=== PATIENT | male | born 1930 | race Caucasian/White ===

== ENCOUNTER → 2016-10-04 | Outpatient (CLI) | payer MEDICARE, OTHER ==
--- NOTE | 2016-10-04 09:57 | US ---
EXAMINATION TYPE: US kidneys/renal and bladder DATE OF EXAM: 10/04/2016 8:46 AM COMPARISON: CT abdomen and pelvis January 02, 2016. Prior renal ultrasound December 31, 2015. CLINICAL HISTORY: Renal Failure N19. hx of renal cyst EXAM MEASUREMENTS: Right Kidney: 9.0 x 4.0 x 4.4 cm Left Kidney: 8.7 x 4.0 x 4.4 cm TECHNOLOGIST IMPRESSION: Right Kidney: lower pole simple cyst= 0.8 x 1.0 x 0.9 cm Left Kidney: lower pole simple cyst= 1.0 x 0.9 x 0.8 cm Bladder: Suboptimally distended, wnl Left Jet seen There is no evidence for hydronephrosis at this point in time. No masses are identified. The urinar y bladder is not greatly distended but there is no intraluminal mass or abnormal wall thickening seen . Distal left ureteral jet is seen. Right jet is not clearly identified. There is slight diminished size to both kidneys with slight cortical thinning, finding presumed on ba sis of product of chronic medical renal disease. IMPRESSION: No hydronephrosis is evident bilaterally.
== END | disposition home or self-care (01) ==
LOC: RADUSWWP 08:15
PROVIDERS: ATTEND Family Medicine
DX: N19 Unspecified kidney failure (principal)
CPT/HCPCS: 76770

== ENCOUNTER 2016-10-13 11:44 | Emergency (ER) | payer MEDICARE, OTHER ==
[2016-10-13 12:00] VITALS: BP 129/71; PULSE 89; RESP 20; TEMP 96.9
[2016-10-13] MEDS ORDERED: diphenhydrAMINE 50 MG CAP PO STA (12:23)
[2016-10-13] MEDS ORDERED: predniSONE 20 MG TAB PO STA (12:24)
[2016-10-13] MEDS ORDERED: FAMOTIDINE 20 MG TAB PO STA (12:24)
--- NOTE | 2016-10-13 12:28 | ED ---
Skin/Abscess/FB HPI - General Chief complaint: Skin/Abscess/Foreign Body Stated complaint: rash Time Seen by Provider: 10/13/16 12:02 Source: patient, RN notes reviewed Mode of arrival: wheelchair Limitations: no limitations - History of Present Illness Initial comments: This patient is an 86-year-old man who presents to be evaluated for a rash that he believes is a reaction to something he had eaten last night for dinner. The patient states she was feeling well when he went to sleep but woke with itching. He noticed that he had a rash to both arms and legs as well as his trunk. The patient denies any other new exposures that he is aware of. He is denying any mucous membrane involvement of the rash. He denies swelling of the lips or gums or tongue. Patient is not having any cough or wheezing. Patient denies any nausea, vomiting or diarrhea. MD complaint: rash -: hour(s) Tetanus Up to Date: yes Location: generalized Severity: moderate Quality: other (Itching) Consistency: constant Improves with: none Worsens with: none Context: none Associated symptoms: denies other symptoms - Related Data Home Medications Medication Instructions Recorded Confirmed DULoxetine HCL [Cymbalta] 30 mg PO DAILY 12/29/15 10/13/16 Gabapentin [Neurontin] 100 mg PO TID 12/29/15 10/13/16 HYDROcodone/APAP 10-325MG [[place] 1 tab PO TID PRN 12/29/15 10/13/16 10-325] Isosorbide Mononitrate [Ismo] 20 mg PO DAILY 12/29/15 10/13/16 Levothyroxine Sodium [Levoxyl] 75 mcg PO DAILY 12/29/15 10/13/16 Lisinopril [Prinivil] 10 mg PO DAILY 12/29/15 10/13/16 Multivitamin [Men's Multi-Vitamin] 1 tab PO DAILY 12/29/15 10/13/16 Pravastatin Sodium [Pravachol] 40 mg PO DAILY 12/29/15 10/13/16 amLODIPine [Norvasc] 5 mg PO DAILY 12/29/15 10/13/16 Previous Rx's Medication Instructions Recorded Ipratropium-Albuterol Nebulize 3 ml INHALATION RT-QID #120 01/03/16 [Duoneb 0.5 mg-3 mg/3 ml Soln] ampul.neb traMADol HCl [Ultram] 50 mg PO Q6H PRN #20 tab 07/14/16 Azithromycin [Zithromax] 500 mg PO DAILY #7 tab 07/23/16 predniSONE 0 mg PO DIRECTED #40 tab 07/23/16 Famotidine [Pepcid] 20 mg PO DAILY #14 tablet 10/13/16 diphenhydrAMINE HCL [Benadryl] 25 mg PO Q4HR PRN 28 Days 10/13/16 predniSONE 20 mg PO BID #8 tab 10/13/16 Allergies Allergy/AdvReac Type Severity Reaction Status Date / Time No Known Allergies Allergy Verified 10/13/16 12:00 Review of Systems ROS Statement: Those systems with pertinent positive or pertinent negative responses have been documented in the HPI. ROS Other: All systems not noted in ROS Statement are negative. Constitutional: Denies: fever, chills Eyes: Denies: eye pain, eye discharge, vision change ENT: Denies: throat pain, congestion Respiratory: Denies: cough, dyspnea, wheezes Cardiovascular: Denies: chest pain Gastrointestinal: Denies: abdominal pain, nausea, vomiting, diarrhea Genitourinary: Denies: dysuria Skin: Reports: rash Neurological: Denies: headache Past Medical History Past Medical History: Coronary Artery Disease (CAD), COPD, Hyperlipidemia, Hypertension, Thyroid Disorder Additional Past Medical History / Comment(s): Benign prostatic hypertrophy History of Any Multi-Drug Resistant Organisms: None Reported Past Surgical History: Back Surgery, Cholecystectomy, Orthopedic Surgery Additional Past Surgical History / Comment(s): Bilateral cataract removal and lens implants, left knee open surgery, EGD, heart catheterization. Patient has never had a colonoscopy. Past Anesthesia/Blood Transfusion Reactions: No Reported Reaction Past Psychological History: No Psychological Hx Reported Smoking Status: Current some day smoker Past Alcohol Use History: None Reported Additional Past Alcohol Use History / Comment(s): Perla Looney hasn't been a smoker of cigars since he was 16 years of age. He is currently smoking one small cigar per day. He quit marijuana many years ago. He denies any other street drug use. He denies any alcohol use. He lives at home with his and adult grandson. Past Drug Use History: Marijuana - Past Family History Mother Family Medical History: Cancer Additional Family Medical History / Comment(s): Mother at age 96 Unsure what type of cancer Father Family Medical History: COPD Additional Family Medical History / Comment(s): Father at age 88 from emphysema Brother(s) Additional Family Medical History / Comment(s): Patient has 7 brothers. Sister(s) Additional Family Medical History / Comment(s): Patient has 1 sister. Daughter(s) Additional Family Medical History / Comment(s): He has 4 daughters and 2 sons. General Exam Limitations: no limitations General appearance: alert, in no apparent distress Head exam: Present: atraumatic, normocephalic Eye exam: Present: normal appearance. Absent: scleral icterus, conjunctival injection, periorbital swelling ENT exam: Present: normal oropharynx, mucous membranes moist Respiratory exam: Present: normal lung sounds bilaterally. Absent: respiratory distress, wheezes, rales, rhonchi, stridor Cardiovascular Exam: Present: regular rate, normal rhythm, normal heart sounds. Absent: systolic murmur, diastolic murmur, rubs, gallop GI/Abdominal exam: Present: soft. Absent: tenderness, guarding, rebound Extremities exam: Present: normal inspection, normal capillary refill. Absent: pedal edema, calf tenderness Neurological exam: Present: alert Skin exam: Present: warm, dry, intact, normal color, rash, urticaria (Patient has urticaria to both arms and legs as well as the trunk. There is some confluence of the hives in the axilla eye laterally and also on the bilateral hips.). Absent: diaphoretic, petechiae, pallor, mottled Course Vital Signs 10/13/16 11:58 Temperature 96.9 F L Pulse Rate 89 Respiratory 20 Rate Blood Pressure 129/71 O2 Sat by Pulse 95 Oximetry Disposition Clinical Impression: Urticaria Disposition: HOME SELF-CARE Condition: Good Instructions: Urticaria (ED) Prescriptions: Famotidine [Pepcid] 20 mg PO DAILY #14 tablet diphenhydrAMINE HCL [Benadryl] 25 mg PO Q4HR PRN 28 Days PRN Reason: Rash predniSONE 20 mg PO BID #8 tab Referrals: Alen Champion MD [Primary Care Provider] - 1-2 days
== END 2016-10-13 13:18 | disposition home or self-care (01) ==
LOC: EC 11:44
DX: L50.9 Urticaria, unspecified (principal); I25.10 Atherosclerotic heart disease of native coronary artery without angina pectoris; J44.9 Chronic obstructive pulmonary disease, unspecified; I10 Essential (primary) hypertension; E78.5 Hyperlipidemia, unspecified; E07.9 Disorder of thyroid, unspecified; F17.210 Nicotine dependence, cigarettes, uncomplicated; Z79.52 Long term (current) use of systemic steroids; Z79.899 Other long term (current) drug therapy
CPT/HCPCS: 99282; J7512

== ENCOUNTER → 2016-10-28 | Outpatient (CLI) | payer MEDICARE, OTHER ==
--- NOTE | 2016-10-28 11:59 | US ---
EXAMINATION TYPE: US scrotum with doppler. Grayscale and color Doppler Duplex imaging performed of t jimy scrotum. DATE OF EXAM: 10/28/2016 11:33 AM COMPARISON: No previous CLINICAL HISTORY: Rt Testicular Pain N50.811. Right testicular pain and swelling EXAM MEASUREMENTS: TESTICLES: Right Testicle: 3.4 x 2.1 x 2.6 cm, heterogeneous Left Testicle: 3.8 x 1.8 x 2.5 cm, heterogeneous EPIDIDYMIS HEAD: Right Epididymis: 1.7 x 2.7 x 3.2 cm Left Epididymis: 0.7 x 1.2 x 2.1 cm Doppler performed to assess for testicular vascularity; good arterial color flow within bilateral rach ticles is seen, unable to obtain venous flow within bilateral testicles. Right epididymis: 1.4 x 2.0 x 3.0cm cystic area Left epididymis: 0.6 x 0.8 x 0.9cm complex cystic area Presence of hydroceles: right 5.3cm, left 3.6cm Presence of varicoceles: no Right medial to epididymis: 1.6 x 1.4 x 1.5cm mobile hypoechoic area with echogenic shadowing cente r IMPRESSION: 1. There are bilateral epididymal head cysts with some complexity to the region on the left. Epididym itis in the differential. 2. Bilateral hydroceles 3. No discrete mass seen within the testes. The tissue however is heterogeneous bilaterally which cou ld be correlated with serum tumor markers as necessary #4 there is a hypoechoic nodule medial to the right epididymis within the scrotal sac measuring 1.6 x 1.5 cm with a central area of calcification. This appears separate from both the test the and the epididymis. Small mass in the differential. Kalie elate clinically.
== END ==
LOC: RADUSWWP 11:02
PROVIDERS: ATTEND Family Medicine
DX: N50.3 Cyst of epididymis (principal); N43.3 Hydrocele, unspecified; N50.811 Right testicular pain
CPT/HCPCS: 76870; 93976

== ENCOUNTER → 2016-11-26 | Outpatient (CLI) | payer MEDICARE, OTHER ==
--- NOTE | 2016-11-26 12:27 | XR ---
EXAMINATION TYPE: XR Hip Complete RT DATE OF EXAM: 11/26/2016 12:17 PM COMPARISON: NONE HISTORY: Pain TECHNIQUE: 2 views submitted FINDINGS: There is no evidence of erosive change or acute fracture. Hypertrophic change noted. 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 Mild to moderate axial narrowing of the joint spa ce. IMPRESSION: 1. Arthropathy of the hip. 2. Correlate for acetabular labral tear..
== END | disposition home or self-care (01) ==
LOC: RADXRMAIN 12:01
PROVIDERS: ATTEND Physician Assistant
DX: M12.851 Other specific arthropathies, not elsewhere classified, right hip (principal)
CPT/HCPCS: 73502

== ENCOUNTER 2017-01-14 11:07 | Inpatient (IN) | payer MEDICARE, OTHER ==
[2017-01-14] MEDS ORDERED: ALBUTEROL NEBULIZED 2.5 MG/3 ML INHALATION STA (12:13)
[2017-01-14] MEDS ORDERED: SODIUM CHLORIDE 0.9% 1,000 ML IV STA ×2 (12:13→13:37)
[2017-01-14] MEDS ORDERED: methylPREDNISolone SOD SUCCI 125 MG/2 ML VIAL IV STA (12:13)
[2017-01-14] MEDS ORDERED: IPRATROPIUM 0.5 MG/2.5 ML NEBU INHALATION STA (12:13)
--- NOTE | 2017-01-14 12:13 | ED ---
General Adult HPI - General Chief complaint: Shortness of Breath Stated complaint: Chest Pain, SOB Time Seen by Provider: 01/14/17 11:54 Source: patient, RN notes reviewed, old records reviewed Mode of arrival: wheelchair Limitations: no limitations - History of Present Illness Initial comments: This is a 86-year-old male the ER for evaluation. This patient today presents for evaluation of shortness of breath. Increasing shortness of breath cough congestion. Patient states 4 days of shortness of breath. History of COPD history of smoking. No chest pain. No travel history no sick contacts, patient denies fevers - Related Data Home Medications Medication Instructions Recorded Confirmed DULoxetine HCL [Cymbalta] 30 mg PO DAILY 12/29/15 10/13/16 Gabapentin [Neurontin] 100 mg PO TID 12/29/15 10/13/16 HYDROcodone/APAP 10-325MG [[place] 1 tab PO TID PRN 12/29/15 10/13/16 10-325] Isosorbide Mononitrate [Ismo] 20 mg PO DAILY 12/29/15 10/13/16 Levothyroxine Sodium [Levoxyl] 75 mcg PO DAILY 12/29/15 10/13/16 Lisinopril [Prinivil] 10 mg PO DAILY 12/29/15 10/13/16 Multivitamin [Men's Multi-Vitamin] 1 tab PO DAILY 12/29/15 10/13/16 Pravastatin Sodium [Pravachol] 40 mg PO DAILY 12/29/15 10/13/16 amLODIPine [Norvasc] 5 mg PO DAILY 12/29/15 10/13/16 Previous Rx's Medication Instructions Recorded Ipratropium-Albuterol Nebulize 3 ml INHALATION RT-QID #120 01/03/16 [Duoneb 0.5 mg-3 mg/3 ml Soln] ampul.neb traMADol HCl [Ultram] 50 mg PO Q6H PRN #20 tab 07/14/16 Azithromycin [Zithromax] 500 mg PO DAILY #7 tab 07/23/16 predniSONE 0 mg PO DIRECTED #40 tab 07/23/16 Famotidine [Pepcid] 20 mg PO DAILY #14 tablet 10/13/16 diphenhydrAMINE HCL [Benadryl] 25 mg PO Q4HR PRN 28 Days 10/13/16 predniSONE 20 mg PO BID #8 tab 10/13/16 Allergies Allergy/AdvReac Type Severity Reaction Status Date / Time No Known Allergies Allergy Verified 01/14/17 11:30 Review of Systems ROS Statement: Those systems with pertinent positive or pertinent negative responses have been documented in the HPI. ROS Other: All systems not noted in ROS Statement are negative. Past Medical History Past Medical History: Coronary Artery Disease (CAD), COPD, Hyperlipidemia, Hypertension, Thyroid Disorder Additional Past Medical History / Comment(s): Benign prostatic hypertrophy History of Any Multi-Drug Resistant Organisms: None Reported Past Surgical History: Back Surgery, Cholecystectomy, Orthopedic Surgery Additional Past Surgical History / Comment(s): Bilateral cataract removal and lens implants, left knee open surgery, EGD, heart catheterization. Patient has never had a colonoscopy. Past Anesthesia/Blood Transfusion Reactions: No Reported Reaction Past Psychological History: No Psychological Hx Reported Smoking Status: Current some day smoker Past Alcohol Use History: None Reported Additional Past Alcohol Use History / Comment(s): Perla Looney hasn't been a smoker of cigars since he was 16 years of age. He is currently smoking one small cigar per day. He quit marijuana many years ago. He denies any other street drug use. He denies any alcohol use. He lives at home with his and adult grandson. Past Drug Use History: Marijuana - Past Family History Mother Family Medical History: Cancer Additional Family Medical History / Comment(s): Mother at age 96 Unsure what type of cancer Father Family Medical History: COPD Additional Family Medical History / Comment(s): Father at age 88 from emphysema Brother(s) Additional Family Medical History / Comment(s): Patient has 7 brothers. Sister(s) Additional Family Medical History / Comment(s): Patient has 1 sister. Daughter(s) Additional Family Medical History / Comment(s): He has 4 daughters and 2 sons. General Exam Limitations: no limitations General appearance: alert, in no apparent distress Head exam: Present: atraumatic, normocephalic, normal inspection Eye exam: Present: normal appearance, PERRL, EOMI. Absent: scleral icterus, conjunctival injection, periorbital swelling ENT exam: Present: mucous membranes dry, mucous membranes moist Neck exam: Present: normal inspection. Absent: tenderness, meningismus, lymphadenopathy Respiratory exam: Present: normal lung sounds bilaterally, wheezes, accessory muscle use, decreased breath sounds, prolonged expiratory. Absent: respiratory distress, rales, rhonchi, stridor Cardiovascular Exam: Present: regular rate, normal rhythm, normal heart sounds. Absent: systolic murmur, diastolic murmur, rubs, gallop, clicks GI/Abdominal exam: Present: soft, normal bowel sounds. Absent: distended, tenderness, guarding, rebound, rigid Extremities exam: Present: normal inspection, full ROM, normal capillary refill. Absent: tenderness, pedal edema, joint swelling, calf tenderness Back exam: Present: normal inspection Neurological exam: Present: alert, oriented X3, CN II-XII intact Psychiatric exam: Present: normal affect, normal mood Skin exam: Present: warm, dry, intact, normal color. Absent: rash Course Vital Signs 01/14/17 01/14/17 01/14/17 11:25 12:27 12:46 Temperature 98.2 F Pulse Rate 85 85 78 Respiratory 22 18 Rate Blood Pressure 166/81 140/67 O2 Sat by Pulse 96 97 Oximetry 01/14/17 13:27 Temperature Pulse Rate 73 Respiratory Rate Blood Pressure O2 Sat by Pulse Oximetry - Reevaluation(s) Reevaluation #1: 01/14/17 12:20 Patient does have continuing shortness of breath although not improve with breathing treatment, per records recent hospital admission about a year ago Reevaluation #2: 01/14/17 13:38 Mild improvement after breathing treatment, still with shortness of breath Medical Decision Making - Medical Decision Making 86 mailed ER physician shortness with cough congestion episodic fevers. Positive COPD exacerbation, severe shortness of breath, no improvement with breathing treatment, patient be admitted for continued breathing treatments, IV hydration and steroids. - Lab Data Result diagrams: 01/14/17 12:25 01/14/17 12:25 Lab Results 01/14/17 01/14/17 01/14/17 Range/Units 12:25 12:25 12:25 WBC 12.0 H (3.8-10.6) k/uL RBC 4.33 (4.30-5.90) m/uL Hgb 13.9 (13.0-17.5) gm/dL Hct 43.4 (39.0-53.0) % MCV 100.2 H (80.0-100.0) fL MCH 32.1 (25.0-35.0) pg MCHC 32.1 (31.0-37.0) g/dL RDW 12.9 (11.5-15.5) % Plt Count 263 (150-450) k/uL Neutrophils % 73 % Lymphocytes % 13 % Monocytes % 10 % Eosinophils % 2 % Basophils % 0 % Neutrophils # 8.7 H (1.3-7.7) k/uL Lymphocytes # 1.6 (1.0-4.8) k/uL Monocytes # 1.2 H (0-1.0) k/uL Eosinophils # 0.3 (0-0.7) k/uL Basophils # 0.1 (0-0.2) k/uL PT (9.0-12.0) sec INR (<1.1) APTT (22.0-30.0) sec Sodium 140 (137-145) mmol/L Potassium 4.2 (3.5-5.1) mmol/L Chloride 107 (98-107) mmol/L Carbon Dioxide 21 L (22-30) mmol/L Anion Gap 12 mmol/L BUN 28 H (9-20) mg/dL Creatinine 1.46 H (0.66-1.25) mg/dL Est GFR (MDRD) Af Amer 56 (>60 ml/min/1.73 sqM) Est GFR (MDRD) Non-Af 46 (>60 ml/min/1.73 sqM) Glucose 141 H (74-99) mg/dL Calcium 9.1 (8.4-10.2) mg/dL Magnesium 2.0 (1.6-2.3) mg/dL Total Bilirubin 1.2 (0.2-1.3) mg/dL AST 22 (17-59) U/L ALT 24 (21-72) U/L Alkaline Phosphatase 74 (38-126) U/L Total Creatine Kinase 105 (55-170) U/L CK-MB (CK-2) 2.2 (0.0-2.4) ng/mL CK-MB (CK-2) Rel Index 2.1 Troponin I <0.012 (0.000-0.034) ng/mL NT-Pro-B Natriuret Pep pg/mL Total Protein 6.7 (6.3-8.2) g/dL Albumin 3.9 (3.5-5.0) g/dL 01/14/17 01/14/17 Range/Units 12:25 12:25 WBC (3.8-10.6) k/uL RBC (4.30-5.90) m/uL Hgb (13.0-17.5) gm/dL Hct (39.0-53.0) % MCV (80.0-100.0) fL MCH (25.0-35.0) pg MCHC (31.0-37.0) g/dL RDW (11.5-15.5) % Plt Count (150-450) k/uL Neutrophils % % Lymphocytes % % Monocytes % % Eosinophils % % Basophils % % Neutrophils # (1.3-7.7) k/uL Lymphocytes # (1.0-4.8) k/uL Monocytes # (0-1.0) k/uL Eosinophils # (0-0.7) k/uL Basophils # (0-0.2) k/uL PT 10.0 (9.0-12.0) sec INR 1.0 (<1.1) APTT 28.8 (22.0-30.0) sec Sodium (137-145) mmol/L Potassium (3.5-5.1) mmol/L Chloride (98-107) mmol/L Carbon Dioxide (22-30) mmol/L Anion Gap mmol/L BUN (9-20) mg/dL Creatinine (0.66-1.25) mg/dL Est GFR (MDRD) Af Amer (>60 ml/min/1.73 sqM) Est GFR (MDRD) Non-Af (>60 ml/min/1.73 sqM) Glucose (74-99) mg/dL Calcium (8.4-10.2) mg/dL Magnesium (1.6-2.3) mg/dL Total Bilirubin (0.2-1.3) mg/dL AST (17-59) U/L ALT (21-72) U/L Alkaline Phosphatase (38-126) U/L Total Creatine Kinase (55-170) U/L CK-MB (CK-2) (0.0-2.4) ng/mL CK-MB (CK-2) Rel Index Troponin I (0.000-0.034) ng/mL NT-Pro-B Natriuret Pep 658 pg/mL Total Protein (6.3-8.2) g/dL Albumin (3.5-5.0) g/dL - Radiology Data Radiology results: report reviewed (Chest x-ray shows reactive airway disease), image reviewed Disposition Clinical Impression: Acute exacerbation of chronic obstructive airways disease, Hypoxia, Leukocytosis, Dehydration Disposition: ADMITTED IP TO THIS HOSP Condition: Fair Referrals: Alen Champion MD [Primary Care Provider] - 1-2 days
[2017-01-14 12:47] LABS: Basophils # (A) 0.1 k/uL (0-0.2); Basophils % (A) 0 %; CHCM 33.1; Eosinophils # (A) 0.3 k/uL (0-0.7); Eosinophils % (A) 2 %; HCT 43.4 % (39.0-53.0); HDW 2.28; HGB 13.9 gm/dL (13.0-17.5); Luc # (Auto) 0.24; Luc % (Auto) 2; Lymphocytes # (A) 1.6 k/uL (1.0-4.8); Lymphocytes % (A) 13 %; MCH 32.1 pg (25.0-35.0); MCHC 32.1 g/dL (31.0-37.0); MCV 100.2 fL (80.0-100.0); Monocytes # (A) 1.2 k/uL (0-1.0); Monocytes % (A) 10 %; Neutrophils # (A) 8.7 k/uL (1.3-7.7); Neutrophils % (A) 73 %; RBC 4.33 m/uL (4.30-5.90); RDW 12.9 % (11.5-15.5)
[2017-01-14 12:48] LABS: Partial Thromboplastin Time 28.8 sec (22.0-30.0)
[2017-01-14 13:03] LABS: Creatine Kinase 105 U/L (55-170)
[2017-01-14 13:16] LABS: Creatine Kinase MB 2.2 ng/mL (0.0-2.4); Troponin I <0.012 ng/mL (0.000-0.034)
[2017-01-14 13:25] LABS: Calcium 9.1 mg/dL (8.4-10.2); Potassium 4.2 mmol/L (3.5-5.1); Total Bilirubin 1.2 mg/dL (0.2-1.3); Total Protein 6.7 g/dL (6.3-8.2)
[2017-01-14] MEDS ORDERED: PNEUMONIA PROTOCOL UTILIZED 1 EACH MISC PO PRN (13:35)
[2017-01-14] MEDS ORDERED: SODIUM CHLORIDE 0.9% 500 ML IV STA (13:37)
[2017-01-14] MEDS ORDERED: AZITHROMYCIN 500 MG in SODIUM CHLORIDE 0.9% 250 ML IVPB STA (13:38)
--- NOTE | 2017-01-14 14:12 | XR ---
EXAMINATION TYPE: XR chest 1V portable DATE OF EXAM: 01/14/2017 12:33 PM COMPARISON: 07/21/2016 INDICATION: Short of breath, productive cough x5 days TECHNIQUE: Single frontal view of the chest is obtained. FINDINGS: The heart size is normal. The pulmonary vasculature is normal. The lungs are clear. Previous left lung infiltrate is resolved. IMPRESSION: 1. No acute pulmonary process.
[2017-01-14 15:30] VITALS: BMI 24.5
[2017-01-14] MEDS ORDERED: MECLIZINE 25 MG TAB PO PRN (15:34)
[2017-01-14] MEDS: HYDROcodone/APAP 10-325MG 1 EACH TAB PO PRN (15:55)
[2017-01-14] MEDS: IPRATROPIUM-ALBUTEROL 3 ML NEB INHALATION SCH ×2 (16:06→20:10)
[2017-01-14] MEDS: GABAPENTIN 100 MG CAP PO SCH ×2 (16:52→21:43)
[2017-01-14] MEDS: SODIUM CHLORIDE 0.9% 1,000 ML IV SCH ×2 (16:52→20:35)
[2017-01-14] MEDS: methylPREDNISolone SOD SUCCI 125 MG/2 ML VIAL IV SCH ×2 (16:52→23:08)
[2017-01-14] MEDS: MONTELUKAST 10 MG TAB PO SCH (20:36)
[2017-01-14 20:42] LABS: Glucose,Whole Blood 218 mg/dL (75-99)
[2017-01-14] MEDS: INSULIN LISPRO (humaLOG) 300 UNIT/3 ML VIAL SQ SCH (21:43)
[2017-01-14] MEDS: traMADol 50 MG TAB PO PRN (21:48)
[2017-01-15] MEDS: HYDROcodone/APAP 10-325MG 1 EACH TAB PO PRN ×2 (01:06→23:17)
[2017-01-15] MEDS: methylPREDNISolone SOD SUCCI 125 MG/2 ML VIAL IV SCH ×4 (05:21→23:15)
[2017-01-15] MEDS: LEVOTHYROXINE 75 MCG TAB PO SCH (05:21)
[2017-01-15] MEDS: IPRATROPIUM-ALBUTEROL 3 ML NEB INHALATION SCH ×4 (07:12→20:57)
[2017-01-15 07:43] LABS: Glucose,Whole Blood 139 mg/dL (75-99)
[2017-01-15] MEDS: ENOXAPARIN 40 MG/0.4 ML SYRINGE SQ SCH (07:59)
[2017-01-15] MEDS: ISOSORBIDE MONONITRATE 20 MG TAB PO SCH (07:59)
[2017-01-15] MEDS: GABAPENTIN 100 MG CAP PO SCH ×3 (07:59→20:13)
[2017-01-15] MEDS: INSULIN LISPRO (humaLOG) 300 UNIT/3 ML VIAL SQ SCH ×4 (07:59→20:58)
[2017-01-15] MEDS: PRAVASTATIN SODIUM 40 MG TAB PO SCH (08:00)
[2017-01-15] MEDS: DULoxetine HCL 30 MG CAPSULE.DR PO SCH (08:00)
[2017-01-15] MEDS: FAMOTIDINE 20 MG TAB PO SCH (08:00)
[2017-01-15] MEDS: LISINOPRIL 10 MG TAB PO SCH (08:00)
[2017-01-15] MEDS: amLODIPine 5 MG TAB PO SCH (08:00)
[2017-01-15] MEDS: SODIUM CHLORIDE 0.9% 1,000 ML IV SCH ×2 (08:01→16:06)
--- NOTE | 2017-01-15 08:37 | XR ---
EXAMINATION TYPE: XR chest 2V DATE OF EXAM: 01/15/2017 7:13 AM COMPARISON: Chest x-ray from yesterday. Older chest x-ray and CT chest July 21, 2016. HISTORY: Pneumonia progress study. TECHNIQUE: Frontal and lateral views of the chest are obtained. FINDINGS: There is is background of mild chronic emphysematous change. There is left midlung lateral linear scarring or atelectasis. There is new patchy left basilar atelectasis and/or infiltrate. Righ t lung remains clear. No pleural effusion or pneumothorax is seen bilaterally. The cardiac silhouett e size is within normal limits with atherosclerotic thoracic aorta. The osseous structures are aniceto neralized. IMPRESSION: Chronic changes with new patchy left basilar atelectasis and/or infiltrate, progress liliane dy advised.
[2017-01-15 11:43] LABS: Glucose,Whole Blood 123 mg/dL (75-99)
[2017-01-15 12:31] LABS: Hemoglobin A1C 6.3 % (4.2-6.1)
[2017-01-15] MEDS: AZITHROMYCIN 500 MG in SODIUM CHLORIDE 0.9% 250 ML IVPB SCH (13:13)
[2017-01-15] MEDS: MULTIVITAMINS, THERA 1 EACH TAB PO SCH (13:14)
--- NOTE | 2017-01-15 14:23 | P.HPIM ---
History of Present Illness 46-year-old male was brought to the emergency room with complaints of increasing shortness of breath with cough. Patient has history of COPD smoking. Chest x-ray shows reactive airway disease Review of Systems Constitutional: Reports fatigue Respiratory: Reports dyspnea Past Medical History Past Medical History: Coronary Artery Disease (CAD), Chest Pain / Angina, COPD, Eye Disorder, Hyperlipidemia, Hypertension, Memory Impairment, Pneumonia, Prostate Disorder, Respiratory Disorder, Rheumatoid Arthritis (RA), Thyroid Disorder Additional Past Medical History / Comment(s): Benign prostatic hypertrophy History of Any Multi-Drug Resistant Organisms: None Reported Past Surgical History: Back Surgery, Cholecystectomy, Heart Catheterization, Orthopedic Surgery Additional Past Surgical History / Comment(s): Bilateral cataract removal and lens implants, left knee open surgery, EGD, heart catheterization. Patient has never had a colonoscopy. Past Anesthesia/Blood Transfusion Reactions: No Reported Reaction Past Psychological History: No Psychological Hx Reported Smoking Status: Former smoker Past Alcohol Use History: None Reported Additional Past Alcohol Use History / Comment(s): Perla Looney hasn't been a smoker of cigars since he was 16 years of age. He is currently smoking one small cigar per day. He quit marijuana many years ago. He denies any other street drug use. He denies any alcohol use. He lives at home with his and adult grandson. Past Drug Use History: Marijuana - Past Family History Mother Family Medical History: Cancer Additional Family Medical History / Comment(s): Mother at age 96 Unsure what type of cancer Father Family Medical History: Cancer, COPD Additional Family Medical History / Comment(s): Father at age 88 from emphysema Brother(s) Additional Family Medical History / Comment(s): Patient has 7 brothers. Sister(s) Additional Family Medical History / Comment(s): Patient has 1 sister. Daughter(s) Additional Family Medical History / Comment(s): He has 4 daughters and 2 sons. Medications and Allergies Home Medications Medication Instructions Recorded Confirmed Type DULoxetine HCL [Cymbalta] 30 mg PO DAILY 12/29/15 01/14/17 History Gabapentin [Neurontin] 100 mg PO TID 12/29/15 01/14/17 History HYDROcodone/APAP 10-325MG [[place] 1 tab PO TID PRN 12/29/15 01/14/17 History 10-325] Isosorbide Mononitrate [Ismo] 20 mg PO DAILY 12/29/15 01/14/17 History Levothyroxine Sodium [Levoxyl] 75 mcg PO DAILY 12/29/15 01/14/17 History Lisinopril [Prinivil] 10 mg PO DAILY 12/29/15 01/14/17 History Multivitamin [Men's Multi-Vitamin] 1 tab PO DAILY 12/29/15 01/14/17 History Pravastatin Sodium [Pravachol] 40 mg PO DAILY 12/29/15 01/14/17 History amLODIPine [Norvasc] 5 mg PO DAILY 12/29/15 01/14/17 History Meclizine HCl 25 mg PO DAILY PRN 01/14/17 01/14/17 History Montelukast Sodium [Singulair] 10 mg PO HS 01/14/17 01/14/17 History Allergies Allergy/AdvReac Type Severity Reaction Status Date / Time No Known Allergies Allergy Verified 01/14/17 14:02 Physical Exam Vitals: Vital Signs Temp Pulse Pulse Resp BP BP Pulse Ox 01/15/17 11:43 96 01/15/17 11:35 94 01/15/17 07:30 94 01/15/17 07:20 92 01/15/17 07:00 97 F L 88 16 148/79 96 01/14/17 23:00 97.1 F L 102 H 16 149/83 96 01/14/17 20:30 89 01/14/17 20:11 95 01/14/17 16:09 75 97 01/14/17 14:50 97.3 F L 90 18 167/80 97 01/14/17 14:33 98.3 F 90 20 133/55 98 Intake and Output 01/14/17 01/15/17 01/15/17 22:59 06:59 14:59 Other: Voiding Method Toilet Toilet # Voids 2 2 Weight 84.5 kg - Constitutional General appearance: mild distress - EENT Eyes: PERRLA Ears: bilateral: normal - Neck Neck: normal ROM - Respiratory Respiratory: bilateral: diminished - Cardiovascular Rhythm: regular - Gastrointestinal General gastrointestinal: soft - Integumentary Integumentary: normal - Neurologic Neurologic: CNII-XII intact - Psychiatric Patient confused to date and year Psychiatric: A&O x's 3, appropriate affect, intact judgment & insight Results CBC & Chem 7: 01/14/17 12:25 01/14/17 12:25 Labs: Abnormal Lab Results - Last 24 Hours (Table) 01/14/17 01/14/17 01/15/17 Range/Units 12:25 20:37 07:39 POC Glucose (mg/dL) 218 H 139 H (75-99) mg/dL Hemoglobin A1c 6.3 H (4.2-6.1) % 01/15/17 Range/Units 11:37 POC Glucose (mg/dL) 123 H (75-99) mg/dL Hemoglobin A1c (4.2-6.1) % Microbiology - Last 24 Hours (Table) 01/14/17 20:13 Gram Stain - Preliminary Sputum Sputum Culture - Preliminary Chest x-ray: report reviewed Thrombosis Risk Factor Assmnt - Choose All That Apply Any of the Below Risk Factors Present?: Yes Each Factor Represents 1 point: Abnormal pulmonary function (COPD), Serious lung disease incl. pneumonia (< 1month) Other Risk Factors: Yes Each Risk Factor Represents 3 Points: Age 75 years or older Other congenital or acquired thrombophilia - If yes, enter type in comment: No Thrombosis Risk Factor Assessment Total Risk Factor Score: 5 Thrombosis Risk Factor Assessment Level: High Risk Assessment and Plan Plan: Assessment Acute exacerbation of COPD hypoxia leukocytosis history of coronary disease Hypothyroidism Hypertension Hyperlipidemia Memory impairment Rheumatoid arthritis BPH Plan Pulmonology consultation
[2017-01-15 15:08] LABS: Creatine Kinase MB 8.9 ng/mL (0.0-2.4); Troponin I 0.324 ng/mL (0.000-0.034)
[2017-01-15 17:07] LABS: Glucose,Whole Blood 162 mg/dL (75-99)
[2017-01-15] MEDS: MONTELUKAST 10 MG TAB PO SCH (20:12)
[2017-01-15 20:37] LABS: Glucose,Whole Blood 126 mg/dL (75-99)
[2017-01-16 06:19] LABS: Glucose,Whole Blood 127 mg/dL (75-99)
[2017-01-16] MEDS: LEVOTHYROXINE 75 MCG TAB PO SCH (06:42)
[2017-01-16] MEDS: methylPREDNISolone SOD SUCCI 125 MG/2 ML VIAL IV SCH ×3 (06:42→18:29)
[2017-01-16] MEDS: INSULIN LISPRO (humaLOG) 300 UNIT/3 ML VIAL SQ SCH ×4 (06:43→21:25)
[2017-01-16] MEDS: SODIUM CHLORIDE 0.9% 1,000 ML IV SCH ×2 (06:43→15:19)
[2017-01-16] MEDS: IPRATROPIUM-ALBUTEROL 3 ML NEB INHALATION SCH ×4 (08:22→20:48)
[2017-01-16] MEDS: ENOXAPARIN 40 MG/0.4 ML SYRINGE SQ SCH (09:18)
[2017-01-16] MEDS: ISOSORBIDE MONONITRATE 20 MG TAB PO SCH (09:19)
[2017-01-16] MEDS: GABAPENTIN 100 MG CAP PO SCH ×3 (09:20→21:08)
[2017-01-16] MEDS: MULTIVITAMINS, THERA 1 EACH TAB PO SCH (09:20)
[2017-01-16] MEDS: amLODIPine 5 MG TAB PO SCH (09:21)
[2017-01-16] MEDS: LISINOPRIL 10 MG TAB PO SCH (09:21)
[2017-01-16] MEDS: PRAVASTATIN SODIUM 40 MG TAB PO SCH (09:21)
[2017-01-16] MEDS: DULoxetine HCL 30 MG CAPSULE.DR PO SCH (09:21)
[2017-01-16] MEDS: FAMOTIDINE 20 MG TAB PO SCH (09:21)
[2017-01-16] MEDS: traMADol 50 MG TAB PO PRN (09:25)
[2017-01-16] MEDS: HYDROcodone/APAP 10-325MG 1 EACH TAB PO PRN (09:27)
--- NOTE | 2017-01-16 10:56 | P.CNPUL ---
History of Present Illness Consult date: 01/16/17 Requesting physician: Alen Champion Reason for consult: COPD Chief complaint: Shortness of breath History of present illness: This is an 86-year-old male patient being evaluated and examined today on do sixth floor. The patient came into the emergency room with increasing shortness of breath cough and congestion the patient had having increase in severity over the last few days. This patient has a long history of COPD as well as smoking. Patient had minimal improvement with treatment in the emergency room therefore he was admitted to the hospital with acute exacerbation of COPD, hypoxemia, leukocytosis and dehydration. The patient does have a past medical history of CAD, severe COPD, hypertension, chronic hypoxic respiratory failure rheumatoid arthritis and hypothyroidism. Just x- ray has been reviewed and shows a new patchy left basilar atelectasis and/or infiltrate. Upon examination the patient is resting up in bed on 2 L of oxygen the patient does use home oxygen 2 L via nasal cannula at all times. Patient continues to complain of a productive cough with white sputum. Review of Systems 14 point review of systems was completed and is negative other than what's noted in HPI. Past Medical History Past Medical History: Coronary Artery Disease (CAD), Chest Pain / Angina, COPD, Eye Disorder, Hyperlipidemia, Hypertension, Memory Impairment, Pneumonia, Prostate Disorder, Respiratory Disorder, Rheumatoid Arthritis (RA), Thyroid Disorder Additional Past Medical History / Comment(s): Benign prostatic hypertrophy History of Any Multi-Drug Resistant Organisms: None Reported Past Surgical History: Back Surgery, Cholecystectomy, Heart Catheterization, Orthopedic Surgery Additional Past Surgical History / Comment(s): Bilateral cataract removal and lens implants, left knee open surgery, EGD, heart catheterization. Patient has never had a colonoscopy. Past Anesthesia/Blood Transfusion Reactions: No Reported Reaction Past Psychological History: No Psychological Hx Reported Smoking Status: Former smoker Past Alcohol Use History: None Reported Additional Past Alcohol Use History / Comment(s): Perla Looney hasn't been a smoker of cigars since he was 16 years of age. He is currently smoking one small cigar per day. He quit marijuana many years ago. He denies any other street drug use. He denies any alcohol use. He lives at home with his and adult grandson. Past Drug Use History: Marijuana - Past Family History Mother Family Medical History: Cancer Additional Family Medical History / Comment(s): Mother at age 96 Unsure what type of cancer Father Family Medical History: Cancer, COPD Additional Family Medical History / Comment(s): Father at age 88 from emphysema Brother(s) Additional Family Medical History / Comment(s): Patient has 7 brothers. Sister(s) Additional Family Medical History / Comment(s): Patient has 1 sister. Daughter(s) Additional Family Medical History / Comment(s): He has 4 daughters and 2 sons. Medications and Allergies Home Medications Medication Instructions Recorded Confirmed Type DULoxetine HCL [Cymbalta] 30 mg PO DAILY 12/29/15 01/14/17 History Gabapentin [Neurontin] 100 mg PO TID 12/29/15 01/14/17 History HYDROcodone/APAP 10-325MG [[place] 1 tab PO TID PRN 12/29/15 01/14/17 History 10-325] Isosorbide Mononitrate [Ismo] 20 mg PO DAILY 12/29/15 01/14/17 History Levothyroxine Sodium [Levoxyl] 75 mcg PO DAILY 12/29/15 01/14/17 History Lisinopril [Prinivil] 10 mg PO DAILY 12/29/15 01/14/17 History Multivitamin [Men's Multi-Vitamin] 1 tab PO DAILY 12/29/15 01/14/17 History Pravastatin Sodium [Pravachol] 40 mg PO DAILY 12/29/15 01/14/17 History amLODIPine [Norvasc] 5 mg PO DAILY 12/29/15 01/14/17 History Meclizine HCl 25 mg PO DAILY PRN 01/14/17 01/14/17 History Montelukast Sodium [Singulair] 10 mg PO HS 01/14/17 01/14/17 History Allergies Allergy/AdvReac Type Severity Reaction Status Date / Time No Known Allergies Allergy Verified 01/14/17 14:02 Physical Exam Vitals: Vital Signs Temp Pulse Pulse Resp BP Pulse Ox 01/16/17 08:31 82 01/16/17 08:23 82 95 01/16/17 08:00 96.5 F L 80 18 160/74 96 01/16/17 04:00 98.3 F 88 18 141/73 93 L 01/16/17 00:00 99.5 F 98 18 137/73 94 L 01/15/17 21:13 100 01/15/17 20:58 100 01/15/17 20:00 99.1 F 85 18 141/87 94 L 01/15/17 16:46 96.8 F L 89 18 119/58 94 L 01/15/17 13:33 97.4 F L 86 22 119/58 95 01/15/17 11:43 96 01/15/17 11:35 94 Intake and Output 01/15/17 01/16/17 01/16/17 22:59 06:59 14:59 Intake Total 340 500 Output Total 1500 Balance 340 -1000 Intake: IV 500 Sodium Chloride 0.9% 1, 500 000 ml @ 100 mls/hr IV . Q10H [facility] Rx#:[id number] Intake, IV Titration 100 Amount Sodium Chloride 0.9% 1, 100 000 ml @ 100 mls/hr IV . Q10H [facility] Rx#:[id number] Oral 240 Output: Urine 1500 Other: Voiding Method Toilet Toilet Toilet Urinal Urinal Urinal # Voids 1 GENERAL EXAM: Alert, active, comfortable in no apparent distress. HEAD: Normocephalic. EYES: Normal reaction of pupils, equal size. NOSE: Clear with pink turbinates. THROAT: No erythema or exudates. NECK: No masses, no JVD. CHEST: No chest wall deformity. LUNGS: Lung sounds noted to be coarse, scattered rhonchi and wheezes noted bilaterally. Bases diminished CVS: S1 and S2 normal with no audible mumurs, regular rhythm. ABDOMEN: No hepatosplenomegaly, normal bowel sounds, no guarding or rigidity. EXTREMITIES: No edema noted, pedal pulses palpable. SKIN: No rashes CENTRAL NERVOUS SYSTEM: No focal deficits, tone is normal in all 4 extremities. Results - Laboratory Findings CBC and BMP: 01/14/17 12:25 01/14/17 12:25 PT/INR, D-dimer PT 10.0 sec (9.0-12.0) 01/14/17 12:25 INR 1.0 (<1.1) 01/14/17 12:25 Abnormal lab findings: Abnormal Labs 01/14/17 01/14/17 01/14/17 12:25 12:25 12:25 WBC 12.0 H MCV 100.2 H Neutrophils # 8.7 H Monocytes # 1.2 H Carbon Dioxide 21 L BUN 28 H Creatinine 1.46 H Glucose 141 H POC Glucose (mg/dL) Hemoglobin A1c 6.3 H CK-MB (CK-2) Troponin I 01/14/17 01/15/17 01/15/17 20:37 07:39 11:37 WBC MCV Neutrophils # Monocytes # Carbon Dioxide BUN Creatinine Glucose POC Glucose (mg/dL) 218 H 139 H 123 H Hemoglobin A1c CK-MB (CK-2) Troponin I 01/15/17 01/15/17 01/15/17 14:18 16:45 20:32 WBC MCV Neutrophils # Monocytes # Carbon Dioxide BUN Creatinine Glucose POC Glucose (mg/dL) 162 H 126 H Hemoglobin A1c CK-MB (CK-2) 8.9 H* Troponin I 0.324 H* 01/16/17 06:17 WBC MCV Neutrophils # Monocytes # Carbon Dioxide BUN Creatinine Glucose POC Glucose (mg/dL) 127 H Hemoglobin A1c CK-MB (CK-2) Troponin I Assessment and Plan Plan: Assessment Acute exacerbation of COPD Acute on chronic hypoxic respiratory failure Leukocytosis Hypertension Hypothyroidism Hyperlipidemia Memory impairment Rheumatoid arthritis BPH Plan Medications have been reviewed and will be continued as ordered. We will add budesonide to his current nebulizer treatments. Continue on IV antibiotics as well as IV steroids. We will initiate and encourage incentive spirometer. Continue supplemental oxygen to keep oxygen saturations above 92%. We will continue with pulmonary hygiene nebulization treatments and supportive care. GI and DVT prophylaxis We will continue to monitor labs/results and adjust treatment as necessary. I performed an examination of the patient and discussed their management with the nurse practitioner. I have reviewed the nurse practitioner's note and agree with the documented findings and plan of care.
--- NOTE | 2017-01-16 12:10 | P.PN ---
Subjective There is stated patient had severe episode of chest pain yesterday was transferred to [facility] for evaluation with cardiology. Patient has had consultation with pulmonology medication adjustment Objective - Vital Signs Vital signs: Vital Signs Temp 96.5 F L 01/16/17 08:00 Pulse 82 01/16/17 08:31 Resp 18 01/16/17 08:00 BP 160/74 01/16/17 08:00 Pulse Ox 95 01/16/17 08:23 Intake & Output 01/15/17 01/16/17 01/16/17 18:59 06:59 18:59 Intake Total 340 500 240 Output Total 1500 Balance 340 -1000 240 Intake: IV 500 Sodium Chloride 0.9% 1, 500 000 ml @ 100 mls/hr IV . Q10H [facility] Rx#:[id number] Intake, IV Titration 100 Amount Sodium Chloride 0.9% 1, 100 000 ml @ 100 mls/hr IV . Q10H [facility] Rx#:[id number] Oral 240 240 Output: Urine 1500 Other: Voiding Method Toilet Toilet Toilet Urinal Urinal # Voids 1 - Constitutional General appearance: Present: mild distress - EENT Eyes: Present: PERRLA Ears: bilateral: normal - Neck Neck: Present: normal ROM - Respiratory Respiratory: bilateral: wheezing - Cardiovascular Rhythm: regular - Gastrointestinal General gastrointestinal: Present: soft - Integumentary Integumentary: Present: normal - Neurologic Neurologic: Present: CNII-XII intact - Musculoskeletal Musculoskeletal: Present: generalized weakness - Psychiatric Psychiatric Comment(s): Patient appears more confused than yesterday - Labs CBC & Chem 7: 01/14/17 12:25 01/14/17 12:25 Labs: Abnormal Lab Results - Last 24 Hours (Table) 01/14/17 01/15/17 01/15/17 Range/Units 12:25 14:18 16:45 POC Glucose (mg/dL) 162 H (75-99) mg/dL Hemoglobin A1c 6.3 H (4.2-6.1) % CK-MB (CK-2) 8.9 H* (0.0-2.4) ng/mL Troponin I 0.324 H* (0.000-0.034) ng/mL 01/15/17 01/16/17 Range/Units 20:32 06:17 POC Glucose (mg/dL) 126 H 127 H (75-99) mg/dL Hemoglobin A1c (4.2-6.1) % CK-MB (CK-2) (0.0-2.4) ng/mL Troponin I (0.000-0.034) ng/mL Microbiology - Last 24 Hours (Table) 01/14/17 12:25 Blood Culture - Preliminary Blood No Growth after 24 hours Assessment and Plan Plan: Assessment Acute exacerbation of chronic COPD hypoxia acute on chronic respiratory failure Leukocytosis History of coronary artery disease Acute chest pain Hypothyroidism Hypertension Hyperlipidemia BPH Memory impairment Rheumatoid arthritis Plan Continue consultation with pulmonology Consultation with cardiology regarding acute chest pain
[2017-01-16 12:18] LABS: Glucose,Whole Blood 98 mg/dL (75-99)
[2017-01-16] MEDS: AZITHROMYCIN 500 MG in SODIUM CHLORIDE 0.9% 250 ML IVPB SCH (12:21)
[2017-01-16] MEDS: LORazepam 2 MG/ML SYRINGE IV PRN ×2 (17:08→21:02)
[2017-01-16 17:17] LABS: Glucose,Whole Blood 110 mg/dL (75-99)
[2017-01-16] MEDS: BUDESONIDE 1 MG/2 ML NEBU INHALATION SCH (20:48)
[2017-01-16] MEDS: MONTELUKAST 10 MG TAB PO SCH (21:08)
[2017-01-16 21:14] LABS: Glucose,Whole Blood 125 mg/dL (75-99)
[2017-01-16] MEDS ORDERED: LORazepam 2 MG/ML SYRINGE IV PRN ×2 (22:11→22:13)
[2017-01-16 22:41] LABS: Appearance,Urine Clear (Clear); Bilirubin,Urine Negative (Negative); Glucose,Urine (UA) Negative (Negative); Ketones,Urine Negative (Negative); Leukocyte Esterase,Urine Negative (Negative); Nitrite,Urine Negative (Negative); Protein,Urine Negative (Negative); Specific Gravity,Urine 1.012 (1.001-1.035); UA Billing (MACRO vs. MICRO) CHEM; Urobilinogen,Urine <2.0 mg/dL (<2.0)
[2017-01-17] MEDS: methylPREDNISolone SOD SUCCI 125 MG/2 ML VIAL IV SCH ×3 (02:21→12:59)
[2017-01-17 05:53] LABS: Glucose,Whole Blood 128 mg/dL (75-99)
[2017-01-17] MEDS: INSULIN LISPRO (humaLOG) 300 UNIT/3 ML VIAL SQ SCH ×4 (06:35→23:25)
[2017-01-17] MEDS: IPRATROPIUM-ALBUTEROL 3 ML NEB INHALATION SCH ×4 (08:06→20:24)
[2017-01-17] MEDS: BUDESONIDE 1 MG/2 ML NEBU INHALATION SCH ×2 (08:06→20:24)
[2017-01-17] MEDS: ENOXAPARIN 40 MG/0.4 ML SYRINGE SQ SCH (09:43)
--- NOTE | 2017-01-17 11:07 | P.PN ---
Subjective This is an 86-year-old male patient being evaluated and examined today on do sixth floor. The patient came into the emergency room with increasing shortness of breath cough and congestion the patient had having increase in severity over the last few days. This patient has a long history of COPD as well as smoking. Patient had minimal improvement with treatment in the emergency room therefore he was admitted to the hospital with acute exacerbation of COPD, hypoxemia, leukocytosis and dehydration. The patient does have a past medical history of CAD, severe COPD, hypertension, chronic hypoxic respiratory failure rheumatoid arthritis and hypothyroidism. Chest x- ray has been reviewed. Upon examination the patient is resting up in bed on 3 L of oxygen the patient does use home oxygen 2 L via nasal cannula at all times. Patient continues to complain of a productive cough with thick white sputum. Patient states that his appetite has been marginal. Objective - Vital Signs Vital signs: Vital Signs Temp 97.0 F L 01/17/17 08:00 Pulse 80 01/17/17 08:21 Resp 18 01/17/17 08:00 BP 132/67 01/17/17 08:00 Pulse Ox 94 L 01/17/17 08:00 Intake & Output 01/16/17 01/17/17 01/17/17 18:59 06:59 18:59 Intake Total 480 Output Total 1350 Balance 480 -1350 Weight 82 kg Intake: IV 0 Sodium Chloride 0.9% 1, 0 000 ml @ 100 mls/hr IV . Q10H [facility] Rx#:[id number] Oral 480 Output: Urine 1350 Straight 1350 Other: Voiding Method Toilet Indwelling Catheter Indwelling Catheter Urinal # Voids 1 - Exam GENERAL EXAM: Alert, active, comfortable in no apparent distress. HEAD: Normocephalic. EYES: Normal reaction of pupils, equal size. NOSE: Clear with pink turbinates. THROAT: No erythema or exudates. NECK: No masses, no JVD. CHEST: No chest wall deformity. LUNGS: Lung sounds noted to be coarse, scattered rhonchi and wheezes noted bilaterally. Bases diminished CVS: S1 and S2 normal with no audible mumurs, regular rhythm. ABDOMEN: No hepatosplenomegaly, normal bowel sounds, no guarding or rigidity. EXTREMITIES: No edema noted, pedal pulses palpable. SKIN: No rashes CENTRAL NERVOUS SYSTEM: No focal deficits, tone is normal in all 4 extremities. - Labs CBC & Chem 7: 01/14/17 12:25 01/14/17 12:25 Labs: Abnormal Lab Results - Last 24 Hours (Table) 01/16/17 01/16/17 01/17/17 Range/Units 16:53 21:13 05:52 POC Glucose (mg/dL) 110 H 125 H 128 H (75-99) mg/dL Microbiology - Last 24 Hours (Table) 01/14/17 12:25 Blood Culture - Preliminary Blood No Growth after 48 hours Assessment and Plan Plan: Assessment Acute exacerbation of COPD Acute on chronic hypoxic respiratory failure Leukocytosis Hypertension Hypothyroidism Hyperlipidemia Memory impairment Rheumatoid arthritis BPH Plan Medications have been reviewed and will be continued as ordered. We will add Mucinex to help with thick secretions. Continue with the budesonide along with current nebulizer treatments. Continue on IV antibiotics as well as IV steroids. We will initiate and encourage incentive spirometer. Continue supplemental oxygen to keep oxygen saturations above 92%. We will continue with pulmonary hygiene, nebulization treatments, and supportive care. GI and DVT prophylaxis. Patient should increase activity and nutrition as tolerated. Cardiology on consult to see patient. We will continue to monitor labs/results and adjust treatment as necessary. I performed an examination of the patient and discussed their management with the nurse practitioner. I have reviewed the nurse practitioner's note and agree with the documented findings and plan of care.
[2017-01-17 12:13] LABS: Glucose,Whole Blood 133 mg/dL (75-99)
[2017-01-17] MEDS: DULoxetine HCL 30 MG CAPSULE.DR PO SCH (12:30)
[2017-01-17] MEDS: LISINOPRIL 10 MG TAB PO SCH (12:30)
[2017-01-17] MEDS: FAMOTIDINE 20 MG TAB PO SCH (12:30)
[2017-01-17] MEDS: ISOSORBIDE MONONITRATE 20 MG TAB PO SCH (12:30)
[2017-01-17] MEDS: GABAPENTIN 100 MG CAP PO SCH ×3 (12:30→20:05)
[2017-01-17] MEDS: PRAVASTATIN SODIUM 40 MG TAB PO SCH (12:30)
[2017-01-17] MEDS: amLODIPine 5 MG TAB PO SCH (12:30)
[2017-01-17] MEDS: guaiFENesin 600 MG TABLET.ER PO SCH ×2 (12:30→20:03)
[2017-01-17] MEDS: LEVOTHYROXINE 75 MCG TAB PO SCH (12:30)
[2017-01-17] MEDS: MULTIVITAMINS, THERA 1 EACH TAB PO SCH (12:31)
[2017-01-17] MEDS: AZITHROMYCIN 500 MG in SODIUM CHLORIDE 0.9% 250 ML IVPB SCH (12:58)
--- NOTE | 2017-01-17 14:21 | P.CRDCN ---
History of Present Illness History of present illness: Patient to sedated to talk about this time unable to give a history and evaluate Past Medical History Past Medical History: Coronary Artery Disease (CAD), Chest Pain / Angina, COPD, Eye Disorder, Hyperlipidemia, Hypertension, Memory Impairment, Pneumonia, Prostate Disorder, Respiratory Disorder, Rheumatoid Arthritis (RA), Thyroid Disorder Additional Past Medical History / Comment(s): Benign prostatic hypertrophy History of Any Multi-Drug Resistant Organisms: None Reported Past Surgical History: Back Surgery, Cholecystectomy, Heart Catheterization, Orthopedic Surgery Additional Past Surgical History / Comment(s): Bilateral cataract removal and lens implants, left knee open surgery, EGD, heart catheterization. Patient has never had a colonoscopy. Past Anesthesia/Blood Transfusion Reactions: No Reported Reaction Past Psychological History: No Psychological Hx Reported Smoking Status: Former smoker Past Alcohol Use History: None Reported Additional Past Alcohol Use History / Comment(s): Perla Looney hasn't been a smoker of cigars since he was 16 years of age. He is currently smoking one small cigar per day. He quit marijuana many years ago. He denies any other street drug use. He denies any alcohol use. He lives at home with his and adult grandson. Past Drug Use History: Marijuana - Past Family History Mother Family Medical History: Cancer Additional Family Medical History / Comment(s): Mother at age 96 Unsure what type of cancer Father Family Medical History: Cancer, COPD Additional Family Medical History / Comment(s): Father at age 88 from emphysema Brother(s) Additional Family Medical History / Comment(s): Patient has 7 brothers. Sister(s) Additional Family Medical History / Comment(s): Patient has 1 sister. Daughter(s) Additional Family Medical History / Comment(s): He has 4 daughters and 2 sons. Medications and Allergies Home Medications Medication Instructions Recorded Confirmed Type DULoxetine HCL [Cymbalta] 30 mg PO DAILY 12/29/15 01/14/17 History Gabapentin [Neurontin] 100 mg PO TID 12/29/15 01/14/17 History HYDROcodone/APAP 10-325MG [[place] 1 tab PO TID PRN 12/29/15 01/14/17 History 10-325] Isosorbide Mononitrate [Ismo] 20 mg PO DAILY 12/29/15 01/14/17 History Levothyroxine Sodium [Levoxyl] 75 mcg PO DAILY 12/29/15 01/14/17 History Lisinopril [Prinivil] 10 mg PO DAILY 12/29/15 01/14/17 History Multivitamin [Men's Multi-Vitamin] 1 tab PO DAILY 12/29/15 01/14/17 History Pravastatin Sodium [Pravachol] 40 mg PO DAILY 12/29/15 01/14/17 History amLODIPine [Norvasc] 5 mg PO DAILY 12/29/15 01/14/17 History Meclizine HCl 25 mg PO DAILY PRN 01/14/17 01/14/17 History Montelukast Sodium [Singulair] 10 mg PO HS 01/14/17 01/14/17 History Allergies Allergy/AdvReac Type Severity Reaction Status Date / Time No Known Allergies Allergy Verified 01/14/17 14:02 Physical Exam Vitals: Vital Signs Temp Pulse Pulse Resp BP BP Pulse Ox 01/17/17 11:51 76 01/17/17 11:39 76 01/17/17 08:21 80 01/17/17 08:06 78 01/17/17 08:00 97.0 F L 88 18 132/67 94 L 01/17/17 04:30 77 18 160/95 98 01/17/17 00:00 72 18 129/100 95 01/16/17 21:00 97 F L 89 18 142/74 94 L 01/16/17 16:29 92 01/16/17 16:21 82 01/16/17 16:00 97.3 F L 78 18 114/60 94 L Intake and Output 01/16/17 01/17/17 01/17/17 22:59 06:59 14:59 Intake Total 240 Output Total 500 850 Balance -260 -850 Intake: Oral 240 Output: Urine 500 850 Straight 500 850 Other: Voiding Method Incontinent Indwelling Catheter Indwelling Catheter # Voids 1 Weight 82 kg Results 01/14/17 12:25 01/14/17 12:25 Current Medications Generic Name Dose Route Start Last Admin Trade Name Freq PRN Reason Stop Dose Admin Hydrocodone Bitart/Acetaminophen 1 each 01/14/17 15:34 01/16/17 09:27 [place] 10 PO 1 each TID PRN Administration Pain Albuterol/Ipratropium 3 ml 01/14/17 16:00 01/17/17 11:39 Duoneb 0.5 Mg-3 Mg/3 Ml Soln INHALATION 3 ml RT-QID [facility] Administration Amlodipine Besylate 5 mg 01/15/17 09:00 01/17/17 12:30 Norvasc PO Not Given DAILY [facility] Budesonide 1 mg 01/16/17 20:00 01/17/17 08:06 Pulmicort INHALATION 1 mg RT-BID [facility] Administration Duloxetine HCl 30 mg 01/15/17 09:00 01/17/17 12:30 Cymbalta PO Not Given DAILY [facility] Enoxaparin Sodium 40 mg 01/15/17 09:00 01/17/17 09:43 Lovenox SQ 40 mg DAILY [facility] Administration Famotidine 20 mg 01/15/17 09:00 01/17/17 12:30 Pepcid PO Not Given DAILY [facility] Gabapentin 100 mg 01/14/17 16:00 01/17/17 12:30 Neurontin PO Not Given TID [facility] Guaifenesin 1,200 mg 01/17/17 11:15 01/17/17 12:30 Mucinex PO Not Given Q12HR [facility] Azithromycin 500 mg/ Sodium 250 mls @ 125 mls/hr 01/15/17 12:00 01/17/17 12: 58 Chloride IVPB 125 mls/hr Q24H [facility] Administration Insulin Human Lispro 0 unit 01/14/17 21:30 01/17/17 12:31 Humalog SQ Not Given ACHS [facility] Protocol Isosorbide Mononitrate 20 mg 01/15/17 09:00 01/17/17 12:30 Ismo PO Not Given DAILY [facility] Levothyroxine Sodium 75 mcg 01/15/17 06:30 01/17/17 12:30 Synthroid PO Not Given DAILY@0630 [facility] Lisinopril 10 mg 01/15/17 09:00 01/17/17 12:30 Zestril PO Not Given DAILY [facility] Lorazepam 0.5 mg 01/16/17 16:59 Ativan IV Q4HR PRN Mild Anxiety Lorazepam 2 mg 01/16/17 22:11 01/17/17 01:29 Ativan IV 2 mg Q4HR PRN Administration Severe Anxiety Lorazepam 1 mg 01/16/17 22:13 01/17/17 05:20 Ativan IV 1 mg Q4HR PRN Administration Moderate Anxiety Meclizine HCl 25 mg 01/14/17 15:34 Antivert PO DAILY PRN Vertigo Methylprednisolone Sodium Succinate 60 mg 01/14/17 18:00 01/17/17 12:59 Solu-Medrol IV 60 mg Q6HR [facility] Administration Miscellaneous Information 1 each 01/14/17 13:35 Pneumonia Protocol Utilized PO ONCE PRN Per Protocol Montelukast Sodium 10 mg 01/14/17 21:00 01/16/17 21:08 Singulair PO 10 mg HS [facility] Administration Multivitamins 1 each 01/15/17 12:00 01/17/17 12:31 Theragran PO Not Given DAILY@1200 [facility] Pravastatin Sodium 40 mg 01/15/17 09:00 01/17/17 12:30 Pravachol PO Not Given DAILY [facility] Tramadol HCl 50 mg 01/14/17 15:34 01/16/17 09:25 Ultram PO 50 mg Q6H PRN Administration Pain Intake and Output 01/16/17 01/17/17 01/17/17 22:59 06:59 14:59 Intake Total 240 Output Total 500 850 Balance -260 -850 Intake: Oral 240 Output: Urine 500 850 Straight 500 850 Other: Voiding Method Incontinent Indwelling Catheter Indwelling Catheter # Voids 1 Weight 82 kg 01/14/17 12:25 01/14/17 12:25
--- NOTE | 2017-01-17 14:22 | P.CRDCN ---
History of Present Illness Consult date: 01/17/17 Reason for Consult (text): elevated troponin History of present illness: This is an 86-year-old gentleman who is quite sedated. Apparently was very confused, uncooperative and combative and has been getting Ativan IV. HPI was obtained from the chart and review of systems was unable to be obtained except for within the chart according to the chart the patient came to the emergency department with increasing shortness of breath, cough and congestion over the last few days. He does have a long history of COPD as well as smoking. In the emergency department he had minimal improvement with treatments and therefore was admitted to the hospital with acute exacerbation of COPD, hypoxemia, leukocytosis and dehydration. Have a past medical history also significant for CAD, hypertension, rheumatoid arthritis, hypothyroidism and chronic hypoxic respiratory failure. Chest x-ray showed new patchy left basilar atelectases and/or infiltrate. The patient apparently developed chest pain sometime yesterday or the day before and was transferred to the telemetry unit and cardiology was consulted yesterday afternoon. Laboratory values showed a troponin of less than 0.012 on admission and repeat troponin only 1 completed over 24 hours later to be 0.324. On examination today, patient is quite sedated opens eyes to tactile stimuli and loud verbal stimuli. He does not appear to be in any acute distress. Past Medical History Past Medical History: Coronary Artery Disease (CAD), Chest Pain / Angina, COPD, Eye Disorder, Hyperlipidemia, Hypertension, Memory Impairment, Pneumonia, Prostate Disorder, Respiratory Disorder, Rheumatoid Arthritis (RA), Thyroid Disorder Additional Past Medical History / Comment(s): Benign prostatic hypertrophy History of Any Multi-Drug Resistant Organisms: None Reported Past Surgical History: Back Surgery, Cholecystectomy, Heart Catheterization, Orthopedic Surgery Additional Past Surgical History / Comment(s): Bilateral cataract removal and lens implants, left knee open surgery, EGD, heart catheterization. Patient has never had a colonoscopy. Past Anesthesia/Blood Transfusion Reactions: No Reported Reaction Past Psychological History: No Psychological Hx Reported Smoking Status: Former smoker Past Alcohol Use History: None Reported Additional Past Alcohol Use History / Comment(s): Perla Looney hasn't been a smoker of cigars since he was 16 years of age. He is currently smoking one small cigar per day. He quit marijuana many years ago. He denies any other street drug use. He denies any alcohol use. He lives at home with his and adult grandson. Past Drug Use History: Marijuana - Past Family History Mother Family Medical History: Cancer Additional Family Medical History / Comment(s): Mother at age 96 Unsure what type of cancer Father Family Medical History: Cancer, COPD Additional Family Medical History / Comment(s): Father at age 88 from emphysema Brother(s) Additional Family Medical History / Comment(s): Patient has 7 brothers. Sister(s) Additional Family Medical History / Comment(s): Patient has 1 sister. Daughter(s) Additional Family Medical History / Comment(s): He has 4 daughters and 2 sons. Medications and Allergies Home Medications Medication Instructions Recorded Confirmed Type DULoxetine HCL [Cymbalta] 30 mg PO DAILY 12/29/15 01/14/17 History Gabapentin [Neurontin] 100 mg PO TID 12/29/15 01/14/17 History HYDROcodone/APAP 10-325MG [[place] 1 tab PO TID PRN 12/29/15 01/14/17 History 10-325] Isosorbide Mononitrate [Ismo] 20 mg PO DAILY 12/29/15 01/14/17 History Levothyroxine Sodium [Levoxyl] 75 mcg PO DAILY 12/29/15 01/14/17 History Lisinopril [Prinivil] 10 mg PO DAILY 12/29/15 01/14/17 History Multivitamin [Men's Multi-Vitamin] 1 tab PO DAILY 12/29/15 01/14/17 History Pravastatin Sodium [Pravachol] 40 mg PO DAILY 12/29/15 01/14/17 History amLODIPine [Norvasc] 5 mg PO DAILY 12/29/15 01/14/17 History Meclizine HCl 25 mg PO DAILY PRN 01/14/17 01/14/17 History Montelukast Sodium [Singulair] 10 mg PO HS 01/14/17 01/14/17 History Allergies Allergy/AdvReac Type Severity Reaction Status Date / Time No Known Allergies Allergy Verified 01/14/17 14:02 Physical Exam Vitals: Vital Signs Temp Pulse Pulse Resp BP BP Pulse Ox 01/17/17 11:51 76 01/17/17 11:39 76 01/17/17 08:21 80 01/17/17 08:06 78 01/17/17 08:00 97.0 F L 88 18 132/67 94 L 01/17/17 04:30 77 18 160/95 98 01/17/17 00:00 72 18 129/100 95 01/16/17 21:00 97 F L 89 18 142/74 94 L 01/16/17 16:29 92 01/16/17 16:21 82 01/16/17 16:00 97.3 F L 78 18 114/60 94 L Intake and Output 01/16/17 01/17/17 01/17/17 22:59 06:59 14:59 Intake Total 240 Output Total 500 850 Balance -260 -850 Intake: Oral 240 Output: Urine 500 850 Straight 500 850 Other: Voiding Method Incontinent Indwelling Catheter Indwelling Catheter # Voids 1 Weight 82 kg PHYSICAL EXAMINATION: Please note patient was not cooperative with directions for the exam including deep breathing HEENT: Head is atraumatic, normocephalic. Pupils equal, round. Neck is supple. There is no elevated jugular venous pressure. HEART EXAMINATION: Heart sounds regular, S1 and S2 normal. No murmur or gallop heard. CHEST EXAMINATION: Lungs are clear to auscultation and precussion with normal breathing. No chest wall tenderness is noted on palpation or with deep breathing. ABDOMEN: Soft, nontender. Bowel sounds are heard. No organomegaly noted. EXTREMITIES: 2+ peripheral pulses with no evidence of peripheral edema and no calf tenderness noted. NEUROLOGIC patient is sedated. . Results 01/14/17 12:25 01/14/17 12:25 Current Medications Generic Name Dose Route Start Last Admin Trade Name Freq PRN Reason Stop Dose Admin Hydrocodone Bitart/Acetaminophen 1 each 01/14/17 15:34 01/16/17 09:27 [place] 10 PO 1 each TID PRN Administration Pain Albuterol/Ipratropium 3 ml 01/14/17 16:00 01/17/17 11:39 Duoneb 0.5 Mg-3 Mg/3 Ml Soln INHALATION 3 ml RT-QID [facility] Administration Amlodipine Besylate 5 mg 01/15/17 09:00 01/17/17 12:30 Norvasc PO Not Given DAILY [facility] Budesonide 1 mg 01/16/17 20:00 01/17/17 08:06 Pulmicort INHALATION 1 mg RT-BID [facility] Administration Duloxetine HCl 30 mg 01/15/17 09:00 01/17/17 12:30 Cymbalta PO Not Given DAILY [facility] Enoxaparin Sodium 40 mg 01/15/17 09:00 01/17/17 09:43 Lovenox SQ 40 mg DAILY [facility] Administration Famotidine 20 mg 01/15/17 09:00 01/17/17 12:30 Pepcid PO Not Given DAILY [facility] Gabapentin 100 mg 01/14/17 16:00 01/17/17 12:30 Neurontin PO Not Given TID [facility] Guaifenesin 1,200 mg 01/17/17 11:15 01/17/17 12:30 Mucinex PO Not Given Q12HR [facility] Azithromycin 500 mg/ Sodium 250 mls @ 125 mls/hr 01/15/17 12:00 01/17/17 12: 58 Chloride IVPB 125 mls/hr Q24H [facility] Administration Insulin Human Lispro 0 unit 01/14/17 21:30 01/17/17 12:31 Humalog SQ Not Given ACHS [facility] Protocol Isosorbide Mononitrate 20 mg 01/15/17 09:00 01/17/17 12:30 Ismo PO Not Given DAILY [facility] Levothyroxine Sodium 75 mcg 01/15/17 06:30 01/17/17 12:30 Synthroid PO Not Given DAILY@0630 [facility] Lisinopril 10 mg 01/15/17 09:00 01/17/17 12:30 Zestril PO Not Given DAILY [facility] Lorazepam 0.5 mg 01/16/17 16:59 Ativan IV Q4HR PRN Mild Anxiety Lorazepam 2 mg 01/16/17 22:11 01/17/17 01:29 Ativan IV 2 mg Q4HR PRN Administration Severe Anxiety Lorazepam 1 mg 01/16/17 22:13 01/17/17 05:20 Ativan IV 1 mg Q4HR PRN Administration Moderate Anxiety Meclizine HCl 25 mg 01/14/17 15:34 Antivert PO DAILY PRN Vertigo Methylprednisolone Sodium Succinate 60 mg 01/14/17 18:00 01/17/17 12:59 Solu-Medrol IV 60 mg Q6HR [facility] Administration Miscellaneous Information 1 each 01/14/17 13:35 Pneumonia Protocol Utilized PO ONCE PRN Per Protocol Montelukast Sodium 10 mg 01/14/17 21:00 01/16/17 21:08 Singulair PO 10 mg HS [facility] Administration Multivitamins 1 each 01/15/17 12:00 01/17/17 12:31 Theragran PO Not Given DAILY@1200 [facility] Pravastatin Sodium 40 mg 01/15/17 09:00 01/17/17 12:30 Pravachol PO Not Given DAILY [facility] Tramadol HCl 50 mg 01/14/17 15:34 01/16/17 09:25 Ultram PO 50 mg Q6H PRN Administration Pain Intake and Output 01/16/17 01/17/17 01/17/17 22:59 06:59 14:59 Intake Total 240 Output Total 500 850 Balance -260 -850 Intake: Oral 240 Output: Urine 500 850 Straight 500 850 Other: Voiding Method Incontinent Indwelling Catheter Indwelling Catheter # Voids 1 Weight 82 kg 01/14/17 12:25 01/14/17 12:25 EKG Interpretations (text) Sinus rhythm without acute ST-T wave changes that would indicate ischemia Assessment and Plan Plan: Assessment and plan #1 acute exacerbation of COPD #2 confusion and combativeness, sedated after receiving Ativan #3 history of CAD #4 hypertension #5 chest pain with elevated troponin 1 From cook manager perspective, we will obtain another troponin. Obtain a 2-D echo with Doppler. At this time will manage the patient medically and reevaluate when he is no longer sedated. We will review old records if available. Further recommendations to follow. MANAGER CAMP note has been reviewed, I agree with a documented findings and plan of care. Patient was seen and examined.
--- NOTE | 2017-01-17 14:30 | P.PN ---
Subjective Patient is seen in cross coverage for Dr. Alen Champion. Patient appears sedated today apparently was admitted with the complaints of difficulty breathing was noted to be in a COPD exacerbation secondary to a left lower lobe pneumonic process. Patient has been on steroids. Apparently overnight patient got agitated was given a large dose of IV Ativan and was placed on restraints. Currently patient is sedated No other overnight abnormalities reported. Objective - Vital Signs Vital signs: Vital Signs Temp 97.0 F L 01/17/17 08:00 Pulse 76 01/17/17 11:51 Resp 18 01/17/17 08:00 BP 132/67 01/17/17 08:00 Pulse Ox 94 L 01/17/17 08:00 Intake & Output 01/16/17 01/17/17 01/17/17 18:59 06:59 18:59 Intake Total 480 Output Total 1350 Balance 480 -1350 Weight 82 kg Intake: IV 0 Sodium Chloride 0.9% 1, 0 000 ml @ 100 mls/hr IV . Q10H SUMEET Rx#:[id number] Oral 480 Output: Urine 1350 Straight 1350 Other: Voiding Method Toilet Indwelling Catheter Indwelling Catheter Urinal # Voids 1 - Exam Gen. appearance sedated Lungs air movement is appreciated no wheezing some coarse sounds are appreciated at the bases Heart S1-S2 heard regular rate and rhythm no murmurs. Abdomen soft nontender no organomegaly Lower extremities no edema noted your is deferred due to patient's condition - Labs CBC & Chem 7: 01/14/17 12:25 01/14/17 12:25 Labs: Abnormal Lab Results - Last 24 Hours (Table) 01/16/17 01/16/17 01/17/17 Range/Units 16:53 21:13 05:52 POC Glucose (mg/dL) 110 H 125 H 128 H (75-99) mg/dL 01/17/17 Range/Units 12:00 POC Glucose (mg/dL) 133 H (75-99) mg/dL Microbiology - Last 24 Hours (Table) 01/14/17 12:25 Blood Culture - Preliminary Blood No Growth after 48 hours Assessment and Plan Plan: #1 acute exacerbation of COPD secondary to community-acquired pneumonia #2 acute toxic encephalopathy #3 acute hypoxic respiratory failure secondary to #1 #4 ongoing tobacco use #5 history of dementia #6 rheumatoid arthritis #7 hypothyroidism #8 dyslipidemia #9 hypertension Plan We'll decrease IV Medrol to 30 mg IV every 8 hours Patient did have a troponin leak however no prior documentation reported active chest pain We'll discontinue Ativan at this time we'll start the patient on Seroquel 50 mg at bedtime patient appears to have be having some degree of sundowning symptoms DVT prophylaxis to continue
[2017-01-17] MEDS: HYDROcodone/APAP 10-325MG 1 EACH TAB PO PRN (16:24)
[2017-01-17] MEDS: LORazepam 2 MG/ML SYRINGE IV PRN ×2 (16:25→20:03)
[2017-01-17 16:27] LABS: Calcium 8.2 mg/dL (8.4-10.2); Potassium 4.7 mmol/L (3.5-5.1)
[2017-01-17] MEDS: methylPREDNISolone SOD SUCCI 40 MG/ML 1 ML VIAL IV SCH ×2 (16:54→23:26)
[2017-01-17 17:10] LABS: Glucose,Whole Blood 111 mg/dL (75-99)
[2017-01-17] MEDS: METOPROLOL TARTRATE 25 MG TAB PO SCH (20:04)
[2017-01-17] MEDS: MONTELUKAST 10 MG TAB PO SCH (20:04)
[2017-01-17] MEDS ORDERED: QUEtiapine 50 MG TAB PO SCH (21:00)
[2017-01-17 21:35] LABS: Glucose,Whole Blood 177 mg/dL (75-99)
[2017-01-18 06:23] LABS: Glucose,Whole Blood 357 mg/dL (75-99)
[2017-01-18] MEDS: INSULIN LISPRO (humaLOG) 300 UNIT/3 ML VIAL SQ SCH ×4 (07:03→21:15)
[2017-01-18] MEDS: LEVOTHYROXINE 75 MCG TAB PO SCH (07:03)
--- NOTE | 2017-01-18 07:48 | XR ---
EXAMINATION TYPE: XR chest 1V portable DATE OF EXAM: 01/18/2017 7:10 AM Comparison: 01/15/2017 Clinical History: 86-year-old male difficulty in breathing, shortness of breath/pneumonia Findings: Heart is normal size. Atherosclerotic arch calcifications. Lower lung volumes with crowded vascular m arkings. Mild diffuse interstitial prominence is similar. There has been some improvement in aeration of the left base. Impression: Hypoventilatory changes. Improving aeration at the left base.
[2017-01-18 07:51] LABS: Basophils % (A) 0 %; CH 32.5; CHCM 33.3; Eosinophils # (A) 0.1 k/uL (0-0.7); Eosinophils % (A) 1 %; HCT 40.5 % (39.0-53.0); HDW 2.44; HGB 13.9 gm/dL (13.0-17.5); Luc # (Auto) 0.09; Luc % (Auto) 1; Lymphocytes # (A) 0.6 k/uL (1.0-4.8); Lymphocytes % (A) 4 %; MCH 33.5 pg (25.0-35.0); MCHC 34.2 g/dL (31.0-37.0); Mean Platelet Volume 10.1; Monocytes # (A) 0.9 k/uL (0-1.0); Monocytes % (A) 7 %; Neutrophils # (A) 11.5 k/uL (1.3-7.7); Neutrophils % (A) 87 %; RBC 4.13 m/uL (4.30-5.90); RDW 12.7 % (11.5-15.5); WBC 13.2 k/uL (3.8-10.6); WBC (Perox) 12.01
[2017-01-18] MEDS: BUDESONIDE 1 MG/2 ML NEBU INHALATION SCH ×2 (08:35→21:04)
[2017-01-18] MEDS: IPRATROPIUM-ALBUTEROL 3 ML NEB INHALATION SCH ×4 (08:35→21:04)
[2017-01-18 08:48] LABS: Glucose,Whole Blood 34 mg/dL (75-99)
[2017-01-18 08:48] LABS: Glucose,Whole Blood 41 mg/dL (75-99)
[2017-01-18] MEDS ORDERED: DEXTROSE 50%-WATER 50 ML SYRINGE IVP STA (08:58)
[2017-01-18 09:14] LABS: Calcium 8.3 mg/dL (8.4-10.2); Potassium 4.7 mmol/L (3.5-5.1); Total Bilirubin 0.7 mg/dL (0.2-1.3); Total Protein 5.4 g/dL (6.3-8.2)
[2017-01-18] MEDS: ENOXAPARIN 40 MG/0.4 ML SYRINGE SQ SCH (09:24)
[2017-01-18] MEDS: methylPREDNISolone SOD SUCCI 40 MG/ML 1 ML VIAL IV SCH ×2 (09:24→15:39)
[2017-01-18] MEDS: ISOSORBIDE MONONITRATE 20 MG TAB PO SCH (09:25)
[2017-01-18] MEDS: guaiFENesin 600 MG TABLET.ER PO SCH ×2 (09:25→21:17)
[2017-01-18] MEDS: METOPROLOL TARTRATE 25 MG TAB PO SCH ×2 (09:25→21:17)
[2017-01-18] MEDS: PRAVASTATIN SODIUM 40 MG TAB PO SCH (09:26)
[2017-01-18] MEDS: DULoxetine HCL 30 MG CAPSULE.DR PO SCH (09:26)
[2017-01-18] MEDS: amLODIPine 5 MG TAB PO SCH (09:26)
[2017-01-18] MEDS: ASPIRIN 81 MG CHEW PO SCH (09:26)
[2017-01-18] MEDS: GABAPENTIN 100 MG CAP PO SCH ×3 (09:26→21:17)
[2017-01-18] MEDS: LISINOPRIL 10 MG TAB PO SCH (09:27)
[2017-01-18] MEDS: FAMOTIDINE 20 MG TAB PO SCH (09:27)
[2017-01-18 09:48] LABS: Glucose,Whole Blood 99 mg/dL (75-99)
--- NOTE | 2017-01-18 10:29 | ECHOF ---
Referral Reason:chest pain, elevated troponin MEASUREMENTS -------- HEIGHT: 185.4 cm WEIGHT: 81.6 kg BP: 132/67 RVIDd: 3.3 cm (< 3.3) IVSd: 1.1 cm (0.6 - 1.1) LVIDd: 4.4 cm (3.9 - 5.3) LVPWd: 1.1 cm (0.6 - 1.1) IVSs: 1.6 cm LVIDs: 2.9 cm LVPWs: 1.7 cm LA Diam: 3.1 cm (2.7 - 3.8) LAESV Index (A-L): 30.61 ml/m Ao Diam: 3.5 cm (2.0 - 3.7) AV Cusp: 2.2 cm (1.5 - 2.6) MV EXCURSION: 19.436 mm (> 18.000) MV EF SLOPE: 108 mm/s (70 - 150) EPSS: 0.5 cm MV E Kye: 1.05 m/s MV DecT: 205 ms MV A Kye: 0.72 m/s MV E/A Ratio: 1.46 RAP: 5.00 mmHg RVSP: 34.20 mmHg FINDINGS -------- Sinus rhythm. This was a technically good study. The left ventricular size is normal. There is borderline concentric left ventricular hypertrophy. Overall left ventricular systolic function is normal with, an EF between 60 - 65 %. The right ventricle is mildly enlarged. LA is midly dilated 29-33ml/m2. The right atrium is normal in size. Aortic valve is trileaflet and is mildly thickened. The mitral valve leaflets are mildly thickened. Mild mitral annular calcification present. There is trace to mild mitral regurgitation. Mild tricuspid regurgitation present. Right ventricular systolic pressure is normal at < 35 mmHg. The pulmonic valve was not well visualized. The aortic root size is normal. The inferior vena cava is mildly dilated. The pericardium is normal. CONCLUSIONS -------- 1. Sinus rhythm. 2. Mild mitral annular calcification present. 3. There is trace to mild mitral regurgitation. 4. Mild tricuspid regurgitation present. 5. Right ventricular systolic pressure is normal at < 35 mmHg. 6. The pulmonic valve was not well visualized. 7. The aortic root size is normal. 8. The inferior vena cava is mildly dilated. 9. The pericardium is normal. 10. This was a technically good study. 11. The left ventricular size is normal. 12. There is borderline concentric left ventricular hypertrophy. 13. Overall left ventricular systolic function is normal with, an EF between 60 - 65 %. 14. The right ventricle is mildly enlarged. 15. LA is midly dilated 29-33ml/m2. 16. Aortic valve is trileaflet and is mildly thickened. 17. The mitral valve leaflets are mildly thickened. FLOOR FINISHER: Hanh Blanc RDCS
[2017-01-18 11:33] LABS: Glucose,Whole Blood 99 mg/dL (75-99)
[2017-01-18] MEDS: AZITHROMYCIN 500 MG TAB PO SCH (11:38)
[2017-01-18] MEDS: MULTIVITAMINS, THERA 1 EACH TAB PO SCH (11:38)
--- NOTE | 2017-01-18 12:28 | P.PN ---
Subjective Principal diagnosis: Acute exacerbation of COPD Patient seen and examined covering for Dr. Escalera. Patient is very sleepy and is only answering yes and no questions. He states he doesn't want to get up today. He states he is very tired. His breathing has been good today. He was saturating 88% on room air while sleeping and nursing put him on 2 L nasal cannula and he is currently satting 98%. Per nursing the patient also did receive Ativan overnight. Objective - Vital Signs Vital signs: Vital Signs Temp 96.8 F L 01/18/17 11:30 Pulse 50 L 01/18/17 11:31 Resp 18 01/18/17 11:31 BP 132/70 01/18/17 11:30 Pulse Ox 98 01/18/17 11:30 Intake & Output 01/17/17 01/18/17 01/18/17 18:59 06:59 18:59 Output Total 1600 350 Balance -1600 -350 Weight 83 kg Output: Urine 1600 350 Straight 350 Other: Voiding Method Indwelling Catheter Indwelling Catheter Indwelling Catheter # Voids 1 - Exam Gen.: Patient is arousable but somnolent Cardiovascular: Regular rate and rhythm, S1/S2 Lungs: Diminished at the bases, scattered rhonchi Abdomen: Soft nontender nondistended positive bowel sounds Extremities: No edema - Labs CBC & Chem 7: 01/18/17 06:59 01/18/17 06:59 Labs: Abnormal Lab Results - Last 24 Hours (Table) 01/17/17 01/17/17 01/17/17 Range/Units 15:40 16:46 21:34 WBC (3.8-10.6) k/uL RBC (4.30-5.90) m/uL Neutrophils # (1.3-7.7) k/uL Lymphocytes # (1.0-4.8) k/uL Sodium 135 L (137-145) mmol/L Chloride 108 H (98-107) mmol/L Carbon Dioxide 19 L (22-30) mmol/L BUN 46 H (9-20) mg/dL Creatinine 1.41 H (0.66-1.25) mg/dL Glucose 122 H (74-99) mg/dL POC Glucose (mg/dL) 111 H 177 H (75-99) mg/dL Calcium 8.2 L (8.4-10.2) mg/dL Total Protein (6.3-8.2) g/dL Albumin (3.5-5.0) g/dL 01/18/17 01/18/17 01/18/17 Range/Units 06:21 06:59 06:59 WBC 13.2 H (3.8-10.6) k/uL RBC 4.13 L (4.30-5.90) m/uL Neutrophils # 11.5 H (1.3-7.7) k/uL Lymphocytes # 0.6 L (1.0-4.8) k/uL Sodium (137-145) mmol/L Chloride 112 H (98-107) mmol/L Carbon Dioxide 21 L (22-30) mmol/L BUN 50 H (9-20) mg/dL Creatinine 1.43 H (0.66-1.25) mg/dL Glucose 109 H (74-99) mg/dL POC Glucose (mg/dL) 357 H (75-99) mg/dL Calcium 8.3 L (8.4-10.2) mg/dL Total Protein 5.4 L (6.3-8.2) g/dL Albumin 3.0 L (3.5-5.0) g/dL 01/18/17 01/18/17 Range/Units 08:42 08:44 WBC (3.8-10.6) k/uL RBC (4.30-5.90) m/uL Neutrophils # (1.3-7.7) k/uL Lymphocytes # (1.0-4.8) k/uL Sodium (137-145) mmol/L Chloride (98-107) mmol/L Carbon Dioxide (22-30) mmol/L BUN (9-20) mg/dL Creatinine (0.66-1.25) mg/dL Glucose (74-99) mg/dL POC Glucose (mg/dL) 41 L 34 L (75-99) mg/dL Calcium (8.4-10.2) mg/dL Total Protein (6.3-8.2) g/dL Albumin (3.5-5.0) g/dL Microbiology - Last 24 Hours (Table) 01/14/17 20:13 Gram Stain - Preliminary Sputum Sputum Culture - Preliminary 01/17/17 16:22 Sputum Culture - Preliminary Sputum 01/14/17 12:25 Blood Culture - Preliminary Blood No Growth after 72 hours Assessment and Plan Plan: Acute exacerbation of COPD Acute on chronic hypoxic respiratory failure Leukocytosis Hypertension Hypothyroidism Hyperlipidemia Memory impairment Rheumatoid arthritis BPH Plan Patient seen and examined covering for Dr. Escalera. Discontinue Ativan. Continue Mucinex to help with thick secretions. Continue with the budesonide along with current nebulizer treatments. Continue on IV antibiotics as well as IV steroids. We will initiate and encourage incentive spirometer. Continue supplemental oxygen to keep oxygen saturations above 92%. We will continue with pulmonary hygiene, nebulization treatments, and supportive care. GI and DVT prophylaxis. Patient should increase activity and nutrition as tolerated. Cardiology on consult to see patient. We will continue to monitor labs/results and adjust treatment as necessary.
--- NOTE | 2017-01-18 12:50 | P.PN ---
Subjective An 86-year-old gentleman(somewhat sedated. Apparently has been very confused, uncooperative and combative and has been getting IV Ativan during the night shifts. HPI was obtained from the chart review of systems is maintained minimally due to sedation. He was admitted with present shortness of breath, cough and congestion over the last few days prior to admission. While on the MedSurg unit developed some chest discomfort although the patient does not recall this. One was elevated and ECG showed normal sinus rhythm without any acute ST-T wave changes. At this time patient is sleeping, difficult to arouse however does answer yes and no questions. He does not appear to be any distress and denies complaints of chest discomfort or difficulty breathing. Objective - Vital Signs Vital signs: Vital Signs Temp 96.8 F L 01/18/17 11:30 Pulse 50 L 01/18/17 11:31 Resp 18 01/18/17 11:31 BP 132/70 01/18/17 11:30 Pulse Ox 98 01/18/17 11:30 Intake & Output 01/17/17 01/18/17 01/18/17 18:59 06:59 18:59 Output Total 1600 350 Balance -1600 -350 Weight 83 kg Output: Urine 1600 350 Straight 350 Other: Voiding Method Indwelling Catheter Indwelling Catheter Indwelling Catheter # Voids 1 - Exam PHYSICAL EXAMINATION: HEENT: [Head is atraumatic, normocephalic. Pupils equal, round. Neck is supple. There is no elevated jugular venous pressure.] HEART EXAMINATION: [Heart sounds regular, S1 and S2 normal. No murmur or gallop heard.] CHEST EXAMINATION:[ Lungs are clear to auscultation with normal breathing. No chest wall tenderness is noted on palpation or with deep breathing.] ABDOMEN: [ Soft, nontender. Bowel sounds are heard. No organomegaly noted]. EXTREMITIES:[ 2+ peripheral pulses with no evidence of peripheral edema and no calf tenderness noted]. NEUROLOGIC [patient is awake, alert and oriented x3.] . - Labs CBC & Chem 7: 01/18/17 06:59 01/18/17 06:59 Labs: Abnormal Lab Results - Last 24 Hours (Table) 01/17/17 01/17/17 01/17/17 Range/Units 15:40 16:46 21:34 WBC (3.8-10.6) k/uL RBC (4.30-5.90) m/uL Neutrophils # (1.3-7.7) k/uL Lymphocytes # (1.0-4.8) k/uL Sodium 135 L (137-145) mmol/L Chloride 108 H (98-107) mmol/L Carbon Dioxide 19 L (22-30) mmol/L BUN 46 H (9-20) mg/dL Creatinine 1.41 H (0.66-1.25) mg/dL Glucose 122 H (74-99) mg/dL POC Glucose (mg/dL) 111 H 177 H (75-99) mg/dL Calcium 8.2 L (8.4-10.2) mg/dL Total Protein (6.3-8.2) g/dL Albumin (3.5-5.0) g/dL 01/18/17 01/18/17 01/18/17 Range/Units 06:21 06:59 06:59 WBC 13.2 H (3.8-10.6) k/uL RBC 4.13 L (4.30-5.90) m/uL Neutrophils # 11.5 H (1.3-7.7) k/uL Lymphocytes # 0.6 L (1.0-4.8) k/uL Sodium (137-145) mmol/L Chloride 112 H (98-107) mmol/L Carbon Dioxide 21 L (22-30) mmol/L BUN 50 H (9-20) mg/dL Creatinine 1.43 H (0.66-1.25) mg/dL Glucose 109 H (74-99) mg/dL POC Glucose (mg/dL) 357 H (75-99) mg/dL Calcium 8.3 L (8.4-10.2) mg/dL Total Protein 5.4 L (6.3-8.2) g/dL Albumin 3.0 L (3.5-5.0) g/dL 01/18/17 01/18/17 Range/Units 08:42 08:44 WBC (3.8-10.6) k/uL RBC (4.30-5.90) m/uL Neutrophils # (1.3-7.7) k/uL Lymphocytes # (1.0-4.8) k/uL Sodium (137-145) mmol/L Chloride (98-107) mmol/L Carbon Dioxide (22-30) mmol/L BUN (9-20) mg/dL Creatinine (0.66-1.25) mg/dL Glucose (74-99) mg/dL POC Glucose (mg/dL) 41 L 34 L (75-99) mg/dL Calcium (8.4-10.2) mg/dL Total Protein (6.3-8.2) g/dL Albumin (3.5-5.0) g/dL Microbiology - Last 24 Hours (Table) 01/14/17 20:13 Gram Stain - Preliminary Sputum Sputum Culture - Preliminary 01/17/17 16:22 Sputum Culture - Preliminary Sputum 01/14/17 12:25 Blood Culture - Preliminary Blood No Growth after 72 hours Assessment and Plan Plan: Assessment and plan #1 acute exacerbation of COPD #2 confusion and combativeness, sedated after receiving Ativan #3 history of CAD #4 hypertension #5 chest pain with elevated troponin 1 From director of safety perspective, we'll continue medical management. 2-D echo with Doppler showed a normal ejection fraction of 60-65%. Follow the patient on as-needed basis please do not hesitate to call with questions. ENTRY LEVEL ACCOUNT EXECUTIVE note has been reviewed, I agree with a documented findings and plan of care. Patient was seen and examined.
[2017-01-18 16:43] LABS: Glucose,Whole Blood 116 mg/dL (75-99)
--- NOTE | 2017-01-18 18:06 | P.PN ---
Subjective Patient is seen in cross coverage for Dr. Alen Champion. Patient appears sedated today apparently was admitted with the complaints of difficulty breathing was noted to be in a COPD exacerbation secondary to a left lower lobe pneumonic process. Patient has been on steroids. Apparently overnight patient got agitated was given a large dose of IV Ativan and was placed on restraints. Currently patient is sedated No other overnight abnormalities reported. 01/18/17 No new overnight events pt is arousable does not know his current location states his breathing is improved. Objective - Vital Signs Vital signs: Vital Signs Temp 96.9 F L 01/18/17 15:50 Pulse 70 01/18/17 15:51 Resp 20 01/18/17 15:50 BP 131/70 01/18/17 15:50 Pulse Ox 99 01/18/17 15:50 Intake & Output 01/17/17 01/18/17 01/18/17 18:59 06:59 18:59 Intake Total 100 Output Total 1600 600 Balance -1600 -500 Weight 83 kg Intake: Oral 100 Output: Urine 1600 600 Straight 600 Other: Voiding Method Indwelling Catheter Indwelling Catheter Indwelling Catheter # Voids 1 - Exam Gen. appearance arousable. Lungs air movement is appreciated improved Heart S1-S2 heard regular rate and rhythm no murmurs. Abdomen soft nontender no organomegaly Lower extremities no edema noted Neuro moves all four extremities - Labs CBC & Chem 7: 01/18/17 06:59 01/18/17 06:59 Labs: Abnormal Lab Results - Last 24 Hours (Table) 01/17/17 01/18/17 01/18/17 Range/Units 21:34 06:21 06:59 WBC (3.8-10.6) k/uL RBC (4.30-5.90) m/uL Neutrophils # (1.3-7.7) k/uL Lymphocytes # (1.0-4.8) k/uL Chloride 112 H (98-107) mmol/L Carbon Dioxide 21 L (22-30) mmol/L BUN 50 H (9-20) mg/dL Creatinine 1.43 H (0.66-1.25) mg/dL Glucose 109 H (74-99) mg/dL POC Glucose (mg/dL) 177 H 357 H (75-99) mg/dL Calcium 8.3 L (8.4-10.2) mg/dL Total Protein 5.4 L (6.3-8.2) g/dL Albumin 3.0 L (3.5-5.0) g/dL 01/18/17 01/18/17 01/18/17 Range/Units 06:59 08:42 08:44 WBC 13.2 H (3.8-10.6) k/uL RBC 4.13 L (4.30-5.90) m/uL Neutrophils # 11.5 H (1.3-7.7) k/uL Lymphocytes # 0.6 L (1.0-4.8) k/uL Chloride (98-107) mmol/L Carbon Dioxide (22-30) mmol/L BUN (9-20) mg/dL Creatinine (0.66-1.25) mg/dL Glucose (74-99) mg/dL POC Glucose (mg/dL) 41 L 34 L (75-99) mg/dL Calcium (8.4-10.2) mg/dL Total Protein (6.3-8.2) g/dL Albumin (3.5-5.0) g/dL 01/18/17 Range/Units 16:30 WBC (3.8-10.6) k/uL RBC (4.30-5.90) m/uL Neutrophils # (1.3-7.7) k/uL Lymphocytes # (1.0-4.8) k/uL Chloride (98-107) mmol/L Carbon Dioxide (22-30) mmol/L BUN (9-20) mg/dL Creatinine (0.66-1.25) mg/dL Glucose (74-99) mg/dL POC Glucose (mg/dL) 116 H (75-99) mg/dL Calcium (8.4-10.2) mg/dL Total Protein (6.3-8.2) g/dL Albumin (3.5-5.0) g/dL Microbiology - Last 24 Hours (Table) 01/14/17 12:25 Blood Culture - Preliminary Blood No Growth after 96 hours 01/14/17 20:13 Gram Stain - Preliminary Sputum Sputum Culture - Preliminary 01/17/17 16:22 Sputum Culture - Preliminary Sputum Assessment and Plan Plan: #1 acute exacerbation of COPD secondary to community-acquired pneumonia #2 acute toxic encephalopathy #3 acute hypoxic respiratory failure secondary to #1 #4 ongoing tobacco use #5 history of dementia #6 rheumatoid arthritis #7 hypothyroidism #8 dyslipidemia #9 hypertension Plan change to prednisone 20mg daily. Patient did have a troponin leak however no prior documentation reported active chest pain continue seroquel will likely need placement DVT prophylaxis to continue
[2017-01-18] MEDS: QUEtiapine 25 MG TAB PO SCH (18:22)
[2017-01-18 20:53] LABS: Glucose,Whole Blood 106 mg/dL (75-99)
[2017-01-18] MEDS: MONTELUKAST 10 MG TAB PO SCH (21:17)
[2017-01-19 06:08] LABS: Glucose,Whole Blood 93 mg/dL (75-99)
[2017-01-19] MEDS: INSULIN LISPRO (humaLOG) 300 UNIT/3 ML VIAL SQ SCH ×3 (06:11→17:21)
[2017-01-19] MEDS: LEVOTHYROXINE 75 MCG TAB PO SCH (06:12)
[2017-01-19 06:49] LABS: Basophils % (A) 0 %; CH 32.4; CHCM 32.5; Eosinophils % (A) 0 %; HCT 39.8 % (39.0-53.0); HDW 2.27; HGB 13.2 gm/dL (13.0-17.5); Luc # (Auto) 0.16; Luc % (Auto) 1; Lymphocytes # (A) 1.1 k/uL (1.0-4.8); Lymphocytes % (A) 7 %; Mean Platelet Volume 8.1; Monocytes # (A) 1.4 k/uL (0-1.0); Monocytes % (A) 10 %; Neutrophils # (A) 11.9 k/uL (1.3-7.7); Neutrophils % (A) 82 %; RBC 3.98 m/uL (4.30-5.90); RDW 12.8 % (11.5-15.5); WBC 14.5 k/uL (3.8-10.6); WBC (Perox) 14.65
[2017-01-19 07:07] LABS: Bilirubin, Delta 0.2 mg/dL (0.0-0.2); Calcium 8.2 mg/dL (8.4-10.2); Total Bilirubin 0.9 mg/dL (0.2-1.3)
[2017-01-19 07:10] LABS: Potassium 4.8 mmol/L (3.5-5.1)
[2017-01-19] MEDS: GABAPENTIN 100 MG CAP PO SCH ×3 (07:45→21:08)
[2017-01-19] MEDS: guaiFENesin 600 MG TABLET.ER PO SCH ×2 (07:45→21:07)
[2017-01-19] MEDS: ENOXAPARIN 40 MG/0.4 ML SYRINGE SQ SCH (07:45)
[2017-01-19] MEDS: predniSONE 20 MG TAB PO SCH (07:46)
[2017-01-19] MEDS: LISINOPRIL 10 MG TAB PO SCH (07:46)
[2017-01-19] MEDS: METOPROLOL TARTRATE 25 MG TAB PO SCH ×2 (07:46→21:08)
[2017-01-19] MEDS: DULoxetine HCL 30 MG CAPSULE.DR PO SCH (07:47)
[2017-01-19] MEDS: amLODIPine 5 MG TAB PO SCH (07:47)
[2017-01-19] MEDS: PRAVASTATIN SODIUM 40 MG TAB PO SCH (07:47)
[2017-01-19] MEDS: FAMOTIDINE 20 MG TAB PO SCH (07:47)
[2017-01-19] MEDS: ASPIRIN 81 MG CHEW PO SCH (07:47)
[2017-01-19] MEDS: IPRATROPIUM-ALBUTEROL 3 ML NEB INHALATION SCH ×5 (08:04→19:44)
[2017-01-19] MEDS: BUDESONIDE 1 MG/2 ML NEBU INHALATION SCH ×2 (08:04→19:44)
[2017-01-19] MEDS: ISOSORBIDE MONONITRATE 20 MG TAB PO SCH (08:26)
[2017-01-19 12:10] LABS: Glucose,Whole Blood 123 mg/dL (75-99)
[2017-01-19] MEDS: MULTIVITAMINS, THERA 1 EACH TAB PO SCH (12:16)
[2017-01-19] MEDS: AZITHROMYCIN 500 MG TAB PO SCH (12:16)
[2017-01-19] MEDS ORDERED: MAGNESIUM HYDROXIDE 2,400 MG/10 ML CUP PO PRN (13:54)
--- NOTE | 2017-01-19 16:15 | P.PN ---
Subjective Principal diagnosis: Acute exacerbation of COPD Patient seen and examined covering for Dr. Mon[place]. Patient is much more alert today. He states his breathing has been good. He is currently on room air. He is coughing up green/milky phlegm. Objective - Vital Signs Vital signs: Vital Signs Temp 97.4 F L 01/19/17 14:52 Pulse 67 01/19/17 14:52 Resp 20 01/19/17 15:31 BP 141/71 01/19/17 14:52 Pulse Ox 95 01/19/17 14:52 Intake & Output 01/18/17 01/19/17 01/19/17 18:59 06:59 18:59 Intake Total 100 0 240 Output Total 600 800 275 Balance -500 -800 -35 Weight 83.5 kg Intake: Oral 100 0 240 Output: Urine 600 800 275 Straight 600 400 175 Other: Voiding Method Indwelling Catheter Indwelling Catheter Indwelling Catheter # Voids 2 - Exam Gen.: Patient is arousable but somnolent Cardiovascular: Regular rate and rhythm, S1/S2 Lungs: Diminished at the bases, scattered rhonchi Abdomen: Soft nontender nondistended positive bowel sounds Extremities: No edema - Labs CBC & Chem 7: 01/19/17 06:04 01/19/17 06:04 Labs: Abnormal Lab Results - Last 24 Hours (Table) 01/18/17 01/18/17 01/19/17 Range/Units 16:30 20:51 06:04 WBC (3.8-10.6) k/uL RBC (4.30-5.90) m/uL Neutrophils # (1.3-7.7) k/uL Monocytes # (0-1.0) k/uL Chloride 110 H (98-107) mmol/L BUN 45 H (9-20) mg/dL Creatinine 1.40 H (0.66-1.25) mg/dL POC Glucose (mg/dL) 116 H 106 H (75-99) mg/dL Calcium 8.2 L (8.4-10.2) mg/dL Total Protein 5.0 L (6.3-8.2) g/dL Albumin 2.7 L (3.5-5.0) g/dL 01/19/17 01/19/17 Range/Units 06:04 11:37 WBC 14.5 H (3.8-10.6) k/uL RBC 3.98 L (4.30-5.90) m/uL Neutrophils # 11.9 H (1.3-7.7) k/uL Monocytes # 1.4 H (0-1.0) k/uL Chloride (98-107) mmol/L BUN (9-20) mg/dL Creatinine (0.66-1.25) mg/dL POC Glucose (mg/dL) 123 H (75-99) mg/dL Calcium (8.4-10.2) mg/dL Total Protein (6.3-8.2) g/dL Albumin (3.5-5.0) g/dL Microbiology - Last 24 Hours (Table) 01/14/17 12:25 Blood Culture - Preliminary Blood No Growth after 120 hours 01/17/17 16:22 Gram Stain - Preliminary Sputum Sputum Culture - Preliminary Assessment and Plan Plan: Acute exacerbation of COPD Acute on chronic hypoxic respiratory failure Leukocytosis Hypertension Hypothyroidism Hyperlipidemia Memory impairment Rheumatoid arthritis BPH Plan Patient seen and examined covering for Dr. Escalera. Discontinue Ativan. Continue Mucinex to help with thick secretions. Continue with the budesonide along with current nebulizer treatments. Continue on IV antibiotics. We will initiate and encourage incentive spirometer. Continue supplemental oxygen to keep oxygen saturations above 92%. We will continue with pulmonary hygiene, nebulization treatments, and supportive care. GI and DVT prophylaxis. Patient should increase activity and nutrition as tolerated. Cardiology on consult to see patient. We will continue to monitor labs/results and adjust treatment as necessary. Steroid taper. Discharge planning for possible placement.
--- NOTE | 2017-01-19 19:38 | P.PN ---
Subjective Patient is seen in cross coverage for Dr. Alen Champion. Patient appears sedated today apparently was admitted with the complaints of difficulty breathing was noted to be in a COPD exacerbation secondary to a left lower lobe pneumonic process. Patient has been on steroids. Apparently overnight patient got agitated was given a large dose of IV Ativan and was placed on restraints. Currently patient is sedated No other overnight abnormalities reported. 01/18/17 No new overnight events pt is arousable does not know his current location states his breathing is improved. 01/19/17 improved today is more appropriate family was at beside state that he has been more forgetful over the last few months no fevers, chills, n/v, chest pain. breathing is improved per him. Objective - Vital Signs Vital signs: Vital Signs Temp 97.4 F L 01/19/17 14:52 Pulse 67 01/19/17 14:52 Resp 20 01/19/17 15:31 BP 141/71 01/19/17 14:52 Pulse Ox 95 01/19/17 14:52 Intake & Output 01/19/17 01/19/17 01/20/17 06:59 18:59 06:59 Intake Total 0 240 Output Total 800 275 Balance -800 -35 Weight 83.5 kg Intake: Oral 0 240 Output: Urine 800 275 Straight 400 175 Other: Voiding Method Indwelling Catheter Indwelling Catheter # Voids 2 - Exam Gen. appearance alert oriented times 3 Lungs air movement is appreciated improved Heart S1-S2 heard regular rate and rhythm no murmurs. Abdomen soft nontender no organomegaly Lower extremities no edema noted Neuro moves all four extremities. no focal deficits noted. - Labs CBC & Chem 7: 01/19/17 06:04 01/19/17 06:04 Labs: Abnormal Lab Results - Last 24 Hours (Table) 01/18/17 01/19/17 01/19/17 Range/Units 20:51 06:04 06:04 WBC 14.5 H (3.8-10.6) k/uL RBC 3.98 L (4.30-5.90) m/uL Neutrophils # 11.9 H (1.3-7.7) k/uL Monocytes # 1.4 H (0-1.0) k/uL Chloride 110 H (98-107) mmol/L BUN 45 H (9-20) mg/dL Creatinine 1.40 H (0.66-1.25) mg/dL POC Glucose (mg/dL) 106 H (75-99) mg/dL Calcium 8.2 L (8.4-10.2) mg/dL Total Protein 5.0 L (6.3-8.2) g/dL Albumin 2.7 L (3.5-5.0) g/dL 01/19/17 Range/Units 11:37 WBC (3.8-10.6) k/uL RBC (4.30-5.90) m/uL Neutrophils # (1.3-7.7) k/uL Monocytes # (0-1.0) k/uL Chloride (98-107) mmol/L BUN (9-20) mg/dL Creatinine (0.66-1.25) mg/dL POC Glucose (mg/dL) 123 H (75-99) mg/dL Calcium (8.4-10.2) mg/dL Total Protein (6.3-8.2) g/dL Albumin (3.5-5.0) g/dL Microbiology - Last 24 Hours (Table) 01/14/17 12:25 Blood Culture - Preliminary Blood No Growth after 120 hours 01/17/17 16:22 Gram Stain - Preliminary Sputum Sputum Culture - Preliminary Assessment and Plan Plan: #1 acute exacerbation of COPD secondary to community-acquired pneumonia #2 acute toxic encephalopathy #3 acute hypoxic respiratory failure secondary to #1 #4 ongoing tobacco use #5 history of dementia #6 rheumatoid arthritis #7 hypothyroidism #8 dyslipidemia #9 hypertension Plan prednisone 40mg daily.taper off on dc Patient did have a troponin leak however no prior documentation reported active chest pain continue seroquel PT eval, dc home [facility]. NH vs home with home care DVT prophylaxis to continue
[2017-01-19] MEDS: MONTELUKAST 10 MG TAB PO SCH (21:08)
[2017-01-19] MEDS: QUEtiapine 25 MG TAB PO SCH (21:08)
[2017-01-19 23:18] VITALS: RESP 16
[2017-01-20] MEDS: LEVOTHYROXINE 75 MCG TAB PO SCH (06:35)
[2017-01-20] MEDS: IPRATROPIUM-ALBUTEROL 3 ML NEB INHALATION SCH ×3 (06:59→15:25)
[2017-01-20] MEDS: BUDESONIDE 1 MG/2 ML NEBU INHALATION SCH (06:59)
[2017-01-20 07:47] VITALS: TEMP 97.5
[2017-01-20] MEDS: guaiFENesin 600 MG TABLET.ER PO SCH (08:09)
[2017-01-20] MEDS: GABAPENTIN 100 MG CAP PO SCH (08:09)
[2017-01-20] MEDS: predniSONE 20 MG TAB PO SCH (08:09)
[2017-01-20] MEDS: PRAVASTATIN SODIUM 40 MG TAB PO SCH (08:10)
[2017-01-20] MEDS: amLODIPine 5 MG TAB PO SCH (08:10)
[2017-01-20] MEDS: ISOSORBIDE MONONITRATE 20 MG TAB PO SCH (08:10)
[2017-01-20] MEDS: LISINOPRIL 10 MG TAB PO SCH (08:10)
[2017-01-20] MEDS: FAMOTIDINE 20 MG TAB PO SCH (08:10)
[2017-01-20] MEDS: DULoxetine HCL 30 MG CAPSULE.DR PO SCH (08:10)
[2017-01-20] MEDS: ASPIRIN 81 MG CHEW PO SCH (08:10)
[2017-01-20] MEDS: METOPROLOL TARTRATE 25 MG TAB PO SCH (08:10)
[2017-01-20] MEDS: ENOXAPARIN 40 MG/0.4 ML SYRINGE SQ SCH (08:10)
[2017-01-20 09:21] LABS: Anion Gap 9 mmol/L; Blood Urea Nitrogen 43 mg/dL (9-20); Calcium 8.2 mg/dL (8.4-10.2); Carbon Dioxide 22 mmol/L (22-30); Chloride 108 mmol/L (98-107); Glucose 84 mg/dL (74-99); Non-African American GFR(MDRD) 57 (>60 ml/min/1.73 sqM); Potassium 4.1 mmol/L (3.5-5.1); Sodium 139 mmol/L (137-145)
[2017-01-20] MEDS: AZITHROMYCIN 500 MG TAB PO SCH (12:24)
[2017-01-20] MEDS: MULTIVITAMINS, THERA 1 EACH TAB PO SCH (12:24)
--- NOTE | 2017-01-20 13:52 | P.PN ---
Subjective This is an 86-year-old male patient being evaluated and examined today on do sixth floor. The patient came into the emergency room with increasing shortness of breath cough and congestion the patient had having increase in severity over the last few days. This patient has a long history of COPD as well as smoking. Patient had minimal improvement with treatment in the emergency room therefore he was admitted to the hospital with acute exacerbation of COPD, hypoxemia, leukocytosis and dehydration. The patient does have a past medical history of CAD, severe COPD, hypertension, chronic hypoxic respiratory failure rheumatoid arthritis and hypothyroidism. Chest x- ray has been reviewed. Upon examination the patient is resting up in bed on 2 L of oxygen the patient does use home oxygen 2 L via nasal cannula at all times. Patient states his coughing and congestion has improved. He feels significantly better and would like to be discharged. Objective - Vital Signs Vital signs: Vital Signs Temp 97.5 F L 01/20/17 07:00 Pulse 72 01/20/17 11:20 Resp 16 01/20/17 08:00 BP 162/77 01/20/17 07:00 Pulse Ox 92 L 01/20/17 07:00 Intake & Output 01/19/17 01/20/17 01/20/17 18:59 06:59 18:59 Intake Total 240 120 Output Total 275 Balance -35 120 Intake: Oral 240 120 Output: Urine 275 Straight 175 Other: Voiding Method Indwelling Catheter # Voids 2 3 - Exam GENERAL EXAM: Alert, active, comfortable in no apparent distress. HEAD: Normocephalic. EYES: Normal reaction of pupils, equal size. NOSE: Clear with pink turbinates. THROAT: No erythema or exudates. NECK: No masses, no JVD. CHEST: No chest wall deformity. LUNGS: Lung sounds noted to be coarse, scattered rhonchi and wheezes noted bilaterally however improved. Bases diminished CVS: S1 and S2 normal with no audible mumurs, regular rhythm. ABDOMEN: No hepatosplenomegaly, normal bowel sounds, no guarding or rigidity. EXTREMITIES: No edema noted, pedal pulses palpable. SKIN: No rashes CENTRAL NERVOUS SYSTEM: No focal deficits, tone is normal in all 4 extremities. - Labs CBC & Chem 7: 01/19/17 06:04 01/20/17 08:05 Labs: Abnormal Lab Results - Last 24 Hours (Table) 01/20/17 Range/Units 08:05 Chloride 108 H (98-107) mmol/L BUN 43 H (9-20) mg/dL Calcium 8.2 L (8.4-10.2) mg/dL Microbiology - Last 24 Hours (Table) 01/17/17 16:22 Gram Stain - Final Sputum Sputum Culture - Final 01/14/17 20:13 Gram Stain - Final Sputum Sputum Culture - Final 01/14/17 12:25 Blood Culture - Preliminary Blood No Growth after 120 hours Assessment and Plan Plan: Assessment Acute exacerbation of COPD Acute on chronic hypoxic respiratory failure Leukocytosis Hypertension Hypothyroidism Hyperlipidemia Memory impairment Rheumatoid arthritis BPH Plan Patient could be cleared for discharge from pulmonary standpoint to ECF or home with home care. Medications have been reviewed and will be continued as ordered. We will add Mucinex to help with thick secretions. Continue with the budesonide along with current nebulizer treatments. Continue on IV antibiotics with steroid taper.. We will initiate and encourage incentive spirometer. Continue supplemental oxygen to keep oxygen saturations above 92%. We will continue with pulmonary hygiene, nebulization treatments, and supportive care. GI and DVT prophylaxis. Patient should increase activity and nutrition as tolerated. Cardiology on consult to see patient. We will continue to monitor labs/results and adjust treatment as necessary. I performed an examination of the patient and discussed their management with the nurse practitioner. I have reviewed the nurse practitioner's note and agree with the documented findings and plan of care.
[2017-01-20 16:02] VITALS: BP 143/88; PULSE 65
--- NOTE | 2017-01-20 17:40 | P.DS ---
Providers Date of admission: 01/14/17 13:37 Attending physician: Alen Champion Consults: 01/15/17 15:19 Consult Physician Routine Consulting Provider: Viraj Escalera Consult Reason/Comments: copd Do you want consulting provider notified?: Yes Consult Physician Urgent Consulting Provider: Lexa Cross Consult Reason/Comments: elevated ckmb, elevated trops, chest pain Do you want consulting provider notified?: Yes Primary care physician: Alen Champion Hospital Course: Patient is seen in cross coverage for Dr. Alen Champion. Patient appears sedated today apparently was admitted with the complaints of difficulty breathing was noted to be in a COPD exacerbation secondary to a left lower lobe pneumonic process. Patient has been on steroids. Apparently overnight patient got agitated was given a large dose of IV Ativan and was placed on restraints. Currently patient is sedated No other overnight abnormalities reported. 01/18/17 No new overnight events pt is arousable does not know his current location states his breathing is improved. 01/19/17 improved today is more appropriate family was at beside state that he has been more forgetful over the last few months no fevers, chills, n/v, chest pain. breathing is improved per him. 01/20 doing well is able to ambulate with a walker no need for o2 - Exam Gen. appearance alert oriented times 3 Lungs air movement is appreciated improved Heart S1-S2 heard regular rate and rhythm no murmurs. Abdomen soft nontender no organomegaly Lower extremities no edema noted Neuro moves all four extremities. no focal deficits noted. Assessment and Plan Plan: #1 acute exacerbation of COPD secondary to community-acquired pneumonia #2 acute toxic encephalopathy, improved #3 acute hypoxic respiratory failure secondary to #1 #4 ongoing tobacco use #5 history of dementia #6 rheumatoid arthritis #7 hypothyroidism #8 dyslipidemia #9 hypertension steroid taper zithromax for 5 more days seroquel 25mg bedtime will need workup for underlying dementia would benefit from medications like namenda Patient Condition at Discharge: Fair Plan - Discharge Summary New Discharge Prescriptions: Azithromycin [Zithromax] 500 mg PO Q24H #5 tab predniSONE 10 mg PO DAILY #5 tab QUEtiapine [SEROquel] 25 mg PO HS #30 tab Discharge Medication List DULoxetine HCL [Cymbalta] 30 mg PO DAILY 12/29/15 [History] Gabapentin [Neurontin] 100 mg PO TID 12/29/15 [History] HYDROcodone/APAP 10-325MG [[place] 10-325] 1 tab PO TID PRN 12/29/15 [History] Isosorbide Mononitrate [Ismo] 20 mg PO DAILY 12/29/15 [History] Levothyroxine Sodium [Levoxyl] 75 mcg PO DAILY 12/29/15 [History] Lisinopril [Prinivil] 10 mg PO DAILY 12/29/15 [History] Multivitamin [Men's Multi-Vitamin] 1 tab PO DAILY 12/29/15 [History] Pravastatin Sodium [Pravachol] 40 mg PO DAILY 12/29/15 [History] amLODIPine [Norvasc] 5 mg PO DAILY 12/29/15 [History] traMADol HCl [Ultram] 50 mg PO Q6H PRN #20 tab 07/14/16 [Rx] Famotidine [Pepcid] 20 mg PO DAILY #14 tablet 10/13/16 [Rx] Meclizine HCl 25 mg PO DAILY PRN 01/14/17 [History] Montelukast Sodium [Singulair] 10 mg PO HS 01/14/17 [History] Aspirin 81 mg PO DAILY 01/20/17 [Rx] Azithromycin [Zithromax] 500 mg PO Q24H #5 tab 01/20/17 [Rx] QUEtiapine [SEROquel] 25 mg PO HS #30 tab 01/20/17 [Rx] predniSONE 10 mg PO DAILY #5 tab 01/20/17 [Rx] Follow up Appointment(s)/Referral(s): Alen Champion MD [Primary Care Provider] - 1-2 days Viraj Escalera MD [STAFF PHYSICIAN] - 1 Week Patient Instructions/Handouts: COPD (Chronic Obstructive Pulmonary Disease) (DC ) Activity/Diet/Wound Care/Special Instructions: Fall precautions, up with walker. Cardiac diet. Discharge Disposition: HOME WITH HOME HEALTH SERVICES
== END 2017-01-20 17:24 | disposition home or self-care (01) | DRG 190 ==
LOC: EC 11:07 → 4MS4W 13:37 → 6SEL 01-15 15:50 → 4MS4W 01-19 14:49
PROVIDERS: ADMIT Family Medicine; ATTEND Family Medicine
PROC: 0T9B70Z Drainage of Bladder with Drainage Device, Via Natural or Artificial Opening (ICD-10-PCS; principal; 2017-01-17)
DX: J44.1 Chronic obstructive pulmonary disease with (acute) exacerbation (principal); J18.9 Pneumonia, unspecified organism; J96.21 Acute and chronic respiratory failure with hypoxia; G92 Toxic encephalopathy; M06.9 Rheumatoid arthritis, unspecified; F03.90 Unspecified dementia, unspecified severity, without behavioral disturbance, psychotic disturbance, mood disturbance, and anxiety; E86.0 Dehydration; Z99.81 Dependence on supplemental oxygen; J44.0 Chronic obstructive pulmonary disease with (acute) lower respiratory infection; E78.5 Hyperlipidemia, unspecified; E03.9 Hypothyroidism, unspecified; I10 Essential (primary) hypertension; I25.10 Atherosclerotic heart disease of native coronary artery without angina pectoris; R53.1 Weakness; R07.9 Chest pain, unspecified; R32 Unspecified urinary incontinence; F17.290 Nicotine dependence, other tobacco product, uncomplicated; D72.829 Elevated white blood cell count, unspecified; N40.0 Benign prostatic hyperplasia without lower urinary tract symptoms; R74.8 Abnormal levels of other serum enzymes; Z82.5 Family history of asthma and other chronic lower respiratory diseases; Z96.1 Presence of intraocular lens; Z79.899 Other long term (current) drug therapy; Z79.891 Long term (current) use of opiate analgesic; Z78.1 Physical restraint status; Z80.9 Family history of malignant neoplasm, unspecified; Z90.49 Acquired absence of other specified parts of digestive tract; Z98.42 Cataract extraction status, left eye; Z98.41 Cataract extraction status, right eye; Z87.01 Personal history of pneumonia (recurrent)
CPT/HCPCS: 36415; 71010; 71020; 80048; 80053; 81003; 82248; 82550; 82553; 83036; 83735; 83880; 84484; 85025; 85610; 85730; 87040; 87070; 87205; 93005; 93306; 94640; 94644; 94760; 96361; 96365; 96375; 99285

== ENCOUNTER → 2017-05-30 | Outpatient (CLI) | payer MEDICARE, OTHER ==
--- NOTE | 2017-05-30 11:49 | XR ---
EXAMINATION TYPE: XR knee complete LT DATE OF EXAM: 05/30/2017 CLINICAL HISTORY: Osteoarthritis and knee pain TECHNIQUE: Three views of the left knee are obtained. COMPARISON: None. FINDINGS: There is no acute fracture/dislocation evident in left knee. The tri-compartment joint sp aces mild to moderately narrowed with subchondral sclerosis in the medial tibial plateau and chondroc alcinosis of the lateral compartment greater than medial compartment. Marginal osteophytes project fr om the femoral condyles, tibial plateaus, and superior patellar pole. No joint effusion. Vascular scl erosis is noted. The overlying soft tissue appears unremarkable. IMPRESSION: 1. There is no acute fracture or dislocation in the left knee. 2. Moderate tricompartmental osteoarthrosis. 3. 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
== END | disposition home or self-care (01) ==
LOC: RADXRMAIN 11:21
PROVIDERS: ATTEND Family Medicine
DX: M17.12 Unilateral primary osteoarthritis, left knee (principal); M11.262 Other chondrocalcinosis, left knee

== ENCOUNTER 2017-11-12 14:30 | Inpatient (IN) | payer MEDICARE, OTHER ==
[2017-11-12] MEDS ORDERED: ASPIRIN 81 MG PO STA (15:56)
--- NOTE | 2017-11-12 16:00 | ED ---
Chest Pain HPI - General Chief Complaint: Chest Pain Stated Complaint: chest pain Time Seen by Provider: 11/12/17 15:40 Source: patient, RN notes reviewed Mode of arrival: wheelchair Limitations: no limitations - History of Present Illness Initial Comments: This 87-year-old male with history of COPD history of renal insufficiency history of pneumonia in the past who presents from his doctor's office with complaints of 2 days of cough with some chest discomfort and irregularity of his heart beat. He said phlegm with he'll await color no overt fevers chills or sweats he states the pain seems worse with coughing. He states it feels as if a rib [address] in going back in. He is unable to reproduce it with palpation. He denies any other constitutional symptoms at this time. MD Complaint: chest pain, other - Related Data Home Medications Medication Instructions Recorded Confirmed HYDROcodone/APAP 10-325MG [[place] 1 tab PO TID PRN 12/29/15 11/12/17 10-325] Isosorbide Mononitrate [Ismo] 20 mg PO DAILY 12/29/15 11/12/17 Levothyroxine Sodium [Levoxyl] 75 mcg PO DAILY 12/29/15 11/12/17 Pravastatin Sodium [Pravachol] 40 mg PO DAILY 12/29/15 11/12/17 Montelukast Sodium [Singulair] 10 mg PO HS 01/14/17 11/12/17 Allergies Allergy/AdvReac Type Severity Reaction Status Date / Time No Known Allergies Allergy Verified 11/12/17 15:56 Review of Systems ROS Statement: Those systems with pertinent positive or pertinent negative responses have been documented in the HPI. ROS Other: All systems not noted in ROS Statement are negative. EKG Findings - EKG Results: EKG: interpreted by ERMD (Atrial fibrillation with a variable AV block rate was 87 QRS duration 90 QT since QTC of 362/435 low-voltage no acute ST-T wave changes this is compared with an EKG submitted from the office today. A previous EKG dated 09/06/16 showed a normal sinus rhythm.) Past Medical History Past Medical History: Coronary Artery Disease (CAD), Chest Pain / Angina, COPD, Dementia, Eye Disorder, Hyperlipidemia, Hypertension, Memory Impairment, Pneumonia, Prostate Disorder, Renal Disease, Respiratory Disorder, Rheumatoid Arthritis (RA), Thyroid Disorder Additional Past Medical History / Comment(s): Pneumonia with sepsis, hypoxic respiratory failure, home O2 at 3L/NC ATC, CKD stage III, BPH, hypothyroid, lumbar disc dx, chronic back and bilateral hip pain-difficulty walking at times. History of Any Multi-Drug Resistant Organisms: None Reported Past Surgical History: Back Surgery, Cholecystectomy, Heart Catheterization, Orthopedic Surgery Additional Past Surgical History / Comment(s): Bilateral cataract removal and lens implants, left knee open surgery d/t injury, EGD, heart catheterization. Patient has never had a colonoscopy. Past Anesthesia/Blood Transfusion Reactions: No Reported Reaction Past Psychological History: No Psychological Hx Reported Smoking Status: Former smoker Past Alcohol Use History: None Reported Past Drug Use History: None Reported - Past Family History Mother Family Medical History: Cancer Additional Family Medical History / Comment(s): Mother at age 96 Unsure what type of cancer Father Family Medical History: Cancer, COPD Additional Family Medical History / Comment(s): Father at age 88 from emphysema Brother(s) Additional Family Medical History / Comment(s): Patient has 7 brothers. Sister(s) Additional Family Medical History / Comment(s): Patient has 1 sister. Daughter(s) Additional Family Medical History / Comment(s): He has 4 daughters and 2 sons. General Exam - General Exam Comments Initial Comments: This is a well-developed well-nourished awake alert oriented 3 male Limitations: no limitations General appearance: alert, in no apparent distress Head exam: Present: atraumatic, normocephalic, normal inspection Eye exam: Present: normal appearance, PERRL, EOMI. Absent: scleral icterus, conjunctival injection, periorbital swelling ENT exam: Present: mucous membranes dry Neck exam: Present: normal inspection. Absent: tenderness, meningismus, lymphadenopathy Respiratory exam: Present: decreased breath sounds Cardiovascular Exam: Present: tachycardia, irregular rhythm GI/Abdominal exam: Present: soft, normal bowel sounds. Absent: distended, tenderness, guarding, rebound, rigid Extremities exam: Present: normal inspection, full ROM, normal capillary refill. Absent: tenderness, pedal edema, joint swelling, calf tenderness Back exam: Present: normal inspection Neurological exam: Present: alert, oriented X3, CN II-XII intact Psychiatric exam: Present: normal affect, normal mood Skin exam: Present: warm, dry, intact, normal color. Absent: rash Course Vital Signs 11/12/17 11/12/17 14:32 16:32 Temperature 97.2 F L Pulse Rate 104 H 83 Respiratory 18 22 Rate Blood Pressure 116/57 130/60 O2 Sat by Pulse 94 L 96 Oximetry Chest Pain MDM - MDM I did review the imaging and report is evidence a left perihilar infiltrate. Patient does have elevated white blood cell count he does have a cough of yellow white phlegm. He was noted to convert back to a sinus rhythm is repeat EKG showed a sinus rhythm of 76 FL interval 142 QRS 86 QT since QTC of 414/465 low-voltage was noted. The case will be discussed with Dr. Champion patient be admitted for IV antibiotics fluids he does demonstrate in addition to renal insufficiency some presence of dehydration. Disposition Clinical Impression: Atrial fibrillation, Pneumonia, Dehydration, Renal insufficiency syndrome Disposition: ADMITTED IP TO THIS HOSP Condition: Stable Referrals: Alen Champion MD [Primary Care Provider] - 1-2 days
[2017-11-12 16:21] LABS: Basophils # (A) 0.1 k/uL (0-0.2); Basophils % (A) 0 %; Eosinophils # (A) 0.1 k/uL (0-0.7); Eosinophils % (A) 0 %; HCT 40.8 % (39.0-53.0); HGB 13.2 gm/dL (13.0-17.5); Lymphocytes # (A) 1.1 k/uL (1.0-4.8); Lymphocytes % (A) 6 %; MCH 31.4 pg (25.0-35.0); MCHC 32.3 g/dL (31.0-37.0); MCV 97.2 fL (80.0-100.0); Mean Platelet Volume 9.4; Monocytes # (A) 1.9 k/uL (0-1.0); Monocytes % (A) 10 %; Neutrophils # (A) 15.1 k/uL (1.3-7.7); Neutrophils % (A) 82 %; Platelet Count 246 k/uL (150-450); RDW 12.9 % (11.5-15.5); WBC 18.4 k/uL (3.8-10.6)
--- NOTE | 2017-11-12 16:26 | XR ---
EXAMINATION TYPE: XR chest 2V DATE OF EXAM: 11/12/2017 COMPARISON: 08/29/2017 INDICATION: Chest pain TECHNIQUE: Frontal and lateral views of the chest are obtained. FINDINGS: The heart size is normal. The pulmonary vasculature is normal. Some patchy infiltrate may be the left perihilar region. Suspicious focal consolidation is not otherw ise identified. EKG leads overlie the chest.. IMPRESSION: 1. Mild left perihilar infiltrate is present. Follow-up can be performed.
[2017-11-12 16:30] LABS: D-Dimer 0.55 mg/L FEU (<0.60)
[2017-11-12 16:33] LABS: Albumin 3.6 g/dL (3.5-5.0); Calcium 9.1 mg/dL (8.4-10.2); Magnesium 2.1 mg/dL (1.6-2.3); Potassium 4.1 mmol/L (3.5-5.1); Total Bilirubin 2.3 mg/dL (0.2-1.3); Total Protein 6.2 g/dL (6.3-8.2)
[2017-11-12 16:34] LABS: INR 1.1 (<1.2); Prothrombin Time 10.4 sec (9.0-12.0)
[2017-11-12 16:45] LABS: Creatine Kinase 95 U/L (55-170)
[2017-11-12 16:58] LABS: Creatine Kinase MB 1.3 ng/mL (0.0-2.4); Troponin I <0.012 ng/mL (0.000-0.034)
[2017-11-12] MEDS ORDERED: PNEUMONIA PROTOCOL UTILIZED 1 EACH MISC PO PRN (17:14)
[2017-11-12] MEDS ORDERED: AZITHROMYCIN 500 MG in SODIUM CHLORIDE 0.9% 250 ML IVPB STA (17:21)
[2017-11-12] MEDS ORDERED: cefTRIAXone IN SWFI 1,000 MG/10 ML SYRINGE IVP STA (17:48)
[2017-11-12 18:39] LABS: T4, Free (Free Thyroxine) 1.32 ng/dL (0.78-2.19)
[2017-11-12] MEDS: IPRATROPIUM-ALBUTEROL 3 ML NEB INHALATION SCH (21:10)
[2017-11-12] MEDS: MONTELUKAST 10 MG TAB PO SCH (22:14)
[2017-11-12] MEDS: HYDROcodone/APAP 10-325MG 1 EACH TAB PO PRN (22:19)
[2017-11-13] MEDS: IPRATROPIUM-ALBUTEROL 3 ML NEB INHALATION SCH ×6 (00:07→19:04)
[2017-11-13] MEDS: LEVOTHYROXINE 75 MCG TAB PO SCH (05:59)
[2017-11-13] MEDS: ISOSORBIDE MONONITRATE 20 MG TAB PO SCH (08:14)
[2017-11-13] MEDS: cefTRIAXone IN SWFI 1,000 MG/10 ML SYRINGE IVP SCH (08:15)
--- NOTE | 2017-11-13 12:35 | P.HPIM ---
History of Present Illness 87-year-old male presented to family physician yesterday with complaints of a cough diaphoresis and shortness of breath. Patient was found in the in the atrial fibrillation new onset. Patient was directed to cardiology unable to see physician. Daughter took him to the emergency room and subsequently admitted. Found to have early pneumonia and dehydration. Patient converted to sinus rhythm Review of Systems Constitutional: Reports fever, Reports weakness Cardiovascular: Reports palpitations Respiratory: Reports cough Past Medical History Past Medical History: Coronary Artery Disease (CAD), Chest Pain / Angina, COPD, Dementia, Eye Disorder, Hyperlipidemia, Hypertension, Memory Impairment, Pneumonia, Prostate Disorder, Renal Disease, Respiratory Disorder, Rheumatoid Arthritis (RA), Thyroid Disorder Additional Past Medical History / Comment(s): Pneumonia with sepsis, hypoxic respiratory failure, home O2 at 2-3L/NC pt stated" uses as he needs it" CKD stage III, BPH, hypothyroid, lumbar disc dx, chronic back and bilateral hip pain -difficulty walking at times. History of Any Multi-Drug Resistant Organisms: None Reported Past Surgical History: Back Surgery, Cholecystectomy, Heart Catheterization, Orthopedic Surgery Additional Past Surgical History / Comment(s): Bilateral cataract removal and lens implants, left knee open surgery d/t injury, EGD, heart catheterization. Patient has never had a colonoscopy. Past Anesthesia/Blood Transfusion Reactions: No Reported Reaction Smoking Status: Former smoker - Past Family History Mother Family Medical History: Cancer Additional Family Medical History / Comment(s): Mother at age 96 Unsure what type of cancer Father Family Medical History: Cancer, COPD Additional Family Medical History / Comment(s): Father at age 88 from emphysema Brother(s) Additional Family Medical History / Comment(s): Patient has 7 brothers. Sister(s) Additional Family Medical History / Comment(s): Patient has 1 sister. Daughter(s) Additional Family Medical History / Comment(s): He has 4 daughters and 2 sons. Medications and Allergies Home Medications Medication Instructions Recorded Confirmed Type HYDROcodone/APAP 10-325MG [[place] 1 tab PO TID PRN 12/29/15 11/12/17 History 10-325] Isosorbide Mononitrate [Ismo] 20 mg PO DAILY 12/29/15 11/12/17 History Levothyroxine Sodium [Levoxyl] 75 mcg PO DAILY 12/29/15 11/12/17 History Pravastatin Sodium [Pravachol] 40 mg PO DAILY 12/29/15 11/12/17 History Montelukast Sodium [Singulair] 10 mg PO HS 01/14/17 11/12/17 History Allergies Allergy/AdvReac Type Severity Reaction Status Date / Time No Known Allergies Allergy Verified 11/12/17 15:56 Physical Exam Vitals: Vital Signs Temp Pulse Pulse Resp BP BP Pulse Ox 11/13/17 10:48 68 11/13/17 10:39 66 11/13/17 07:00 98.1 F 71 18 131/64 96 11/13/17 04:24 72 11/13/17 04:17 68 11/13/17 02:27 98.2 F 90 18 140/71 94 L 11/13/17 00:17 80 11/13/17 00:07 80 11/12/17 23:00 98.2 F 90 18 140/71 94 L 11/12/17 21:28 72 11/12/17 21:11 74 95 11/12/17 19:45 98.2 F 90 18 140/71 94 L 11/12/17 19:18 98.6 F 11/12/17 18:03 79 18 99/51 93 L 11/12/17 17:14 94 L 11/12/17 16:32 83 22 130/60 96 11/12/17 14:32 97.2 F L 104 H 18 116/57 94 L Intake and Output 11/12/17 11/13/17 11/13/17 22:59 06:59 14:59 Intake Total 650 300 Balance 650 300 Intake: Intake, IV Titration 250 Amount Azithromycin 500 mg In 250 Sodium Chloride 0.9% 250 ml @ 125 mls/hr IVPB ONCE STA Rx#:[id number] Oral 400 300 Other: Voiding Method Toilet Toilet # Voids 1 1 - Constitutional General appearance: mild distress - EENT Eyes: PERRLA Ears: bilateral: normal - Neck Neck: normal ROM - Respiratory Respiratory: bilateral: rhonchi, wheezing - Cardiovascular Rhythm: regular - Gastrointestinal General gastrointestinal: soft - Integumentary Integumentary: normal - Neurologic Neurologic: CNII-XII intact - Musculoskeletal Musculoskeletal: generalized weakness - Psychiatric Psychiatric: A&O x's 3, appropriate affect Results CBC & Chem 7: 11/12/17 15:22 11/12/17 15:22 Labs: Abnormal Lab Results - Last 24 Hours (Table) 11/12/17 11/12/17 11/12/17 Range/Units 15:22 15:22 15:22 WBC 18.4 H (3.8-10.6) k/uL RBC 4.20 L (4.30-5.90) m/uL Neutrophils # 15.1 H (1.3-7.7) k/uL Monocytes # 1.9 H (0-1.0) k/uL BUN 25 H (9-20) mg/dL Creatinine 2.00 H (0.66-1.25) mg/dL Glucose 118 H (74-99) mg/dL Total Bilirubin 2.3 H (0.2-1.3) mg/dL Total Protein 6.2 L (6.3-8.2) g/dL TSH 5.760 H (0.465-4.680) mIU/L Microbiology - Last 24 Hours (Table) 11/13/17 06:30 Sputum Culture - Preliminary Sputum Chest x-ray: report reviewed Thrombosis Risk Factor Assmnt - Choose All That Apply Any of the Below Risk Factors Present?: Yes Each Factor Represents 1 point: Abnormal pulmonary function (COPD), Serious lung disease incl. pneumonia (< 1month) Other Risk Factors: Yes Each Risk Factor Represents 3 Points: Age 75 years or older Other congenital or acquired thrombophilia - If yes, enter type in comment: No Thrombosis Risk Factor Assessment Total Risk Factor Score: 5 Thrombosis Risk Factor Assessment Level: High Risk Assessment and Plan Assessment: Assessment paroxysmal atrial fibrillation new onset pneumonia dehydration renal insufficiency stage III history of coronary disease history of COPD dementia hyperlipidemia rheumatoid arthritis hypothyroidism plan antibiotics cardiology consultation
--- NOTE | 2017-11-13 13:24 | ECHOF ---
Referral Reason:new afib MEASUREMENTS -------- HEIGHT: 180.3 cm WEIGHT: 81.6 kg BP: 134/64 IVSd: 1.2 cm (0.6 - 1.1) LVIDd: 3.2 cm (3.9 - 5.3) LVPWd: 1.5 cm (0.6 - 1.1) IVSs: 1.6 cm LVIDs: 1.2 cm LVPWs: 2.0 cm LAESV Index (A-L): 19.45 ml/m Ao Diam: 3.5 cm (2.0 - 3.7) AV Cusp: 2.0 cm (1.5 - 2.6) LA Diam: 3.1 cm (2.7 - 3.8) MV EXCURSION: 13.883 mm (> 18.000) MV EF SLOPE: 46 mm/s (70 - 150) EPSS: 0.4 cm MV E Kye: 1.00 m/s MV DecT: 172 ms MV A Kye: 0.85 m/s MV E/A Ratio: 1.18 AR PHT: 235 ms RAP: 5.00 mmHg RVSP: 11.95 mmHg FINDINGS -------- Sinus rhythm. This was a technically good study. The left ventricular size is normal. There is mild concentric left ventricular hypertrophy. Overa ll left ventricular systolic function is normal with, an EF between 55 - 60 %. The right ventricle is normal in size and function. The left atrium is normal in size. The right atrium is normal in size. The aortic valve is trileaflet, and appears structurally normal. No aortic stenosis or regurgitation. Mild mitral regurgitation is present. Mild tricuspid regurgitation present. The right ventricular systolic pressure, as measured by Doppl er, is 11.95mmHg. Pulmonic valve appears structurally normal. The aortic root size is normal. Normal inferior vena cava with normal inspiratory collapse consistent with estimated right atrial pre ssure of 5 mmHg. The pericardium is normal. CONCLUSIONS -------- 1. Sinus rhythm. 2. This was a technically good study. 3. The left ventricular size is normal. 4. There is mild concentric left ventricular hypertrophy. 5. Overall left ventricular systolic function is normal with, an EF between 55 - 60 %. 6. The right ventricle is normal in size and function. 7. The left atrium is normal in size. 8. The right atrium is normal in size. 9. The aortic valve is trileaflet, and appears structurally normal. No aortic stenosis or regurgitati on. 10. Mild mitral regurgitation is present. 11. Mild tricuspid regurgitation present. 12. The right ventricular systolic pressure, as measured by Doppler, is 11.95mmHg. 13. Pulmonic valve appears structurally normal. 14. The aortic root size is normal. 15. Normal inferior vena cava with normal inspiratory collapse consistent with estimated right atrial pressure of 5 mmHg. 16. The pericardium is normal. BULL WHEEL WORKER: Deana Campos RDCS
--- NOTE | 2017-11-13 13:57 | XR ---
EXAMINATION TYPE: XR chest 2V DATE OF EXAM: 11/13/2017 COMPARISON: NONE INDICATION: Pneumonia TECHNIQUE: Frontal and lateral views of the chest are obtained. FINDINGS: The heart size is normal. The pulmonary vasculature is normal. Patchy infiltrate is at the left base is increasing from prior study. Correlate for pneumonia. Left p erihilar infiltrate has improved. IMPRESSION: 1. Left lower lobe infiltrate. Correlate for pneumonia. 2. Improvement with incomplete resolution left perihilar infiltrate.
[2017-11-13] MEDS: HYDROcodone/APAP 10-325MG 1 EACH TAB PO PRN ×2 (15:04→23:08)
--- NOTE | 2017-11-13 15:08 | P.CRDCN ---
History of Present Illness Consult date: 11/13/17 Consult reason: atrial fibrillation History of present illness: Mr. Calderón is a pleasant 87-year-old male past medical history significant for COPD, dementia, hypertension, dyslipidemia, chronic kidney disease and questionable coronary artery disease. He states he underwent cardiac catheterization at one time and was told he had mild nonobstructive disease and medical therapy was recommended at this time. His records are unavailable to me. He is also a former smoker. He smoked from 1953 until 2016 cigars. Patient is seen in consultation for new onset atrial fibrillation. He apparently presented to his PCPs office yesterday with complaints of cough and congestion he didn't EKG revealed atrial fibrillation with a controlled ventricular response rate 84. He is currently admitted hospital and treated for pneumonia. Initial EKG on admission reveals the same atrial fibrillation with controlled ventricular response he converted back to sinus mechanism 2 hours later. And has been maintaining sounds. He states at one time in the past he was told he had atrial fibrillation but was never anticoagulated. He denies symptoms of chest pain, dizziness, palpitations or shortness of breath associated with the atrial fibrillation. He denies history of GI or rectal bleeding. He denies ever having had a hemorrhagic stroke. He states he lives with his and does not have a history of falling. Chest x-ray reveals left lower lobe infiltrate. Laboratory data reveals WBC 18.4, hemoglobin 13.2, platelets 246, baseline INR 1.1, d-dimer 0.55, potassium 4.1, creatinine 2.0, cardiac enzymes negative 1, proBNP 2880, TSH 5.76. Current cardiac medications include pravastatin 40 mg daily and isosorbide mononitrate 20 mg daily. Review of Systems At the time of my exam: CONSTITUTIONAL: Denies fever. Denies chills. EYES: Denies blurred vision. Denies vision changes. Denies eye pain. EARS, NOSE, MOUTH & THROAT: Denies headache. Denies sore throat. Denies ear pain. CARDIOVASCULAR: Denies chest pain. Denies shortness of breath. Denies orthopnea. Denies PND. Denies palpitations. RESPIRATORY: Complains of productive cough. GASTROINTESTINAL: Denies abdominal pain. Denies diarrhea. Denies constipation. Denies nausea. Denies vomiting. MUSCULOSKELETAL: Denies myalgias. INTEGUMENTARY: Denies pruitis. Denies rash. NEUROLOGIC: Denies numbness. Denies tingling. Denies weakness. PSYCHIATRIC: Denies anxiety. Denies depression. ENDOCRINE: Denies fatigue. Denies weight change. Denies polydipsia. Denies polyurina. GENITOURINARY: Denies burning, hematuria or urgency with micturation. HEMATOLOGIC: Denies history of anemia. Denies bleeding. Past Medical History Past Medical History: Coronary Artery Disease (CAD), Chest Pain / Angina, COPD, Dementia, Eye Disorder, Hyperlipidemia, Hypertension, Memory Impairment, Pneumonia, Prostate Disorder, Renal Disease, Respiratory Disorder, Rheumatoid Arthritis (RA), Thyroid Disorder Additional Past Medical History / Comment(s): Pneumonia with sepsis, hypoxic respiratory failure, home O2 at 2-3L/NC pt stated" uses as he needs it" CKD stage III, BPH, hypothyroid, lumbar disc dx, chronic back and bilateral hip pain -difficulty walking at times. History of Any Multi-Drug Resistant Organisms: None Reported Past Surgical History: Back Surgery, Cholecystectomy, Heart Catheterization, Orthopedic Surgery Additional Past Surgical History / Comment(s): Bilateral cataract removal and lens implants, left knee open surgery d/t injury, EGD, heart catheterization. Patient has never had a colonoscopy. Past Anesthesia/Blood Transfusion Reactions: No Reported Reaction Smoking Status: Former smoker - Past Family History Mother Family Medical History: Cancer Additional Family Medical History / Comment(s): Mother at age 96 Unsure what type of cancer Father Family Medical History: Cancer, COPD Additional Family Medical History / Comment(s): Father at age 88 from emphysema Brother(s) Additional Family Medical History / Comment(s): Patient has 7 brothers. Sister(s) Additional Family Medical History / Comment(s): Patient has 1 sister. Daughter(s) Additional Family Medical History / Comment(s): He has 4 daughters and 2 sons. Medications and Allergies Home Medications Medication Instructions Recorded Confirmed Type HYDROcodone/APAP 10-325MG [[place] 1 tab PO TID PRN 12/29/15 11/12/17 History 10-325] Isosorbide Mononitrate [Ismo] 20 mg PO DAILY 12/29/15 11/12/17 History Levothyroxine Sodium [Levoxyl] 75 mcg PO DAILY 12/29/15 11/12/17 History Pravastatin Sodium [Pravachol] 40 mg PO DAILY 12/29/15 11/12/17 History Montelukast Sodium [Singulair] 10 mg PO HS 01/14/17 11/12/17 History Allergies Allergy/AdvReac Type Severity Reaction Status Date / Time No Known Allergies Allergy Verified 11/12/17 15:56 Physical Exam Vitals: Vital Signs Temp Pulse Pulse Resp BP BP Pulse Ox 11/13/17 10:48 68 11/13/17 10:39 66 11/13/17 07:00 98.1 F 71 18 131/64 96 11/13/17 04:24 72 11/13/17 04:17 68 11/13/17 02:27 98.2 F 90 18 140/71 94 L 11/13/17 00:17 80 11/13/17 00:07 80 11/12/17 23:00 98.2 F 90 18 140/71 94 L 11/12/17 21:28 72 11/12/17 21:11 74 95 11/12/17 19:45 98.2 F 90 18 140/71 94 L 11/12/17 19:18 98.6 F 11/12/17 18:03 79 18 99/51 93 L 11/12/17 17:14 94 L 11/12/17 16:32 83 22 130/60 96 Intake and Output 11/12/17 11/13/17 11/13/17 22:59 06:59 14:59 Intake Total 650 300 Balance 650 300 Intake: Intake, IV Titration 250 Amount Azithromycin 500 mg In 250 Sodium Chloride 0.9% 250 ml @ 125 mls/hr IVPB ONCE STA Rx#:[id number] Oral 400 300 Other: Voiding Method Toilet Toilet # Voids 1 1 Blood pressure 131/64 heart rate 71 afebrile since admission maintaining oxygen saturation on room air GENERAL: This is a 87-year-old occasion male in no apparent distress at the time of my examination. HEENT: Head is atraumatic, normocephalic. Pupils are equal, round. Sclerae anicteric. Conjunctivae are clear. Mucous membranes of the mouth are moist. Neck is supple. There is no jugular venous distention. No carotid bruit is heard. LUNGS: Clear to auscultation no wheezes, rales or rhonchi. No chest wall tenderness is noted on palpation or with deep breathing. Diminished. HEART: Regular rate and rhythm without murmurs, rubs or gallops. S1 and S2 heard. ABDOMEN: Soft, nontender. Bowel sounds are heard. No organomegaly noted. EXTREMITIES: No evidence of peripheral edema and no calf tenderness noted. VASCULAR: Radial and dorsalis pedis pulses palpated, no evidence of clubbing. NEUROLOGIC: Patient is awake, alert and oriented x3. Results 11/12/17 15:22 11/12/17 15:22 Cardiac Enzymes 11/12/17 11/12/17 Range/Units 15:22 15:22 AST 26 (17-59) U/L CK-MB (CK-2) 1.3 (0.0-2.4) ng/mL Troponin I <0.012 (0.000-0.034) ng/mL Coagulation 11/12/17 Range/Units 15:22 PT 10.4 (9.0-12.0) sec APTT 27.0 (22.0-30.0) sec CBC 11/12/17 Range/Units 15:22 WBC 18.4 H (3.8-10.6) k/uL RBC 4.20 L (4.30-5.90) m/uL Hgb 13.2 (13.0-17.5) gm/dL Hct 40.8 (39.0-53.0) % Plt Count 246 (150-450) k/uL Comprehensive Metabolic Panel 11/12/17 Range/Units 15:22 Sodium 141 (137-145) mmol/L Potassium 4.1 (3.5-5.1) mmol/L Chloride 103 (98-107) mmol/L Carbon Dioxide 26 (22-30) mmol/L BUN 25 H (9-20) mg/dL Creatinine 2.00 H (0.66-1.25) mg/dL Glucose 118 H (74-99) mg/dL Calcium 9.1 (8.4-10.2) mg/dL AST 26 (17-59) U/L ALT 23 (21-72) U/L Alkaline Phosphatase 81 (38-126) U/L Total Protein 6.2 L (6.3-8.2) g/dL Albumin 3.6 (3.5-5.0) g/dL Current Medications Generic Name Dose Route Start Last Admin Trade Name Freq PRN Reason Stop Dose Admin Hydrocodone Bitart/Acetaminophen 1 each 11/12/17 17:19 11/12/17 22:19 [place] 10 PO 1 each TID PRN Administration Pain Albuterol/Ipratropium 3 ml 11/12/17 20:00 11/13/17 10:39 Duoneb 0.5 Mg-3 Mg/3 Ml Soln INHALATION 3 ml RT-Q4H SUMEET Administration Azithromycin 500 mg 11/13/17 18:00 Zithromax PO DAILY@1800 SUMEET Ceftriaxone Sodium 1,000 mg 11/13/17 09:00 11/13/17 08:15 Rocephin IVP 11/16/17 09:01 1,000 mg Q24HR SUMEET Administration Isosorbide Mononitrate 20 mg 11/13/17 09:00 11/13/17 08:14 Ismo PO 20 mg DAILY SUMEET Administration Levothyroxine Sodium 75 mcg 11/13/17 06:30 11/13/17 05:59 Synthroid PO 75 mcg DAILY@0630 SUMEET Administration Metoprolol Tartrate 12.5 mg 11/13/17 21:00 Lopressor PO BID [facility] Miscellaneous Information 1 each 11/12/17 17:14 Pneumonia Protocol Utilized PO ONCE PRN Per Protocol Montelukast Sodium 10 mg 11/12/17 21:00 11/12/17 22:14 Singulair PO 10 mg HS SUMEET Administration Pravastatin Sodium 40 mg 11/13/17 21:00 Pravachol PO HS SUMEET Warfarin Sodium 2.5 mg 11/13/17 18:00 Coumadin PO DAILY@1800 SUMEET Intake and Output 11/12/17 11/13/17 11/13/17 22:59 06:59 14:59 Intake Total 650 300 Balance 650 300 Intake: Intake, IV Titration 250 Amount Azithromycin 500 mg In 250 Sodium Chloride 0.9% 250 ml @ 125 mls/hr IVPB ONCE STA Rx#:[id number] Oral 400 300 Other: Voiding Method Toilet Toilet # Voids 1 1 11/12/17 15:22 11/12/17 15:22 Assessment and Plan Assessment: ASSESSMENT 1. New onset paroxysmal atrial fibrillation with controlled ventricular response 2. Dyslipidemia 3. COPD 4. Chronic kidney disease stage III 5. Hypothyroidism 6. Hypertension PLAN Obtain 2-D echocardiogram and Doppler study to assess cardiac structure and function. Lengthy discussion was had with the patient regarding initiation of long-term anticoagulation. Risks versus benefits were explained to the patient and questions have been answered appropriately. We have recommended coumadin secondary to elevated kidney function and he is agreeable. He denies history of GI or rectal bleeding. He states he has never suffered from a stroke. He denies dizziness, syncope or frequent falls. Coumadin 2.5 mg will be initiated today baseline INR is 1.1. PT and INR daily. We will also start him on his low dose beta jad 12.5 mg twice a day. Thank you kindly for this consultation. Nurse Practitioner note has been reviewed, I agree with a documented findings and plan of care. Patient was seen and examined.
[2017-11-13] MEDS: WARFARIN 2.5 MG TAB PO SCH (17:52)
[2017-11-13] MEDS: AZITHROMYCIN 500 MG TAB PO SCH (17:52)
[2017-11-13] MEDS: PRAVASTATIN SODIUM 40 MG TAB PO SCH (22:55)
[2017-11-13] MEDS: METOPROLOL TARTRATE 12.5 MG TAB PO SCH (22:55)
[2017-11-13] MEDS: MONTELUKAST 10 MG TAB PO SCH (22:55)
[2017-11-14] MEDS: IPRATROPIUM-ALBUTEROL 3 ML NEB INHALATION SCH ×8 (00:30→20:10)
[2017-11-14] MEDS: LEVOTHYROXINE 75 MCG TAB PO SCH (05:46)
[2017-11-14] MEDS: HYDROcodone/APAP 10-325MG 1 EACH TAB PO PRN ×2 (05:53→16:24)
[2017-11-14 08:13] LABS: Basophils # (A) 0.1 k/uL (0-0.2); Basophils % (A) 1 %; Eosinophils # (A) 0.4 k/uL (0-0.7); Eosinophils % (A) 4 %; HCT 34.1 % (39.0-53.0); HGB 11.1 gm/dL (13.0-17.5); Lymphocytes # (A) 0.9 k/uL (1.0-4.8); Lymphocytes % (A) 9 %; MCH 31.6 pg (25.0-35.0); MCHC 32.5 g/dL (31.0-37.0); MCV 97.1 fL (80.0-100.0); Mean Platelet Volume 9.1; Monocytes # (A) 1.1 k/uL (0-1.0); Monocytes % (A) 11 %; Neutrophils # (A) 7.6 k/uL (1.3-7.7); Neutrophils % (A) 74 %; Platelet Count 211 k/uL (150-450); RBC 3.51 m/uL (4.30-5.90); WBC 10.2 k/uL (3.8-10.6)
[2017-11-14] MEDS: METOPROLOL TARTRATE 12.5 MG TAB PO SCH ×2 (08:30→19:57)
[2017-11-14] MEDS: cefTRIAXone IN SWFI 1,000 MG/10 ML SYRINGE IVP SCH (08:30)
[2017-11-14] MEDS: ISOSORBIDE MONONITRATE 20 MG TAB PO SCH (08:30)
[2017-11-14 08:33] LABS: Prothrombin Time 9.6 sec (9.0-12.0)
[2017-11-14 08:39] LABS: Albumin 2.8 g/dL (3.5-5.0); Calcium 8.4 mg/dL (8.4-10.2); Potassium 3.5 mmol/L (3.5-5.1); Total Bilirubin 0.4 mg/dL (0.2-1.3); Total Protein 5.1 g/dL (6.3-8.2)
[2017-11-14 12:11] VITALS: BMI 24.4
--- NOTE | 2017-11-14 13:22 | P.PN ---
Subjective Progress Note Date: 11/14/17 Mr. Calderón is seen and examined today in follow-up. He is sitting up eating breakfast in no acute distress. Warfarin and lopressor were started yesterday. He denies symptoms of chest pain, palpitations, dizziness, nausea, vomiting or diaphoresis. He does continue to have mild symptoms of shortness of breath. Echocardiogram performed yesterday reveals preserved LV systolic function with EF 55-60%, mild MR and mild TR. Heart rate and blood pressure has tolerated Lopressor without incident. Hemoglobin 11.1, INR 1.0, creatinine 1.5. Objective - Vital Signs Vital signs: Vital Signs Temp 98.1 F 11/14/17 07:00 Pulse 83 11/14/17 07:00 Resp 18 11/14/17 07:00 BP 139/62 11/14/17 07:00 Pulse Ox 91 L 11/14/17 07:00 Intake & Output 11/13/17 11/14/17 11/14/17 18:59 06:59 18:59 Intake Total 1190 Balance 1190 Intake: Oral 1190 Other: Voiding Method Toilet Toilet Toilet # Voids 4 2 - Exam Blood pressure 139/62 heart rate 83 afebrile GENERAL: Well-appearing, well-nourished and in no acute distress. NECK: Supple without JVD or thyromegaly. LUNGS: Breath sounds clear to auscultation bilaterally. Respiration equal and unlabored. No wheezes, rales or rhonchi. Diminished. HEART: Regular rate and rhythm without murmurs, rubs or gallops. S1 and S2 heard. EXTREMITIES: Normal range of motion, no edema. No clubbing or cyanosis. Peripheral pulses intact and strong. - Labs CBC & Chem 7: 11/14/17 07:39 11/14/17 07:39 Labs: Abnormal Lab Results - Last 24 Hours (Table) 11/14/17 11/14/17 Range/Units 07:39 07:39 RBC 3.51 L (4.30-5.90) m/uL Hgb 11.1 L (13.0-17.5) gm/dL Hct 34.1 L (39.0-53.0) % Lymphocytes # 0.9 L (1.0-4.8) k/uL Monocytes # 1.1 H (0-1.0) k/uL BUN 25 H (9-20) mg/dL Creatinine 1.51 H (0.66-1.25) mg/dL Glucose 142 H (74-99) mg/dL Total Protein 5.1 L (6.3-8.2) g/dL Albumin 2.8 L (3.5-5.0) g/dL Microbiology - Last 24 Hours (Table) 11/13/17 06:30 Gram Stain - Preliminary Sputum Sputum Culture - Preliminary 11/12/17 17:03 Blood Culture - Preliminary Blood No Growth after 24 hours Assessment and Plan Assessment: ASSESSMENT 1. New onset paroxysmal atrial fibrillation with controlled ventricular response. Coumadin started yesterday. 2. Dyslipidemia 3. COPD 4. Chronic kidney disease stage III 5. Hypothyroidism 6. Hypertension PLAN Continue with beta jad and anticoagulant as was previously ordered. Check PT/INR in 1-week in the office for coumadin dosing. Ongoing medical management. Follow up with Dr. Chicas in 2-weeks. Nurse Practitioner note has been reviewed, I agree with a documented findings and plan of care. Patient was seen and examined.
[2017-11-14] MEDS: AZITHROMYCIN 500 MG TAB PO SCH (18:15)
[2017-11-14] MEDS: WARFARIN 2.5 MG TAB PO SCH (18:16)
--- NOTE | 2017-11-14 19:43 | PN ---
PROGRESS NOTE DATE OF SERVICE: 11/14/2017 I am covering for Dr. Alen Champion. This 87-year-old gentleman admitted with paroxysmal atrial fibrillation also suspected to have pneumonia and dehydration. The patient being closely monitored. The patient is started on IV antibiotics. Cardiology consultation in progress at this time. The patient had paroxysmal atrial fibrillation. 2D echo showed ejection fraction about 50- 60%. PAST MEDICAL HISTORY: Reviewed. REVIEW OF SYSTEMS: CARDIOVASCULAR: No angina. RESPIRATION: As mentioned earlier. GI: Mentioned earlier. : As mentioned earlier. NERVOUS SYSTEM: No numbness or weakness. CURRENT MEDICATIONS: Reviewed and include: 1. [place] 10 mg t.i.d. p.r.n. 2. DuoNeb q.i.d. 3. Zithromax 500 mg. 4. Rocephin 1 g daily. 5. Imdur 20 mg daily. 6. Synthroid 100 mcg. 7. Lopressor 12.5 mg b.i.d. 8. Singular 10 mg q.h.s. 9. Pravachol 40 mg. 10.Coumadin 2.5 mg daily. PHYSICAL EXAMINATION: The patient is alert, oriented x3. Pulse 82, blood pressure 120/69, respiration 18, temperature 98.2, pulse ox 94% room air. HEENT: Conjunctivae normal. Oral mucosa moist. NECK: No jugular venous distention. No carotid bruit. No lymph node enlargement. CARDIOVASCULAR: S1, S2. RESPIRATORY: Breath sounds diminished in the bases. A few scattered rhonchi and crackles. ABDOMEN: Soft, nontender. No mass palpable. LEGS: No edema, no swelling. NERVOUS SYSTEM: Higher functions as mentioned earlier, moves all 4 limbs. No focal motor. LYMPHATICS: No lymphadenopathy in the neck, axillae, groin. SKIN: No ulcers, rash, bleeding. LABS: WBC 10, hemoglobin 11.1, creatinine is 1.5. Chest x-ray, which was repeated yesterday, showed left lower lobe infiltrate. ASSESSMENT: 1. Acute left lower lobe infiltrate, possibly community-acquired pneumonia. 2. Paroxysmal atrial fibrillation, present on admission. 3. Chronic obstructive pulmonary disease. 4. Chronic kidney stage 3. 5. Dyslipidemia. 6. Hypothyroidism. 7. Hypertension. 8. Dehydration, present on admission. 9. Dementia. 10.Hyperlipidemia. 11.History rheumatoid arthritis. 12.Hypothyroidism. RECOMMENDATIONS AND DISCUSSION: This 87-year-old gentleman who presented with multiple complex medical issues, will monitor the patient closely. Continue the current medications, continue broad-spectrum IV antibiotics. Monitor PT, OT closely. Home medications were reviewed. Continue with diet. I recommend DVT prophylaxis. Otherwise will continue to monitor the PT/INR closely with Cardiology. Further recommendations to follow. TRAY / CRYS: [id number] /
[2017-11-14] MEDS ORDERED: IPRATROPIUM-ALBUTEROL 3 ML NEB INHALATION PRN (19:55)
[2017-11-14] MEDS: MONTELUKAST 10 MG TAB PO SCH (19:57)
[2017-11-14] MEDS: PRAVASTATIN SODIUM 40 MG TAB PO SCH (19:57)
[2017-11-15] MEDS: LEVOTHYROXINE 75 MCG TAB PO SCH (05:42)
[2017-11-15] MEDS: IPRATROPIUM-ALBUTEROL 3 ML NEB INHALATION SCH ×4 (07:11→20:19)
[2017-11-15 07:39] LABS: Basophils # (A) 0.1 k/uL (0-0.2); Basophils % (A) 1 %; Eosinophils # (A) 0.6 k/uL (0-0.7); Eosinophils % (A) 6 %; HCT 38.6 % (39.0-53.0); HGB 12.8 gm/dL (13.0-17.5); Lymphocytes # (A) 1.4 k/uL (1.0-4.8); Lymphocytes % (A) 14 %; MCH 31.7 pg (25.0-35.0); MCHC 33.1 g/dL (31.0-37.0); MCV 95.9 fL (80.0-100.0); Monocytes % (A) 10 %; Neutrophils # (A) 6.8 k/uL (1.3-7.7); Neutrophils % (A) 67 %; Platelet Count 306 k/uL (150-450); RBC 4.03 m/uL (4.30-5.90); RDW 12.9 % (11.5-15.5); WBC 10.1 k/uL (3.8-10.6)
[2017-11-15 08:20] LABS: Potassium 4.4 mmol/L (3.5-5.1)
[2017-11-15] MEDS: cefTRIAXone IN SWFI 1,000 MG/10 ML SYRINGE IVP SCH (08:25)
[2017-11-15] MEDS: ISOSORBIDE MONONITRATE 20 MG TAB PO SCH (08:25)
[2017-11-15] MEDS: METOPROLOL TARTRATE 12.5 MG TAB PO SCH ×2 (08:25→20:43)
[2017-11-15] MEDS: WARFARIN 2.5 MG TAB PO SCH (17:06)
[2017-11-15] MEDS: AZITHROMYCIN 500 MG TAB PO SCH (17:06)
--- NOTE | 2017-11-15 17:20 | PN ---
PROGRESS NOTE DATE OF SERVICE: 11/15/2017 This 87-year-old gentleman was admitted with acute left lower lobe pneumonia and as well as paroxysmal atrial fibrillation is being closely monitored. No chest pain. No palpitations. No fever. Patient is feeling slightly better. EXAM: Alert, oriented x1. Pulse 81, blood pressure 139/78, respiration 18, temperature 97.6, pulse ox 98% on room air. HEENT: Conjunctivae normal. NECK: No jugular venous distention. CARDIOVASCULAR: S1, S2. RESPIRATORY: Breath sounds diminished in the bases. A few scattered rhonchi and crackles. ABDOMEN: Soft, nontender. LEGS: No edema. No swelling. NERVOUS SYSTEM: No focal deficits. LABS: WBC 7, hemoglobin 12.8, creatinine is 1.36. ASSESSMENT: 1. Acute left lower lobe pneumonia possibly community-acquired pneumonia, present on admission. 2. Paroxysmal atrial fibrillation, present on admission. 3. Chronic obstructive pulmonary disease. 4. Chronic kidney disease stage III. 5. Dyslipidemia. 6. Hypothyroidism. 7. Hypertension. 8. Dehydration present on admission. 9. Dementia. 10.Hyperlipidemia. 11.History rheumatoid arthritis. 12.Hypothyroidism. RECOMMENDATIONS AND DISCUSSION: I recommend to continue current management and symptomatic treatment. Continue the antibiotics. Continue bronchodilators. Closely follow. PT, OT evaluation, possible ECF rehab. Guarded prognosis. Further recommendations to follow. MMODL / IJN: [id number] /
[2017-11-15] MEDS: HYDROcodone/APAP 10-325MG 1 EACH TAB PO PRN (20:43)
[2017-11-15] MEDS: MONTELUKAST 10 MG TAB PO SCH (20:43)
[2017-11-15] MEDS: PRAVASTATIN SODIUM 40 MG TAB PO SCH (20:43)
[2017-11-16] MEDS: LEVOTHYROXINE 75 MCG TAB PO SCH (05:29)
[2017-11-16] MEDS: IPRATROPIUM-ALBUTEROL 3 ML NEB INHALATION SCH ×4 (07:09→19:10)
[2017-11-16 08:05] LABS: Prothrombin Time 10.2 sec (9.0-12.0)
[2017-11-16 08:06] LABS: Basophils # (A) 0.1 k/uL (0-0.2); Basophils % (A) 1 %; Eosinophils # (A) 0.5 k/uL (0-0.7); Eosinophils % (A) 5 %; HCT 37.4 % (39.0-53.0); HGB 12.5 gm/dL (13.0-17.5); Lymphocytes # (A) 2.1 k/uL (1.0-4.8); Lymphocytes % (A) 23 %; MCH 31.9 pg (25.0-35.0); MCHC 33.4 g/dL (31.0-37.0); MCV 95.5 fL (80.0-100.0); Mean Platelet Volume 7.8; Monocytes # (A) 0.9 k/uL (0-1.0); Monocytes % (A) 10 %; Neutrophils # (A) 5.3 k/uL (1.3-7.7); Neutrophils % (A) 58 %; Platelet Count 312 k/uL (150-450); RBC 3.91 m/uL (4.30-5.90); RDW 12.9 % (11.5-15.5); WBC 9.2 k/uL (3.8-10.6)
[2017-11-16 08:10] LABS: Potassium 4.2 mmol/L (3.5-5.1)
[2017-11-16] MEDS: METOPROLOL TARTRATE 12.5 MG TAB PO SCH ×2 (08:40→20:21)
[2017-11-16] MEDS: cefTRIAXone IN SWFI 1,000 MG/10 ML SYRINGE IVP SCH (08:40)
[2017-11-16] MEDS: ISOSORBIDE MONONITRATE 20 MG TAB PO SCH (08:41)
[2017-11-16] MEDS: HYDROcodone/APAP 10-325MG 1 EACH TAB PO PRN ×2 (08:46→17:34)
[2017-11-16] MEDS: WARFARIN 2.5 MG TAB PO SCH (17:34)
[2017-11-16] MEDS: AZITHROMYCIN 500 MG TAB PO SCH (17:34)
[2017-11-16] MEDS: MONTELUKAST 10 MG TAB PO SCH (20:21)
[2017-11-16] MEDS: PRAVASTATIN SODIUM 40 MG TAB PO SCH (20:21)
[2017-11-17] MEDS: LEVOTHYROXINE 75 MCG TAB PO SCH (05:53)
[2017-11-17 08:21] LABS: INR 1.1 (<1.2); Prothrombin Time 10.7 sec (9.0-12.0)
[2017-11-17 08:39] LABS: Basophils # (A) 0.1 k/uL (0-0.2); Basophils % (A) 1 %; Eosinophils # (A) 0.6 k/uL (0-0.7); Eosinophils % (A) 6 %; HCT 37.4 % (39.0-53.0); HGB 12.7 gm/dL (13.0-17.5); Lymphocytes # (A) 1.4 k/uL (1.0-4.8); Lymphocytes % (A) 14 %; MCH 32.2 pg (25.0-35.0); MCHC 33.8 g/dL (31.0-37.0); MCV 95.1 fL (80.0-100.0); Mean Platelet Volume 7.7; Monocytes % (A) 10 %; Neutrophils # (A) 6.6 k/uL (1.3-7.7); Neutrophils % (A) 67 %; Platelet Count 319 k/uL (150-450); RBC 3.94 m/uL (4.30-5.90); RDW 12.9 % (11.5-15.5); WBC 9.9 k/uL (3.8-10.6)
[2017-11-17] MEDS: IPRATROPIUM-ALBUTEROL 3 ML NEB INHALATION SCH ×3 (08:42→15:47)
[2017-11-17 08:53] LABS: Calcium 8.9 mg/dL (8.4-10.2); Potassium 4.8 mmol/L (3.5-5.1)
[2017-11-17] MEDS: METOPROLOL TARTRATE 12.5 MG TAB PO SCH (09:21)
[2017-11-17] MEDS: HYDROcodone/APAP 10-325MG 1 EACH TAB PO PRN (09:21)
[2017-11-17] MEDS: ISOSORBIDE MONONITRATE 20 MG TAB PO SCH (09:21)
--- NOTE | 2017-11-17 11:09 | P.PN ---
Subjective Patient resting in bed without complaint. Patient being evaluated for extended care facility. Patient states that he wishes to go home has family coming to assist with his care. Patient can be discharged when all home care plan in place Objective - Vital Signs Vital signs: Vital Signs Temp 97.9 F 11/17/17 07:00 Pulse 75 11/17/17 08:52 Resp 18 11/17/17 08:42 BP 155/75 11/17/17 07:00 Pulse Ox 91 L 11/17/17 07:00 Intake & Output 11/16/17 11/17/17 11/17/17 18:59 06:59 18:59 Intake Total 1440 240 240 Balance 1440 240 240 Weight 81.647 kg Intake: Oral 1440 240 240 Other: Voiding Method Toilet Toilet Toilet # Voids 1 2 - Constitutional General appearance: Present: average body habitus - EENT Eyes: Present: PERRLA Ears: bilateral: normal - Neck Neck: Present: normal ROM - Respiratory Respiratory: bilateral: CTA - Cardiovascular Rhythm: regular - Gastrointestinal General gastrointestinal: Present: soft - Integumentary Integumentary: Present: normal - Neurologic Neurologic: Present: CNII-XII intact - Psychiatric Psychiatric Comment(s): Patient awake and alert Psychiatric: Present: appropriate affect, intact judgment & insight - Labs CBC & Chem 7: 11/17/17 07:55 11/17/17 07:55 Labs: Abnormal Lab Results - Last 24 Hours (Table) 11/17/17 11/17/17 Range/Units 07:55 07:55 RBC 3.94 L (4.30-5.90) m/uL Hgb 12.7 L (13.0-17.5) gm/dL Hct 37.4 L (39.0-53.0) % BUN 22 H (9-20) mg/dL Creatinine 1.30 H (0.66-1.25) mg/dL Microbiology - Last 24 Hours (Table) 11/16/17 16:07 Gram Stain - Preliminary Sputum 11/12/17 17:03 Blood Culture - Preliminary Blood No Growth after 96 hours - Imaging and Cardiology Chest x-ray: report reviewed Assessment and Plan Plan: Assessment Acute left lower lobe pneumonia community-acquired Paroxysmal atrial fibrillation Chronic obstructive pulmonary disease Chronic kidney disease stage III Dyslipidemia Hypothyroidism Dehydration corrected Dementia History of rheumatoid arthritis Plan Hopeful discharge soon when all home care plan developed. Patient has been evaluated by PT OT for possible extended care facility. Patient states he wants to go home with family to assist Patient has been cleared by cardiology
--- NOTE | 2017-11-17 11:46 | PN ---
PROGRESS NOTE DATE OF SERVICE: 11/16/2017. INTERVAL HISTORY: This 87-year-old gentleman who was admitted with left lower pneumonia, possibly community-acquired, is being closely monitored. No chest pain. No palpitations. No fever. The patient is feeling slightly better. EXAM: Alert and oriented x2. Pulse is 60. The blood pressure is 142/69, respiration 18, temperature 97.6, pulse ox 98% on room air HEENT: Conjunctivae normal. NECK: No JVD. CARDIOVASCULAR: S1 and S2 muffled. LUNGS: Breath sounds diminished at the bases. LEGS: No edema. NERVOUS SYSTEM: No focal deficits. LABS: WBC 9.2. Hemoglobin 12.5. Creatinine 1.37. ASSESSMENT: 1. Acute left lobe pneumonia with possibly community acute pneumonia, present on admission. 2. Paroxysmal atrial ablation, present on admission. 3. History of chronic obstructive pulmonary disease. 4. Chronic kidney disease stage 3. 5. Dyslipidemia. 6. Hypothyroidism. 7. Hypertension. 8. Dehydration present on admission. 9. Dementia. 10.Hyperlipidemia. 11.History of rheumatoid arthritis. 12.Hypothyroidism. DISCUSSION AND RECOMMENDATIONS: Continue current management. Symptomatic treatment. Otherwise at this time I would recommend antibiotics and bronchodilators. Monitor closely. Guarded prognosis. Further recommendations to follow. MMODL / IJN: [id number] /
--- NOTE | 2017-11-17 16:09 | P.DS ---
Providers Date of admission: 11/14/17 14:54 Expected date of discharge: 11/17/17 Attending physician: Alen Champion Consults: 11/12/17 17:14 Consult Physician Routine Consulting Provider: Kory Chicas Consult Reason/Comments: Paroxysmal atrial fibrillation Do you want consulting provider notified?: Yes Primary care physician: Alen Champion Hospital Course: Patient presented to er with new onset of afib was found to pneumonia treated 5 days with Zithromax.Patient has stabilized. Has family to assist with care at home Asssessment Acute lef dehydrat lobe pneumonia commmuinity acquired Paroxysmal atrial fib COPD Chronic kidney disease stage III hyperlipidemia hypothyroidism HTN dehydration on admission improved dementia plan discharge home monthly check of PT/INR for coumadin dosing follow up with family physician DrA Champion and hamida Patient Condition at Discharge: Stable Plan - Discharge Summary Discharge Rx Participant: No New Discharge Prescriptions: New Ipratropium-Albuterol Nebulize [Duoneb 0.5 mg-3 mg/3 ml Soln] 3 ml INHALATION RT-QID #120 ampul.neb Metoprolol Tartrate [Lopressor] 12.5 mg PO BID #60 tab Warfarin [Coumadin] 2.5 mg PO DAILY@1800 #30 300ml.bag Continue HYDROcodone/APAP 10-325MG [[place] 10-325] 1 tab PO TID PRN PRN Reason: Pain Isosorbide Mononitrate [Ismo] 20 mg PO DAILY Pravastatin Sodium [Pravachol] 40 mg PO DAILY Levothyroxine Sodium [Levoxyl] 75 mcg PO DAILY Montelukast Sodium [Singulair] 10 mg PO HS Discharge Medication List HYDROcodone/APAP 10-325MG [[place] 10-325] 1 tab PO TID PRN 12/29/15 [History] Isosorbide Mononitrate [Ismo] 20 mg PO DAILY 12/29/15 [History] Levothyroxine Sodium [Levoxyl] 75 mcg PO DAILY 12/29/15 [History] Pravastatin Sodium [Pravachol] 40 mg PO DAILY 12/29/15 [History] Montelukast Sodium [Singulair] 10 mg PO HS 01/14/17 [History] Ipratropium-Albuterol Nebulize [Duoneb 0.5 mg-3 mg/3 ml Soln] 3 ml INHALATION RT -QID #120 ampul.neb 11/17/17 [Rx] Metoprolol Tartrate [Lopressor] 12.5 mg PO BID #60 tab 11/17/17 [Rx] Warfarin [Coumadin] 2.5 mg PO DAILY@1800 #30 300ml.bag 11/17/17 [Rx] Follow up Appointment(s)/Referral(s): Alen Champion MD [Primary Care Provider] - 1-2 days Kory Chicas MD [STAFF PHYSICIAN] - 2 Weeks
[2017-11-17 16:41] VITALS: BP 114/69; PULSE 80; RESP 16; TEMP 98
== END 2017-11-17 16:57 | disposition home health service (06) | DRG 194 ==
LOC: EC 14:30 → 5MS5E 17:14 → OBSVTOIN 11-14 14:54
PROVIDERS: ADMIT Family Medicine; ATTEND Family Medicine
DX: J18.9 Pneumonia, unspecified organism (principal); J44.0 Chronic obstructive pulmonary disease with (acute) lower respiratory infection; I48.0 Paroxysmal atrial fibrillation; Z99.81 Dependence on supplemental oxygen; E86.0 Dehydration; F03.90 Unspecified dementia, unspecified severity, without behavioral disturbance, psychotic disturbance, mood disturbance, and anxiety; E03.9 Hypothyroidism, unspecified; E78.5 Hyperlipidemia, unspecified; N18.3 Chronic kidney disease, stage 3 (moderate); M06.9 Rheumatoid arthritis, unspecified; I12.9 Hypertensive chronic kidney disease with stage 1 through stage 4 chronic kidney disease, or unspecified chronic kidney disease; I25.10 Atherosclerotic heart disease of native coronary artery without angina pectoris; N40.0 Benign prostatic hyperplasia without lower urinary tract symptoms; G89.29 Other chronic pain; M54.9 Dorsalgia, unspecified; M25.552 Pain in left hip; M25.551 Pain in right hip; Z87.891 Personal history of nicotine dependence; Z79.899 Other long term (current) drug therapy; Z90.49 Acquired absence of other specified parts of digestive tract
CPT/HCPCS: 36415; 71046; 80048; 80053; 82150; 82550; 82553; 83605; 83690; 83735; 83880; 84439; 84443; 84484; 85025; 85379; 85610; 85730; 87040; 87070; 87205; 93005; 93306; 94640; 94760; 96365; 96375; 99285

== ENCOUNTER 2017-11-29 11:26 | Emergency (ER) | payer MEDICARE, OTHER ==
[2017-11-29 12:56] LABS: Basophils # (A) 0.1 k/uL (0-0.2); Basophils % (A) 1 %; Eosinophils # (A) 0.6 k/uL (0-0.7); Eosinophils % (A) 8 %; HCT 43.4 % (39.0-53.0); HGB 14.1 gm/dL (13.0-17.5); Lymphocytes # (A) 1.4 k/uL (1.0-4.8); Lymphocytes % (A) 18 %; MCH 30.8 pg (25.0-35.0); MCHC 32.4 g/dL (31.0-37.0); MCV 95.1 fL (80.0-100.0); Mean Platelet Volume 8.7; Monocytes # (A) 0.8 k/uL (0-1.0); Monocytes % (A) 11 %; Neutrophils # (A) 4.6 k/uL (1.3-7.7); Neutrophils % (A) 60 %; Platelet Count 357 k/uL (150-450); RBC 4.57 m/uL (4.30-5.90); WBC 7.7 k/uL (3.8-10.6)
[2017-11-29 13:04] LABS: Albumin 3.7 g/dL (3.5-5.0); Calcium 9.2 mg/dL (8.4-10.2); Potassium 4.7 mmol/L (3.5-5.1); Total Protein 6.7 g/dL (6.3-8.2)
--- NOTE | 2017-11-29 13:17 | XR ---
EXAMINATION TYPE: XR abdomen acute w cxr , 4 VIEWS DATE OF EXAM ORDERED: 11/29/2017 HISTORY: Abdominal Pain. No BM in 3 days. COMPARISON: None. FINDINGS: The lungs are clear. Pleural space are clear. The heart is not enlarged. Within the abdomen, there is been a previous cholecystectomy. The abdominal gas pattern is normal. Th ere is no evidence of obstruction or free air. There is a moderate amount of feces within the right s bren[place] of the colon. There are vascular calcifications within the pelvis. 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 IMPRESSION: 1. NO ACUTE THORACIC OR ABDOMINAL ABNORMALITY. 2. MODERATE FECAL LOAD. 3. POSTOPERATIVE CHANGE. 4. MODERATE DEGENERATIVE CHANGES WITHIN THE SPINE.
--- NOTE | 2017-11-29 14:10 | ED ---
Abdominal Pain HPI - General Chief Complaint: Abdominal Pain Stated Complaint: LLQ pain x 3 days Time Seen by Provider: 11/29/17 12:18 Source: patient Mode of arrival: ambulatory Limitations: no limitations - History of Present Illness Initial Comments: This is an 87-year-old male who presents emergency department for left lower quadrant abdominal pain for the last 3 days. The patient states that his been intermittent in nature. Feels a cramping sensation. States that it seems to come and go. His last bowel movement was 3 days ago. He typically has diarrhea however has not had any bowel movements for the last 3 days. Denies any fevers or chills. No chest pain or shortness of breath. Does admit to intermittent episodes of left upper quadrant and epigastric pain as well. Patient currently states that he does not have any pain. No urinary symptoms. No other acute complaints. - Related Data Home Medications Medication Instructions Recorded Confirmed HYDROcodone/APAP 10-325MG [[place] 1 tab PO QID 12/29/15 11/29/17 10-325] Isosorbide Mononitrate [Ismo] 20 mg PO DAILY 12/29/15 11/29/17 Levothyroxine Sodium [Levoxyl] 75 mcg PO DAILY 12/29/15 11/29/17 Montelukast Sodium [Singulair] 10 mg PO HS 01/14/17 11/29/17 Celecoxib [CeleBREX] 200 mg PO DAILY 11/29/17 11/29/17 Metoprolol Tartrate [Lopressor] 12.5 mg PO BID 11/29/17 11/29/17 Previous Rx's Medication Instructions Recorded Ipratropium-Albuterol Nebulize 3 ml INHALATION RT-QID #120 11/17/17 [Duoneb 0.5 mg-3 mg/3 ml Soln] ampul.neb Warfarin [Coumadin] 2.5 mg PO DAILY@1800 #30 300ml.bag 11/17/17 Methocarbamol [Robaxin] 500 mg PO BID PRN #15 tab 11/29/17 Allergies Allergy/AdvReac Type Severity Reaction Status Date / Time No Known Allergies Allergy Verified 11/29/17 12:45 Review of Systems ROS Statement: Those systems with pertinent positive or pertinent negative responses have been documented in the HPI. ROS Other: All systems not noted in ROS Statement are negative. Past Medical History Past Medical History: Coronary Artery Disease (CAD), Chest Pain / Angina, COPD, Dementia, Eye Disorder, Hyperlipidemia, Hypertension, Memory Impairment, Pneumonia, Prostate Disorder, Renal Disease, Respiratory Disorder, Rheumatoid Arthritis (RA), Thyroid Disorder Additional Past Medical History / Comment(s): Pneumonia with sepsis, hypoxic respiratory failure, home O2 at 2-3L/[place] pt stated" uses as he needs it" CKD stage III, BPH, hypothyroid, lumbar disc dx, chronic back and bilateral hip pain -difficulty walking at times. History of Any Multi-Drug Resistant Organisms: None Reported Past Surgical History: Back Surgery, Cholecystectomy, Heart Catheterization, Orthopedic Surgery Additional Past Surgical History / Comment(s): Bilateral cataract removal and lens implants, left knee open surgery d/t injury, EGD, heart catheterization. Patient has never had a colonoscopy. Past Anesthesia/Blood Transfusion Reactions: No Reported Reaction Past Psychological History: No Psychological Hx Reported Smoking Status: Former smoker Past Alcohol Use History: None Reported Past Drug Use History: None Reported - Past Family History Mother Family Medical History: Cancer Additional Family Medical History / Comment(s): Mother at age 96 Unsure what type of cancer Father Family Medical History: Cancer, COPD Additional Family Medical History / Comment(s): Father at age 88 from emphysema Brother(s) Additional Family Medical History / Comment(s): Patient has 7 brothers. Sister(s) Additional Family Medical History / Comment(s): Patient has 1 sister. Daughter(s) Additional Family Medical History / Comment(s): He has 4 daughters and 2 sons. General Exam - General Exam Comments Initial Comments: Constitutional: Awake alert Appears comfortable Head: Normocephalic atraumatic Eyes: no conjunctival injection No scleral icterus EOMI Neck: No JVD Supple Heart: Regular rate rhythm normal S1-S2 no murmurs Lungs: Clear to auscultation bilaterally No wheezing No rales Abdomen: Soft nondistended no tenderness on abdominal examination Extremities: Non edematous DP pulses intact Radial pulses intact Neuro: A&Ox3 No focal neurologic deficits Psych: Appropriate mood and affect Limitations: no limitations Course Vital Signs 11/29/17 11:46 Temperature 98.0 F Pulse Rate 79 Respiratory 20 Rate Blood Pressure 169/82 O2 Sat by Pulse 95 Oximetry Medical Decision Making - Medical Decision Making This is an 87-year-old came in for intermittent abdominal pain. Labwork was performed that did not show leukocytosis. No other acute abnormalities on lab work. UA negative. X-ray did not show any signs of obstruction however did show some stool throughout the colon. The patient had no objective tenderness on examination and stated he had no pain in his abdomen during ER stay. He has not had a bowel movement 3 days and thus I feel that his symptoms may be related to constipation. He was instructed to shrimp picker some [id number] laxatives and was also given a muscle relaxer because of some right buttock spasms that he has had intermittently. Told to follow-up with his primary doctor or return emergency Department if he has worsening symptoms as he may require computed tomography scan. All questions answered. - Lab Data Result diagrams: 11/29/17 12:30 11/29/17 12:30 Lab Results 11/29/17 11/29/17 11/29/17 Range/Units 12:30 12:30 14:00 WBC 7.7 (3.8-10.6) k/uL RBC 4.57 (4.30-5.90) m/uL Hgb 14.1 (13.0-17.5) gm/dL Hct 43.4 (39.0-53.0) % MCV 95.1 (80.0-100.0) fL MCH 30.8 (25.0-35.0) pg MCHC 32.4 (31.0-37.0) g/dL RDW 13.0 (11.5-15.5) % Plt Count 357 (150-450) k/uL Neutrophils % 60 % Lymphocytes % 18 % Monocytes % 11 % Eosinophils % 8 % Basophils % 1 % Neutrophils # 4.6 (1.3-7.7) k/uL Lymphocytes # 1.4 (1.0-4.8) k/uL Monocytes # 0.8 (0-1.0) k/uL Eosinophils # 0.6 (0-0.7) k/uL Basophils # 0.1 (0-0.2) k/uL Sodium 142 (137-145) mmol/L Potassium 4.7 (3.5-5.1) mmol/L Chloride 104 (98-107) mmol/L Carbon Dioxide 24 (22-30) mmol/L Anion Gap 14 mmol/L BUN 26 H (9-20) mg/dL Creatinine 1.36 H (0.66-1.25) mg/dL Est GFR (CKD-EPI)AfAm 55 (>60 ml/min/1.73 sqM) Est GFR (CKD-EPI)NonAf 47 (>60 ml/min/1.73 sqM) Glucose 86 (74-99) mg/dL Calcium 9.2 (8.4-10.2) mg/dL Total Bilirubin 1.0 (0.2-1.3) mg/dL AST 20 (17-59) U/L ALT 27 (21-72) U/L Alkaline Phosphatase 93 (38-126) U/L Total Protein 6.7 (6.3-8.2) g/dL Albumin 3.7 (3.5-5.0) g/dL Urine Color Light Yellow Urine Appearance Clear (Clear) Urine pH 5.0 (5.0-8.0) Ur Specific [place] 1.006 (1.001-1.035) Urine Protein Negative (Negative) Urine Glucose (UA) Negative (Negative) Urine Ketones Negative (Negative) Urine Blood Negative (Negative) Urine Nitrite Negative (Negative) Urine Bilirubin Negative (Negative) Urine Urobilinogen <2.0 (<2.0) mg/dL Ur Leukocyte Esterase Negative (Negative) Disposition Clinical Impression: Abdominal pain, Constipation Disposition: HOME SELF-CARE Condition: Stable Instructions: Abdominal Pain (ED) Prescriptions: Methocarbamol [Robaxin] 500 mg PO BID PRN #15 tab PRN Reason: Muscle Spasm Referrals: Alen Champion MD [Primary Care Provider] - 1-2 days
[2017-11-29 14:19] LABS: Appearance,Urine Clear (Clear); Bilirubin,Urine Negative (Negative); Blood,Urine Negative (Negative); Color,Urine Light Yellow; Glucose,Urine (UA) Negative (Negative); Ketones,Urine Negative (Negative); Leukocyte Esterase,Urine Negative (Negative); Nitrite,Urine Negative (Negative); Protein,Urine Negative (Negative); Specific Gravity,Urine 1.006 (1.001-1.035); Urobilinogen,Urine <2.0 mg/dL (<2.0)
[2017-11-29 14:43] VITALS: BP 166/88; PULSE 76; RESP 16; TEMP 98.1
== END 2017-11-29 14:45 | disposition home or self-care (01) ==
LOC: EC 11:26
DX: K59.00 Constipation, unspecified (principal); R10.32 Left lower quadrant pain; R10.13 Epigastric pain; I25.10 Atherosclerotic heart disease of native coronary artery without angina pectoris; J44.9 Chronic obstructive pulmonary disease, unspecified; M06.9 Rheumatoid arthritis, unspecified; I12.9 Hypertensive chronic kidney disease with stage 1 through stage 4 chronic kidney disease, or unspecified chronic kidney disease; N18.3 Chronic kidney disease, stage 3 (moderate); E03.9 Hypothyroidism, unspecified; N40.0 Benign prostatic hyperplasia without lower urinary tract symptoms; M51.9 Unspecified thoracic, thoracolumbar and lumbosacral intervertebral disc disorder; Z90.49 Acquired absence of other specified parts of digestive tract; Z95.9 Presence of cardiac and vascular implant and graft, unspecified; Z87.891 Personal history of nicotine dependence; Z79.891 Long term (current) use of opiate analgesic; Z79.1 Long term (current) use of non-steroidal anti-inflammatories (NSAID); Z79.899 Other long term (current) drug therapy
CPT/HCPCS: 36415; 74022; 80053; 81003; 85025; 99284

== ENCOUNTER 2017-12-05 13:47 | Emergency (ER) | payer MEDICARE, OTHER ==
[2017-12-05] MEDS ORDERED: IPRATROPIUM-ALBUTEROL 3 ML NEB INHALATION STA (14:13)
[2017-12-05] MEDS ORDERED: DEXAMETHASONE SOD PHOSPHATE 10 MG/ML 1 ML VIAL IV STA (14:13)
--- NOTE | 2017-12-05 14:15 | ED ---
General Adult HPI - General Chief complaint: Chest Pain Stated complaint: Abn EKG Time Seen by Provider: 12/05/17 13:53 Source: patient, RN notes reviewed, old records reviewed Mode of arrival: ambulatory Limitations: no limitations - History of Present Illness Initial comments: 87-year-old male presenting from primary care physician for evaluation of chest pain. Patient has history of COPD, states he developed a cough yesterday as well as his left-sided chest pain. Pain is worse with cough, worse with movement. Denies fever or chills. Denies URI symptoms. Denies central chest pain. Denies abdominal pain nausea or vomiting or denies lower extremity swelling or calf tenderness. - Related Data Home Medications Medication Instructions Recorded Confirmed HYDROcodone/APAP 10-325MG [[place] 1 tab PO QID 12/29/15 12/05/17 10-325] Isosorbide Mononitrate [Ismo] 20 mg PO DAILY 12/29/15 12/05/17 Levothyroxine Sodium [Levoxyl] 75 mcg PO DAILY 12/29/15 12/05/17 Montelukast Sodium [Singulair] 10 mg PO HS 01/14/17 12/05/17 Celecoxib [CeleBREX] 200 mg PO DAILY 11/29/17 12/05/17 Metoprolol Tartrate [Lopressor] 12.5 mg PO BID 11/29/17 12/05/17 Previous Rx's Medication Instructions Recorded Ipratropium-Albuterol Nebulize 3 ml INHALATION RT-QID #120 11/17/17 [Duoneb 0.5 mg-3 mg/3 ml Soln] ampul.neb Warfarin [Coumadin] 2.5 mg PO DAILY@1800 #30 300ml.bag 11/17/17 Methocarbamol [Robaxin] 500 mg PO BID PRN #15 tab 11/29/17 Azithromycin [Zithromax Z-pack] 0 mg PO DIRECTED #6 tab 12/05/17 predniSONE 50 mg PO DAILY #5 tab 12/05/17 Allergies Allergy/AdvReac Type Severity Reaction Status Date / Time No Known Allergies Allergy Verified 12/05/17 14:24 Review of Systems ROS Statement: Those systems with pertinent positive or pertinent negative responses have been documented in the HPI. ROS Other: All systems not noted in ROS Statement are negative. Past Medical History Past Medical History: Coronary Artery Disease (CAD), Chest Pain / Angina, COPD, Dementia, Eye Disorder, Hyperlipidemia, Hypertension, Memory Impairment, Pneumonia, Prostate Disorder, Renal Disease, Respiratory Disorder, Rheumatoid Arthritis (RA), Thyroid Disorder Additional Past Medical History / Comment(s): Pneumonia with sepsis, hypoxic respiratory failure, home O2 at 2-3L/NC pt stated" uses as he needs it" CKD stage III, BPH, hypothyroid, lumbar disc dx, chronic back and bilateral hip pain -difficulty walking at times. History of Any Multi-Drug Resistant Organisms: None Reported Past Surgical History: Back Surgery, Cholecystectomy, Heart Catheterization, Orthopedic Surgery Additional Past Surgical History / Comment(s): Bilateral cataract removal and lens implants, left knee open surgery d/t injury, EGD, heart catheterization. Patient has never had a colonoscopy. Past Anesthesia/Blood Transfusion Reactions: No Reported Reaction Past Psychological History: No Psychological Hx Reported Smoking Status: Former smoker Past Alcohol Use History: None Reported Past Drug Use History: None Reported - Past Family History Mother Family Medical History: Cancer Additional Family Medical History / Comment(s): Mother at age 96 Unsure what type of cancer Father Family Medical History: Cancer, COPD Additional Family Medical History / Comment(s): Father at age 88 from emphysema Brother(s) Additional Family Medical History / Comment(s): Patient has 7 brothers. Sister(s) Additional Family Medical History / Comment(s): Patient has 1 sister. Daughter(s) Additional Family Medical History / Comment(s): He has 4 daughters and 2 sons. General Exam Limitations: no limitations General appearance: alert, in no apparent distress Head exam: Present: atraumatic, normocephalic Eye exam: Present: normal appearance, PERRL ENT exam: Present: normal exam Neck exam: Present: normal inspection. Absent: tenderness, meningismus Respiratory exam: Present: wheezes, decreased breath sounds, prolonged expiratory Cardiovascular Exam: Present: normal rhythm, tachycardia GI/Abdominal exam: Present: soft. Absent: distended, tenderness, guarding Extremities exam: Present: normal inspection, full ROM, normal capillary refill. Absent: pedal edema, calf tenderness Neurological exam: Present: alert, oriented X3, CN II-XII intact. Absent: motor sensory deficit Psychiatric exam: Present: normal affect, normal mood Skin exam: Present: warm, dry, intact. Absent: cyanosis, diaphoretic Course Vital Signs 12/05/17 12/05/17 12/05/17 13:50 14:52 15:02 Temperature 98.4 F Pulse Rate 110 H 101 H 78 Respiratory 20 18 18 Rate Blood Pressure 162/76 156/81 O2 Sat by Pulse 96 94 L Oximetry 12/05/17 15:08 Temperature Pulse Rate 80 Respiratory 18 Rate Blood Pressure O2 Sat by Pulse Oximetry EKG Findings - EKG Comments: EKG Findings:: EKG: Sinus tachycardia, ventricular rate 107, MS interval 158, QRS duration 94, QTC 469, no ST segment elevation Medical Decision Making - Medical Decision Making 87-year-old male presenting with cough and left-sided chest pain. Patient was sent in for evaluation of these symptoms by his primary care physician. Workup reveals mild leukocytosis, hemoglobin of 13.8, creatinine 1.36 which is at baseline. Mild lactic acidosis 2.1. Patient does receive IV hydration. Troponin negative. BNP normal 1:30. Chest x-ray shows mild infiltrate in the left lower lobe which appears to be resolving from previous. Influenza is negative. I would prefer the patient stay for observation of both chest pain and COPD. Patient refuses he would like to be discharged home. He will be given a short course of steroids and will return with any worsening or changing symptoms. - Lab Data Result diagrams: 12/05/17 14:15 12/05/17 14:15 Lab Results 12/05/17 12/05/17 12/05/17 Range/Units 14:15 14:15 14:15 WBC 12.0 H (3.8-10.6) k/uL RBC 4.42 (4.30-5.90) m/uL Hgb 13.8 (13.0-17.5) gm/dL Hct 41.4 (39.0-53.0) % MCV 93.6 (80.0-100.0) fL MCH 31.2 (25.0-35.0) pg MCHC 33.3 (31.0-37.0) g/dL RDW 12.7 (11.5-15.5) % Plt Count 359 (150-450) k/uL Neutrophils % 63 % Lymphocytes % 16 % Monocytes % 12 % Eosinophils % 5 % Basophils % 0 % Neutrophils # 7.6 (1.3-7.7) k/uL Lymphocytes # 1.9 (1.0-4.8) k/uL Monocytes # 1.5 H (0-1.0) k/uL Eosinophils # 0.7 (0-0.7) k/uL Basophils # 0.1 (0-0.2) k/uL PT (9.0-12.0) sec INR (<1.2) APTT (22.0-30.0) sec Sodium (137-145) mmol/L Potassium (3.5-5.1) mmol/L Chloride (98-107) mmol/L Carbon Dioxide (22-30) mmol/L Anion Gap mmol/L BUN (9-20) mg/dL Creatinine (0.66-1.25) mg/dL Est GFR (CKD-EPI)AfAm (>60 ml/min/1.73 sqM) Est GFR (CKD-EPI)NonAf (>60 ml/min/1.73 sqM) Glucose (74-99) mg/dL Plasma Lactic Acid [place] 2.1 H* (0.7-2.0) mmol/L Calcium (8.4-10.2) mg/dL Magnesium (1.6-2.3) mg/dL Total Bilirubin (0.2-1.3) mg/dL AST (17-59) U/L ALT (21-72) U/L Alkaline Phosphatase (38-126) U/L Total Creatine Kinase 64 (55-170) U/L CK-MB (CK-2) 0.9 (0.0-2.4) ng/mL CK-MB (CK-2) Rel Index 1.4 Troponin I <0.012 (0.000-0.034) ng/mL NT-Pro-B Natriuret Pep pg/mL Total Protein (6.3-8.2) g/dL Albumin (3.5-5.0) g/dL Influenza Type A RNA (Not Detectd) Influenza Type B (PCR) (Not Detectd) 12/05/17 12/05/17 12/05/17 Range/Units 14:15 14:15 14:15 WBC (3.8-10.6) k/uL RBC (4.30-5.90) m/uL Hgb (13.0-17.5) gm/dL Hct (39.0-53.0) % MCV (80.0-100.0) fL MCH (25.0-35.0) pg MCHC (31.0-37.0) g/dL RDW (11.5-15.5) % Plt Count (150-450) k/uL Neutrophils % % Lymphocytes % % Monocytes % % Eosinophils % % Basophils % % Neutrophils # (1.3-7.7) k/uL Lymphocytes # (1.0-4.8) k/uL Monocytes # (0-1.0) k/uL Eosinophils # (0-0.7) k/uL Basophils # (0-0.2) k/uL PT 9.8 (9.0-12.0) sec INR 1.0 (<1.2) APTT 27.2 (22.0-30.0) sec Sodium 140 (137-145) mmol/L Potassium 4.1 (3.5-5.1) mmol/L Chloride 103 (98-107) mmol/L Carbon Dioxide 23 (22-30) mmol/L Anion Gap 14 mmol/L BUN 22 H (9-20) mg/dL Creatinine 1.36 H (0.66-1.25) mg/dL Est GFR (CKD-EPI)AfAm 55 (>60 ml/min/1.73 sqM) Est GFR (CKD-EPI)NonAf 47 (>60 ml/min/1.73 sqM) Glucose 120 H (74-99) mg/dL Plasma Lactic Acid [place] (0.7-2.0) mmol/L Calcium 9.0 (8.4-10.2) mg/dL Magnesium 1.8 (1.6-2.3) mg/dL Total Bilirubin 0.7 (0.2-1.3) mg/dL AST 19 (17-59) U/L ALT 23 (21-72) U/L Alkaline Phosphatase 98 (38-126) U/L Total Creatine Kinase (55-170) U/L CK-MB (CK-2) (0.0-2.4) ng/mL CK-MB (CK-2) Rel Index Troponin I (0.000-0.034) ng/mL NT-Pro-B Natriuret Pep 130 pg/mL Total Protein 6.5 (6.3-8.2) g/dL Albumin 3.7 (3.5-5.0) g/dL Influenza Type A RNA (Not Detectd) Influenza Type B (PCR) (Not Detectd) 12/05/17 Range/Units 14:35 WBC (3.8-10.6) k/uL RBC (4.30-5.90) m/uL Hgb (13.0-17.5) gm/dL Hct (39.0-53.0) % MCV (80.0-100.0) fL MCH (25.0-35.0) pg MCHC (31.0-37.0) g/dL RDW (11.5-15.5) % Plt Count (150-450) k/uL Neutrophils % % Lymphocytes % % Monocytes % % Eosinophils % % Basophils % % Neutrophils # (1.3-7.7) k/uL Lymphocytes # (1.0-4.8) k/uL Monocytes # (0-1.0) k/uL Eosinophils # (0-0.7) k/uL Basophils # (0-0.2) k/uL PT (9.0-12.0) sec INR (<1.2) APTT (22.0-30.0) sec Sodium (137-145) mmol/L Potassium (3.5-5.1) mmol/L Chloride (98-107) mmol/L Carbon Dioxide (22-30) mmol/L Anion Gap mmol/L BUN (9-20) mg/dL Creatinine (0.66-1.25) mg/dL Est GFR (CKD-EPI)AfAm (>60 ml/min/1.73 sqM) Est GFR (CKD-EPI)NonAf (>60 ml/min/1.73 sqM) Glucose (74-99) mg/dL Plasma Lactic Acid [place] (0.7-2.0) mmol/L Calcium (8.4-10.2) mg/dL Magnesium (1.6-2.3) mg/dL Total Bilirubin (0.2-1.3) mg/dL AST (17-59) U/L ALT (21-72) U/L Alkaline Phosphatase (38-126) U/L Total Creatine Kinase (55-170) U/L CK-MB (CK-2) (0.0-2.4) ng/mL CK-MB (CK-2) Rel Index Troponin I (0.000-0.034) ng/mL NT-Pro-B Natriuret Pep pg/mL Total Protein (6.3-8.2) g/dL Albumin (3.5-5.0) g/dL Influenza Type A RNA Not Detected (Not Detectd) Influenza Type B (PCR) Not Detected (Not Detectd) Disposition Clinical Impression: Chest pain, Acute exacerbation of chronic obstructive airways disease Disposition: HOME SELF-CARE Condition: Fair Instructions: Chest Pain (ED), COPD (Chronic Obstructive Pulmonary Disease) (ED ) Prescriptions: Azithromycin [Zithromax Z-pack] 0 mg PO DIRECTED #6 tab predniSONE 50 mg PO DAILY #5 tab Referrals: Alen Champion MD [Primary Care Provider] - 1-2 days Time of Disposition: 16:03
[2017-12-05 14:33] LABS: Basophils # (A) 0.1 k/uL (0-0.2); Basophils % (A) 0 %; Eosinophils # (A) 0.7 k/uL (0-0.7); Eosinophils % (A) 5 %; HCT 41.4 % (39.0-53.0); HGB 13.8 gm/dL (13.0-17.5); Lymphocytes # (A) 1.9 k/uL (1.0-4.8); Lymphocytes % (A) 16 %; MCH 31.2 pg (25.0-35.0); MCHC 33.3 g/dL (31.0-37.0); MCV 93.6 fL (80.0-100.0); Mean Platelet Volume 7.9; Monocytes # (A) 1.5 k/uL (0-1.0); Monocytes % (A) 12 %; Neutrophils # (A) 7.6 k/uL (1.3-7.7); Neutrophils % (A) 63 %; Platelet Count 359 k/uL (150-450); RBC 4.42 m/uL (4.30-5.90); RDW 12.7 % (11.5-15.5)
[2017-12-05 14:37] LABS: Partial Thromboplastin Time 27.2 sec (22.0-30.0); Prothrombin Time 9.8 sec (9.0-12.0)
[2017-12-05 14:38] LABS: Albumin 3.7 g/dL (3.5-5.0); Magnesium 1.8 mg/dL (1.6-2.3); Potassium 4.1 mmol/L (3.5-5.1); Total Bilirubin 0.7 mg/dL (0.2-1.3); Total Protein 6.5 g/dL (6.3-8.2)
[2017-12-05 14:42] LABS: Creatine Kinase 64 U/L (55-170)
[2017-12-05] MEDS ORDERED: SODIUM CHLORIDE 0.9% 500 ML IV ONE (14:49)
--- NOTE | 2017-12-05 14:50 | XR ---
EXAMINATION TYPE: XR chest 2V DATE OF EXAM: 12/05/2017 COMPARISON: 11/13/2017 INDICATION: Chest pain TECHNIQUE: Frontal and lateral views of the chest are obtained. FINDINGS: The heart size is normal. The pulmonary vasculature is normal. There is some residual infiltrate at the left diaphragm from prior examination. Consider atelectasis or pneumonia.. IMPRESSION: 1. There may be some mild infiltrate at the left diaphragm which could be residual from previous exam .
[2017-12-05 15:03] LABS: Creatine Kinase MB 0.9 ng/mL (0.0-2.4); Troponin I <0.012 ng/mL (0.000-0.034)
[2017-12-05 16:08] VITALS: RESP 22; TEMP 98.3
[2017-12-05 17:06] VITALS: BP 126/56; PULSE 82
== END 2017-12-05 17:03 | disposition home or self-care (01) ==
LOC: EC 13:47
DX: J44.1 Chronic obstructive pulmonary disease with (acute) exacerbation (principal); R07.9 Chest pain, unspecified; D72.829 Elevated white blood cell count, unspecified; E87.2 Acidosis; R91.8 Other nonspecific abnormal finding of lung field; I25.119 Atherosclerotic heart disease of native coronary artery with unspecified angina pectoris; M06.9 Rheumatoid arthritis, unspecified; E03.9 Hypothyroidism, unspecified; I12.9 Hypertensive chronic kidney disease with stage 1 through stage 4 chronic kidney disease, or unspecified chronic kidney disease; N18.3 Chronic kidney disease, stage 3 (moderate); J96.91 Respiratory failure, unspecified with hypoxia; Z87.891 Personal history of nicotine dependence; Z79.891 Long term (current) use of opiate analgesic; Z79.899 Other long term (current) drug therapy; Z95.818 Presence of other cardiac implants and grafts
CPT/HCPCS: 36415; 94640; 93005; 83880; 80053; 82550; 82553; 83605; 83735; 84484; 85025; 85610; 85730; 87040; 87502; 71046; 99285; 96374; 96361; J1100

== ENCOUNTER → 2018-01-30 | Outpatient (CLI) | payer MEDICARE, OTHER | END | disposition home or self-care (01) | LOC: RADECHMAIN 12:48 | PROVIDERS: ATTEND Family Medicine | DX: I49.3 Ventricular premature depolarization (principal) | CPT/HCPCS: 93225; 93226 ==

== ENCOUNTER 2018-03-07 17:05 | Inpatient (IN) | payer MEDICARE, OTHER ==
[2018-03-07] MEDS ORDERED: SODIUM CHLORIDE 0.9% 500 ML IV STA (17:50)
[2018-03-07] MEDS ORDERED: ONDANSETRON 4 MG/2 ML VIAL IVP STA (17:50)
[2018-03-07] MEDS ORDERED: PANTOPRAZOLE 40 MG/10 ML VIAL IVP ONE (17:51)
--- NOTE | 2018-03-07 17:54 | ED ---
General Adult HPI - General Chief complaint: Chest Pain Stated complaint: Vomiting Time Seen by Provider: 03/07/18 17:47 Source: patient, RN notes reviewed, old records reviewed Mode of arrival: wheelchair Limitations: no limitations - History of Present Illness Initial comments: 88-year-old male presents for evaluation of generalized weakness, and vomiting. Patient has been vomiting throughout the day today. He describes this as coffee ground. Patient's son who is at bedside believes he is on a blood thinner but is uncertain of which medication the symptoms. He does have significant medical history including CAD. Patient has had some intermittent chest pain over the past several days. Denies current chest pain. He complains of epigastric abdominal pain and describes this as a burning sensation. No lower abdominal pain. - Related Data Home Medications Medication Instructions Recorded Confirmed HYDROcodone/APAP 10-325MG [[place] 1 tab PO QID 12/29/15 03/07/18 10-325] Levothyroxine Sodium [Levoxyl] 75 mcg PO DAILY 12/29/15 03/07/18 Montelukast Sodium [Singulair] 10 mg PO HS 01/14/17 03/07/18 Celecoxib [CeleBREX] 200 mg PO DAILY 11/29/17 03/07/18 Metoprolol Tartrate [Lopressor] 12.5 mg PO BID 11/29/17 03/07/18 Budesonide/Formoterol Fumarate 2 puff INHALATION RT-BID 03/07/18 03/07/18 [Symbicort 160-4.5 Mcg Inhaler] Ipratropium-Albuterol Nebulize 3 ml INHALATION RT-QID PRN 03/07/18 03/07/18 [Duoneb 0.5 mg-3 mg/3 ml Soln] Previous Rx's Medication Instructions Recorded Warfarin [Coumadin] 2.5 mg PO DAILY@1800 #30 300ml.bag 11/17/17 Methocarbamol [Robaxin] 500 mg PO BID PRN #15 tab 11/29/17 Allergies Allergy/AdvReac Type Severity Reaction Status Date / Time No Known Allergies Allergy Verified 03/07/18 18:19 Review of Systems ROS Statement: Those systems with pertinent positive or pertinent negative responses have been documented in the HPI. ROS Other: All systems not noted in ROS Statement are negative. Past Medical History Past Medical History: Coronary Artery Disease (CAD), Chest Pain / Angina, COPD, Dementia, Eye Disorder, Hyperlipidemia, Hypertension, Memory Impairment, Pneumonia, Prostate Disorder, Renal Disease, Respiratory Disorder, Rheumatoid Arthritis (RA), Thyroid Disorder Additional Past Medical History / Comment(s): Pneumonia with sepsis, hypoxic respiratory failure, home O2 at 2-3L/NC pt stated" uses as he needs it" CKD stage III, BPH, hypothyroid, lumbar disc dx, chronic back and bilateral hip pain -difficulty walking at times. History of Any Multi-Drug Resistant Organisms: None Reported Past Surgical History: Back Surgery, Cholecystectomy, Heart Catheterization, Orthopedic Surgery Additional Past Surgical History / Comment(s): Bilateral cataract removal and lens implants, left knee open surgery d/t injury, EGD, heart catheterization. Patient has never had a colonoscopy. Past Anesthesia/Blood Transfusion Reactions: No Reported Reaction Past Psychological History: No Psychological Hx Reported Smoking Status: Former smoker Past Alcohol Use History: None Reported Past Drug Use History: None Reported - Past Family History Mother Family Medical History: Cancer Additional Family Medical History / Comment(s): Mother at age 96 Unsure what type of cancer Father Family Medical History: Cancer, COPD Additional Family Medical History / Comment(s): Father at age 88 from emphysema Brother(s) Additional Family Medical History / Comment(s): Patient has 7 brothers. Sister(s) Additional Family Medical History / Comment(s): Patient has 1 sister. Daughter(s) Additional Family Medical History / Comment(s): He has 4 daughters and 2 sons. General Exam Limitations: no limitations General appearance: alert, in no apparent distress Head exam: Present: atraumatic, normocephalic Eye exam: Present: normal appearance, PERRL, EOMI ENT exam: Present: mucous membranes dry Neck exam: Present: normal inspection, tenderness Respiratory exam: Present: normal lung sounds bilaterally. Absent: respiratory distress, wheezes Cardiovascular Exam: Present: regular rate, bradycardia GI/Abdominal exam: Present: soft, tenderness (Mild epigastric tenderness to palpation). Absent: distended Extremities exam: Present: normal capillary refill Back exam: Present: normal inspection Neurological exam: Present: alert, oriented X3, CN II-XII intact. Absent: motor sensory deficit Psychiatric exam: Present: normal affect, normal mood Skin exam: Present: warm, dry, intact, pallor Course Vital Signs 03/07/18 03/07/18 03/07/18 17:32 18:03 19:24 Temperature 97.8 F 97.5 F L Pulse Rate 57 L 48 L 50 L Respiratory 20 18 18 Rate Blood Pressure 213/85 188/86 189/91 O2 Sat by Pulse 95 95 97 Oximetry EKG Findings - EKG Comments: EKG Findings:: EKG: Sinus bradycardia ventricular rate of 48, MD interval 152, QRS duration 96, QTC 446. No ST segment elevation or depression Medical Decision Making - Medical Decision Making 88-year-old male presenting with nausea vomiting and coffee-ground emesis. Patient's occult testing of gastric content is positive. He had some epigastric pain associated with this which is minimal and exam, no rebound or guarding. Normal white blood cell count, hemoglobin stable at 13.9, creatinine 1.7. Patient is started on Protonix, will be admitted for GI consultation. Repeat hemoglobin will be obtained in the morning. - Lab Data Result diagrams: 03/07/18 17:45 03/07/18 17:45 Lab Results 03/07/18 03/07/18 03/07/18 Range/Units 17:45 17:45 17:45 WBC (3.8-10.6) k/uL RBC (4.30-5.90) m/uL Hgb (13.0-17.5) gm/dL Hct (39.0-53.0) % MCV (80.0-100.0) fL MCH (25.0-35.0) pg MCHC (31.0-37.0) g/dL RDW (11.5-15.5) % Plt Count (150-450) k/uL Neutrophils % (Manual) % Lymphocytes % (Manual) % Monocytes % (Manual) % Eosinophils % (Manual) % Neutrophils # (Manual) (1.3-7.7) k/uL Lymphocytes # (Manual) (1.0-4.8) k/uL Monocytes # (Manual) (0-1.0) k/uL Eosinophils # (Manual) (0-0.7) k/uL Nucleated RBCs (0-0) /100 WBC Manual Slide Review PT (9.0-12.0) sec INR (<1.2) APTT (22.0-30.0) sec Sodium 138 (137-145) mmol/L Potassium 4.5 (3.5-5.1) mmol/L Chloride 101 (98-107) mmol/L Carbon Dioxide 25 (22-30) mmol/L Anion Gap 12 mmol/L BUN 25 H (9-20) mg/dL Creatinine 1.70 H (0.66-1.25) mg/dL Est GFR (CKD-EPI)AfAm 42 (>60 ml/min/1.73 sqM) Est GFR (CKD-EPI)NonAf 36 (>60 ml/min/1.73 sqM) Glucose 122 H (74-99) mg/dL Calcium 8.5 (8.4-10.2) mg/dL Magnesium 2.0 (1.6-2.3) mg/dL Total Bilirubin 0.8 (0.2-1.3) mg/dL AST 27 (17-59) U/L ALT 27 (21-72) U/L Alkaline Phosphatase 84 (38-126) U/L Total Creatine Kinase 122 (55-170) U/L CK-MB (CK-2) 2.7 H* (0.0-2.4) ng/mL CK-MB (CK-2) Rel Index 2.2 Troponin I <0.012 (0.000-0.034) ng/mL NT-Pro-B Natriuret Pep pg/mL Total Protein 6.9 (6.3-8.2) g/dL Albumin 4.1 (3.5-5.0) g/dL Amylase 134 H (30-110) U/L Lipase 98 (23-300) U/L Gastric Occult Blood Positive (Negative) 03/07/18 03/07/18 03/07/18 Range/Units 17:45 17:45 17:45 WBC 5.0 (3.8-10.6) k/uL RBC 4.39 (4.30-5.90) m/uL Hgb 13.9 (13.0-17.5) gm/dL Hct 42.1 (39.0-53.0) % MCV 96.1 (80.0-100.0) fL MCH 31.6 (25.0-35.0) pg MCHC 32.9 (31.0-37.0) g/dL RDW 14.8 (11.5-15.5) % Plt Count 246 (150-450) k/uL Neutrophils % (Manual) 46 % Lymphocytes % (Manual) 29 % Monocytes % (Manual) 21 % Eosinophils % (Manual) 4 % Neutrophils # (Manual) 2.30 (1.3-7.7) k/uL Lymphocytes # (Manual) 1.45 (1.0-4.8) k/uL Monocytes # (Manual) 1.05 H (0-1.0) k/uL Eosinophils # (Manual) 0.20 (0-0.7) k/uL Nucleated RBCs 0 (0-0) /100 WBC Manual Slide Review Performed PT 10.0 (9.0-12.0) sec INR 1.0 (<1.2) APTT 26.2 (22.0-30.0) sec Sodium (137-145) mmol/L Potassium (3.5-5.1) mmol/L Chloride (98-107) mmol/L Carbon Dioxide (22-30) mmol/L Anion Gap mmol/L BUN (9-20) mg/dL Creatinine (0.66-1.25) mg/dL Est GFR (CKD-EPI)AfAm (>60 ml/min/1.73 sqM) Est GFR (CKD-EPI)NonAf (>60 ml/min/1.73 sqM) Glucose (74-99) mg/dL Calcium (8.4-10.2) mg/dL Magnesium (1.6-2.3) mg/dL Total Bilirubin (0.2-1.3) mg/dL AST (17-59) U/L ALT (21-72) U/L Alkaline Phosphatase (38-126) U/L Total Creatine Kinase (55-170) U/L CK-MB (CK-2) (0.0-2.4) ng/mL CK-MB (CK-2) Rel Index Troponin I (0.000-0.034) ng/mL NT-Pro-B Natriuret Pep 1380 pg/mL Total Protein (6.3-8.2) g/dL Albumin (3.5-5.0) g/dL Amylase (30-110) U/L Lipase (23-300) U/L Gastric Occult Blood (Negative) Disposition Clinical Impression: Upper GI bleed, Hematemesis Disposition: ADMITTED IP TO THIS HOSP Condition: Stable Is patient prescribed a controlled substance at d/c from ED?: No Referrals: Alen Champion MD [Primary Care Provider] - 1-2 days Decision to Admit Reason: Admit from EC Decision Date: 03/07/18 Decision Time: 19:55
[2018-03-07 18:12] LABS: Partial Thromboplastin Time 26.2 sec (22.0-30.0)
[2018-03-07 18:14] LABS: Albumin 4.1 g/dL (3.5-5.0); Calcium 8.5 mg/dL (8.4-10.2); Potassium 4.5 mmol/L (3.5-5.1); Total Bilirubin 0.8 mg/dL (0.2-1.3); Total Protein 6.9 g/dL (6.3-8.2)
[2018-03-07 18:16] LABS: Creatine Kinase 122 U/L (55-170)
[2018-03-07 18:29] LABS: HCT 42.1 % (39.0-53.0); HGB 13.9 gm/dL (13.0-17.5); MCH 31.6 pg (25.0-35.0); MCHC 32.9 g/dL (31.0-37.0); MCV 96.1 fL (80.0-100.0); Platelet Count 246 k/uL (150-450); RBC 4.39 m/uL (4.30-5.90); RDW 14.8 % (11.5-15.5); Troponin I <0.012 ng/mL (0.000-0.034)
[2018-03-07 18:42] LABS: Creatine Kinase MB 2.7 ng/mL (0.0-2.4)
--- NOTE | 2018-03-07 18:49 | XR ---
EXAMINATION TYPE: XR chest 2V DATE OF EXAM: 03/07/2018 COMPARISON: 12/05/2017 HISTORY: Chest pain TECHNIQUE: Frontal and lateral views of the chest are obtained. FINDINGS: There is no focal air space opacity, pleural effusion, or pneumothorax seen. There is tobacco prevention health educator hilary interstitial prominence and bibasilar subsegmental atelectasis. The cardiac silhouette size is wi thin normal limits. Degenerative changes of the acromio clavicular joint and spine are mild. IMPRESSION: Minimal bibasilar subsegmental atelectasis, otherwise no acute cardiopulmonary process.
--- NOTE | 2018-03-07 18:51 | XR ---
EXAMINATION TYPE: XR KUB DATE OF EXAM: 03/07/2018 6:45 PM CLINICAL HISTORY: Seen vomiting TECHNIQUE: Supine and upright images of the abdomen were obtained. COMPARISON: 03/07/2018 chest radiograph. FINDINGS: Scattered gas is seen in nondilated small bowel loops. Gas and fecal material is seen in no ndilated colon. There is no visceromegaly, pneumoperitoneum, or abnormal calcification appreciated. T here is a dextroscoliotic curvature of the lumbar spine. Cholecystectomy clips reside within the righ t upper quadrant. Colonic interposition is seen in the right upper quadrant. Extensive degenerative c hanges of the femoral acetabular joints are present. Tortuosity and extensive atherosclerosis of the abdominal aorta and its branches are seen. IMPRESSION: Chronic changes. Nonobstructive bowel gas pattern.
[2018-03-07 19:17] LABS: Lymphocytes # (M) 1.45 k/uL (1.0-4.8); Monocytes # (M) 1.05 k/uL (0-1.0); Neutrophils % (M) 46 %; Nucleated Red Blood Cells 0 /100 WBC (0-0); Total Cells Counted 100
[2018-03-07] MEDS ORDERED: hydrALAZINE HCL 20 MG/ML 1 ML VIAL IVP STA (19:43)
[2018-03-07] MEDS ORDERED: ONDANSETRON 4 MG/2 ML VIAL IVP PRN (19:45)
[2018-03-07] MEDS ORDERED: NALOXONE 0.4 MG/ML 1 ML VIAL IV PRN (19:45)
[2018-03-07] MEDS ORDERED: MORPHINE SULFATE 2 MG/ML SYRINGE IV PRN (19:45)
[2018-03-07] MEDS: SODIUM CHLORIDE 0.9% 1,000 ML IV SCH (19:51)
[2018-03-07] MEDS: PANTOPRAZOLE 40 MG/10 ML VIAL IVP SCH (19:51)
[2018-03-07 21:20] VITALS: BMI 26.4
[2018-03-08 08:45] LABS: HCT 41.9 % (39.0-53.0); HGB 13.6 gm/dL (13.0-17.5); MCH 31.4 pg (25.0-35.0); MCHC 32.3 g/dL (31.0-37.0); MCV 97.2 fL (80.0-100.0); Platelet Count 247 k/uL (150-450); RBC 4.31 m/uL (4.30-5.90); RDW 14.5 % (11.5-15.5); WBC 4.8 k/uL (3.8-10.6)
[2018-03-08] MEDS: PANTOPRAZOLE 40 MG/10 ML VIAL IVP SCH (09:28)
[2018-03-08] MEDS: SODIUM CHLORIDE 0.9% 1,000 ML IV SCH ×2 (09:28→15:54)
[2018-03-08] MEDS ORDERED: IPRATROPIUM-ALBUTEROL 3 ML NEB INHALATION PRN (11:32)
[2018-03-08] MEDS ORDERED: POLYETHYLENE GLYCOL 3350 17 GM POWD.PACK PO STA (11:59)
[2018-03-08] MEDS: DOCUSATE 100 MG CAP PO SCH ×2 (12:44→20:04)
[2018-03-08] MEDS: LEVOTHYROXINE 75 MCG TAB PO SCH (12:45)
[2018-03-08 12:53] LABS: Calcium 8.6 mg/dL (8.4-10.2); Potassium 4.3 mmol/L (3.5-5.1)
[2018-03-08] MEDS: HYDROcodone/APAP 5-325MG 1 EACH TAB PO PRN (12:53)
[2018-03-08] MEDS ORDERED: HYDROcodone/APAP 10-325MG 1 EACH TAB PO PRN (13:00)
--- NOTE | 2018-03-08 16:39 | P.HPIM ---
History of Present Illness H&P Date: 03/08/18 Chief Complaint: Chest pain. Nausea and vomiting Patient is a 88-year-old male with a known history of COPD on home oxygen, paroxysmal atrial fibrillation on anticoagulation with Coumadin, subtherapeutic INR level I.0, chronic pain and multiple pain medication use was brought to ER by his son with complaints of vomiting all day yesterday. Patient was also having generalized weakness. Patient was also complaining of left upper chest pain, burning type. Pain is intermittent lasting for a few seconds. Denied any radiation. Denied any headache or dizziness or lightheadedness. No diaphoresis. Patient was recently diagnosed with atrial fibrillation and was started on Coumadin for anticoagulation. Currently INR is 1.0. As per his son patient was also having coffee-ground emesis. Otherwise patient is also constipated with last bowel movement more than a week as per patient. Patient is on multiple pain medications including [place] 10, Robaxin as well as Celebrex. Patient is a poor historian otherwise. Patient is also complaining of left lower quadrant abdominal tenderness and pain. KUB x-ray showed chronic changes. Scattered gas is seen in nondilated small bowel loops. Gas and fecal material is seen in the nondilated colon. There is dextrose core aortic curvature of the lumbar spine. Cholecystectomy clips inside within the right upper quadrant. Extensive degenerative changes of the femoral acetabular joints are present. Atherosclerosis of the abdominal aorta and its branches. Nonobstructive bowel gas pattern. Chest x-ray minimal right basilar subsegmental atelectasis. Otherwise no acute cardiopulmonary process. Hemoglobin 13.9 yesterday. Currently 13.6. No episodes of hematemesis while in the hospital. 2-D echocardiogram done on 11/13/2017 showed ejection fraction 55-60%. No evidence of pulmonary hypertension. RVSP 11.9 mm Hg Review of Systems Constitutional: Patient denies any fever or chills . No generalized weakness or weight loss. Abdomen: Patient does have abdominal pain and nausea vomiting. No diarrhea Cardiovascular: Chest pain and shortness of breath. no palpitations. Respiratory: patient denied any cough is from production. No shortness of breath Neurologic: Patient denied any numbness or tingling headache. Musculoskeletal: Patient denies any complaints of joint swelling or deformity. Patient is a poor historian and complete review of systems could not be obtained from the patient Past Medical History Past Medical History: Coronary Artery Disease (CAD), Chest Pain / Angina, COPD, Dementia, Eye Disorder, Hyperlipidemia, Hypertension, Memory Impairment, Pneumonia, Prostate Disorder, Renal Disease, Respiratory Disorder, Rheumatoid Arthritis (RA), Thyroid Disorder Additional Past Medical History / Comment(s): Pneumonia with sepsis, hypoxic respiratory failure, home O2 at 2-3L/NC pt stated" uses as he needs it" CKD stage III, BPH, hypothyroid, lumbar disc dx, chronic back and bilateral hip pain -difficulty walking at times. History of Any Multi-Drug Resistant Organisms: None Reported Past Surgical History: Back Surgery, Cholecystectomy, Heart Catheterization, Orthopedic Surgery Additional Past Surgical History / Comment(s): Bilateral cataract removal and lens implants, left knee open surgery d/t injury, EGD, heart catheterization. Patient has never had a colonoscopy. Past Anesthesia/Blood Transfusion Reactions: No Reported Reaction Past Psychological History: No Psychological Hx Reported Additional Psychological History / Comment(s): Pt resides with his spouse . Pt/ spouse also have grandson and his spouse living with them and are their caretakers. Pt ambulates with a 4 wheeled walker . He no longer drives, caretakers take him to appts. He has home O2. nebulizer. Smoking Status: Former smoker Past Alcohol Use History: None Reported Additional Past Alcohol Use History / Comment(s): Pt started smoking in 1953 and quit in 2016. He was a cigar smoker. Past Drug Use History: None Reported Additional Drug Use History / Comment(s): pt stated he would occ smoke marijuana but has'nt smoked in 2-3 years - Past Family History Mother Family Medical History: Cancer Additional Family Medical History / Comment(s): Mother at age 96 Unsure what type of cancer Father Family Medical History: Cancer, COPD Additional Family Medical History / Comment(s): Father at age 88 from emphysema Brother(s) Additional Family Medical History / Comment(s): Patient has 7 brothers. Sister(s) Additional Family Medical History / Comment(s): Patient has 1 sister. Daughter(s) Additional Family Medical History / Comment(s): He has 4 daughters and 2 sons. Medications and Allergies Home Medications Medication Instructions Recorded Confirmed Type HYDROcodone/APAP 10-325MG [[place] 1 tab PO QID 12/29/15 03/07/18 History 10-325] Levothyroxine Sodium [Levoxyl] 75 mcg PO DAILY 12/29/15 03/07/18 History Montelukast Sodium [Singulair] 10 mg PO HS 01/14/17 03/07/18 History Warfarin [Coumadin] 2.5 mg PO DAILY@1800 #30 300ml.bag 11/17/17 03/07/18 Rx Celecoxib [CeleBREX] 200 mg PO DAILY 11/29/17 03/07/18 History Methocarbamol [Robaxin] 500 mg PO BID PRN #15 tab 11/29/17 03/07/18 Rx Metoprolol Tartrate [Lopressor] 12.5 mg PO BID 11/29/17 03/07/18 History Budesonide/Formoterol Fumarate 2 puff INHALATION RT-BID 03/07/18 03/07/18 History [Symbicort 160-4.5 Mcg Inhaler] Ipratropium-Albuterol Nebulize 3 ml INHALATION RT-QID PRN 03/07/18 03/07/18 History [Duoneb 0.5 mg-3 mg/3 ml Soln] Allergies Allergy/AdvReac Type Severity Reaction Status Date / Time No Known Allergies Allergy Verified 03/07/18 18:19 Physical Exam Vitals: Vital Signs Temp Pulse Pulse Resp BP BP Pulse Ox 03/08/18 08:15 94 L 03/08/18 08:00 98.5 F 64 16 150/73 94 L 03/08/18 04:00 96.7 F L 54 L 16 131/63 95 03/08/18 00:00 97.5 F L 96 18 114/60 94 L 03/07/18 21:00 97 F L 67 18 131/80 98 03/07/18 20:42 58 L 18 126/58 96 03/07/18 20:12 55 L 18 171/77 98 03/07/18 19:24 97.5 F L 50 L 18 189/91 97 03/07/18 18:03 48 L 18 188/86 95 03/07/18 17:32 97.8 F 57 L 20 213/85 95 Intake and Output 03/07/18 03/08/18 03/08/18 22:59 06:59 14:59 Output Total 200 200 Balance -200 -200 Output: Urine 200 200 Other: Voiding Method Toilet Toilet Urinal Urinal # Voids 1 1 Weight 88.3 kg 88.3 kg PHYSICAL EXAMINATION: Patient is lying in the bed comfortably, no acute distress, awake alert and oriented.. HEENT: Normocephalic. Neck is supple. Pupils reactive. Nostrils clear. Oral cavity is moist. Ears reveal no drainage. Neck reveals no JVD, carotid bruits, or thyromegaly. CHEST EXAMINATION: Trachea is central. Symmetrical expansion. Bibasilar diminished air entry. Lung stout clear to auscultation and percussion. CARDIAC: Normal S1, S2 with no gallops. No murmurs ABDOMEN: Soft. Bowel sounds normal. No organomegaly. No abdominal bruits. Extremities: reveal no edema. No clubbing or cyanosis Neurologically awake, alert, oriented x2-3 with well-coordinated movements. No focal deficits noted Skin: No rash or skin lesions. Psychiatric: Cooperative. Nonsuicidal Musculoskeletal: No joint swelling or deformity. Normal range of motion. Results CBC & Chem 7: 03/08/18 08:16 03/08/18 08:16 Labs: Abnormal Lab Results - Last 24 Hours (Table) 03/07/18 03/07/18 03/07/18 Range/Units 17:45 17:45 17:45 Monocytes # (Manual) 1.05 H (0-1.0) k/uL BUN 25 H (9-20) mg/dL Creatinine 1.70 H (0.66-1.25) mg/dL Glucose 122 H (74-99) mg/dL CK-MB (CK-2) 2.7 H* (0.0-2.4) ng/mL Amylase 134 H (30-110) U/L Thrombosis Risk Factor Assmnt - DVT/VTE Prophylaxis DVT/VTE Prophylaxis: Pharmacologic Prophylaxis ordered - Choose All That Apply Any of the Below Risk Factors Present?: Yes Each Factor Represents 1 point: Abnormal pulmonary function (COPD), Medical pt on bed rest Other Risk Factors: Yes Each Risk Factor Represents 3 Points: Age 75 years or older Thrombosis Risk Factor Assessment Total Risk Factor Score: 5 Thrombosis Risk Factor Assessment Level: High Risk Assessment and Plan Assessment: Chest pain mainly left upper chest. Ruled out ACS. Possible underlying gastritis. Possible upper GI bleed. Hemoglobin is fairly stable at 13.6. Hemoglobin was 12.7 during last admission Nausea and vomiting likely due to constipation Recently diagnosed paroxysmal atrial fibrillation. Started on anticoagulation with Coumadin but INR level is 1.0 now COPD stable. Chronic hypoxic respiratory failure Acute on chronic CK D stage III Hyperlipidemia Hypothyroidism Hypertension Dementia Rheumatoid arthritis BPH Lumbar disc degenerative joint disease Chronic back pain History of cardiac catheterization. Plan: Patient will be continued on IV hydration and Protonix IV. Patient will be started on stool softeners and laxatives for constipation. Continue the pain management. We will repeat troponin level. Seems like patient is noncompliant with Coumadin dosing. FOBT negative. Hemoglobin is otherwise fairly stable. Anticoagulation can be restarted once cleared by gastroenterology. Continue with breathing treatments and follow up renal function. We'll check TSH and free T4 level. Further recommendations based on the clinical course. Prognosis is guarded with multiple medical problems and comorbid conditions. Time with Patient: Greater than 30
[2018-03-08] MEDS: METOPROLOL TARTRATE 12.5 MG TAB PO SCH (20:04)
[2018-03-08] MEDS: MONTELUKAST 10 MG TAB PO SCH (20:04)
[2018-03-08] MEDS: SYMBICORT 160-4.5 MCG INHALER INHALATION SCH (20:15)
[2018-03-09] MEDS: LEVOTHYROXINE 75 MCG TAB PO SCH (05:51)
[2018-03-09] MEDS: SYMBICORT 160-4.5 MCG INHALER INHALATION SCH ×2 (08:47→19:07)
--- NOTE | 2018-03-09 09:06 | P.CONS ---
History of Present Illness - Reason for Consult Consult date: 03/08/18 Possible GI bleeding. - History of Present Illness The patient is an 88-year-old male who presented to the emergency room with the complaint of weakness and vomiting all day. The patient reported burning chest pain as well and coffee-ground emesis. He has history of atrial fibrillation and has been on Coumadin but his INR was 1. His hemoglobin has not dropped compared to prior levels and it was around 13.6. The patient has history of COPD on home O2, paroxysmal atrial fibrillation, chronic pain. He had prior cholecystectomy. He denied dysphagia, odynophagia, hematemesis or hematochezia. Review of Systems Constitutional: Denied fever, chills or unintentional weight loss Neurologic: No headaches, double vision or other sensory or motor changes Cardiopulmonary: Chest pains, no shortness of breath or palpitations Gastrointestinal: See present illness above Genitourinary: No hematuria, dysuria or frequency Musculoskeletal:No joint swelling or pain Skin: No rashes Hematologic: No bleeding tendency Psychiatric: No anxiety or depression Past Medical History Past Medical History: Coronary Artery Disease (CAD), Chest Pain / Angina, COPD, Dementia, Eye Disorder, Hyperlipidemia, Hypertension, Memory Impairment, Pneumonia, Prostate Disorder, Renal Disease, Respiratory Disorder, Rheumatoid Arthritis (RA), Thyroid Disorder Additional Past Medical History / Comment(s): Pneumonia with sepsis, hypoxic respiratory failure, home O2 at 2-3L/NC pt stated" uses as he needs it" CKD stage III, BPH, hypothyroid, lumbar disc dx, chronic back and bilateral hip pain -difficulty walking at times. History of Any Multi-Drug Resistant Organisms: None Reported Past Surgical History: Back Surgery, Cholecystectomy, Heart Catheterization, Orthopedic Surgery Additional Past Surgical History / Comment(s): Bilateral cataract removal and lens implants, left knee open surgery d/t injury, EGD, heart catheterization. Patient has never had a colonoscopy. Past Anesthesia/Blood Transfusion Reactions: No Reported Reaction Past Psychological History: No Psychological Hx Reported Additional Psychological History / Comment(s): Pt resides with his spouse . Pt/ spouse also have grandson and his spouse living with them and are their caretakers. Pt ambulates with a 4 wheeled walker . He no longer drives, caretakers take him to appts. He has home O2. nebulizer. Smoking Status: Former smoker Past Alcohol Use History: None Reported Additional Past Alcohol Use History / Comment(s): Pt started smoking in 1953 and quit in 2016. He was a cigar smoker. Past Drug Use History: None Reported Additional Drug Use History / Comment(s): pt stated he would occ smoke marijuana but has'nt smoked in 2-3 years - Past Family History Mother Family Medical History: Cancer Additional Family Medical History / Comment(s): Mother at age 96 Unsure what type of cancer Father Family Medical History: Cancer, COPD Additional Family Medical History / Comment(s): Father at age 88 from emphysema Brother(s) Additional Family Medical History / Comment(s): Patient has 7 brothers. Sister(s) Additional Family Medical History / Comment(s): Patient has 1 sister. Daughter(s) Additional Family Medical History / Comment(s): He has 4 daughters and 2 sons. Medications and Allergies Home Medications Medication Instructions Recorded Confirmed Type HYDROcodone/APAP 10-325MG [[place] 1 tab PO QID 12/29/15 03/07/18 History 10-325] Levothyroxine Sodium [Levoxyl] 75 mcg PO DAILY 12/29/15 03/07/18 History Montelukast Sodium [Singulair] 10 mg PO HS 01/14/17 03/07/18 History Warfarin [Coumadin] 2.5 mg PO DAILY@1800 #30 300ml.bag 11/17/17 03/07/18 Rx Celecoxib [CeleBREX] 200 mg PO DAILY 11/29/17 03/07/18 History Methocarbamol [Robaxin] 500 mg PO BID PRN #15 tab 11/29/17 03/07/18 Rx Metoprolol Tartrate [Lopressor] 12.5 mg PO BID 11/29/17 03/07/18 History Budesonide/Formoterol Fumarate 2 puff INHALATION RT-BID 03/07/18 03/07/18 History [Symbicort 160-4.5 Mcg Inhaler] Ipratropium-Albuterol Nebulize 3 ml INHALATION RT-QID PRN 03/07/18 03/07/18 History [Duoneb 0.5 mg-3 mg/3 ml Soln] Allergies Allergy/AdvReac Type Severity Reaction Status Date / Time No Known Allergies Allergy Verified 03/07/18 18:19 Physical Exam Vitals: Vital Signs Temp Pulse Pulse Resp BP BP Pulse Ox 03/08/18 08:15 94 L 03/08/18 08:00 98.5 F 64 16 150/73 94 L 03/08/18 04:00 96.7 F L 54 L 16 131/63 95 03/08/18 00:00 97.5 F L 96 18 114/60 94 L 03/07/18 21:00 97 F L 67 18 131/80 98 03/07/18 20:42 58 L 18 126/58 96 03/07/18 20:12 55 L 18 171/77 98 03/07/18 19:24 97.5 F L 50 L 18 189/91 97 03/07/18 18:03 48 L 18 188/86 95 03/07/18 17:32 97.8 F 57 L 20 213/85 95 Intake and Output 03/07/18 03/08/18 03/08/18 22:59 06:59 14:59 Output Total 200 200 Balance -200 -200 Output: Urine 200 200 Other: Voiding Method Toilet Toilet Urinal Urinal # Voids 1 1 Weight 88.3 kg 88.3 kg General: Appears stated age, very pleasant in no acute distress Head and neck: Normocephalic and atraumatic, conjunctivae pink and sclerae not icteric, mucous membranes moist and pink. No masses in the neck or tracheal shifts Lungs: Clear to auscultation with no dullness to percussion Heart: Irregular, no abnormal sounds, murmurs, gallops or friction Abdomen: Soft, no masses or organomegalies. No tenderness. Bowel sounds present Extremities: No clubbing, cyanosis or edema Neurologic: Alert and oriented 3. Cranial nerves grossly intact. No gross sensory or motor abnormalities Results CBC & Chem 7: 03/08/18 08:16 03/08/18 08:16 Labs: Abnormal Lab Results - Last 24 Hours (Table) 03/07/18 03/07/18 03/07/18 Range/Units 17:45 17:45 17:45 Monocytes # (Manual) 1.05 H (0-1.0) k/uL BUN 25 H (9-20) mg/dL Creatinine 1.70 H (0.66-1.25) mg/dL Glucose 122 H (74-99) mg/dL CK-MB (CK-2) 2.7 H* (0.0-2.4) ng/mL Amylase 134 H (30-110) U/L Assessment and Plan Assessment: Vomiting and coffee-ground emesis with stable hemoglobin, could be related to gastritis or a superficial mucosal tear. Plan: I agree with your current management. The patient seems to be stable and tolerating his diet. I would consider an upper endoscopy if it is felt necessary prior to resuming his Coumadin. I will discuss with you.
[2018-03-09] MEDS: HYDROcodone/APAP 5-325MG 1 EACH TAB PO PRN ×2 (10:01→18:30)
[2018-03-09] MEDS: DOCUSATE 100 MG CAP PO SCH ×2 (10:01→21:00)
[2018-03-09] MEDS: METOPROLOL TARTRATE 12.5 MG TAB PO SCH ×2 (10:11→21:00)
[2018-03-09] MEDS: PANTOPRAZOLE 40 MG/10 ML VIAL IVP SCH (10:11)
--- NOTE | 2018-03-09 14:42 | P.PN ---
Subjective Progress Note Date: 03/09/18 Progress note being dictated for Dr. Bhandari Chief Complaint: Chest pain. Nausea and vomiting Patient is a 88-year-old male with a known history of COPD on home oxygen, paroxysmal atrial fibrillation on anticoagulation with Coumadin, subtherapeutic INR level I.0, chronic pain and multiple pain medication use was brought to ER by his son with complaints of vomiting all day yesterday. Patient was also having generalized weakness. Patient was also complaining of left upper chest pain, burning type. Pain is intermittent lasting for a few seconds. Denied any radiation. Denied any headache or dizziness or lightheadedness. No diaphoresis. Patient was recently diagnosed with atrial fibrillation and was started on Coumadin for anticoagulation. Currently INR is 1.0. As per his son patient was also having coffee-ground emesis. Otherwise patient is also constipated with last bowel movement more than a week as per patient. Patient is on multiple pain medications including [place] 10, Robaxin as well as Celebrex. Patient is a poor historian otherwise. Patient is also complaining of left lower quadrant abdominal tenderness and pain. KUB x-ray showed chronic changes. Scattered gas is seen in nondilated small bowel loops. Gas and fecal material is seen in the nondilated colon. There is dextrose core aortic curvature of the lumbar spine. Cholecystectomy clips inside within the right upper quadrant. Extensive degenerative changes of the femoral acetabular joints are present. Atherosclerosis of the abdominal aorta and its branches. Nonobstructive bowel gas pattern. Chest x-ray minimal right basilar subsegmental atelectasis. Otherwise no acute cardiopulmonary process. Hemoglobin 13.9 yesterday. Currently 13.6. No episodes of hematemesis while in the hospital. 2-D echocardiogram done on 11/13/2017 showed ejection fraction 55-60%. No evidence of pulmonary hypertension. RVSP 11.9 mm Hg 03/09/2018 or symptoms of bleeding. Hemoglobin 13.6. Maintained on gentle IV fluid hydration with creatinine improving, currently 1.5. Denies chest pain, palpitations or increasing shortness of breath. Denies lightheadedness dizziness or focal deficits. Objective - Vital Signs Vital signs: Vital Signs Temp 97.1 F L 03/09/18 08:00 Pulse 65 03/09/18 08:00 Resp 16 03/09/18 08:00 BP 163/80 03/09/18 08:00 Pulse Ox 94 L 03/09/18 08:00 Intake & Output 03/08/18 03/09/18 03/09/18 18:59 06:59 18:59 Intake Total 600 360 Output Total 1100 Balance -500 360 Weight 82.4 kg Intake: Intake, IV Titration 600 Amount Sodium Chloride 0.9% 1, 600 000 ml @ 75 mls/hr IV . [id number] SUMEET Rx#:[id number] Oral 360 Output: Urine 1100 Other: Voiding Method Toilet Toilet Urinal Urinal # Voids 1 1 # Bowel Movements 1 - Exam Patient is sitting up in bed , no acute distress, awake alert and oriented.. HEENT: Normocephalic. Neck is supple. Pupils reactive. Nostrils clear. Oral cavity is moist. Ears reveal no drainage. Neck reveals no JVD, carotid bruits, or thyromegaly. CHEST EXAMINATION: Trachea is central. Symmetrical expansion. Bibasilar diminished air entry. Lung stout clear to auscultation and percussion. CARDIAC: Normal S1, S2 with no gallops. No murmurs ABDOMEN: Soft. Bowel sounds normal. No organomegaly. No abdominal bruits. Extremities: reveal no edema. No clubbing or cyanosis Neurologically awake, alert, oriented x2-3 with well-coordinated movements. No focal deficits noted Skin: No rash or skin lesions. Psychiatric: Cooperative. Nonsuicidal Musculoskeletal: No joint swelling or deformity. Normal range of motion. - Labs CBC & Chem 7: 03/08/18 08:16 03/08/18 08:16 Assessment and Plan Assessment: Chest pain mainly left upper chest. Ruled out ACS. Troponins negative 2. Possible underlying gastritis. Possible upper GI bleed. Hemoglobin is fairly stable at 13.6. Hemoglobin was 12.7 during last admission Nausea and vomiting likely due to constipation Recently diagnosed paroxysmal atrial fibrillation. Started on anticoagulation with Coumadin but INR level is 1.0 now COPD stable. Chronic hypoxic respiratory failure Acute on chronic CK D stage III Hyperlipidemia Hypothyroidism Hypertension Dementia Rheumatoid arthritis BPH Lumbar disc degenerative joint disease Chronic back pain History of cardiac catheterization. Plan: Continue on current medication regime , PPI, gentle IV fluid hydration, monitoring and symptomatic treatment. Maintain on stool softeners, laxatives for constipation. Suspect noncompliant with Coumadin, INR 1 on admission. Will switch to Eliquis and resume anticoagulation once cleared by GI.Continue with nebulized bronchodilators. Follow hemoglobin and renal function closely with repeat labs ordered for a.m. discharge planning in progress for tomorrow pending GI clearance. The impression and plan of care has been dictated as directed. : I performed a history and examination of this patient, discussed the same with the dictator. I agree with the dictator's note ,documented as a scribe. Any additional findings or plans will be noted.
[2018-03-09] MEDS: SODIUM CHLORIDE 0.9% 1,000 ML IV SCH (17:19)
[2018-03-09] MEDS ORDERED: BISACODYL 5 MG TABLET.DR PO STA (17:34)
[2018-03-09 17:48] VITALS: RESP 18
[2018-03-09] MEDS: MONTELUKAST 10 MG TAB PO SCH (21:00)
[2018-03-10] MEDS: SODIUM CHLORIDE 0.9% 1,000 ML IV SCH (05:40)
[2018-03-10] MEDS: LEVOTHYROXINE 75 MCG TAB PO SCH (06:30)
[2018-03-10 07:21] LABS: Basophils % (A) 1 %; Eosinophils # (A) 0.2 k/uL (0-0.7); Eosinophils % (A) 5 %; HCT 40.6 % (39.0-53.0); HGB 13.4 gm/dL (13.0-17.5); Lymphocytes # (A) 1.4 k/uL (1.0-4.8); Lymphocytes % (A) 31 %; MCH 31.1 pg (25.0-35.0); MCV 94.3 fL (80.0-100.0); Mean Platelet Volume 7.7; Monocytes # (A) 0.7 k/uL (0-1.0); Monocytes % (A) 14 %; Neutrophils # (A) 2.1 k/uL (1.3-7.7); Neutrophils % (A) 46 %; Platelet Count 239 k/uL (150-450); RBC 4.31 m/uL (4.30-5.90); RDW 14.8 % (11.5-15.5); WBC 4.6 k/uL (3.8-10.6)
[2018-03-10] MEDS: SYMBICORT 160-4.5 MCG INHALER INHALATION SCH (08:20)
[2018-03-10] MEDS: DOCUSATE 100 MG CAP PO SCH (08:52)
[2018-03-10] MEDS: PANTOPRAZOLE 40 MG/10 ML VIAL IVP SCH (08:53)
[2018-03-10] MEDS: METOPROLOL TARTRATE 12.5 MG TAB PO SCH (08:53)
--- NOTE | 2018-03-10 09:14 | P.PN ---
Subjective Progress Note Date: 03/10/18 Principal diagnosis: Nausea vomiting coffee-ground emesis Feels well. No recurrent coffee-ground emesis. Denies abdominal pain. Requesting diet advancement. Hemoglobin 13.4. Objective - Vital Signs Vital signs: Vital Signs Temp 98.2 F 03/10/18 04:00 Pulse 66 03/10/18 04:00 Resp 18 03/10/18 04:00 BP 180/84 03/10/18 04:00 Pulse Ox 94 L 03/10/18 04:00 Intake & Output 03/09/18 03/10/18 03/10/18 18:59 06:59 18:59 Intake Total 480 300 Balance 480 300 Weight 83.8 kg Intake: Oral 480 300 Other: Voiding Method Toilet Toilet Urinal # Voids 2 1 # Bowel Movements 0 1 2 - Exam General appearance: The patient is alert, oriented, in no acute distress. HET: Head is normocephalic and atraumatic. Pupils are equal and reactive. Oropharynx is clear without lesions. Neck: Supple without lymphadenopathy. Trachea midline. Heart: S1 S2. Regular rate and rhythm. Lungs: No crackles or wheezes are heard. Abdomen: Soft, nontender, nondistended with bowel sounds. No peritoneal signs. No palpable organomegaly or masses. Extremities: Normal skin color and turgor. No cyanosis, rash, ulceration, clubbing, or edema. Radial and pedal pulses are 2/4 bilaterally. Neurological: No focal deficits. Strength and sensation are grossly intact. - Labs CBC & Chem 7: 03/10/18 06:44 03/08/18 08:16 Assessment and Plan (1) Coffee ground emesis Narrative/Plan: Possible [place] Current Visit: Yes Status: Acute Code(s): K92.0 - HEMATEMESIS SNOMED Code( s): 903258736 (2) History of atrial fibrillation Narrative/Plan: Subtherapeutic INR on admission Current Visit: Yes Status: Acute Code(s): Z86.79 - PERSONAL HISTORY OF OTHER DISEASES OF THE CIRCULATORY SYSTEM SNOMED Code(s): 608425950 Plan: 1. Regular diet. Inpatient endoscopy/EGD not planned at this time secondary to resolution of GI symptoms and stable hemoglobin. Restart anticoagulation. We'll follow as needed. Discharge per medicine. Assessment and plan a care discussed with Dr. Nixon
[2018-03-10 09:39] VITALS: TEMP 98.9
[2018-03-10 12:04] LABS: Calcium 8.9 mg/dL (8.4-10.2); Magnesium 1.9 mg/dL (1.6-2.3); Potassium 4.1 mmol/L (3.5-5.1)
[2018-03-10] MEDS ORDERED: APIXABAN 2.5 MG TABLET PO SCH (12:15)
[2018-03-10 14:37] VITALS: BP 136/78; PULSE 61
--- NOTE | 2018-03-10 16:22 | P.DS ---
Providers Date of admission: 03/10/18 08:10 Expected date of discharge: 03/10/18 Attending physician: Kenyon Bhandari Consults: Dr. Nixon Primary care physician: Alen Champion Hospital Course: Final Diagnoses: Chest pain mainly left upper chest. Ruled out ACS. Troponins negative 2. Possible underlying gastritis. Possible upper GI bleed. Hemoglobin is fairly stable at 13.6. Hemoglobin was 12.7 during last admission Nausea and vomiting likely due to constipation Recently diagnosed paroxysmal atrial fibrillation. Started on anticoagulation with Coumadin but INR level is 1.0 now COPD stable. Chronic hypoxic respiratory failure Acute on chronic CK D stage III Hyperlipidemia Hypothyroidism Hypertension Dementia Rheumatoid arthritis BPH Lumbar disc degenerative joint disease Chronic back pain History of cardiac catheterization. Hospital course:Patient is a 88-year-old male with a known history of COPD on home oxygen, paroxysmal atrial fibrillation on anticoagulation with Coumadin, subtherapeutic INR level I.0, chronic pain and multiple pain medication use was brought to ER by his son with complaints of vomiting all day yesterday. Patient was also having generalized weakness. Patient was also complaining of left upper chest pain, burning type. Pain is intermittent lasting for a few seconds. Denied any radiation. Denied any headache or dizziness or lightheadedness. No diaphoresis. Patient was recently diagnosed with atrial fibrillation and was started on Coumadin for anticoagulation. Currently INR is 1.0. As per his son patient was also having coffee-ground emesis. Otherwise patient is also constipated with last bowel movement more than a week as per patient. Patient is on multiple pain medications including [place] 10, Robaxin as well as Celebrex. Patient is a poor historian otherwise. Patient is also complaining of left lower quadrant abdominal tenderness and pain. KUB x-ray showed chronic changes. Scattered gas is seen in nondilated small bowel loops. Gas and fecal material is seen in the nondilated colon. There is dextrose core aortic curvature of the lumbar spine. Cholecystectomy clips inside within the right upper quadrant. Extensive degenerative changes of the femoral acetabular joints are present. Atherosclerosis of the abdominal aorta and its branches. Nonobstructive bowel gas pattern. Chest x-ray minimal right basilar subsegmental atelectasis. Otherwise no acute cardiopulmonary process. Hemoglobin 13.9 yesterday. Currently 13.6. No episodes of hematemesis while in the hospital. 2-D echocardiogram done on 11/13/2017 showed ejection fraction 55-60%. No evidence of pulmonary hypertension. RVSP 11.9 mm Hg Evaluated by GI, with no endoscopy recommended at this time as symptoms have resolved. Maintained on gentle IV fluid hydration with creatinine improving, down to 1.4. No signs or symptoms of bleeding, no recurrent coffee-ground emesis. Hemoglobin stable 13.4 Maintained on stool softeners, laxatives for constipation. Suspect noncompliant with Coumadin, INR 1 on admission. Anticoagulation changed to Eliquis. Cleared by GI for discharge. Patient is being discharged home in a stable condition with guarded prognosis Exam Patient is sitting up in bed , no acute distress, awake alert and oriented.. CHEST EXAMINATION: Trachea is central. Symmetrical expansion. Bibasilar diminished air entry. Lung stout clear to auscultation and percussion. CARDIAC: Normal S1, S2 with no gallops. No murmurs ABDOMEN: Soft. Bowel sounds normal. No organomegaly. No abdominal bruits. Neurologically No focal deficits noted The impression and plan of care has been dictated as directed. : I performed a history and examination of this patient, discussed the same with the dictator. I agree with the dictator's note ,documented as a scribe. Any additional findings or plans will be noted. Time taken: 35 minutes Patient Condition at Discharge: Stable Plan - Discharge Summary Discharge Rx Participant: No New Discharge Prescriptions: New Docusate [Colace] 100 mg PO BID #60 cap Omeprazole [PriLOSEC] 20 mg PO AC-BRKFST #30 cap Apixaban [Eliquis] 2.5 mg PO BID #60 tab Continue Levothyroxine Sodium [Levoxyl] 75 mcg PO DAILY Montelukast Sodium [Singulair] 10 mg PO HS Metoprolol Tartrate [Lopressor] 12.5 mg PO BID Budesonide/Formoterol Fumarate [Symbicort 160-4.5 Mcg Inhaler] 2 puff INHALATION RT-BID Ipratropium-Albuterol Nebulize [Duoneb 0.5 mg-3 mg/3 ml Soln] 3 ml INHALATION RT-QID PRN PRN Reason: Shortness Of Breath Changed HYDROcodone/APAP 10-325MG [[place] 10-325] 0.5 tab PO QID PRN #1 PRN Reason: Pain Discontinued Warfarin [Coumadin] 2.5 mg PO DAILY@1800 #30 300ml.bag Celecoxib [CeleBREX] 200 mg PO DAILY Discharge Medication List Levothyroxine Sodium [Levoxyl] 75 mcg PO DAILY 12/29/15 [History] Montelukast Sodium [Singulair] 10 mg PO HS 01/14/17 [History] Metoprolol Tartrate [Lopressor] 12.5 mg PO BID 11/29/17 [History] Budesonide/Formoterol Fumarate [Symbicort 160-4.5 Mcg Inhaler] 2 puff INHALATION RT-BID 03/07/18 [History] Ipratropium-Albuterol Nebulize [Duoneb 0.5 mg-3 mg/3 ml Soln] 3 ml INHALATION RT -QID PRN 03/07/18 [History] Apixaban [Eliquis] 2.5 mg PO BID #60 tab 03/10/18 [Rx] Docusate [Colace] 100 mg PO BID #60 cap 03/10/18 [Rx] HYDROcodone/APAP 10-325MG [[place] 10-325] 0.5 tab PO QID PRN #1 03/10/18 [Rx] Omeprazole [PriLOSEC] 20 mg PO AC-BRKFST #30 cap 03/10/18 [Rx] Follow up Appointment(s)/Referral(s): Alen Champion MD [Primary Care Provider] - 03/18/18 10:00 am Mendel Nixon MD [STAFF PHYSICIAN] - 2 Weeks (Office to call with follow up appointment.) Ambulatory/Diagnostic Orders: Complete Blood Count w/diff [LAB.AMB] Time Frame: 3 Days, Location: None Selected Patient Instructions/Handouts: Gastrointestinal Bleeding (DC), Soft Diet (DC), Heart Healthy Diet (DC), Safe Use of Anticoagulants (DC) Activity/Diet/Wound Care/Special Instructions: Case management to verify Eliquis coverage/coupon/card BMP Pending diet: Soft, cardiac activity: limited till F/U Discharge Disposition: HOME SELF-CARE
== END 2018-03-10 14:10 | disposition home or self-care (01) | DRG 392 ==
LOC: EC 17:05 → 6SEL 19:45 → OBSVTOIN 03-10 08:10
PROVIDERS: ADMIT Internal Medicine; ATTEND Internal Medicine
DX: K29.70 Gastritis, unspecified, without bleeding (principal); N17.9 Acute kidney failure, unspecified; J96.11 Chronic respiratory failure with hypoxia; K92.0 Hematemesis; E03.9 Hypothyroidism, unspecified; E78.5 Hyperlipidemia, unspecified; F03.90 Unspecified dementia, unspecified severity, without behavioral disturbance, psychotic disturbance, mood disturbance, and anxiety; G89.29 Other chronic pain; I12.9 Hypertensive chronic kidney disease with stage 1 through stage 4 chronic kidney disease, or unspecified chronic kidney disease; N18.3 Chronic kidney disease, stage 3 (moderate); Z87.891 Personal history of nicotine dependence; I25.10 Atherosclerotic heart disease of native coronary artery without angina pectoris; I48.0 Paroxysmal atrial fibrillation; I70.0 Atherosclerosis of aorta; J44.9 Chronic obstructive pulmonary disease, unspecified; K59.00 Constipation, unspecified; M06.9 Rheumatoid arthritis, unspecified; M19.90 Unspecified osteoarthritis, unspecified site; N40.0 Benign prostatic hyperplasia without lower urinary tract symptoms; R79.1 Abnormal coagulation profile; Z79.01 Long term (current) use of anticoagulants; Z79.51 Long term (current) use of inhaled steroids; Z82.5 Family history of asthma and other chronic lower respiratory diseases; Z90.49 Acquired absence of other specified parts of digestive tract; Z91.14 Patient's other noncompliance with medication regimen; Z96.1 Presence of intraocular lens; Z99.81 Dependence on supplemental oxygen; Z98.42 Cataract extraction status, left eye; Z98.41 Cataract extraction status, right eye; Z79.890 Hormone replacement therapy; Z79.891 Long term (current) use of opiate analgesic; Z79.899 Other long term (current) drug therapy; Z80.9 Family history of malignant neoplasm, unspecified; R53.1 Weakness; Z87.01 Personal history of pneumonia (recurrent); M51.36 Other intervertebral disc degeneration, lumbar region; M25.552 Pain in left hip; M25.551 Pain in right hip; R41.3 Other amnesia
CPT/HCPCS: 36415; 71046; 74018; 80048; 80053; 82150; 82271; 82550; 82553; 83690; 83735; 83880; 84443; 84484; 85025; 85027; 85610; 85730; 93005; 94640; 94760; 96361; 96374; 96375; 99285

== ENCOUNTER 2018-04-13 12:07 | Emergency (ER) | payer MEDICARE, OTHER ==
[2018-04-13 13:35] LABS: Basophils % (A) 0 %; Eosinophils # (A) 0.1 k/uL (0-0.7); Eosinophils % (A) 1 %; HCT 45.5 % (39.0-53.0); HGB 14.9 gm/dL (13.0-17.5); Lymphocytes # (A) 1.1 k/uL (1.0-4.8); Lymphocytes % (A) 10 %; MCH 30.6 pg (25.0-35.0); MCHC 32.7 g/dL (31.0-37.0); MCV 93.8 fL (80.0-100.0); Mean Platelet Volume 7.8; Monocytes # (A) 0.4 k/uL (0-1.0); Monocytes % (A) 4 %; Neutrophils # (A) 9.4 k/uL (1.3-7.7); Neutrophils % (A) 85 %; Platelet Count 273 k/uL (150-450); RBC 4.85 m/uL (4.30-5.90); RDW 14.2 % (11.5-15.5); WBC 11.1 k/uL (3.8-10.6)
[2018-04-13 13:41] LABS: Albumin 4.6 g/dL (3.5-5.0); Calcium 9.6 mg/dL (8.4-10.2); Potassium 4.7 mmol/L (3.5-5.1); Total Bilirubin 1.2 mg/dL (0.2-1.3); Total Protein 7.4 g/dL (6.3-8.2)
[2018-04-13] MEDS ORDERED: FAMOTIDINE 20 MG/2 ML VIAL IV STA (13:44)
[2018-04-13] MEDS ORDERED: ONDANSETRON 4 MG/2 ML VIAL IVP STA (13:44)
[2018-04-13] MEDS ORDERED: SODIUM CHLORIDE 0.9% 1,000 ML IV STA (13:44)
--- NOTE | 2018-04-13 13:49 | ED ---
General Adult HPI - General Chief complaint: Abdominal Pain Stated complaint: Vomiting, abd Pain Time Seen by Provider: 04/13/18 13:39 Source: patient, RN notes reviewed Mode of arrival: wheelchair Limitations: no limitations - History of Present Illness Initial comments: Patient 88-year-old male presented to the emergency room today with a chief complaint of nausea vomiting that started this morning. Patient denies any signs of blood in the emesis. He does admit to some abdominal tenderness when he is vomiting. He denies any other specific complaints. Patient denies any recent fever, chills, shortness of breath, chest pain, back pain, numbness or tingling, dysuria or hematuria, constipation or diarrhea, headaches or visual changes, or any other complaints. - Related Data Home Medications Medication Instructions Recorded Confirmed Levothyroxine Sodium [Levoxyl] 75 mcg PO DAILY 12/29/15 04/13/18 Montelukast Sodium [Singulair] 10 mg PO HS 01/14/17 04/13/18 Metoprolol Tartrate [Lopressor] 12.5 mg PO BID 11/29/17 04/13/18 Budesonide/Formoterol Fumarate 2 puff INHALATION RT-BID 03/07/18 04/13/18 [Symbicort 160-4.5 Mcg Inhaler] Ipratropium-Albuterol Nebulize 3 ml INHALATION RT-QID PRN 03/07/18 04/13/18 [Duoneb 0.5 mg-3 mg/3 ml Soln] Donepezil [Aricept] 5 mg PO HS 04/13/18 04/13/18 Previous Rx's Medication Instructions Recorded Apixaban [Eliquis] 2.5 mg PO BID #60 tab 03/10/18 Docusate [Colace] 100 mg PO BID #60 cap 03/10/18 HYDROcodone/APAP 10-325MG [[place] 0.5 tab PO QID PRN #1 03/10/18 10-325] Omeprazole [PriLOSEC] 20 mg PO AC-BRKFST #30 cap 03/10/18 Ondansetron Odt [Zofran ODT] 4 mg PO Q8HR PRN #20 tab 04/13/18 Allergies Allergy/AdvReac Type Severity Reaction Status Date / Time No Known Allergies Allergy Verified 04/13/18 14:04 Review of Systems ROS Statement: Those systems with pertinent positive or pertinent negative responses have been documented in the HPI. ROS Other: All systems not noted in ROS Statement are negative. Past Medical History Past Medical History: Coronary Artery Disease (CAD), Chest Pain / Angina, COPD, Dementia, Eye Disorder, Hyperlipidemia, Hypertension, Memory Impairment, Pneumonia, Prostate Disorder, Renal Disease, Respiratory Disorder, Rheumatoid Arthritis (RA), Thyroid Disorder Additional Past Medical History / Comment(s): Pneumonia with sepsis, hypoxic respiratory failure, home O2 at 2-3L/NC pt stated" uses as he needs it" CKD stage III, BPH, hypothyroid, lumbar disc dx, chronic back and bilateral hip pain -difficulty walking at times. History of Any Multi-Drug Resistant Organisms: None Reported Past Surgical History: Back Surgery, Cholecystectomy, Heart Catheterization, Orthopedic Surgery Additional Past Surgical History / Comment(s): Bilateral cataract removal and lens implants, left knee open surgery d/t injury, EGD, heart catheterization. Patient has never had a colonoscopy. Past Anesthesia/Blood Transfusion Reactions: No Reported Reaction Past Psychological History: No Psychological Hx Reported Smoking Status: Former smoker Past Alcohol Use History: None Reported Past Drug Use History: None Reported - Past Family History Mother Family Medical History: Cancer Additional Family Medical History / Comment(s): Mother at age 96 Unsure what type of cancer Father Family Medical History: Cancer, COPD Additional Family Medical History / Comment(s): Father at age 88 from emphysema Brother(s) Additional Family Medical History / Comment(s): Patient has 7 brothers. Sister(s) Additional Family Medical History / Comment(s): Patient has 1 sister. Daughter(s) Additional Family Medical History / Comment(s): He has 4 daughters and 2 sons. General Exam - General Exam Comments Initial Comments: General: The patient is awake and alert. Eye: Pupils are equal, round and reactive to light, extra-ocular movements are intact. No nystagmus. There is normal conjunctiva bilaterally. No signs of icterus. Ears, nose, mouth and throat: There are moist mucous membranes and no oral lesions. Neck: The neck is supple, there is no tenderness or JVD. Cardiovascular: There is a regular rate and rhythm. No murmur, rub or gallop is appreciated. Respiratory: Lungs are clear to auscultation, respirations are non-labored, breath sounds are equal. No wheezes, stridor, rales, or rhonchi. Gastrointestinal: Soft, non-distended, non-tender abdomen without masses or organomegaly noted. There is no rebound or guarding present. No CVA tenderness. Musculoskeletal: Normal ROM, no tenderness. Strength 5/5. Sensation intact. Pulses equal bilaterally 2+. Neurological: A&O x 3. CN II-XII intact, There are no obvious motor or sensory deficits. Coordination appears grossly intact. Speech is normal. Skin: Skin is warm and dry and no rashes or lesions are noted. Psychiatric: Cooperative, appropriate mood & affect, normal judgment. Limitations: no limitations Course Vital Signs 04/13/18 04/13/18 12:43 15:35 Temperature 97.5 F L 97.4 F L Pulse Rate 85 53 L Respiratory 20 18 Rate Blood Pressure 165/88 169/74 O2 Sat by Pulse 99 95 Oximetry Medical Decision Making - Medical Decision Making Patient reexamined at this time shows no signs of distress is resting comfortable. His abdomen soft on palpation. Patient's CT of the abdomen and pelvis is negative for any acute abnormality. Patient's labs been reviewed. Patient was given a liter bolus. Feeling much better at this time. States feels comfortable being discharged home. Patient given nausea medication advised follow-up the family doctor over the next 2 days returning here to the emergency room symptoms increase worsen. - Lab Data Result diagrams: 04/13/18 13:20 04/13/18 13:20 Lab Results 04/13/18 04/13/18 04/13/18 Range/Units 13:20 13:20 15:28 WBC 11.1 H (3.8-10.6) k/uL RBC 4.85 (4.30-5.90) m/uL Hgb 14.9 (13.0-17.5) gm/dL Hct 45.5 (39.0-53.0) % MCV 93.8 (80.0-100.0) fL MCH 30.6 (25.0-35.0) pg MCHC 32.7 (31.0-37.0) g/dL RDW 14.2 (11.5-15.5) % Plt Count 273 (150-450) k/uL Neutrophils % 85 % Lymphocytes % 10 % Monocytes % 4 % Eosinophils % 1 % Basophils % 0 % Neutrophils # 9.4 H (1.3-7.7) k/uL Lymphocytes # 1.1 (1.0-4.8) k/uL Monocytes # 0.4 (0-1.0) k/uL Eosinophils # 0.1 (0-0.7) k/uL Basophils # 0.0 (0-0.2) k/uL Sodium 139 (137-145) mmol/L Potassium 4.7 (3.5-5.1) mmol/L Chloride 106 (98-107) mmol/L Carbon Dioxide 21 L (22-30) mmol/L Anion Gap 12 mmol/L BUN 22 H (9-20) mg/dL Creatinine 1.56 H (0.66-1.25) mg/dL Est GFR (CKD-EPI)AfAm 46 (>60 ml/min/1.73 sqM) Est GFR (CKD-EPI)NonAf 40 (>60 ml/min/1.73 sqM) Glucose 158 H (74-99) mg/dL Calcium 9.6 (8.4-10.2) mg/dL Total Bilirubin 1.2 (0.2-1.3) mg/dL AST 25 (17-59) U/L ALT 24 (21-72) U/L Alkaline Phosphatase 87 (38-126) U/L Total Protein 7.4 (6.3-8.2) g/dL Albumin 4.6 (3.5-5.0) g/dL Amylase 117 H (30-110) U/L Lipase 95 (23-300) U/L Urine Color Yellow Urine Appearance Clear (Clear) Urine pH 5.5 (5.0-8.0) Ur Specific [place] 1.012 (1.001-1.035) Urine Protein 1+ H (Negative) Urine Glucose (UA) Negative (Negative) Urine Ketones 1+ H (Negative) Urine Blood Negative (Negative) Urine Nitrite Negative (Negative) Urine Bilirubin Negative (Negative) Urine Urobilinogen <2.0 (<2.0) mg/dL Ur Leukocyte Esterase Negative (Negative) Urine RBC 1 (0-5) /hpf Urine WBC <1 (0-5) /hpf Ur Squamous Epith Cells <1 (0-4) /hpf Amorphous Sediment Rare H (None) /hpf Hyaline Casts 19 H (0-2) /lpf Urine Mucus Rare H (None) /hpf Disposition Clinical Impression: Abdominal pain, Nausea & vomiting Disposition: HOME SELF-CARE Condition: Good Instructions: Abdominal Pain (ED) Additional Instructions: Please use medication as discussed. Please follow-up with family doctor in the next 2 days. Please return to emergency room if the symptoms increase or worsen or for any other concerns. Prescriptions: Ondansetron Odt [Zofran ODT] 4 mg PO Q8HR PRN #20 tab PRN Reason: Nausea Is patient prescribed a controlled substance at d/c from ED?: No Referrals: Alen Champion MD [Primary Care Provider] - 1-2 days Time of Disposition: 15:51
--- NOTE | 2018-04-13 15:02 | CT ---
EXAMINATION TYPE: CT abdomen pelvis wo con DATE OF EXAM: 04/13/2018 COMPARISON: 01/02/2016 HISTORY: Vomiting and abdominal pain CT DLP: 1036.8 mGycm Examination of the solid and hollow viscera is limited given the lack of contrast. FINDINGS: LUNG BASES: No evidence for nodule. No evidence for infiltrate. LIVER/GB: Cholecystectomy clips are in place.. No space-occupying hepatic lesion. PANCREAS: No pancreatic mass identified. No inflammatory process seen. SPLEEN: No evidence for splenomegaly. No intrasplenic lesions seen. ADRENALS: No adrenal nodules identified. No evidence for thickening. KIDNEYS: No evidence for renal mass. No nephrolithiasis. No hydronephrosis. BOWEL: Small fixed hiatal hernia. Appendix has a normal appearance. No evidence of bowel obstruction. No inflammatory process. Lymph nodes: No evidence for adenopathy greater than 1 cm. Abdominal aorta: Atheromatous changes seen. No evidence for aneurysm. Genital organs: No significant abnormality. Other: Severe degenerative change lumbar spine. Scoliotic curvature convex to the right. IMPRESSION: 1. No acute process identified to account for the patient's symptoms.
[2018-04-13 15:36] VITALS: BP 169/74; PULSE 53; RESP 18; TEMP 97.4
[2018-04-13 15:46] LABS: Amorphous Sediment,Urine Rare /hpf; Appearance,Urine Clear (Clear); Bilirubin,Urine Negative (Negative); Blood,Urine Negative (Negative); Color,Urine Yellow; Glucose,Urine (UA) Negative (Negative); Hyaline Casts,Urine 19 /lpf (0-2); Ketones,Urine 1+ (Negative); Leukocyte Esterase,Urine Negative (Negative); Mucus,Urine Rare /hpf; Nitrite,Urine Negative (Negative); PH, Urine 5.5 (5.0-8.0); Protein,Urine 1+ (Negative); RBC,Urine 1 /hpf (0-5); Specific Gravity,Urine 1.012 (1.001-1.035); Squamous Epithelial Cell,Urine <1 /hpf (0-4); Urobilinogen,Urine <2.0 mg/dL (<2.0); WBC,Urine <1 /hpf (0-5)
== END 2018-04-13 16:07 | disposition home or self-care (01) ==
LOC: EC 12:07
DX: R10.9 Unspecified abdominal pain (principal); R11.2 Nausea with vomiting, unspecified; I25.10 Atherosclerotic heart disease of native coronary artery without angina pectoris; F03.90 Unspecified dementia, unspecified severity, without behavioral disturbance, psychotic disturbance, mood disturbance, and anxiety; J44.9 Chronic obstructive pulmonary disease, unspecified; E03.9 Hypothyroidism, unspecified; I12.9 Hypertensive chronic kidney disease with stage 1 through stage 4 chronic kidney disease, or unspecified chronic kidney disease; N18.3 Chronic kidney disease, stage 3 (moderate); Z87.891 Personal history of nicotine dependence; Z90.49 Acquired absence of other specified parts of digestive tract; Z98.890 Other specified postprocedural states; Z79.51 Long term (current) use of inhaled steroids; Z79.899 Other long term (current) drug therapy
CPT/HCPCS: 36415; 80053; 82150; 83690; 85025; 81001; 74176; 99284; 96374; 96375; 96361; J2405

== ENCOUNTER 2018-05-05 12:49 | Observation (INO) | payer MEDICARE, OTHER ==
[2018-05-05 12:55] VITALS: TEMP 97.8
[2018-05-05] MEDS ORDERED: ASPIRIN 81 MG PO STA (13:16)
[2018-05-05] MEDS ORDERED: NITROGLYCERIN OINT 1 INCH/GM PACKET TOPICAL STA (13:18)
--- NOTE | 2018-05-05 13:19 | ED ---
General Adult HPI - General Chief complaint: Chest Pain Stated complaint: Chest pain Time Seen by Provider: 05/05/18 12:50 Source: patient, RN notes reviewed Mode of arrival: ambulatory Limitations: no limitations - History of Present Illness Initial comments: This is an 88-year-old male who presents emergency Department complaining of left-sided chest pain. Patient states this started about half hour prior to arrival patient denies any radiation of the pain. Patient denies any difficulty breathing or shortness of breath. Patient denies any diaphoresis. Patient denies any nausea. Patient states currently is chest pain-free. Patient states she does have high blood pressure and high cholesterol. Patient denies any previous cardiac problems. Patient states it was concerning enough that he came to the emergency department. Patient denies any abdominal pain patient denies nausea vomiting diarrhea. Patient denies any recent fever chills or cough. Patient denies lightheadedness dizziness or syncopal episode. Patient denies any swelling to the legs or calf tenderness. - Related Data Home Medications Medication Instructions Recorded Confirmed Levothyroxine Sodium [Levoxyl] 75 mcg PO DAILY 12/29/15 05/05/18 Montelukast Sodium [Singulair] 10 mg PO HS 01/14/17 05/05/18 Metoprolol Tartrate [Lopressor] 12.5 mg PO BID 11/29/17 05/05/18 Budesonide/Formoterol Fumarate 2 puff INHALATION RT-BID 03/07/18 05/05/18 [Symbicort 160-4.5 Mcg Inhaler] Ipratropium-Albuterol Nebulize 3 ml INHALATION RT-QID PRN 03/07/18 05/05/18 [Duoneb 0.5 mg-3 mg/3 ml Soln] Donepezil [Aricept] 5 mg PO HS 04/13/18 05/05/18 Previous Rx's Medication Instructions Recorded Apixaban [Eliquis] 2.5 mg PO BID #60 tab 03/10/18 HYDROcodone/APAP 10-325MG [[place] 0.5 tab PO QID PRN #1 03/10/18 10-325] Omeprazole [PriLOSEC] 20 mg PO AC-BRKFST #30 cap 03/10/18 Ondansetron Odt [Zofran ODT] 4 mg PO Q8HR PRN #20 tab 08/13/18 Allergies Allergy/AdvReac Type Severity Reaction Status Date / Time No Known Allergies Allergy Verified 05/05/18 13:16 Review of Systems ROS Statement: Those systems with pertinent positive or pertinent negative responses have been documented in the HPI. ROS Other: All systems not noted in ROS Statement are negative. Past Medical History Past Medical History: Coronary Artery Disease (CAD), Chest Pain / Angina, COPD, Dementia, Eye Disorder, Hyperlipidemia, Hypertension, Memory Impairment, Pneumonia, Prostate Disorder, Renal Disease, Respiratory Disorder, Rheumatoid Arthritis (RA), Thyroid Disorder Additional Past Medical History / Comment(s): Pneumonia with sepsis, hypoxic respiratory failure, home O2 at 2-3L/[place] pt stated" uses as he needs it" CKD stage III, BPH, hypothyroid, lumbar disc dx, chronic back and bilateral hip pain -difficulty walking at times. History of Any Multi-Drug Resistant Organisms: None Reported Past Surgical History: Back Surgery, Cholecystectomy, Heart Catheterization, Orthopedic Surgery Additional Past Surgical History / Comment(s): Bilateral cataract removal and lens implants, left knee open surgery d/t injury, EGD, heart catheterization. Patient has never had a colonoscopy. Past Anesthesia/Blood Transfusion Reactions: No Reported Reaction Past Psychological History: No Psychological Hx Reported Smoking Status: Former smoker Past Alcohol Use History: None Reported Past Drug Use History: None Reported - Past Family History Mother Family Medical History: Cancer Additional Family Medical History / Comment(s): Mother at age 96 Unsure what type of cancer Father Family Medical History: Cancer, COPD Additional Family Medical History / Comment(s): Father at age 88 from emphysema Brother(s) Additional Family Medical History / Comment(s): Patient has 7 brothers. Sister(s) Additional Family Medical History / Comment(s): Patient has 1 sister. Daughter(s) Additional Family Medical History / Comment(s): He has 4 daughters and 2 sons. General Exam - General Exam Comments Initial Comments: GENERAL: Patient is well-developed and well-nourished. Patient is nontoxic and well- hydrated and is in no acute distress. ENT: Neck is soft and supple. No significant lymphadenopathy is noted. Oropharynx is clear. Moist mucous membranes. Neck has full range of motion without eliciting any pain. EYES: The sclera were anicteric and conjunctiva were pink and moist. Extraocular movements were intact and pupils were equal round and reactive to light. Eyelids were unremarkable. PULMONARY: Unlabored respirations. Good breath sounds bilaterally. No audible rales rhonchi or wheezing was noted. CARDIOVASCULAR: There is a regular rate and rhythm without any murmurs gallops or rubs. ABDOMEN: Soft and nontender with normal bowel sounds. No palpable organomegaly was noted. There is no palpable pulsatile mass. SKIN: Skin is clear with no lesions or rashes and otherwise unremarkable. NEUROLOGIC: Patient is alert and oriented x3. Cranial nerves II through XII are grossly intact. Motor and sensory are also intact. Normal speech, volume and content. Symmetrical smile. MUSCULOSKELETAL: Normal extremities with adequate strength and full range of motion. No lower extremity swelling or edema. No calf tenderness. LYMPHATICS: No significant lymphadenopathy is noted PSYCHIATRIC: Normal psychiatric evaluation. Limitations: no limitations Course Vital Signs 05/05/18 05/05/18 12:51 14:13 Temperature 97.8 F Pulse Rate 64 49 L Respiratory 20 18 Rate Blood Pressure 123/73 126/69 O2 Sat by Pulse 94 L 93 L Oximetry Medical Decision Making - Medical Decision Making EKG shows a normal sinus rhythm at 59 bpm NE interval is on a 76 QRS 96 Q-T intervals 428 QTC is 423. Patient's EKG is compared to an old EKG no significant changes are noted. Chest x-ray shows no acute normalities. Patient was started on heparin because of the unstable angina picture the presented. I spoke with Dr. Hernandez he agreed to admit the patient admitted the patient wrote admitting orders I consult cardiology continued heparin Nitropaste and aspirin on the floor. Patient has been chest pain-free throughout his stay here in the emergency department. - Lab Data Result diagrams: 05/05/18 13:00 05/05/18 13:00 Lab Results 05/05/18 05/05/18 05/05/18 Range/Units 13:00 13:00 13:00 WBC 7.3 (3.8-10.6) k/uL RBC 4.48 (4.30-5.90) m/uL Hgb 14.0 (13.0-17.5) gm/dL Hct 43.4 (39.0-53.0) % MCV 96.7 (80.0-100.0) fL MCH 31.3 (25.0-35.0) pg MCHC 32.4 (31.0-37.0) g/dL RDW 14.0 (11.5-15.5) % Plt Count 258 (150-450) k/uL Neutrophils % 67 % Lymphocytes % 19 % Monocytes % 9 % Eosinophils % 3 % Basophils % 1 % Neutrophils # 4.9 (1.3-7.7) k/uL Lymphocytes # 1.4 (1.0-4.8) k/uL Monocytes # 0.7 (0-1.0) k/uL Eosinophils # 0.2 (0-0.7) k/uL Basophils # 0.1 (0-0.2) k/uL PT (9.0-12.0) sec INR (<1.2) APTT (22.0-30.0) sec Sodium 138 (137-145) mmol/L Potassium 4.8 (3.5-5.1) mmol/L Chloride 108 H (98-107) mmol/L Carbon Dioxide 21 L (22-30) mmol/L Anion Gap 9 mmol/L BUN 33 H (9-20) mg/dL Creatinine 1.81 H (0.66-1.25) mg/dL Est GFR (CKD-EPI)AfAm 38 (>60 ml/min/1.73 sqM) Est GFR (CKD-EPI)NonAf 33 (>60 ml/min/1.73 sqM) Glucose 136 H (74-99) mg/dL Calcium 8.8 (8.4-10.2) mg/dL Magnesium 2.1 (1.6-2.3) mg/dL Total Bilirubin 1.0 (0.2-1.3) mg/dL AST 25 (17-59) U/L ALT 23 (21-72) U/L Alkaline Phosphatase 55 (38-126) U/L Total Creatine Kinase 110 (55-170) U/L CK-MB (CK-2) 1.4 (0.0-2.4) ng/mL CK-MB (CK-2) Rel Index 1.3 Troponin I <0.012 (0.000-0.034) ng/mL Total Protein 6.4 (6.3-8.2) g/dL Albumin 3.7 (3.5-5.0) g/dL 05/05/18 Range/Units 13:00 WBC (3.8-10.6) k/uL RBC (4.30-5.90) m/uL Hgb (13.0-17.5) gm/dL Hct (39.0-53.0) % MCV (80.0-100.0) fL MCH (25.0-35.0) pg MCHC (31.0-37.0) g/dL RDW (11.5-15.5) % Plt Count (150-450) k/uL Neutrophils % % Lymphocytes % % Monocytes % % Eosinophils % % Basophils % % Neutrophils # (1.3-7.7) k/uL Lymphocytes # (1.0-4.8) k/uL Monocytes # (0-1.0) k/uL Eosinophils # (0-0.7) k/uL Basophils # (0-0.2) k/uL PT 10.3 (9.0-12.0) sec INR 1.1 (<1.2) APTT 26.4 (22.0-30.0) sec Sodium (137-145) mmol/L Potassium (3.5-5.1) mmol/L Chloride (98-107) mmol/L Carbon Dioxide (22-30) mmol/L Anion Gap mmol/L BUN (9-20) mg/dL Creatinine (0.66-1.25) mg/dL Est GFR (CKD-EPI)AfAm (>60 ml/min/1.73 sqM) Est GFR (CKD-EPI)NonAf (>60 ml/min/1.73 sqM) Glucose (74-99) mg/dL Calcium (8.4-10.2) mg/dL Magnesium (1.6-2.3) mg/dL Total Bilirubin (0.2-1.3) mg/dL AST (17-59) U/L ALT (21-72) U/L Alkaline Phosphatase (38-126) U/L Total Creatine Kinase (55-170) U/L CK-MB (CK-2) (0.0-2.4) ng/mL CK-MB (CK-2) Rel Index Troponin I (0.000-0.034) ng/mL Total Protein (6.3-8.2) g/dL Albumin (3.5-5.0) g/dL Critical Care Time Critical Care Time: Yes Total Critical Care Time: 35 Disposition Clinical Impression: Unstable angina pectoris Disposition: ADMITTED IP TO THIS HOSP Referrals: Alen Champion MD [Primary Care Provider] - 1-2 days Time of Disposition: 14:32
[2018-05-05 13:32] LABS: Basophils # (A) 0.1 k/uL (0-0.2); Basophils % (A) 1 %; Eosinophils # (A) 0.2 k/uL (0-0.7); Eosinophils % (A) 3 %; HCT 43.4 % (39.0-53.0); Lymphocytes # (A) 1.4 k/uL (1.0-4.8); Lymphocytes % (A) 19 %; MCH 31.3 pg (25.0-35.0); MCHC 32.4 g/dL (31.0-37.0); MCV 96.7 fL (80.0-100.0); Mean Platelet Volume 8.8; Monocytes # (A) 0.7 k/uL (0-1.0); Monocytes % (A) 9 %; Neutrophils # (A) 4.9 k/uL (1.3-7.7); Neutrophils % (A) 67 %; Platelet Count 258 k/uL (150-450); RBC 4.48 m/uL (4.30-5.90); WBC 7.3 k/uL (3.8-10.6)
--- NOTE | 2018-05-05 13:42 | XR ---
EXAMINATION TYPE: XR chest 2V DATE OF EXAM: 05/05/2018 COMPARISON: 03/07/2018 INDICATION: Chest pain COPD TECHNIQUE: Frontal and lateral views of the chest are obtained. FINDINGS: The heart size is normal. The pulmonary vasculature is normal. The lungs are clear. IMPRESSION: 1. No acute pulmonary process.
[2018-05-05 13:46] LABS: INR 1.1 (<1.2); Partial Thromboplastin Time 26.4 sec (22.0-30.0); Prothrombin Time 10.3 sec (9.0-12.0)
[2018-05-05 13:48] LABS: Albumin 3.7 g/dL (3.5-5.0); Calcium 8.8 mg/dL (8.4-10.2); Magnesium 2.1 mg/dL (1.6-2.3); Potassium 4.8 mmol/L (3.5-5.1); Total Protein 6.4 g/dL (6.3-8.2)
[2018-05-05 13:51] LABS: Creatine Kinase 110 U/L (55-170)
[2018-05-05 14:04] LABS: Creatine Kinase MB 1.4 ng/mL (0.0-2.4); Troponin I <0.012 ng/mL (0.000-0.034)
[2018-05-05] MEDS ORDERED: ONDANSETRON 4 MG/2 ML VIAL IVP STA (14:11)
[2018-05-05 14:14] VITALS: RESP 18
[2018-05-05] MEDS ORDERED: NITROGLYCERIN SL TABS 0.4 MG TAB SUBLINGUAL PRN (14:32)
[2018-05-05 15:50] VITALS: BP 147/60; PULSE 50
[2018-05-05] MEDS ORDERED: IPRATROPIUM-ALBUTEROL 3 ML NEB INHALATION PRN (16:44)
[2018-05-05] MEDS ORDERED: ONDANSETRON ODT 4 MG TAB PO PRN (16:44)
[2018-05-05] MEDS ORDERED: HYDROcodone/APAP 10-325MG 1 EACH TAB PO PRN (16:44)
[2018-05-05] MEDS ORDERED: NITROGLYCERIN OINT 1 INCH/GM PACKET TOPICAL SCH (18:00)
--- NOTE | 2018-05-05 18:00 | P.HPIM ---
History of Present Illness 88-year-old with history of atrial fibrillation on anti-coagulation with eliquis daily at bedtime this was sternal chest pain sharp in nature nonradiating lasted for few minutes and resolve spontaneously came back again nonexertional not associated with food not associated the breathing denied any diaphoresis or shortness of breath nausea lightheadedness. Patient's pain is about 9/10 in severity he denied any lightheadedness dizziness or syncopal episode. Patient did is oxygen dependent COPD uses 2 L of onset at home. Is being admitted for the rule out acute coronary syndromes. EKG did not show any new acute ST-T wave changes chest x-ray is within normal limits Review of Systems REVIEW OF SYSTEMS: CONSTITUTIONAL: No fever, no malaise, no fatigue. HEENT: No recent visual problems or hearing problems. Denied any sore throat. CARDIOVASCULAR: No orthopnea, PND, no palpitations, no syncope. PULMONARY: No shortness of breath, no cough, no hemoptysis. GASTROINTESTINAL: No diarrhea, no nausea, no vomiting, no abdominal pain. Normoactive bowel sounds. NEUROLOGICAL: No headaches, no weakness, no numbness. HEMATOLOGICAL: Denies any bleeding or petechiae. GENITOURINARY: Denies any burning micturition, frequency, or urgency. MUSCULOSKELETAL/RHEUMATOLOGICAL: Denies any joint pain, swelling, or any muscle pain. ENDOCRINE: Denies any polyuria or polydipsia. The rest of the 14-point review of systems is negative. Past Medical History Past Medical History: Coronary Artery Disease (CAD), Chest Pain / Angina, COPD, Dementia, Eye Disorder, Hyperlipidemia, Hypertension, Memory Impairment, Pneumonia, Prostate Disorder, Renal Disease, Respiratory Disorder, Rheumatoid Arthritis (RA), Thyroid Disorder Additional Past Medical History / Comment(s): Pneumonia with sepsis, hypoxic respiratory failure, home O2 at 2-3L/NC pt stated" uses as he needs it" CKD stage III, BPH, hypothyroid, lumbar disc dx, chronic back and bilateral hip pain -difficulty walking at times. History of Any Multi-Drug Resistant Organisms: None Reported Past Surgical History: Back Surgery, Cholecystectomy, Heart Catheterization, Orthopedic Surgery Additional Past Surgical History / Comment(s): Bilateral cataract removal and lens implants, left knee open surgery d/t injury, EGD, heart catheterization. Patient has never had a colonoscopy. Past Anesthesia/Blood Transfusion Reactions: No Reported Reaction Past Psychological History: No Psychological Hx Reported Smoking Status: Former smoker Past Alcohol Use History: None Reported Past Drug Use History: None Reported - Past Family History Mother Family Medical History: Cancer Additional Family Medical History / Comment(s): Mother at age 96 Unsure what type of cancer Father Family Medical History: Cancer, COPD Additional Family Medical History / Comment(s): Father at age 88 from emphysema Brother(s) Additional Family Medical History / Comment(s): Patient has 7 brothers. Sister(s) Additional Family Medical History / Comment(s): Patient has 1 sister. Daughter(s) Additional Family Medical History / Comment(s): He has 4 daughters and 2 sons. Medications and Allergies Home Medications Medication Instructions Recorded Confirmed Type Levothyroxine Sodium [Levoxyl] 75 mcg PO DAILY 12/29/15 05/05/18 History Montelukast Sodium [Singulair] 10 mg PO HS 01/14/17 05/05/18 History Metoprolol Tartrate [Lopressor] 12.5 mg PO BID 11/29/17 05/05/18 History Budesonide/Formoterol Fumarate 2 puff INHALATION RT-BID 03/07/18 05/05/18 History [Symbicort 160-4.5 Mcg Inhaler] Ipratropium-Albuterol Nebulize 3 ml INHALATION RT-QID PRN 03/07/18 05/05/18 History [Duoneb 0.5 mg-3 mg/3 ml Soln] Apixaban [Eliquis] 2.5 mg PO BID #60 tab 03/10/18 05/05/18 Rx HYDROcodone/APAP 10-325MG [[place] 0.5 tab PO QID PRN #1 03/10/18 05/05/18 Rx 10-325] Omeprazole [PriLOSEC] 20 mg PO AC-BRKFST #30 cap 03/10/18 05/05/18 Rx Donepezil [Aricept] 5 mg PO HS 04/13/18 05/05/18 History Ondansetron Odt [Zofran ODT] 4 mg PO Q8HR PRN #20 tab 04/13/18 05/05/18 Rx Allergies Allergy/AdvReac Type Severity Reaction Status Date / Time No Known Allergies Allergy Verified 05/05/18 13:16 Physical Exam Vitals: Vital Signs Temp Pulse Resp BP Pulse Ox 05/05/18 15:49 50 L 18 147/60 92 L 05/05/18 14:59 47 L 18 108/56 94 L 05/05/18 14:13 49 L 18 126/69 93 L 05/05/18 12:51 97.8 F 64 20 123/73 94 L Intake and Output 05/05/18 05/05/18 05/05/18 06:59 14:59 22:59 Other: Weight 86.18 kg PHYSICAL EXAMINATION: GENERAL: The patient is alert and oriented x3, not in any acute distress. Well developed, well nourished. HEENT: Pupils are round and equally reacting to light. EOMI. No scleral icterus. No conjunctival pallor. Normocephalic, atraumatic. No pharyngeal erythema. No thyromegaly. CARDIOVASCULAR: S1 and S2 present. No murmurs, rubs, or gallops. PULMONARY: Chest is clear to auscultation, no wheezing or crackles. ABDOMEN: Soft, nontender, nondistended, normoactive bowel sounds. No palpable organomegaly. MUSCULOSKELETAL: No joint swelling or deformity. EXTREMITIES: No cyanosis, clubbing, or pedal edema. NEUROLOGICAL: Gross neurological examination did not reveal any focal deficits. SKIN: No rashes. Results CBC & Chem 7: 05/05/18 13:00 05/05/18 13:00 Labs: Abnormal Lab Results - Last 24 Hours (Table) 05/05/18 Range/Units 13:00 Chloride 108 H (98-107) mmol/L Carbon Dioxide 21 L (22-30) mmol/L BUN 33 H (9-20) mg/dL Creatinine 1.81 H (0.66-1.25) mg/dL Glucose 136 H (74-99) mg/dL Assessment and Plan Plan: -Chest pain: We'll rule out acute coronary syndromes cardiology will be consulted. -Atrial fibrillation chronic A. fib presently rate controlled continue with his home medications patient is mildly bradycardic. 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
[2018-05-05] MEDS ORDERED: SYMBICORT 160-4.5 MCG INHALER INHALATION SCH (20:00)
[2018-05-05] MEDS ORDERED: DONEPEZIL 5 MG TAB PO SCH (21:00)
[2018-05-05] MEDS ORDERED: METOPROLOL TARTRATE 12.5 MG TAB PO SCH (21:00)
[2018-05-05] MEDS ORDERED: APIXABAN 2.5 MG TABLET PO SCH (21:00)
[2018-05-06] MEDS ORDERED: LEVOTHYROXINE 75 MCG TAB PO SCH (06:30)
[2018-05-06] MEDS ORDERED: PANTOPRAZOLE 40 MG TABLET PO SCH (07:30)
[2018-05-06] MEDS ORDERED: ASPIRIN 325 MG TAB PO SCH (09:00)
== END 2018-05-05 17:59 | disposition left against medical advice (07) ==
LOC: EC 12:49 → 3OBS 14:37
PROVIDERS: ADMIT Internal Medicine; ATTEND Internal Medicine
DX: R07.89 Other chest pain (principal); I25.110 Atherosclerotic heart disease of native coronary artery with unstable angina pectoris; J96.12 Chronic respiratory failure with hypercapnia; I48.2 Chronic atrial fibrillation; E03.9 Hypothyroidism, unspecified; E78.00 Pure hypercholesterolemia, unspecified; E78.5 Hyperlipidemia, unspecified; F03.90 Unspecified dementia, unspecified severity, without behavioral disturbance, psychotic disturbance, mood disturbance, and anxiety; G89.29 Other chronic pain; I12.9 Hypertensive chronic kidney disease with stage 1 through stage 4 chronic kidney disease, or unspecified chronic kidney disease; J44.9 Chronic obstructive pulmonary disease, unspecified; R00.1 Bradycardia, unspecified; M06.9 Rheumatoid arthritis, unspecified; N18.3 Chronic kidney disease, stage 3 (moderate); N40.0 Benign prostatic hyperplasia without lower urinary tract symptoms; Z82.5 Family history of asthma and other chronic lower respiratory diseases; Z96.1 Presence of intraocular lens; Z99.81 Dependence on supplemental oxygen; Z87.891 Personal history of nicotine dependence; Z79.51 Long term (current) use of inhaled steroids; Z79.01 Long term (current) use of anticoagulants; Z79.890 Hormone replacement therapy; Z90.49 Acquired absence of other specified parts of digestive tract; Z98.42 Cataract extraction status, left eye; Z98.41 Cataract extraction status, right eye
CPT/HCPCS: 96374; 99291; 36415; 93005; 80053; 82550; 82553; 83735; 84484; 85025; 85610; 85730; 71046; G0378; J2405

== ENCOUNTER 2018-06-05 11:16 | Emergency (ER) | payer MEDICARE, OTHER ==
[2018-06-05 11:38] VITALS: BP 143/74; PULSE 71; RESP 16; TEMP 98.4
[2018-06-05] MEDS ORDERED: APIXABAN 2.5 MG TABLET PO STA (12:22)
[2018-06-05] MEDS ORDERED: LEVOTHYROXINE 75 MCG TAB PO STA (12:23)
[2018-06-05] MEDS ORDERED: ASPIRIN 81 MG PO STA (12:24)
[2018-06-05] MEDS ORDERED: METOPROLOL TARTRATE 25 MG TAB PO STA (12:25)
[2018-06-05] MEDS ORDERED: PRAVASTATIN SODIUM 40 MG TAB PO STA (12:26)
[2018-06-05] MEDS ORDERED: METOPROLOL TARTRATE 12.5 MG TAB PO STA (12:33)
--- NOTE | 2018-06-05 12:36 | ED ---
Recheck HPI <Bradly Huggins - Last Filed: 06/05/18 13:02> - General Source: patient Mode of arrival: wheelchair Limitations: no limitations <Shereen Lizarraga - Last Filed: 06/05/18 13:27> - General Chief Complaint: Recheck/Abnormal Lab/Rx Stated Complaint: Needs medications Time Seen by Provider: 06/05/18 12:02 - History of Present Illness Initial Comments: 88yo male presents today with son for chief complaint of medication refill. Patient states that he is currently looking for a new primary care provider he was last seen by Dr. Champion last month who no longer accepts his insurance. He states he took his last pills 2 days ago and has been without since. Patient has a past medical history of atrial fibrillation (currently not in Afib) on eliquis 12.5 BID, hypertension, dementia, and chronic kidney disease. Patient denies any symptoms today, states that he is feeling good, he just needs his medications until his appointment with his primary care provider Dr. Sheppard on FridayJune 08. Patient denies any recent fever, chills, shortness of breath , chest pain, back pain, abdominal pain, nausea or vomiting, numbness or tingling, dysuria or hematuria, constipation or diarrhea, headaches or visual changes, or any other complaints. Upon arrival VS within acceptable limits, pt appears well. No signs of distress. (Shereen Lizarraga) - Related Data Home Medications Medication Instructions Recorded Confirmed Levothyroxine Sodium [Levoxyl] 75 mcg PO DAILY 12/29/15 06/05/18 Montelukast Sodium [Singulair] 10 mg PO HS 01/14/17 06/05/18 Metoprolol Tartrate [Lopressor] 12.5 mg PO BID 11/29/17 06/05/18 Donepezil [Aricept] 5 mg PO HS 04/13/18 06/05/18 HYDROcodone/APAP 10-325MG [[place] 1 tab PO QID PRN 06/05/18 06/05/18 10-325] Pravastatin Sodium [Pravachol] 40 mg PO DAILY 06/05/18 06/05/18 Tobramycin 0.3% Ophth Soln [Tobrex 1 drop BOTH EYES Q4H 06/05/18 06/05/18 0.3% Ophth Soln] Triamcinolone 0.5% Cream [Kenalog 1 applic TOPICAL BID 06/05/18 06/05/18 0.5% Cream] Previous Rx's Medication Instructions Recorded Apixaban [Eliquis] 2.5 mg PO BID 3 Days #6 tab 06/05/18 Aspirin [Adult Low Dose Aspirin EC] 81 mg PO DAILY 3 Days #3 tablet. 06/05/18 Donepezil [Aricept] 5 mg PO HS 3 Days #3 tablet 06/05/18 Levothyroxine Sodium [Synthroid] 75 mcg PO DAILY 3 Days #3 tab 06/05/18 Metoprolol Tartrate [Lopressor] 12.5 mg PO BID 3 Days #6 dose 06/05/18 Pravastatin Sodium [Pravachol] 40 mg PO DAILY 3 Days #3 tab 06/05/18 Allergies Allergy/AdvReac Type Severity Reaction Status Date / Time No Known Allergies Allergy Verified 06/05/18 11:38 Review of Systems ROS Other: All systems not noted in ROS Statement are negative. <Bradly Huggins - Last Filed: 06/05/18 13:02> ROS Other: All systems not noted in ROS Statement are negative. Eyes: Denies: eye pain, vision change ENT: Denies: ear pain, throat pain, hearing loss Respiratory: Denies: cough, dyspnea, wheezes, hemoptysis Cardiovascular: Denies: chest pain, palpitations, dyspnea on exertion, edema Endocrine: Denies: fatigue Gastrointestinal: Denies: abdominal pain, nausea, vomiting, diarrhea, constipation, hematemesis, melena, hematochezia Genitourinary: Denies: urgency, dysuria, frequency Musculoskeletal: Denies: back pain Skin: Denies: rash, lesions Neurological: Denies: headache, weakness, numbness, paresthesias, confusion, abnormal gait <Shereen Lizarraga - Last Filed: 06/05/18 13:27> ROS Statement: Those systems with pertinent positive or pertinent negative responses have been documented in the HPI. Past Medical History Past Medical History: Coronary Artery Disease (CAD) (pt denies CAD, or previous OR 06/18), COPD, Dementia, Eye Disorder, Hyperlipidemia, Hypertension, Memory Impairment, Pneumonia, Prostate Disorder, Renal Disease, Respiratory Disorder, Rheumatoid Arthritis (RA), Thyroid Disorder Additional Past Medical History / Comment(s): Pneumonia with sepsis, hypoxic respiratory failure, home O2 at 2-3L/NC pt stated" uses as he needs it" CKD stage III, BPH, hypothyroid, lumbar disc dx, chronic back and bilateral hip pain -difficulty walking at times. History of Any Multi-Drug Resistant Organisms: None Reported Past Surgical History: Back Surgery, Cholecystectomy, Heart Catheterization, Orthopedic Surgery Additional Past Surgical History / Comment(s): Bilateral cataract removal and lens implants, left knee open surgery d/t injury, EGD, heart catheterization. Patient has never had a colonoscopy. Past Anesthesia/Blood Transfusion Reactions: No Reported Reaction Past Psychological History: No Psychological Hx Reported Smoking Status: Former smoker Past Alcohol Use History: None Reported Past Drug Use History: None Reported - Past Family History Mother Family Medical History: Cancer Additional Family Medical History / Comment(s): Mother at age 96 Unsure what type of cancer Father Family Medical History: Cancer, COPD Additional Family Medical History / Comment(s): Father at age 88 from emphysema Brother(s) Additional Family Medical History / Comment(s): Patient has 7 brothers. Sister(s) Additional Family Medical History / Comment(s): Patient has 1 sister. Daughter(s) Additional Family Medical History / Comment(s): He has 4 daughters and 2 sons. <Shereen Lizarraga - Last Filed: 06/05/18 13:27> General Exam <Bradly Huggins - Last Filed: 06/05/18 13:02> Limitations: no limitations <Shereen Lizarraga - Last Filed: 06/05/18 13:27> - General Exam Comments Initial Comments: General: The patient is awake and alert, in no distress, and does not appear acutely ill. Eye: Pupils are equal, round and reactive to light, extra-ocular movements are intact. No nystagmus. There is normal conjunctiva bilaterally. No signs of icterus. Ears, nose, mouth and throat: There are moist mucous membranes and no oral lesions. Neck: The neck is supple, there is no tenderness or JVD. Cardiovascular: There is a regular rate and rhythm. No murmur, rub or gallop is appreciated. Respiratory: Lungs are clear to auscultation, respirations are non-labored, breath sounds are equal. No wheezes, stridor, rales, or rhonchi. Gastrointestinal: Soft, non-distended, non-tender abdomen without masses or organomegaly noted. There is no rebound or guarding present. No CVA tenderness. Musculoskeletal: Normal ROM, no tenderness. Strength 5/5. Sensation intact. Radial pulses equal bilaterally 2+. Neurological: A&O x 3. CN II-XII intact, There are no obvious motor or sensory deficits. Coordination appears grossly intact. Speech is normal. Skin: Skin is warm and dry and no rashes or lesions are noted. Psychiatric: Cooperative, appropriate mood & affect, normal judgment. (Shereen Lizarraga) Course <Bradly Huggins - Last Filed: 06/05/18 13:02> <Shereen Lizarraga - Last Filed: 06/05/18 13:27> Vital Signs 06/05/18 11:35 Temperature 98.4 F Pulse Rate 71 Respiratory 16 Rate Blood Pressure 143/74 O2 Sat by Pulse 95 Oximetry - Reevaluation(s) Reevaluation #1: 06/05/18 13:02 I personally reviewed and agree with the PA findings including interpretations and treatment plans. This is except F otherwise stated. (Bradly Huggins) Medical Decision Making <Bradly Huggins - Last Filed: 06/05/18 13:02> <Shereen Lizarraga - Last Filed: 06/05/18 13:27> - Medical Decision Making Pt son gave me a print off from Dr. Cisneros office with home medications. Which included ASA 81 daily, Eliquis 12.5 BID, Synthroid 75mcg, Metoprolol tartrate 12.5 BID, and pravastatin 40mg. Pt was given home medications of Eliquis, Synthroid, Pravastatin, Metoprolol, ASA. Pt states that he currently has refills from for the Donepezil, Metoprolol, and Levothyroxine, however they need the ASA, Eliquis and pravastatin. Prescriptions refilled and sent to pharmacy, 3 day supply. Pt was given instruction on which medications to take this evening (Eliquis, Donepezil and Metoprolol). Case discussed with Dr. Huggins in detail, pt was discharged in stable condition with instruction to keep appointment with Dr. Sheppard on Friday as scheduled. Pt and pt son agreed with plan. Denied questions at this time. (Shereen Lizarraga) Disposition <Bradly Huggins - Last Filed: 06/05/18 13:02> Is patient prescribed a controlled substance at d/c from ED?: No Time of Disposition: 12:36 <Shereen Lizarraga - Last Filed: 06/05/18 13:27> Clinical Impression: Medication refill Disposition: HOME SELF-CARE Condition: Good Instructions: Medicine Refill (ED) Additional Instructions: Please use medication as discussed. Please see your primary care provider as scheduled with Dr. Sheppard on Friday June 08, 2018. Please return to emergency room if you develop any concerning symptoms or adverse effects from medications. Prescriptions: Apixaban [Eliquis] 2.5 mg PO BID 3 Days #6 tab Aspirin [Adult Low Dose Aspirin EC] 81 mg PO DAILY 3 Days #3 tablet. Donepezil [Aricept] 5 mg PO HS 3 Days #3 tablet Levothyroxine Sodium [Synthroid] 75 mcg PO DAILY 3 Days #3 tab Metoprolol Tartrate [Lopressor] 12.5 mg PO BID 3 Days #6 dose Pravastatin Sodium [Pravachol] 40 mg PO DAILY 3 Days #3 tab Referrals: None,Stated [Primary Care Provider] - 1-2 days Robb Sheppard MD [STAFF PHYSICIAN] - 1-2 days
== END 2018-06-05 13:10 | disposition home or self-care (01) ==
LOC: EC 11:16
DX: Z76.0 Encounter for issue of repeat prescription (principal); I48.91 Unspecified atrial fibrillation; I25.10 Atherosclerotic heart disease of native coronary artery without angina pectoris; J44.9 Chronic obstructive pulmonary disease, unspecified; E78.5 Hyperlipidemia, unspecified; I12.9 Hypertensive chronic kidney disease with stage 1 through stage 4 chronic kidney disease, or unspecified chronic kidney disease; N18.3 Chronic kidney disease, stage 3 (moderate); F03.90 Unspecified dementia, unspecified severity, without behavioral disturbance, psychotic disturbance, mood disturbance, and anxiety; E03.9 Hypothyroidism, unspecified; Z99.81 Dependence on supplemental oxygen; Z95.818 Presence of other cardiac implants and grafts; Z87.891 Personal history of nicotine dependence; Z79.899 Other long term (current) drug therapy
CPT/HCPCS: 99282

== ENCOUNTER → 2018-07-10 | Outpatient (CLI) | payer MEDICARE, OTHER ==
--- NOTE | 2018-07-10 19:37 | CT ---
EXAMINATION TYPE: CT brain wo con DATE OF EXAM: 07/10/2018 COMPARISON: 08/21/2016 HISTORY: Alzheimer's disease. CT DLP: 996.2 mGycm Automated exposure control for dose reduction was used. FINDINGS: There is diffuse cerebral cortical atrophy. There is patchy hypodensity in the periventricular white matter. There is no mass effect nor midline shift. There is no sign of intracranial hemorrhage. The c alvarium is intact. IMPRESSION: CEREBRAL ATROPHY AND CHRONIC SMALL VESSEL ISCHEMIA. NO ACUTE INTRACRANIAL ABNORMALITY. THERE IS SOME PROGRESSION OF THE WHITE MATTER DISEASE COMPARED TO OLD EXAM.
== END ==
LOC: RADCTMAIN 15:29
PROVIDERS: ATTEND Family Medicine
DX: G31.9 Degenerative disease of nervous system, unspecified (principal); I67.82 Cerebral ischemia
CPT/HCPCS: 36415; 70450; 82565; 84520

== ENCOUNTER 2018-07-27 10:27 | Inpatient (IN) | payer MEDICARE, OTHER ==
[2018-07-27] MEDS ORDERED: IPRATROPIUM 0.5 MG/2.5 ML NEBU INHALATION STA (10:49)
[2018-07-27] MEDS ORDERED: methylPREDNISolone SOD SUCCI 125 MG/2 ML VIAL IV STA (10:49)
[2018-07-27] MEDS ORDERED: ALBUTEROL NEBULIZED 2.5 MG/3 ML INHALATION STA (10:49)
[2018-07-27 11:17] LABS: Albumin 3.4 g/dL (3.5-5.0); Potassium 3.7 mmol/L (3.5-5.1); Total Bilirubin 1.8 mg/dL (0.2-1.3); Total Protein 6.2 g/dL (6.3-8.2)
[2018-07-27 11:23] LABS: Basophils % (A) 0 %; Eosinophils # (A) 0.1 k/uL (0-0.7); Eosinophils % (A) 1 %; HCT 42.7 % (39.0-53.0); HGB 13.8 gm/dL (13.0-17.5); Lymphocytes # (A) 1.1 k/uL (1.0-4.8); Lymphocytes % (A) 6 %; MCH 31.7 pg (25.0-35.0); MCHC 32.3 g/dL (31.0-37.0); Mean Platelet Volume 8.8; Monocytes # (A) 1.2 k/uL (0-1.0); Monocytes % (A) 7 %; Neutrophils # (A) 15.1 k/uL (1.3-7.7); Neutrophils % (A) 85 %; Platelet Count 272 k/uL (150-450); RBC 4.36 m/uL (4.30-5.90); RDW 13.6 % (11.5-15.5); WBC 17.7 k/uL (3.8-10.6)
[2018-07-27 11:26] LABS: INR 1.1 (<1.2); Partial Thromboplastin Time 30.4 sec (22.0-30.0); Prothrombin Time 10.3 sec (9.0-12.0)
--- NOTE | 2018-07-27 11:28 | ED ---
General Adult HPI - General Chief complaint: Shortness of Breath Stated complaint: Chest Pain Time Seen by Provider: 07/27/18 10:45 Source: patient, EMS, RN notes reviewed, old records reviewed Mode of arrival: EMS Limitations: no limitations - History of Present Illness Initial comments: 88-year-old male presenting with cough and dyspnea. Patient's symptoms began approximately 24 hours ago. Denies fever or chills. He does report some lower chest pain which is resolved. Describes this as a tightness worse with cough. No nausea vomiting. No radiating chest pain. Patient does have history of both COPD and CAD. Denies lower extremity edema or pain. No pain complaints the time of my evaluation. Cough is productive of yellow sputum. Remote history of tobacco use. - Related Data Home Medications Medication Instructions Recorded Confirmed Montelukast Sodium [Singulair] 10 mg PO HS 01/14/17 07/27/18 HYDROcodone/APAP 10-325MG [[place] 1 tab PO BID PRN 06/05/18 07/27/18 10-325] Pravastatin Sodium [Pravachol] 40 mg PO DAILY 06/05/18 07/27/18 Celecoxib [CeleBREX] 200 mg PO DAILY 07/27/18 07/27/18 Donepezil [Aricept] 10 mg PO DAILY 07/27/18 07/27/18 Metoprolol Tartrate [Lopressor] 12.5 mg PO BID 07/27/18 07/27/18 Previous Rx's Medication Instructions Recorded Apixaban [Eliquis] 2.5 mg PO BID 3 Days #6 tab 06/05/18 Levothyroxine Sodium [Synthroid] 75 mcg PO DAILY 3 Days #3 tab 06/05/18 Allergies Allergy/AdvReac Type Severity Reaction Status Date / Time No Known Allergies Allergy Verified 07/27/18 10:38 Review of Systems ROS Statement: Those systems with pertinent positive or pertinent negative responses have been documented in the HPI. ROS Other: All systems not noted in ROS Statement are negative. Past Medical History Past Medical History: Coronary Artery Disease (CAD), COPD, Dementia, Eye Disorder, Hyperlipidemia, Hypertension, Memory Impairment, Pneumonia, Prostate Disorder, Renal Disease, Respiratory Disorder, Rheumatoid Arthritis (RA), Thyroid Disorder Additional Past Medical History / Comment(s): Pneumonia with sepsis, hypoxic respiratory failure, home O2 at 2-3L/NC pt stated" uses as he needs it" CKD stage III, BPH, hypothyroid, lumbar disc dx, chronic back and bilateral hip pain -difficulty walking at times. History of Any Multi-Drug Resistant Organisms: None Reported Past Surgical History: Back Surgery, Cholecystectomy, Heart Catheterization, Orthopedic Surgery Additional Past Surgical History / Comment(s): Bilateral cataract removal and lens implants, left knee open surgery d/t injury, EGD, heart catheterization. Patient has never had a colonoscopy. Past Anesthesia/Blood Transfusion Reactions: No Reported Reaction Past Psychological History: No Psychological Hx Reported Smoking Status: Former smoker Past Alcohol Use History: None Reported Past Drug Use History: None Reported - Past Family History Mother Family Medical History: Cancer Additional Family Medical History / Comment(s): Mother at age 96 Unsure what type of cancer Father Family Medical History: Cancer, COPD Additional Family Medical History / Comment(s): Father at age 88 from emphysema Brother(s) Additional Family Medical History / Comment(s): Patient has 7 brothers. Sister(s) Additional Family Medical History / Comment(s): Patient has 1 sister. Daughter(s) Additional Family Medical History / Comment(s): He has 4 daughters and 2 sons. General Exam Limitations: no limitations General appearance: alert, in no apparent distress Head exam: Present: atraumatic, normocephalic Eye exam: Present: normal appearance, PERRL ENT exam: Present: normal exam Neck exam: Present: normal inspection. Absent: tenderness Respiratory exam: Present: wheezes, rhonchi, decreased breath sounds. Absent: respiratory distress Cardiovascular Exam: Present: tachycardia, irregular rhythm GI/Abdominal exam: Present: soft. Absent: distended, tenderness, guarding Extremities exam: Present: normal inspection, full ROM, normal capillary refill. Absent: pedal edema Neurological exam: Present: alert, oriented X3, CN II-XII intact. Absent: motor sensory deficit Skin exam: Present: warm, dry, intact Course Vital Signs 07/27/18 07/27/18 07/27/18 10:29 10:36 11:00 Temperature 97.3 F L Pulse Rate 90 111 H Respiratory 18 20 Rate Blood Pressure 113/83 113/83 O2 Sat by Pulse 99 94 L 95 Oximetry 07/27/18 07/27/18 07/27/18 11:07 11:26 11:30 Temperature Pulse Rate 100 114 H 114 H Respiratory 20 Rate Blood Pressure 111/74 O2 Sat by Pulse 96 Oximetry 07/27/18 12:00 Temperature Pulse Rate 112 H Respiratory 18 Rate Blood Pressure 110/91 O2 Sat by Pulse 96 Oximetry EKG Findings - EKG Comments: EKG Findings:: EKG: Atrial fibrillation with RVR, ST segment depression in lead V5 and V6, no ST segment elevation, rate 145, QRS duration 88, QTC 500 Medical Decision Making - Medical Decision Making 88 -year-old male presenting with cough. Patient has pneumonia on x-ray, elevated white blood cell count, creatinine 1.6 which is baseline for this patient, mild lactic acidosis 2.3. He has been recently hospitalized. He is treated for healthcare associated pneumonia. Patient is also in atrial fibrillation with rapid ventricular response. He is started on a Cardizem drip. He is anticoagulated at baseline. He is also treated for COPD exacerbation. Admitted for further treatment and evaluation. - Lab Data Result diagrams: 07/27/18 10:40 07/27/18 10:40 Lab Results 07/27/18 07/27/18 07/27/18 Range/Units 10:40 10:40 10:40 WBC 17.7 H (3.8-10.6) k/uL RBC 4.36 (4.30-5.90) m/uL Hgb 13.8 (13.0-17.5) gm/dL Hct 42.7 (39.0-53.0) % MCV 98.0 (80.0-100.0) fL MCH 31.7 (25.0-35.0) pg MCHC 32.3 (31.0-37.0) g/dL RDW 13.6 (11.5-15.5) % Plt Count 272 (150-450) k/uL Neutrophils % 85 % Lymphocytes % 6 % Monocytes % 7 % Eosinophils % 1 % Basophils % 0 % Neutrophils # 15.1 H (1.3-7.7) k/uL Lymphocytes # 1.1 (1.0-4.8) k/uL Monocytes # 1.2 H (0-1.0) k/uL Eosinophils # 0.1 (0-0.7) k/uL Basophils # 0.0 (0-0.2) k/uL PT (9.0-12.0) sec INR (<1.2) APTT (22.0-30.0) sec Sodium 141 (137-145) mmol/L Potassium 3.7 (3.5-5.1) mmol/L Chloride 108 H (98-107) mmol/L Carbon Dioxide 17 L (22-30) mmol/L Anion Gap 16 mmol/L BUN 22 H (9-20) mg/dL Creatinine 1.60 H (0.66-1.25) mg/dL Est GFR (CKD-EPI)AfAm 45 (>60 ml/min/1.73 sqM) Est GFR (CKD-EPI)NonAf 39 (>60 ml/min/1.73 sqM) Glucose 135 H (74-99) mg/dL Plasma Lactic Acid [place] (0.7-2.0) mmol/L Calcium 9.0 (8.4-10.2) mg/dL Total Bilirubin 1.8 H (0.2-1.3) mg/dL AST 21 (17-59) U/L ALT 30 (21-72) U/L Alkaline Phosphatase 111 (38-126) U/L Total Creatine Kinase 73 (55-170) U/L CK-MB (CK-2) 0.9 (0.0-2.4) ng/mL CK-MB (CK-2) Rel Index 1.2 Troponin I <0.012 (0.000-0.034) ng/mL NT-Pro-B Natriuret Pep pg/mL Total Protein 6.2 L (6.3-8.2) g/dL Albumin 3.4 L (3.5-5.0) g/dL 07/27/18 07/27/18 07/27/18 Range/Units 10:40 10:40 10:40 WBC (3.8-10.6) k/uL RBC (4.30-5.90) m/uL Hgb (13.0-17.5) gm/dL Hct (39.0-53.0) % MCV (80.0-100.0) fL MCH (25.0-35.0) pg MCHC (31.0-37.0) g/dL RDW (11.5-15.5) % Plt Count (150-450) k/uL Neutrophils % % Lymphocytes % % Monocytes % % Eosinophils % % Basophils % % Neutrophils # (1.3-7.7) k/uL Lymphocytes # (1.0-4.8) k/uL Monocytes # (0-1.0) k/uL Eosinophils # (0-0.7) k/uL Basophils # (0-0.2) k/uL PT 10.3 (9.0-12.0) sec INR 1.1 (<1.2) APTT 30.4 H (22.0-30.0) sec Sodium (137-145) mmol/L Potassium (3.5-5.1) mmol/L Chloride (98-107) mmol/L Carbon Dioxide (22-30) mmol/L Anion Gap mmol/L BUN (9-20) mg/dL Creatinine (0.66-1.25) mg/dL Est GFR (CKD-EPI)AfAm (>60 ml/min/1.73 sqM) Est GFR (CKD-EPI)NonAf (>60 ml/min/1.73 sqM) Glucose (74-99) mg/dL Plasma Lactic Acid [place] 2.3 H* (0.7-2.0) mmol/L Calcium (8.4-10.2) mg/dL Total Bilirubin (0.2-1.3) mg/dL AST (17-59) U/L ALT (21-72) U/L Alkaline Phosphatase (38-126) U/L Total Creatine Kinase (55-170) U/L CK-MB (CK-2) (0.0-2.4) ng/mL CK-MB (CK-2) Rel Index Troponin I (0.000-0.034) ng/mL NT-Pro-B Natriuret Pep 537 pg/mL Total Protein (6.3-8.2) g/dL Albumin (3.5-5.0) g/dL Critical Care Time Critical Care Time: Yes Total Critical Care Time: 35 Disposition Clinical Impression: Atrial fibrillation, Leukocytosis, Healthcare-associated pneumonia, Acute exacerbation of chronic obstructive airways disease Disposition: ADMITTED IP TO THIS [facility] Condition: Stable Is patient prescribed a controlled substance at d/c from ED?: No Referrals: Robb Sheppard MD [Primary Care Provider] - 1-2 days Decision to Admit Reason: Admit from EC Decision Date: 07/27/18 Decision Time: 12:13
[2018-07-27 11:29] LABS: Creatine Kinase 73 U/L (55-170)
[2018-07-27 11:42] LABS: Creatine Kinase MB 0.9 ng/mL (0.0-2.4); Troponin I <0.012 ng/mL (0.000-0.034)
[2018-07-27] MEDS ORDERED: DILTIAZEM DRIP BOLUS FROM BAG 1 MG SOLN IV ONE (11:44)
[2018-07-27] MEDS ORDERED: SODIUM CHLORIDE 0.9% 500 ML 500 ML IV ONE ×2 (11:45→12:05)
--- NOTE | 2018-07-27 11:47 | XR ---
EXAMINATION TYPE: XR chest 2V DATE OF EXAM: 07/27/2018 COMPARISON: 05/05/2018 HISTORY: Cough and shortness of breath TECHNIQUE: Frontal and lateral views of the chest are obtained. FINDINGS: There is a patchy retrocardiac opacity vaguely seen on the lateral image but increased in conspicuity from the prior of 05/05/2018. Remainder the lungs are clear. Cardiomediastinal silhouette i s within normal limits. There is diffuse mild osseous demineralization. Cholecystectomy clips are not ed in the right upper quadrant. Degenerative changes of the right glenohumeral joint are seen with re modeling of the acromion suggesting chronic rotator cuff tear. IMPRESSION: Basilar retrocardiac opacity that may represent atelectasis or developing pneumonia in the appropriat e clinical setting.
[2018-07-27] MEDS: SODIUM CHLORIDE 0.9% 1,000 ML IV SCH (12:02)
[2018-07-27] MEDS ORDERED: AZITHROMYCIN 500 MG in SODIUM CHLORIDE 0.9% 250 ML IVPB STA (12:03)
[2018-07-27] MEDS ORDERED: CEFEPIME 2 GM in SODIUM CHLORIDE 0.9% 50 ML IVPB STA (12:03)
[2018-07-27] MEDS ORDERED: VANCOMYCIN IV PER PHARMACY 1 EACH MISC MISCELLANE PRN (12:03)
[2018-07-27] MEDS ORDERED: IPRATROPIUM-ALBUTEROL 3 ML NEB INHALATION PRN (12:06)
[2018-07-27] MEDS ORDERED: VANCOMYCIN 1,750 MG in SODIUM CHLORIDE 0.9% 500 ML 500 ML IVPB STA (12:09)
[2018-07-27] MEDS: DILTIAZEM 50 MG in SODIUM CHLORIDE 0.9% 40 ML IV SCH (12:22)
[2018-07-27] MEDS: IPRATROPIUM-ALBUTEROL 3 ML NEB INHALATION SCH ×2 (17:05→20:12)
[2018-07-27] MEDS: methylPREDNISolone SOD SUCCI 125 MG/2 ML VIAL IV SCH ×2 (18:04→23:14)
[2018-07-27 21:00] LABS: Glucose,Whole Blood 206 mg/dL (75-99)
[2018-07-27] MEDS: METOPROLOL TARTRATE 12.5 MG TAB PO SCH (21:21)
[2018-07-27] MEDS: APIXABAN 2.5 MG TABLET PO SCH (21:21)
[2018-07-27] MEDS: CEFEPIME 2 GM in SODIUM CHLORIDE 0.9% 50 ML IVPB SCH (21:22)
[2018-07-27] MEDS: MONTELUKAST 10 MG TAB PO SCH (21:22)
[2018-07-28] MEDS: SODIUM CHLORIDE 0.9% 1,000 ML IV SCH ×2 (05:30→16:08)
[2018-07-28 06:03] LABS: Glucose,Whole Blood 151 mg/dL (75-99)
[2018-07-28] MEDS: HYDROcodone/APAP 10-325MG 1 EACH TAB PO PRN (06:42)
[2018-07-28] MEDS: CEFEPIME 2 GM in SODIUM CHLORIDE 0.9% 50 ML IVPB SCH (06:44)
[2018-07-28] MEDS: LEVOTHYROXINE 75 MCG TAB PO SCH (06:45)
[2018-07-28] MEDS: DILTIAZEM 50 MG in SODIUM CHLORIDE 0.9% 40 ML IV SCH ×2 (06:45→11:07)
[2018-07-28] MEDS: methylPREDNISolone SOD SUCCI 125 MG/2 ML VIAL IV SCH ×4 (06:45→22:39)
[2018-07-28] MEDS: METOPROLOL TARTRATE 12.5 MG TAB PO SCH (08:19)
[2018-07-28] MEDS: AZITHROMYCIN 500 MG in SODIUM CHLORIDE 0.9% 250 ML IVPB SCH (08:19)
[2018-07-28] MEDS: APIXABAN 2.5 MG TABLET PO SCH ×2 (08:19→20:20)
[2018-07-28] MEDS: PRAVASTATIN SODIUM 40 MG TAB PO SCH (08:19)
[2018-07-28] MEDS: IPRATROPIUM-ALBUTEROL 3 ML NEB INHALATION SCH ×4 (08:51→20:49)
[2018-07-28] MEDS ORDERED: VANCOMYCIN 1,500 MG in SODIUM CHLORIDE 0.9% 250 ML IVPB SCH (09:00)
--- NOTE | 2018-07-28 09:17 | P.CRDCN ---
History of Present Illness Consult date: 07/28/18 Requesting physician: Robb Sheppard Consult reason: atrial fibrillation Chief complaint: Cough, shortness of breath History of present illness: This is a pleasant 88-year-old gentleman with known history of COPD, hypertension, hyperlipidemia, chronic kidney disease, dementia, patient states he did undergo cardiac catheterization at one time and was told to have mild nonobstructive coronary artery disease and medical therapy was advised. Patient does have a prior history of smoking. He also has a history of paroxysmal atrial fibrillation. He takes Eliquis for anticoagulation. The patient presents to the hospital on this occasion with symptoms of shortness of breath, he also states that he's been coughing a significant amount at home, at times it to green, at times yellow. He states he does feel tightness in his chest every time he coughs. Denies any other symptoms of chest discomfort. He is currently being treated for pneumonia. EKG on arrival here showed atrial fibrillation with rapid ventricular response, for which reason cardiology consultation was requested. This morning patient is back in a normal sinus rhythm. Initial EKG showed atrial fibrillation with rapid ventricular response , nonspecific ST-T wave changes. Chest x-ray showed basilar retrocardiac obesity and may represent atelectasis or developing pneumonia. Blood pressure 136/70 with a heart rate in the 70s this morning, 96% on room air. White blood cell count 17.7, hemoglobin 13.8, platelet count 272. Sodium 141, potassium 3.7 , BUN 22, creatinine 1.6. Lactic acid 2.5 on admission, troponin 0.012, BNP 537. At the time of my examination this morning, patient is quite comfortable, he continues to cough up yellow sputum. Past Medical History Past Medical History: Atrial Fibrillation, Coronary Artery Disease (CAD), COPD, Dementia, Hyperlipidemia, Hypertension, Memory Impairment, Pneumonia, Prostate Disorder, Renal Disease, Respiratory Disorder, Rheumatoid Arthritis (RA), Thyroid Disorder Additional Past Medical History / Comment(s): Pneumonia with sepsis, hypoxic respiratory failure, suppose to wear home O2 at 2-3L/NC but refuses, CKD stage III, BPH, hypothyroid, lumbar disc dx, chronic back and bilateral hip pain- difficulty walking at times, possible upper GI bleed. History of Any Multi-Drug Resistant Organisms: None Reported Past Surgical History: Back Surgery, Cholecystectomy, Heart Catheterization, Orthopedic Surgery Additional Past Surgical History / Comment(s): Bilateral cataract removal and lens implants, left knee open surgery d/t injury, EGD Past Anesthesia/Blood Transfusion Reactions: No Reported Reaction Smoking Status: Former smoker - Past Family History Mother Family Medical History: Cancer Additional Family Medical History / Comment(s): Mother at age 96. Unsure what type of cancer Father Family Medical History: COPD Additional Family Medical History / Comment(s): Father at age 88 from emphysema Brother(s) Additional Family Medical History / Comment(s): Patient has 7 brothers. Sister(s) Additional Family Medical History / Comment(s): Patient has 1 sister. Daughter(s) Additional Family Medical History / Comment(s): He has 4 daughters and 2 sons. Medications and Allergies Home Medications Medication Instructions Recorded Confirmed Type Montelukast Sodium [Singulair] 10 mg PO HS 01/14/17 07/27/18 History Apixaban [Eliquis] 2.5 mg PO BID 3 Days #6 tab 06/05/18 07/27/18 Rx HYDROcodone/APAP 10-325MG [[place] 1 tab PO BID PRN 06/05/18 07/27/18 History 10-325] Levothyroxine Sodium [Synthroid] 75 mcg PO DAILY 3 Days #3 tab 06/05/18 Rx Pravastatin Sodium [Pravachol] 40 mg PO DAILY 06/05/18 07/27/18 History Celecoxib [CeleBREX] 200 mg PO DAILY 07/27/18 07/27/18 History Donepezil [Aricept] 10 mg PO DAILY 07/27/18 07/27/18 History Metoprolol Tartrate [Lopressor] 12.5 mg PO BID 07/27/18 07/27/18 History Allergies Allergy/AdvReac Type Severity Reaction Status Date / Time No Known Allergies Allergy Verified 07/27/18 10:38 Physical Exam Vitals: Vital Signs Temp Pulse Pulse Resp BP BP Pulse Ox 07/28/18 08:51 80 07/28/18 03:22 97.8 F 72 17 137/70 96 07/28/18 00:00 98.0 F 66 16 101/56 94 L 07/27/18 20:25 78 07/27/18 20:12 72 16 07/27/18 20:00 97.6 F 74 18 92/58 92 L 07/27/18 17:16 104 H 07/27/18 17:08 100 20 97 07/27/18 16:20 79 18 128/75 95 07/27/18 14:22 98.2 F 84 19 122/71 94 L 07/27/18 13:00 98.4 F 100 21 118/73 97 07/27/18 12:30 102 H 18 97 07/27/18 12:00 112 H 18 110/91 96 07/27/18 11:30 114 H 20 111/74 96 07/27/18 11:26 114 H 07/27/18 11:07 100 07/27/18 11:00 111 H 20 95 07/27/18 10:36 113/83 94 L 07/27/18 10:29 97.3 F L 90 18 113/83 99 Intake and Output 07/27/18 07/28/18 07/28/18 22:59 06:59 14:59 Intake Total 360 Balance 360 Intake: Oral 360 Other: # Voids 1 1 Weight 81.6 kg PHYSICAL EXAMINATION: GENERAL: 88-year-old gentleman in no acute distress at the time of my examination HEENT: Head is atraumatic, normocephalic. Pupils equal, round. Sclera anicteric. Conjunctiva are clear. Mucous membranes of the mouth are moist. Neck is supple. There is no elevated jugular venous pressure. No carotid bruit is heard. HEART EXAMINATION: Heart S1, S2 normal. No murmur or gallop heard. CHEST EXAMINATION: Lungs reveal scattered coarse rhonchi throughout ABDOMEN: Soft, nontender. Bowel sounds are heard. No organomegaly noted. EXTREMITIES: 2+ peripheral pulses with no evidence of peripheral edema and no calf tenderness noted. NEUROLOGIC patient is awake, alert and oriented 2 . . Results 07/27/18 10:40 07/27/18 10:40 Cardiac Enzymes 07/27/18 07/27/18 Range/Units 10:40 10:40 AST 21 (17-59) U/L CK-MB (CK-2) 0.9 (0.0-2.4) ng/mL Troponin I <0.012 (0.000-0.034) ng/mL Coagulation 07/27/18 Range/Units 10:40 PT 10.3 (9.0-12.0) sec APTT 30.4 H (22.0-30.0) sec CBC 07/27/18 Range/Units 10:40 WBC 17.7 H (3.8-10.6) k/uL RBC 4.36 (4.30-5.90) m/uL Hgb 13.8 (13.0-17.5) gm/dL Hct 42.7 (39.0-53.0) % Plt Count 272 (150-450) k/uL Comprehensive Metabolic Panel 07/27/18 Range/Units 10:40 Sodium 141 (137-145) mmol/L Potassium 3.7 (3.5-5.1) mmol/L Chloride 108 H (98-107) mmol/L Carbon Dioxide 17 L (22-30) mmol/L BUN 22 H (9-20) mg/dL Creatinine 1.60 H (0.66-1.25) mg/dL Glucose 135 H (74-99) mg/dL Calcium 9.0 (8.4-10.2) mg/dL AST 21 (17-59) U/L ALT 30 (21-72) U/L Alkaline Phosphatase 111 (38-126) U/L Total Protein 6.2 L (6.3-8.2) g/dL Albumin 3.4 L (3.5-5.0) g/dL Current Medications Generic Name Dose Route Start Last Admin Trade Name Freq PRN Reason Stop Dose Admin Hydrocodone Bitart/Acetaminophen 1 each 07/27/18 12:07 07/28/18 06:42 [place] 10 PO 1 each BID PRN Administration Pain Albuterol/Ipratropium 3 ml 07/27/18 12:06 Duoneb 0.5 Mg-3 Mg/3 Ml Soln INHALATION RT-Q4H PRN Shortness Of Breath Or Wheezing Albuterol/Ipratropium 3 ml 07/27/18 16:00 07/28/18 08:51 Duoneb 0.5 Mg-3 Mg/3 Ml Soln INHALATION 3 ml RT-QID SUMEET Administration Apixaban 2.5 mg 07/27/18 21:00 07/28/18 08:19 Eliquis PO 2.5 mg BID SUMEET Administration Diltiazem HCl 50 mg/ Sodium 50 mls @ 5 mls/hr 07/27/18 11:45 07/28/18 06:45 Chloride IV Not Given .Q10H SUMEET 5 MG/HR Sodium Chloride 1,000 mls @ 75 mls/hr 07/27/18 11:45 07/28/18 05:30 Saline 0.9% IV Not Given .[id number] SUMEET Azithromycin 500 mg/ Sodium 250 mls @ 250 mls/hr 07/28/18 09:00 07/28/18 08: 19 Chloride IVPB 250 mls/hr DAILY SUMEET Administration Cefepime HCl 2 gm/ Sodium 50 mls @ 100 mls/hr 07/27/18 20:00 07/28/18 06:44 Chloride IVPB 100 mls/hr Q8H SUMEET Administration Vancomycin HCl 1,500 mg/ 250 mls @ 125 mls/hr 07/28/18 09:00 Sodium Chloride IVPB Q24HR SUMEET Levothyroxine Sodium 75 mcg 07/28/18 06:30 07/28/18 06:45 Synthroid PO Not Given DAILY@0630 [facility] Methylprednisolone Sodium Succinate 60 mg 07/27/18 18:00 07/28/18 06:45 Solu-Medrol IV Not Given Q6HR SUMEET Metoprolol Tartrate 12.5 mg 07/27/18 21:00 07/28/18 08:19 Lopressor PO 12.5 mg BID SUMEET Administration Miscellaneous Information 1 each 07/27/18 12:03 Pharmacy To Dose Iv Vancomycin MISCELLANE DIRECTED PRN Per Protocol Montelukast Sodium 10 mg 07/27/18 21:00 07/27/18 21:22 Singulair PO 10 mg HS SUMEET Administration Pravastatin Sodium 40 mg 07/28/18 09:00 07/28/18 08:19 Pravachol PO 40 mg DAILY SUMEET Administration Intake and Output 07/27/18 07/28/18 07/28/18 22:59 06:59 14:59 Intake Total 360 Balance 360 Intake: Oral 360 Other: # Voids 1 1 Weight 81.6 kg 07/27/18 10:40 07/27/18 10:40 EKG Interpretations (text) Initial EKG showed atrial fibrillation with rapid ventricular response Assessment and Plan Plan: Assessment and plan #1 symptoms of persistent productive cough with evidence of developing pneumonia on chest x-ray #2 atrial fibrillation with rapid ventricular response, paroxysmal, currently in normal sinus rhythm #3 COPD #4 dementia #5 hypertension #6 hyperlipidemia #7 chronic kidney disease #8 prior history of smoking #9 hypothyroidism Plan We will discontinue the IV Cardizem drip, increase dose of beta jad to 25 twice a day, continue Eliquis 2-1/2 mg one tablet by mouth twice a day. Obtain a repeat echocardiogram with Doppler study as well as TSH level. Further recommendations to follow. DNP note has been reviewed, I agree with a documented findings and plan of care. Patient was seen and examined.
[2018-07-28] MEDS ORDERED: HALOPERIDOL LACTATE 5 MG/ML 1 ML VIAL IVP PRN (10:02)
[2018-07-28 11:45] LABS: Glucose,Whole Blood 126 mg/dL (75-99)
--- NOTE | 2018-07-28 13:19 | ECHOF ---
Referral Reason:afib MEASUREMENTS -------- HEIGHT: 180.3 cm WEIGHT: 81.2 kg BP: RVIDd: 2.8 cm (< 3.3) IVSd: 0.9 cm (0.6 - 1.1) LVIDd: 3.1 cm (3.9 - 5.3) LVPWd: 1.1 cm (0.6 - 1.1) IVSs: 1.4 cm LVIDs: 1.2 cm LVPWs: 1.4 cm LAESV Index (A-L): 25.05 ml/m Ao Diam: 3.6 cm (2.0 - 3.7) AV Cusp: 2.0 cm (1.5 - 2.6) LA Diam: 3.2 cm (2.7 - 3.8) MV EXCURSION: 14.577 mm (> 18.000) MV EF SLOPE: 107 mm/s (70 - 150) EPSS: 0.6 cm MV E Kye: 1.15 m/s MV DecT: 221 ms MV A Kye: 0.93 m/s MV E/A Ratio: 1.23 RAP: 5.00 mmHg RVSP: 19.32 mmHg FINDINGS -------- Sinus rhythm. This was a technically adequate study. The left ventricular size is normal. Left ventricular wall thickness is normal. Overall left vent ricular systolic function is normal with, an EF between 55 - 60 %. The right ventricle is normal in size and function. Normal LA size by volume 22+/-6 ml/m2. The right atrium is normal in size. There is mild aortic valve sclerosis. Mild mitral annular calcification present. Mild mitral regurgitation is present. Mild tricuspid regurgitation present. There is no evidence of pulmonary hypertension. The right v entricular systolic pressure, as measured by Doppler, is 19.32mmHg. There is no pulmonic regurgitation present. The aortic root size is normal. There is no pericardial effusion. CONCLUSIONS -------- 1. Sinus rhythm. 2. This was a technically adequate study. 3. The left ventricular size is normal. 4. Left ventricular wall thickness is normal. 5. Overall left ventricular systolic function is normal with, an EF between 55 - 60 %. 6. Normal LA size by volume 22+/-6 ml/m2. 7. There is mild aortic valve sclerosis. 8. Mild mitral annular calcification present. 9. Mild mitral regurgitation is present. 10. Mild tricuspid regurgitation present. 11. There is no evidence of pulmonary hypertension. 12. There is no pulmonic regurgitation present. 13. The aortic root size is normal. 14. There is no pericardial effusion. [employer]: Deana Campos RDCS
[2018-07-28 16:36] LABS: Glucose,Whole Blood 147 mg/dL (75-99)
[2018-07-28] MEDS: METOPROLOL TARTRATE 25 MG TAB PO SCH (20:20)
[2018-07-28] MEDS: MONTELUKAST 10 MG TAB PO SCH (20:20)
[2018-07-28 21:26] LABS: Glucose,Whole Blood 191 mg/dL (75-99)
[2018-07-29] MEDS: SODIUM CHLORIDE 0.9% 1,000 ML IV SCH ×2 (02:59→07:55)
[2018-07-29 06:13] LABS: Glucose,Whole Blood 131 mg/dL (75-99)
[2018-07-29] MEDS: LEVOTHYROXINE 75 MCG TAB PO SCH (06:38)
[2018-07-29] MEDS: methylPREDNISolone SOD SUCCI 125 MG/2 ML VIAL IV SCH ×3 (06:38→17:57)
[2018-07-29 07:10] LABS: Calcium 8.3 mg/dL (8.4-10.2); Potassium 4.1 mmol/L (3.5-5.1)
[2018-07-29] MEDS: CEFEPIME 2 GM in SODIUM CHLORIDE 0.9% 50 ML IVPB SCH (07:54)
[2018-07-29] MEDS: PRAVASTATIN SODIUM 40 MG TAB PO SCH (07:57)
[2018-07-29] MEDS: APIXABAN 2.5 MG TABLET PO SCH ×2 (07:57→20:26)
[2018-07-29] MEDS: DONEPEZIL 10 MG TAB PO SCH (07:57)
[2018-07-29] MEDS: METOPROLOL TARTRATE 25 MG TAB PO SCH ×2 (07:57→20:26)
[2018-07-29] MEDS: HYDROcodone/APAP 10-325MG 1 EACH TAB PO PRN ×2 (08:02→18:31)
[2018-07-29] MEDS: IPRATROPIUM-ALBUTEROL 3 ML NEB INHALATION SCH ×4 (08:26→20:09)
[2018-07-29] MEDS: AZITHROMYCIN 500 MG in SODIUM CHLORIDE 0.9% 250 ML IVPB SCH (08:52)
[2018-07-29 11:33] LABS: Glucose,Whole Blood 194 mg/dL (75-99)
[2018-07-29 13:14] LABS: Hemoglobin A1C 6.2 % (4.0-6.0)
--- NOTE | 2018-07-29 14:50 | HP ---
HISTORY AND PHYSICAL DATE OF ADMISSION: 07/27/2018 CHIEF COMPLAINT: Cough, fever, chills, and low-grade fever. HISTORY OF PRESENT ILLNESS: This is another admission for this 88-year-old white male who is brought to the emergency room and was admitted as a probable pneumonitis. He has COPD. He is also confused. White count was elevated at 17,000 and he was found to be in atrial fibrillation with rapid ventricular response. He had a retrocardiac infiltrate. REVIEW OF SYSTEMS: Cannot be obtained because he is confused and agitated. He is known to have dementia. Past medical history, family history and personal and social histories reveal that he is not allergic to any medication. He is currently on: 1. Montelukast 10 mg a day. 2. Celebrex 200 mg once a day. 3. Benazepril 10 mg at bedtime. 4. Levothyroxine 0.075 once a day. 5. Pravastatin 40 at bedtime. 6. Eliquis 2.5 twice a day. 7. Vicodin 10 twice a day p.r.n. 8. Metoprolol 25 mg 1/2 tablet twice a day. The remainder of his history is unremarkable. He used to smoke, but he has quit, but he does have COPD. PHYSICAL EXAMINATION: Blood pressure 170/100 with a pulse of 90 and irregularly irregular, respirations of 36 and he is afebrile. In general, he appeared to be agitated. Skin was hot and dry. Head, ears, eyes, nose, mouth, and throat were normal but mucus membranes are somewhat dry. Neck seemed to be supple. Neck veins are not distended. Carotids normal. The chest demonstrated increased AP diameter with poor breath sounds throughout. There are scattered rales and rhonchi. Cardiac exam demonstrated an irregularly, irregular pulse with tachycardia. Abdomen is soft and there are no masses or visceromegaly. Extremities are normal. Neurologically, other than his dementia, he is intact. He is admitted to the hospital with diagnoses: 1. Bronchopneumonia. 2. Chronic obstructive pulmonary disease. 3. Dementia. 4. Delirium. 5. Hypothyroidism. 6. Hyperlipidemia. 7. Atrial fibrillation. PLAN: 1. Bed rest. 2. IV fluids. 3. IV antibiotics. 4. Updrafts. MMODL / IJN: [id number] /
--- NOTE | 2018-07-29 15:27 | PN ---
PROGRESS NOTE DATE OF SERVICE: 07/28/2018 CHIEF COMPLAINT: Pneumonitis and agitation. HISTORY OF PRESENT ILLNESS: This gentleman has been very agitated and uncooperative. He has been difficult to manage. This is likely related to his dementia along with delirium. PHYSICAL EXAM: His vital signs are normal and the chest demonstrates poor breath sounds with increased AP diameter. Cardiac exam demonstrates his atrial fibrillation with tachycardia and the abdomen is soft, nontender. IMPRESSION: 1. Bronchial pneumonia. 2. Delirium. 3. Dementia. 4. Chronic obstructive pulmonary disease. 5. Atrial fibrillation. PLAN: 1. Haldol 1 mg q.6 p.r.n. to deal with his agitation and delirium. 2. It is reported that he had a positive blood culture for gram-positive organisms. MMODL / IJN: [id number] /
--- NOTE | 2018-07-29 16:00 | P.PN ---
Subjective Progress Note Date: 07/29/18 This is a pleasant 88-year-old gentleman with known history of COPD, hypertension, hyperlipidemia, chronic kidney disease, dementia, patient states he did undergo cardiac catheterization at one time and was told to have mild nonobstructive coronary artery disease and medical therapy was advised. Patient does have a prior history of smoking. He also has a history of paroxysmal atrial fibrillation. He takes Eliquis for anticoagulation. The patient presents to the hospital on this occasion with symptoms of shortness of breath, he also states that he's been coughing a significant amount at home, at times it to green, at times yellow. He states he does feel tightness in his chest every time he coughs. Denies any other symptoms of chest discomfort. He is currently being treated for pneumonia. EKG on arrival here showed atrial fibrillation with rapid ventricular response, for which reason cardiology consultation was requested. This morning patient is back in a normal sinus rhythm. Initial EKG showed atrial fibrillation with rapid ventricular response , nonspecific ST-T wave changes. Chest x-ray showed basilar retrocardiac obesity and may represent atelectasis or developing pneumonia. Blood pressure 136/70 with a heart rate in the 70s this morning, 96% on room air. White blood cell count 17.7, hemoglobin 13.8, platelet count 272. Sodium 141, potassium 3.7 , BUN 22, creatinine 1.6. Lactic acid 2.5 on admission, troponin 0.012, BNP 537. At the time of my examination this morning, patient is quite comfortable, he continues to cough up yellow sputum. 07/29/2018 Patient seen and examined today, echocardiogram with Doppler study was performed which revealed normal left ventricular systolic function. Continues to have a cough however much less productive than yesterday. He continues to be in normal sinus rhythm at this time. He is on anticoagulation in the form of Eliquis. Objective - Vital Signs Vital signs: Vital Signs Temp 97.7 F 07/29/18 12:07 Pulse 72 07/29/18 15:54 Resp 18 07/29/18 15:32 BP 113/53 07/29/18 15:32 Pulse Ox 95 07/29/18 15:32 Intake & Output 07/28/18 07/29/18 07/29/18 18:59 06:59 18:59 Intake Total 1150 180 Balance 1150 180 Weight 85.6 kg Intake: Intake, IV Titration 550 Amount Azithromycin 500 mg In 250 Sodium Chloride 0.9% 250 ml @ 250 mls/hr IVPB DAILY SUMEET Rx#:[id number] Cefepime 2 gm In Sodium 50 Chloride 0.9% 50 ml @ 100 mls/hr IVPB Q24H SUMEET Rx# :[id number] Vancomycin 1,500 mg In 250 Sodium Chloride 0.9% 250 ml @ 125 mls/hr IVPB Q24HR SUMEET Rx#:[id number] Oral 600 180 Other: Voiding Method Toilet Toilet # Voids 3 1 1 # Bowel Movements 1 1 - Exam PHYSICAL EXAMINATION: GENERAL: 88-year-old gentleman in no acute distress at the time of my examination HEENT: Head is atraumatic, normocephalic. Pupils equal, round. Sclera anicteric. Conjunctiva are clear. Mucous membranes of the mouth are moist. Neck is supple. There is no elevated jugular venous pressure. No carotid bruit is heard. HEART EXAMINATION: Heart S1, S2 normal. No murmur or gallop heard. CHEST EXAMINATION: Lungs reveal scattered coarse rhonchi throughout, improved from yesterday ABDOMEN: Soft, nontender. Bowel sounds are heard. No organomegaly noted. EXTREMITIES: 2+ peripheral pulses with no evidence of peripheral edema and no calf tenderness noted. NEUROLOGIC patient is awake, alert and oriented 2 . - Labs CBC & Chem 7: 07/27/18 10:40 07/29/18 06:06 Labs: Abnormal Lab Results - Last 24 Hours (Table) 07/27/18 07/28/18 07/28/18 Range/Units 10:40 16:32 21:24 Chloride (98-107) mmol/L BUN (9-20) mg/dL Creatinine (0.66-1.25) mg/dL Glucose (74-99) mg/dL POC Glucose (mg/dL) 147 H 191 H (75-99) mg/dL Hemoglobin A1c 6.2 H (4.0-6.0) % Calcium (8.4-10.2) mg/dL 07/29/18 07/29/18 07/29/18 Range/Units 06:06 06:12 11:32 Chloride 110 H (98-107) mmol/L BUN 48 H (9-20) mg/dL Creatinine 2.00 H (0.66-1.25) mg/dL Glucose 134 H (74-99) mg/dL POC Glucose (mg/dL) 131 H 194 H (75-99) mg/dL Hemoglobin A1c (4.0-6.0) % Calcium 8.3 L (8.4-10.2) mg/dL Microbiology - Last 24 Hours (Table) 07/27/18 10:40 Blood Culture Gram Stain - Preliminary Blood Blood Culture - Preliminary Coagulase Negative Staph Assessment and Plan Plan: Assessment and plan #1 symptoms of persistent productive cough with evidence of developing pneumonia on chest x-ray #2 atrial fibrillation with rapid ventricular response, paroxysmal, currently in normal sinus rhythm #3 COPD #4 dementia #5 hypertension #6 hyperlipidemia #7 chronic kidney disease #8 prior history of smoking #9 hypothyroidism Plan Echocardiogram with Doppler study revealed a normal left ventricular systolic function. We'll continue the patient on current anticoagulation. Continue metoprolol 25 mg one tablet by mouth twice a day. Decrease IV fluids. DNP note has been reviewed, I agree with a documented findings and plan of care. Patient was seen and examined.
[2018-07-29 16:29] LABS: Glucose,Whole Blood 252 mg/dL (75-99)
--- NOTE | 2018-07-29 16:39 | PN ---
PROGRESS NOTE CHIEF COMPLAINT: Pneumonitis, dementia and delirium. HISTORY OF PRESENT ILLNESS: This gentleman is a little bit better. He is less agitated. Vital signs are normal. PHYSICAL EXAMINATION: Chest demonstrates decreased breath sounds throughout with occasional rales and rhonchi. Cardiac exam seems normal. Abdomen is soft. IMPRESSION: 1. Pneumonitis. 2. Chronic obstructive pulmonary disease. 3. Dementia. 4. Delirium. PLAN: Continue with current program and re-evaluate labs as well as working on a discharge plan. MMODL / DANIELN: [id number] /
[2018-07-29] MEDS: INSULIN ASPART 100 UNIT/ML 1 ML 10 ML VIAL SQ SCH ×2 (17:57→21:26)
[2018-07-29] MEDS: VANCOMYCIN 1,500 MG in SODIUM CHLORIDE 0.9% 250 ML IVPB SCH (20:24)
[2018-07-29] MEDS: MONTELUKAST 10 MG TAB PO SCH (20:26)
[2018-07-29 21:20] LABS: Glucose,Whole Blood 216 mg/dL (75-99)
[2018-07-30] MEDS: SODIUM CHLORIDE 0.9% 1,000 ML IV SCH ×2 (06:32→19:20)
[2018-07-30] MEDS: IPRATROPIUM-ALBUTEROL 3 ML NEB INHALATION SCH ×4 (07:19→20:51)
[2018-07-30] MEDS: LEVOTHYROXINE 75 MCG TAB PO SCH (07:21)
[2018-07-30 07:27] LABS: Glucose,Whole Blood 143 mg/dL (75-99)
[2018-07-30] MEDS: INSULIN ASPART 100 UNIT/ML 1 ML 10 ML VIAL SQ SCH ×4 (08:02→21:17)
[2018-07-30] MEDS: CEFEPIME 2 GM in SODIUM CHLORIDE 0.9% 50 ML IVPB SCH (08:02)
[2018-07-30] MEDS: PRAVASTATIN SODIUM 40 MG TAB PO SCH (08:05)
[2018-07-30] MEDS: AZITHROMYCIN 500 MG TAB PO SCH (08:05)
[2018-07-30] MEDS: METOPROLOL TARTRATE 25 MG TAB PO SCH ×2 (08:05→19:57)
[2018-07-30] MEDS: DONEPEZIL 10 MG TAB PO SCH (08:05)
[2018-07-30] MEDS: APIXABAN 2.5 MG TABLET PO SCH ×2 (08:05→19:57)
[2018-07-30] MEDS: HYDROcodone/APAP 10-325MG 1 EACH TAB PO PRN ×2 (08:12→23:18)
[2018-07-30 11:40] LABS: Calcium 8.5 mg/dL (8.4-10.2); Potassium 4.6 mmol/L (3.5-5.1)
[2018-07-30 12:24] LABS: Glucose,Whole Blood 129 mg/dL (75-99)
--- NOTE | 2018-07-30 13:44 | XR ---
EXAMINATION TYPE: XR chest 2V DATE OF EXAM: 07/30/2018 COMPARISON: Chest x-ray 3 days ago and older studies. HISTORY: Pneumonitis progress study. TECHNIQUE: Frontal and lateral views of the chest are obtained. FINDINGS: There is persistent left lower lobe opacity confirmed on 2 views. There is now new opacit y anteriorly in the lung base difficult to localize to right middle lobe or lingula on frontal view. The cardiac silhouette size remains within normal limits with atherosclerotic change in thoracic aort a. The osseous structures are intact. Cholecystectomy clips are noted. IMPRESSION: Persistent acute infiltrate and/or atelectasis left lung base. New acute infiltrate and/ or atelectasis right middle lobe or lingula.
[2018-07-30 17:47] LABS: Glucose,Whole Blood 115 mg/dL (75-99)
--- NOTE | 2018-07-30 19:33 | PN ---
PROGRESS NOTE CHIEF COMPLAINT: Pneumonitis. HISTORY OF PRESENT ILLNESS: This gentleman is doing a bit better. His agitation is improved. Temperature has been down. Vital signs have been normal. PHYSICAL EXAM: Chest demonstrates decreased breath sounds. Occasional rales and rhonchi. Cardiac exam is unchanged. Abdomen is soft, nontender. Extremities are normal. IMPRESSION: 1. Pneumonitis. 2. Chronic obstructive pulmonary disease. 3. Dementia. PLAN: Probably discharge in the next day or 2. He is doing much better. Discharge plan may be a problem. MMODL / IJN: [id number] /
[2018-07-30] MEDS: MONTELUKAST 10 MG TAB PO SCH (19:57)
[2018-07-30 20:42] LABS: Glucose,Whole Blood 164 mg/dL (75-99)
[2018-07-30 22:33] LABS: Basophils % (A) 0 %; Eosinophils % (A) 0 %; HCT 36.3 % (39.0-53.0); HGB 11.2 gm/dL (13.0-17.5); Lymphocytes # (A) 1.1 k/uL (1.0-4.8); Lymphocytes % (A) 7 %; MCH 30.7 pg (25.0-35.0); MCHC 30.8 g/dL (31.0-37.0); MCV 99.7 fL (80.0-100.0); Mean Platelet Volume 7.8; Monocytes # (A) 1.2 k/uL (0-1.0); Monocytes % (A) 8 %; Neutrophils # (A) 13.1 k/uL (1.3-7.7); Neutrophils % (A) 84 %; Platelet Count 292 k/uL (150-450); RBC 3.64 m/uL (4.30-5.90); WBC 15.5 k/uL (3.8-10.6)
[2018-07-30 22:47] LABS: Calcium 8.2 mg/dL (8.4-10.2); Potassium 3.9 mmol/L (3.5-5.1)
[2018-07-30 23:05] LABS: Creatine Kinase MB 4.8 ng/mL (0.0-2.4); Troponin I 0.029 ng/mL (0.000-0.034)
[2018-07-31] MEDS: LEVOTHYROXINE 75 MCG TAB PO SCH (05:17)
[2018-07-31] MEDS: IPRATROPIUM-ALBUTEROL 3 ML NEB INHALATION SCH ×4 (06:54→19:49)
[2018-07-31 07:20] LABS: Glucose,Whole Blood 110 mg/dL (75-99)
[2018-07-31] MEDS: INSULIN ASPART 100 UNIT/ML 1 ML 10 ML VIAL SQ SCH ×4 (07:21→22:16)
[2018-07-31] MEDS: METOPROLOL TARTRATE 25 MG TAB PO SCH ×2 (07:39→19:56)
[2018-07-31] MEDS: PRAVASTATIN SODIUM 40 MG TAB PO SCH (07:40)
[2018-07-31] MEDS: AZITHROMYCIN 500 MG TAB PO SCH (07:40)
[2018-07-31] MEDS: CEFEPIME 2 GM in SODIUM CHLORIDE 0.9% 50 ML IVPB SCH (07:40)
[2018-07-31] MEDS: DONEPEZIL 10 MG TAB PO SCH (07:40)
[2018-07-31] MEDS: APIXABAN 2.5 MG TABLET PO SCH ×2 (07:40→19:57)
[2018-07-31] MEDS: VANCOMYCIN 1,500 MG in SODIUM CHLORIDE 0.9% 250 ML IVPB SCH (09:52)
[2018-07-31] MEDS: SODIUM CHLORIDE 0.9% 1,000 ML IV SCH (09:52)
[2018-07-31 10:26] LABS: Calcium 8.1 mg/dL (8.4-10.2); Potassium 3.6 mmol/L (3.5-5.1)
[2018-07-31 12:28] LABS: Glucose,Whole Blood 100 mg/dL (75-99)
[2018-07-31 17:28] LABS: Glucose,Whole Blood 234 mg/dL (75-99)
--- NOTE | 2018-07-31 17:33 | P.CONS ---
History of Present Illness - Reason for Consult Consult date: 07/31/18 - Chief Complaint Pneumonia - History of Present Illness 88 show male with multiple medical troubles presents to the emergency center feeling poorly. He was having some difficulties increasing shortness of breath. Upon arrival there was evidence of atrial fibrillation with rapid ventricular response. So concerns to a new infiltrate in the left lower lobe area. Patient was initiated antibiotic therapy. The patient is continuing to feel poorly although his fevers have improved. He does have a leukocytosis. There was evidence of the positive blood culture in the infectious diseases consultation was requested. At this time the patient is somewhat anxious to go home. He has talked to his who. He is anxious for him to come home. The patient however is still requiring oxygen and is still ill and is certainly not ready for discharged home. Review of Systems 88-year-old male feeling poorly HEENT:Denies headache or acute visual change. Denies sinus or mouth discomforts. Denies neck stiffness or pain. Denies significant oral cavity pain. Denies difficulty on swallowing. Lungs: Some shortness of breath minimal cough little sputum production or hemoptysis Cardiovascular: Denies significant shortness of breath, chest pain, chest wall pain, orthopnea, dyspnea on exertion, syncope Gastrointestinal:Denies nausea, vomiting, diarrhea, constipation, hematemesis, melena, hematochezia. No no significant change of bowel habit noticed. Musculoskeletal: denies significant myalgias or arthralgias. No new joint swelling. Denies new back pain. Skin: Denies new rash or lesions. No new ulcers or wounds are related.. Neuro: Denies headache or visual change. Denies any new onset weakness or difficulty with ambulation. Denies falls or seizures. Psychiatric:Denies anxiety or depression. Endocrine: Fatigue and weight loss Past Medical History Past Medical History: Atrial Fibrillation, Coronary Artery Disease (CAD), COPD, Dementia, Hyperlipidemia, Hypertension, Memory Impairment, Pneumonia, Prostate Disorder, Renal Disease, Respiratory Disorder, Rheumatoid Arthritis (RA), Thyroid Disorder Additional Past Medical History / Comment(s): Pneumonia with sepsis, hypoxic respiratory failure, suppose to wear home O2 at 2-3L/NC but refuses, CKD stage III, BPH, hypothyroid, lumbar disc dx, chronic back and bilateral hip pain- difficulty walking at times, possible upper GI bleed. History of Any Multi-Drug Resistant Organisms: None Reported Past Surgical History: Back Surgery, Cholecystectomy, Heart Catheterization, Orthopedic Surgery Additional Past Surgical History / Comment(s): Bilateral cataract removal and lens implants, left knee open surgery d/t injury, EGD Past Anesthesia/Blood Transfusion Reactions: No Reported Reaction Additional Psychological History / Comment(s): Retired. No . Ex- smoker. No current alcohol use. Lives with his Smoking Status: Former smoker - Past Family History Mother Family Medical History: Cancer Additional Family Medical History / Comment(s): Mother at age 96. Unsure what type of cancer Father Family Medical History: COPD Additional Family Medical History / Comment(s): Father at age 88 from emphysema Brother(s) Additional Family Medical History / Comment(s): Patient has 7 brothers. Sister(s) Additional Family Medical History / Comment(s): Patient has 1 sister. Daughter(s) Additional Family Medical History / Comment(s): He has 4 daughters and 2 sons. Medications and Allergies Home Medications and Allergies Comment(s): Current Medications Hydrocodone Bitart/Acetaminophen (Malone 10) 1 each PO BID PRN PRN Reason: Pain Last Admin: 07/30/18 23:18 Dose: 1 each Albuterol/Ipratropium (Duoneb 0.5 Mg-3 Mg/3 Ml Soln) 3 ml INHALATION RT-Q4H PRN PRN Reason: Shortness Of Breath Or Wheezing Last Admin: 07/30/18 23:52 Dose: 3 ml Albuterol/Ipratropium (Duoneb 0.5 Mg-3 Mg/3 Ml Soln) 3 ml INHALATION RT-QID [facility] Last Admin: 07/31/18 15:11 Dose: 3 ml Apixaban (Eliquis) 2.5 mg PO BID [facility] Last Admin: 07/31/18 07:40 Dose: 2.5 mg Azithromycin (Zithromax) 500 mg PO DAILY [facility] Last Admin: 07/31/18 07:40 Dose: 500 mg Donepezil HCl (Aricept) 10 mg PO DAILY [facility] Last Admin: 07/31/18 07:40 Dose: 10 mg Haloperidol Lactate (Haldol) 1 mg IVP Q6HR PRN PRN Reason: Agitation or Acute Psychosis Last Admin: 07/28/18 11:06 Dose: 1 mg Sodium Chloride (Saline 0.9%) 1,000 mls @ 75 mls/hr IV .[id number] [facility] Last Admin: 07/31/18 09:52 Dose: 75 mls/hr Cefepime HCl 2 gm/ Sodium (Chloride) 50 mls @ 100 mls/hr IVPB Q24H [facility] Last Admin: 07/31/18 07:40 Dose: 100 mls/hr Vancomycin HCl 1,500 mg/ (Sodium Chloride) 250 mls @ 125 mls/hr IVPB Q36H [facility] Last Admin: 07/31/18 09:52 Dose: 125 mls/hr Insulin Aspart (Novolog) 0 unit SQ ACHS [facility]; Protocol Last Admin: 07/31/18 12:38 Dose: Not Given Levothyroxine Sodium (Synthroid) 75 mcg PO DAILY@0630 [facility] Last Admin: 07/31/18 05:17 Dose: 75 mcg Metoprolol Tartrate (Lopressor) 25 mg PO BID [facility] Last Admin: 07/31/18 07:39 Dose: 25 mg Montelukast Sodium (Singulair) 10 mg PO [facility] Last Admin: 07/30/18 19:57 Dose: 10 mg Pravastatin Sodium (Pravachol) 40 mg PO DAILY [facility] Last Admin: 07/31/18 07:40 Dose: 40 mg Home Medications Medication Instructions Recorded Confirmed Type Montelukast Sodium [Singulair] 10 mg PO HS 01/14/17 07/27/18 History Apixaban [Eliquis] 2.5 mg PO BID 3 Days #6 tab 06/05/18 07/27/18 Rx HYDROcodone/APAP 10-325MG [Malone 1 tab PO BID PRN 06/05/18 07/27/18 History 10-325] Levothyroxine Sodium [Synthroid] 75 mcg PO DAILY 3 Days #3 tab 06/05/18 Rx Pravastatin Sodium [Pravachol] 40 mg PO DAILY 06/05/18 07/27/18 History Celecoxib [CeleBREX] 200 mg PO DAILY 07/27/18 07/27/18 History Donepezil [Aricept] 10 mg PO DAILY 07/27/18 07/27/18 History Metoprolol Tartrate [Lopressor] 12.5 mg PO BID 07/27/18 07/27/18 History Allergies Allergy/AdvReac Type Severity Reaction Status Date / Time No Known Allergies Allergy Verified 07/27/18 10:38 Physical Exam Vitals: Vital Signs Temp Pulse Pulse Resp BP Pulse Ox 07/31/18 15:20 86 07/31/18 15:11 84 07/31/18 15:00 97.6 F 67 16 165/70 93 L 07/31/18 11:09 98 07/31/18 10:58 92 07/31/18 07:08 70 07/31/18 06:54 74 07/31/18 06:13 96.6 F L 65 17 151/91 92 L 07/31/18 00:04 76 07/30/18 23:56 80 07/30/18 23:00 98.5 F 60 17 173/89 92 L 07/30/18 17:30 82 Intake and Output 07/31/18 07/31/18 07/31/18 06:59 14:59 22:59 Intake Total 900 Output Total 300 Balance -300 900 Intake: IV 650 Cefepime 2 gm In Sodium 50 Chloride 0.9% 50 ml @ 100 mls/hr IVPB Q24H SUMEET Rx# :[id number] Sodium Chloride 0.9% 1, 600 000 ml @ 75 mls/hr IV . [id number] SUMEET Rx#:[id number] Intake, IV Titration 250 Amount Vancomycin 1,500 mg In 250 Sodium Chloride 0.9% 250 ml @ 125 mls/hr IVPB Q36H SUMEET Rx#:[id number] Output: Urine 300 Other: # Voids 3 6 # Bowel Movements 1 88-year-old male HEENT: Anicteric conjunctiva are pink and moist nasal mucosa grossly intact without significant lesions, there is no thrush. Neck: The neck is supple without significant lymphadenopathy or thyromegaly. Lungs:Symmetrical air entry with coarse crackles in the left base and right posterior mid zone expiratory wheezes are heard no dullness or egophony Heart: Regular rate and rhythm with an audible S1-S2, no S3 no S4. There is no significant murmur click or rub, PMI was nondisplaced. Abdomen: Positive bowel sounds soft and nontender without palpable masses or organomegaly. There was no guarding or rebound. Extremities: The upper extremities have excellent pulses they are symmetric, no significant petechiae or telangiectasia. No splinter hemorrhages were noted. The lower extremities are free from significant edema. The peripheral pulses were 2+ and symmetric. Neuro: Awake alert oriented to person place and time. There are no acute new gross focal sensory motor deficits. Results CBC & Chem 7: 07/30/18 22:18 07/31/18 09:40 Labs: Abnormal Lab Results - Last 24 Hours (Table) 07/30/18 07/30/18 07/30/18 Range/Units 17:45 20:41 22:18 WBC 15.5 H (3.8-10.6) k/uL RBC 3.64 L (4.30-5.90) m/uL Hgb 11.2 L (13.0-17.5) gm/dL Hct 36.3 L (39.0-53.0) % MCHC 30.8 L (31.0-37.0) g/dL Neutrophils # 13.1 H (1.3-7.7) k/uL Monocytes # 1.2 H (0-1.0) k/uL Sodium (137-145) mmol/L Chloride (98-107) mmol/L BUN (9-20) mg/dL Creatinine (0.66-1.25) mg/dL Glucose (74-99) mg/dL POC Glucose (mg/dL) 115 H 164 H (75-99) mg/dL Calcium (8.4-10.2) mg/dL Total Creatine Kinase (55-170) U/L CK-MB (CK-2) (0.0-2.4) ng/mL 07/30/18 07/30/18 07/31/18 Range/Units 22:18 22:18 07:19 WBC (3.8-10.6) k/uL RBC (4.30-5.90) m/uL Hgb (13.0-17.5) gm/dL Hct (39.0-53.0) % MCHC (31.0-37.0) g/dL Neutrophils # (1.3-7.7) k/uL Monocytes # (0-1.0) k/uL Sodium (137-145) mmol/L Chloride 114 H (98-107) mmol/L BUN 50 H (9-20) mg/dL Creatinine 1.93 H (0.66-1.25) mg/dL Glucose 141 H (74-99) mg/dL POC Glucose (mg/dL) 110 H (75-99) mg/dL Calcium 8.2 L (8.4-10.2) mg/dL Total Creatine Kinase 185 H (55-170) U/L CK-MB (CK-2) 4.8 H (0.0-2.4) ng/mL 07/31/18 07/31/18 Range/Units 09:40 12:26 WBC (3.8-10.6) k/uL RBC (4.30-5.90) m/uL Hgb (13.0-17.5) gm/dL Hct (39.0-53.0) % MCHC (31.0-37.0) g/dL Neutrophils # (1.3-7.7) k/uL Monocytes # (0-1.0) k/uL Sodium 146 H (137-145) mmol/L Chloride 117 H (98-107) mmol/L BUN 42 H (9-20) mg/dL Creatinine 1.60 H (0.66-1.25) mg/dL Glucose 141 H (74-99) mg/dL POC Glucose (mg/dL) 100 H (75-99) mg/dL Calcium 8.1 L (8.4-10.2) mg/dL Total Creatine Kinase (55-170) U/L CK-MB (CK-2) (0.0-2.4) ng/mL Microbiology - Last 24 Hours (Table) 07/27/18 10:40 Blood Culture Gram Stain - Final Blood Blood Culture - Final Staph hominis sub sp. hominis Laboratory Results WBC 15.5 k/uL (3.8-10.6) H 07/30/18 22:18 RBC 3.64 m/uL (4.30-5.90) L 07/30/18 22:18 Hgb 11.2 gm/dL (13.0-17.5) L 07/30/18 22:18 Hct 36.3 % (39.0-53.0) L 07/30/18 22:18 MCV 99.7 fL (80.0-100.0) 07/30/18 22:18 MCH 30.7 pg (25.0-35.0) 07/30/18 22:18 MCHC 30.8 g/dL (31.0-37.0) L 07/30/18 22:18 RDW 14.0 % (11.5-15.5) 07/30/18 22:18 Plt Count 292 k/uL (150-450) 07/30/18 22: Neutrophils % 84 % 07/30/18 22: Lymphocytes % 7 % 07/30/18: Monocytes % 8 % 07/30/18: Eosinophils % 0 % 07/30/18: Basophils % 0 % 07/30/18 22: Neutrophils # 13.1 k/uL (1.3-7.7) H 07/30/18: Lymphocytes # 1.1 k/uL (1.0-4.8) 07/30/18: Monocytes # 1.2 k/uL (0-1.0) H 07/30/18: Eosinophils # 0.0 k/uL (0-0.7) 07/30/18: Basophils # 0.0 k/uL (0-0.2) 07/30/18 22:18 PT 10.3 sec (9.0-12.0) 07/27/18 10:40 INR 1.1 (<1.2) 07/27/18 10:40 APTT 30.4 sec (22.0-30.0) H 07/27/18 10:40 Sodium 146 mmol/L (137-145) H 07/31/18 09:40 Potassium 3.6 mmol/L (3.5-5.1) 07/31/18 09:40 Chloride 117 mmol/L (98-107) H 07/31/18 09:40 Carbon Dioxide 22 mmol/L (22-30) 07/31/18 09:40 Anion Gap 7 mmol/L 07/31/18 09:40 BUN 42 mg/dL (9-20) H 07/31/18 09:40 Creatinine 1.60 mg/dL (0.66-1.25) H 07/31/18 09:40 Est GFR (CKD-EPI)AfAm 45 (>60 ml/min/1.73 sqM) 07/31/18 09:40 Est GFR (CKD-EPI)NonAf 39 (>60 ml/min/1.73 sqM) 07/31/18 09:40 Glucose 141 mg/dL (74-99) H 07/31/18 09:40 POC Glucose (mg/dL) 234 mg/dL (75-99) H 07/31/18 17:27 POC Glu [employer] Teacher ID Nitza Moore 07/31/18 17:[address] Glu mg/dL 131 07/27/18 10:40 Hemoglobin A1c 6.2 % (4.0-6.0) H 07/27/18 10:40 Lactic Ac Sepsis Rflx Y 07/27/18 11:40 Plasma Lactic Acid Geovany 1.6 mmol/L (0.7-2.0) 07/30/18 22:18 Calcium 8.1 mg/dL (8.4-10.2) L 07/31/18 09:40 Total Bilirubin 1.8 mg/dL (0.2-1.3) H 07/27/18 10:40 AST 21 U/L (17-59) 07/27/18 10:40 ALT 30 U/L (21-72) 07/27/18 10:40 Alkaline Phosphatase 111 U/L (38-126) 07/27/18 10:40 Total Creatine Kinase 185 U/L (55-170) H 07/30/18 22:18 CK-MB (CK-2) 4.8 ng/mL (0.0-2.4) H 07/30/18 22:18 CK-MB (CK-2) Rel Index 2.6 07/30/18 22:18 Troponin I 0.029 ng/mL (0.000-0.034) 07/30/18 22:18 NT-Pro-B Natriuret Pep 537 pg/mL 07/27/18 10:40 Total Protein 6.2 g/dL (6.3-8.2) L 07/27/18 10:40 Albumin 3.4 g/dL (3.5-5.0) L 07/27/18 10:40 Microbiology 07/27/18 10:40 Blood Blood Culture Gram Stain - Final 07/27/18 10:40 Blood Blood Culture - Final Staph hominis sub sp. hominis 07/27/18 10:40 Blood Blood Culture - Final Assessment and Plan (1) Gram-positive bacteremia Current Visit: Yes Status: Acute Code(s): R78.81 - BACTEREMIA SNOMED Code( s): 228215412254 (2) Multifocal pneumonia Narrative/Plan: 88-year-old male presents to Hospital feeling poorly with evidence of fever and leukocytosis at admission. Original chest x-ray shows evidence of the left lower lobe infiltrate and follow-up x-ray now shows a new right middle lobe infiltrate also. The patient is requiring oxygen therapy for his pneumonia. The patient does have evidence of possible culture and Staphylococcus hominis. His highly consistent contamination and awaits final result. At this time is being treated with azithromycin and cefepime which is a reasonable choice for now until there is further data. Vancomycin will likely be discontinued tomorrow once cultures are final since the staphylococcus hominis is almost always a contamination in this situation. continue ongoing supportive care. The patient is somewhat anxious to go home. We discussed the fact of how ill he is at this point in time with multifocal pneumonia and oxygen needs in this really not ready for discharged home over the next few days he will improved. Current Visit: Yes Status: Acute Code(s): J18.9 - PNEUMONIA, UNSPECIFIED ORGANISM SNOMED Code(s): 920523796 (3) Leukocytosis Current Visit: Yes Status: Acute Code(s): D72.829 - ELEVATED WHITE BLOOD CELL COUNT, UNSPECIFIED SNOMED Code(s): 289751267
--- NOTE | 2018-07-31 17:41 | PN ---
PROGRESS NOTE CHIEF COMPLAINT: Pneumonitis and COPD with dementia. HISTORY OF PRESENT ILLNESS: This gentleman's condition remains guarded. He did have a positive blood culture with gram-positive cocci. He had a chest x-ray also shows some deterioration. Renal function is also abnormal. Calcium slightly low as well. Review of systems cannot be obtained because of his confusion, but he is sitting up and eating and seems awake, alert, comfortable. PHYSICAL EXAM: Vital signs are normal. Chest demonstrates wheezes, rales, rhonchi scattered throughout both lung stout. Cardiac exam is normal. Abdomen is soft. IMPRESSION: 1. Bronchial pneumonia. 2. Chronic obstructive pulmonary disease. 3. Renal failure. 4. Dementia. 5. Delirium. 6. Hypocalcemia. 7. Positive blood culture. PLAN: Infectious Disease consult and cancel discharge for today. MMODL / IJN: [id number] /
[2018-07-31] MEDS: MONTELUKAST 10 MG TAB PO SCH (19:57)
[2018-07-31 20:41] LABS: Glucose,Whole Blood 90 mg/dL (75-99)
[2018-08-01] MEDS: SODIUM CHLORIDE 0.9% 1,000 ML IV SCH ×2 (03:27→11:13)
[2018-08-01] MEDS: LEVOTHYROXINE 75 MCG TAB PO SCH (06:34)
[2018-08-01] MEDS: IPRATROPIUM-ALBUTEROL 3 ML NEB INHALATION SCH ×4 (07:10→20:16)
[2018-08-01 07:29] LABS: Glucose,Whole Blood 90 mg/dL (75-99)
[2018-08-01] MEDS: INSULIN ASPART 100 UNIT/ML 1 ML 10 ML VIAL SQ SCH ×4 (07:35→23:56)
[2018-08-01] MEDS: AZITHROMYCIN 500 MG TAB PO SCH (08:26)
[2018-08-01] MEDS: METOPROLOL TARTRATE 25 MG TAB PO SCH ×2 (08:26→23:57)
[2018-08-01] MEDS: DONEPEZIL 10 MG TAB PO SCH (08:26)
[2018-08-01] MEDS: PRAVASTATIN SODIUM 40 MG TAB PO SCH (08:26)
[2018-08-01] MEDS: APIXABAN 2.5 MG TABLET PO SCH ×2 (08:26→23:57)
[2018-08-01] MEDS: CEFEPIME 2 GM in SODIUM CHLORIDE 0.9% 50 ML IVPB SCH (08:27)
[2018-08-01 08:29] LABS: Calcium 8.2 mg/dL (8.4-10.2); Potassium 3.7 mmol/L (3.5-5.1)
[2018-08-01 08:33] LABS: Vancomycin,Random 13.4 ug/mL
[2018-08-01 11:46] LABS: Glucose,Whole Blood 128 mg/dL (75-99)
[2018-08-01] MEDS ORDERED: VANCOMYCIN 1,750 MG in SODIUM CHLORIDE 0.9% 500 ML 500 ML IVPB SCH (12:00)
[2018-08-01] MEDS ORDERED: VANCOMYCIN 1,500 MG in SODIUM CHLORIDE 0.9% 250 ML IVPB SCH (12:00)
[2018-08-01 12:21] LABS: Basophils % (A) 0 %; Eosinophils # (A) 0.3 k/uL (0-0.7); Eosinophils % (A) 3 %; HCT 40.1 % (39.0-53.0); HGB 12.8 gm/dL (13.0-17.5); Lymphocytes % (A) 9 %; MCH 31.6 pg (25.0-35.0); MCHC 31.9 g/dL (31.0-37.0); MCV 98.8 fL (80.0-100.0); Mean Platelet Volume 7.7; Monocytes # (A) 0.6 k/uL (0-1.0); Monocytes % (A) 6 %; Neutrophils # (A) 8.9 k/uL (1.3-7.7); Neutrophils % (A) 81 %; Platelet Count 276 k/uL (150-450); RBC 4.06 m/uL (4.30-5.90); RDW 13.9 % (11.5-15.5)
[2018-08-01 12:31] LABS: Albumin 2.8 g/dL (3.5-5.0); Calcium 8.3 mg/dL (8.4-10.2); Potassium 3.7 mmol/L (3.5-5.1); Total Protein 5.2 g/dL (6.3-8.2)
--- NOTE | 2018-08-01 13:19 | XR ---
EXAMINATION TYPE: XR chest 2V DATE OF EXAM: 08/01/2018 COMPARISON: 07/27/2018 HISTORY: Pneumonia. Progress exam. TECHNIQUE: Frontal and lateral views of the chest are obtained. FINDINGS: There is increasing reticular opacity at the lung bases, left greater than right in compar zoraida to the prior exam. Right perihilar airspace disease is also appreciated that is new. Cardia medi astinal silhouette is overall nonenlarged. Osseous structures are grossly intact. No sizable pneumoth orax or pleural effusion. IMPRESSION: Increasing multifocal opacities within the lung bases and right perihilar region suspici ous for multifocal pneumonia.
--- NOTE | 2018-08-01 13:27 | PN ---
PROGRESS NOTE DATE OF SERVICE: 08/01/2018 CHIEF COMPLAINT: Pneumonitis, mental status changes, delirium, dementia and COPD. HISTORY OF PRESENT ILLNESS: This gentleman still has significant shortness of breath. Chest x-ray suggests increased infiltration. He has been seen by Infectious Disease. PHYSICAL EXAM: He has copious rhonchi and rales bilaterally. Cardiac exam is unremarkable and the abdomen is soft, nontender. He remains confused. IMPRESSION: 1. Pneumonitis-progressing. 2. Chronic obstructive pulmonary disease. 3. Dementia. PLAN: Continue with antibiotics, updrafts and hope that his condition improved that he can be discharged. Discharge planning has been consulted. VICL / DANIELN: [id number] /
[2018-08-01 17:06] LABS: Glucose,Whole Blood 82 mg/dL (75-99)
[2018-08-01 21:28] LABS: Glucose,Whole Blood 116 mg/dL (75-99)
[2018-08-01] MEDS: MONTELUKAST 10 MG TAB PO SCH (23:57)
--- NOTE | 2018-08-02 00:10 | P.PN ---
Subjective Progress Note Date: 08/01/18 88 show male with multiple medical troubles presents to the emergency center feeling poorly. He was having some difficulties increasing shortness of breath. Upon arrival there was evidence of atrial fibrillation with rapid ventricular response. So concerns to a new infiltrate in the left lower lobe area. Patient was initiated antibiotic therapy. The patient is continuing to feel poorly although his fevers have improved. He does have a leukocytosis. There was evidence of the positive blood culture in the infectious diseases consultation was requested. At this time the patient is somewhat anxious to go home. He has talked to his who. He is anxious for him to come home. The patient however is still requiring oxygen and is still ill and is certainly not ready for discharged home. Patient still short of breath feels poorly blood cultures with coagulase- negative staph Objective - Vital Signs Vital signs: Vital Signs Temp 97.3 F L 08/01/18 22:40 Pulse 78 08/01/18 22:40 Resp 20 08/01/18 22:40 BP 131/63 08/01/18 22:40 Pulse Ox 93 L 08/01/18 22:40 Intake & Output 08/01/18 08/01/18 08/02/18 06:59 18:59 06:59 Intake Total 400 Output Total 2 Balance 398 Intake: Oral 400 Output: Urine 2 Other: Voiding Method Toilet # Voids 0 3 # Bowel Movements 0 0 - Exam 88-year-old male HEENT: Anicteric conjunctiva are pink and moist nasal mucosa grossly intact without significant lesions, there is no thrush. Neck: The neck is supple without significant lymphadenopathy or thyromegaly. Lungs:Symmetrical air entry with coarse crackles in the left base and right posterior mid zone expiratory wheezes are heard no dullness or egophony Heart: Regular rate and rhythm with an audible S1-S2, no S3 no S4. There is no significant murmur click or rub, PMI was nondisplaced. Abdomen: Positive bowel sounds soft and nontender without palpable masses or organomegaly. There was no guarding or rebound. Extremities: The upper extremities have excellent pulses they are symmetric, no significant petechiae or telangiectasia. No splinter hemorrhages were noted. The lower extremities are free from significant edema. The peripheral pulses were 2+ and symmetric. Neuro: Awake alert oriented to person place and time. There are no acute new gross focal sensory motor deficits. - Labs CBC & Chem 7: 08/01/18 11:58 08/01/18 11:58 Labs: Abnormal Lab Results - Last 24 Hours (Table) 08/01/18 08/01/18 08/01/18 Range/Units 07:36 11:44 11:58 WBC 11.0 H (3.8-10.6) k/uL RBC 4.06 L (4.30-5.90) m/uL Hgb 12.8 L (13.0-17.5) gm/dL Neutrophils # 8.9 H (1.3-7.7) k/uL Chloride 111 H (98-107) mmol/L BUN 34 H (9-20) mg/dL Creatinine 1.39 H (0.66-1.25) mg/dL Glucose 100 H (74-99) mg/dL POC Glucose (mg/dL) 128 H (75-99) mg/dL Calcium 8.2 L (8.4-10.2) mg/dL Total Protein (6.3-8.2) g/dL Albumin (3.5-5.0) g/dL 08/01/18 08/01/18 Range/Units 11:58 21:26 WBC (3.8-10.6) k/uL RBC (4.30-5.90) m/uL Hgb (13.0-17.5) gm/dL Neutrophils # (1.3-7.7) k/uL Chloride 110 H (98-107) mmol/L BUN 31 H (9-20) mg/dL Creatinine 1.28 H (0.66-1.25) mg/dL Glucose 188 H (74-99) mg/dL POC Glucose (mg/dL) 116 H (75-99) mg/dL Calcium 8.3 L (8.4-10.2) mg/dL Total Protein 5.2 L (6.3-8.2) g/dL Albumin 2.8 L (3.5-5.0) g/dL Laboratory Results WBC 11.0 k/uL (3.8-10.6) H 08/01/18 11:58 RBC 4.06 m/uL (4.30-5.90) L 08/01/18 11:58 Hgb 12.8 gm/dL (13.0-17.5) L 08/01/18 11:58 Hct 40.1 % (39.0-53.0) 08/01/18 11:58 MCV 98.8 fL (80.0-100.0) 08/01/18 11:58 MCH 31.6 pg (25.0-35.0) 08/01/18 11:58 MCHC 31.9 g/dL (31.0-37.0) 08/01/18 11:58 RDW 13.9 % (11.5-15.5) 08/01/18 11:58 Plt Count 276 k/uL (150-450) 08/01/18 11:58 Neutrophils % 81 % 08/01/18 11:58 Lymphocytes % 9 % 08/01/18 11:58 Monocytes % 6 % 08/01/18 11:58 Eosinophils % 3 % 08/01/18 11:58 Basophils % 0 % 08/01/18 11:58 Neutrophils # 8.9 k/uL (1.3-7.7) H 08/01/18 11:58 Lymphocytes # 1.0 k/uL (1.0-4.8) 08/01/18 11:58 Monocytes # 0.6 k/uL (0-1.0) 08/01/18 11:58 Eosinophils # 0.3 k/uL (0-0.7) 08/01/18 11:58 Basophils # 0.0 k/uL (0-0.2) 08/01/18 11:58 PT 10.3 sec (9.0-12.0) 07/27/18 10:40 INR 1.1 (<1.2) 07/27/18 10:40 APTT 30.4 sec (22.0-30.0) H 07/27/18 10:40 Sodium 142 mmol/L (137-145) 08/01/18 11:58 Potassium 3.7 mmol/L (3.5-5.1) 08/01/18 11:58 Chloride 110 mmol/L (98-107) H 08/01/18 11:58 Carbon Dioxide 24 mmol/L (22-30) 08/01/18 11:58 Anion Gap 8 mmol/L 08/01/18 11:58 BUN 31 mg/dL (9-20) H 08/01/18 11:58 Creatinine 1.28 mg/dL (0.66-1.25) H 08/01/18 11:58 Est GFR (CKD-EPI)AfAm 58 (>60 ml/min/1.73 sqM) 08/01/18 11:58 Est GFR (CKD-EPI)NonAf 50 (>60 ml/min/1.73 sqM) 08/01/18 11:58 Glucose 188 mg/dL (74-99) H 08/01/18 11:58 POC Glucose (mg/dL) 116 mg/dL (75-99) H 08/01/18 21:26 POC Glu Seed Cleaning Manager ID Ciara Braga 08/01/18 21:[address] Glu mg/dL 131 07/27/18 10:40 Hemoglobin A1c 6.2 % (4.0-6.0) H 07/27/18 10:40 Lactic Ac Sepsis Rflx Y 07/27/18 11:40 Plasma Lactic Acid Geovany 1.6 mmol/L (0.7-2.0) 07/30/18 22:18 Calcium 8.3 mg/dL (8.4-10.2) L 08/01/18 11:58 Total Bilirubin 1.0 mg/dL (0.2-1.3) 08/01/18 11:58 AST 24 U/L (17-59) 08/01/18 11:58 ALT 46 U/L (21-72) 08/01/18 11:58 Alkaline Phosphatase 73 U/L (38-126) 08/01/18 11:58 Total Creatine Kinase 185 U/L (55-170) H 07/30/18 22:18 CK-MB (CK-2) 4.8 ng/mL (0.0-2.4) H 07/30/18 22:18 CK-MB (CK-2) Rel Index 2.6 07/30/18 22:18 Troponin I 0.029 ng/mL (0.000-0.034) 07/30/18 22:18 NT-Pro-B Natriuret Pep 537 pg/mL 07/27/18 10:40 Total Protein 5.2 g/dL (6.3-8.2) L 08/01/18 11:58 Albumin 2.8 g/dL (3.5-5.0) L 08/01/18 11:58 Random Vancomycin 13.4 ug/mL 08/01/18 07:36 Microbiology 07/27/18 10:40 Blood Blood Culture Gram Stain - Final 07/27/18 10:40 Blood Blood Culture - Final Staph hominis sub sp. hominis 07/27/18 10:40 Blood Blood Culture - Final - Imaging and Cardiology Chest x-ray: report reviewed (some increased infiltrate) Assessment and Plan (1) Gram-positive bacteremia Current Visit: Yes Status: Acute Code(s): R78.81 - BACTEREMIA SNOMED Code( s): 845334766449 (2) Multifocal pneumonia Narrative/Plan: 88-year-old male presents to Hospital feeling poorly with evidence of fever and leukocytosis at admission. Original chest x-ray shows evidence of the left lower lobe infiltrate and follow-up x-ray now shows a new right middle lobe infiltrate also. The patient is requiring oxygen therapy for his pneumonia. The patient does have evidence of possible culture and Staphylococcus hominis. His highly consistent contamination and awaits final result. At this time is being treated with azithromycin and cefepime which is a reasonable choice for now until there is further data. Vancomycin will likely be discontinued tomorrow once cultures are final since the staphylococcus hominis is almost always a contamination in this situation. continue ongoing supportive care. The patient is somewhat anxious to go home. We discussed the fact of how ill he is at this point in time with multifocal pneumonia and oxygen needs in this really not ready for discharged home over the next few days he will improved. Blood culture reveals evidence of quite was negative staph, vancomycin discontinued. Still feeling poorly. Await other cultures continue antibiotic therapy respiratory treatments and rest and oxygen therapy. Current Visit: Yes Status: Acute Code(s): J18.9 - PNEUMONIA, UNSPECIFIED ORGANISM SNOMED Code(s): 002812593 (3) Leukocytosis Current Visit: Yes Status: Acute Code(s): D72.829 - ELEVATED WHITE BLOOD CELL COUNT, UNSPECIFIED SNOMED Code(s): 557101716
[2018-08-02] MEDS: SODIUM CHLORIDE 0.9% 1,000 ML IV SCH ×2 (00:43→15:17)
[2018-08-02] MEDS: LEVOTHYROXINE 75 MCG TAB PO SCH (06:16)
[2018-08-02 07:11] LABS: Glucose,Whole Blood 94 mg/dL (75-99)
[2018-08-02] MEDS: INSULIN ASPART 100 UNIT/ML 1 ML 10 ML VIAL SQ SCH ×4 (07:15→22:40)
[2018-08-02] MEDS: IPRATROPIUM-ALBUTEROL 3 ML NEB INHALATION SCH ×4 (07:21→19:41)
[2018-08-02 08:02] LABS: Calcium 8.2 mg/dL (8.4-10.2); Potassium 3.6 mmol/L (3.5-5.1)
[2018-08-02] MEDS: PRAVASTATIN SODIUM 40 MG TAB PO SCH (08:05)
[2018-08-02] MEDS: CEFEPIME 2 GM in SODIUM CHLORIDE 0.9% 50 ML IVPB SCH (08:05)
[2018-08-02] MEDS: AZITHROMYCIN 500 MG TAB PO SCH (08:05)
[2018-08-02] MEDS: DONEPEZIL 10 MG TAB PO SCH (08:05)
[2018-08-02] MEDS: METOPROLOL TARTRATE 25 MG TAB PO SCH ×2 (08:05→20:25)
[2018-08-02] MEDS: APIXABAN 2.5 MG TABLET PO SCH ×2 (08:05→20:36)
[2018-08-02 11:58] LABS: Glucose,Whole Blood 111 mg/dL (75-99)
[2018-08-02 17:06] LABS: Glucose,Whole Blood 135 mg/dL (75-99)
[2018-08-02] MEDS: HYDROcodone/APAP 10-325MG 1 EACH TAB PO PRN (20:35)
[2018-08-02] MEDS: MONTELUKAST 10 MG TAB PO SCH (20:36)
[2018-08-02 21:31] LABS: Glucose,Whole Blood 98 mg/dL (75-99)
[2018-08-03] MEDS: SODIUM CHLORIDE 0.9% 1,000 ML IV SCH ×2 (04:58→17:02)
[2018-08-03] MEDS: LEVOTHYROXINE 75 MCG TAB PO SCH (05:52)
[2018-08-03] MEDS: IPRATROPIUM-ALBUTEROL 3 ML NEB INHALATION SCH ×3 (07:05→15:17)
[2018-08-03 07:06] LABS: Glucose,Whole Blood 102 mg/dL (75-99)
[2018-08-03] MEDS: INSULIN ASPART 100 UNIT/ML 1 ML 10 ML VIAL SQ SCH ×3 (08:53→17:02)
[2018-08-03] MEDS: CEFEPIME 2 GM in SODIUM CHLORIDE 0.9% 50 ML IVPB SCH (08:53)
[2018-08-03] MEDS: METOPROLOL TARTRATE 25 MG TAB PO SCH (09:16)
[2018-08-03] MEDS: AZITHROMYCIN 500 MG TAB PO SCH (09:16)
[2018-08-03] MEDS: PRAVASTATIN SODIUM 40 MG TAB PO SCH (09:16)
[2018-08-03] MEDS: DONEPEZIL 10 MG TAB PO SCH (09:16)
[2018-08-03] MEDS: APIXABAN 2.5 MG TABLET PO SCH (09:17)
--- NOTE | 2018-08-03 10:12 | CDI ---
Last Revision, August 2017 Documentation Clarification Form Date: 08/03/18 From: Coby Da Silva RN Admit Date: 07/27/2018 12:06:00 PM Patient Name: Harish Calderón Visit Number: [id number] ATTENTION: The Clinical Documentation Specialists (CDI) and [facility] Coding Staff appreciate your assistance in clarifying documentation. Please respond to the clarification below the line at the bottom and electronically sign. The CDI & [facility] Coding staff will review the response and follow-up if needed. Please note: Queries are made part of the Legal Health Record. If you have any questions, please contact the author of this message via ITS. Dr. CHOW, Robb Bee MD, Documentation and location in medical record included Pneumonitis, gram positive bacteremia and positive blood cultures. Patient admitted with A-Fib RVR, Leukocytosis, pneumonia, acute exacerbation of COPD History/Risk Factors: CAD, COPD, HTN, dementia, hyperlipidemia, pneumonia, CKD 3 , RA, sepsis, respiratory hypoxic respiratory failure HOME 02 at 2-3L, hypothyroid, ex smoker Clinical Indicators: WBC on admission: 17.7 Lactic acid: 2.3 -2.5 Blood cultures: Positive for Gram Positive Cocci Vitals signs on admission: T 97.3, P 90, 18, 113/83, 99% 2L Treatment: ID Consult: Dr Tracy Antibiotics: Azithromycin IVPB, Cefepime IVPB, Vancomycin IVPB IV Bolus: .9 500 ml x 2 In your professional opinion, please clarify if these findings signify one of the following conditions, whether the condition is POA, and cause, if known: Condition Sepsis ruled in Sepsis ruled out Other, please specify Unable to determine Present on Admission: Yes No Identify the (suspected) organism MTDD
[2018-08-03 11:08] VITALS: BMI 25.0
[2018-08-03 12:29] LABS: Glucose,Whole Blood 107 mg/dL (75-99)
[2018-08-03 14:08] VITALS: BP 127/63; PULSE 82; TEMP 98.7
[2018-08-03 15:09] VITALS: RESP 18
[2018-08-03 15:20] LABS: Basophils % (A) 0 %; Eosinophils # (A) 0.5 k/uL (0-0.7); Eosinophils % (A) 5 %; HCT 37.9 % (39.0-53.0); HGB 12.7 gm/dL (13.0-17.5); Lymphocytes # (A) 1.2 k/uL (1.0-4.8); Lymphocytes % (A) 11 %; MCH 32.1 pg (25.0-35.0); MCHC 33.5 g/dL (31.0-37.0); Mean Platelet Volume 8.4; Monocytes # (A) 0.6 k/uL (0-1.0); Monocytes % (A) 6 %; Neutrophils % (A) 76 %; Platelet Count 259 k/uL (150-450); RBC 3.95 m/uL (4.30-5.90); RDW 13.7 % (11.5-15.5); WBC 10.4 k/uL (3.8-10.6)
[2018-08-03 15:26] LABS: Albumin 2.8 g/dL (3.5-5.0); Calcium 8.3 mg/dL (8.4-10.2); Potassium 3.7 mmol/L (3.5-5.1); Total Bilirubin 0.8 mg/dL (0.2-1.3); Total Protein 5.3 g/dL (6.3-8.2)
--- NOTE | 2018-08-03 15:27 | XR ---
EXAMINATION TYPE: XR chest 2V DATE OF EXAM: 08/03/2018 COMPARISON: 08/01/2018 HISTORY: Pneumonitis. Progress exam. TECHNIQUE: Frontal and lateral views of the chest are obtained. FINDINGS: There are persistent perihilar reticular opacities. Cardiomediastinal silhouette is stable and nonenlarged. Osseous structures are again grossly intact. No sizable pleural effusion or pneumot horax. Degenerative changes are seen of the thoracic spine and acromio clavicular joints with high ri ding right humerus suggestive of underlying chronic rotator cuff tear. IMPRESSION: 1. Similar-appearing is perihilar airspace disease when compared to the prior of 08/01/2018. 2. 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
[2018-08-03 16:57] LABS: Glucose,Whole Blood 99 mg/dL (75-99)
--- NOTE | 2018-08-03 19:46 | PN ---
PROGRESS NOTE DATE OF SERVICE: 08/02/2018. CHIEF COMPLAINT: Pneumonitis, delirium and dementia. HISTORY OF PRESENT ILLNESS: This gentleman seems to be doing fairly well and condition is probably the same. Vital signs have been normal. His x-ray will be reassessed along with his labs. He is being followed by Infectious Disease. PHYSICAL EXAM: Breath sounds are improved. There are fewer rales and rhonchi. Cardiac exam is normal. Abdomen is soft, nontender. He remains confused. IMPRESSION: 1. Pneumonitis, responding poorly to treatments. 2. Chronic obstructive pulmonary disease. 3. Dementia. PLAN: No change in program and repeat studies first of the week. MMODL / IJN: [id number] /
--- NOTE | 2018-08-03 19:48 | P.PN ---
Subjective Progress Note Date: 08/03/18 88 show male with multiple medical troubles presents to the emergency center feeling poorly. He was having some difficulties increasing shortness of breath. Upon arrival there was evidence of atrial fibrillation with rapid ventricular response. So concerns to a new infiltrate in the left lower lobe area. Patient was initiated antibiotic therapy. The patient is continuing to feel poorly although his fevers have improved. He does have a leukocytosis. There was evidence of the positive blood culture in the infectious diseases consultation was requested. At this time the patient is somewhat anxious to go home. He has talked to his who. He is anxious for him to come home. The patient however is still requiring oxygen and is still ill and is certainly not ready for discharged home. Patient still short of breath feels poorly blood cultures with coagulase- negative staph 08/03/2018 patient is now improved and requests to go home. Is off of oxygen therapy and feeling better, able to ambulate in the room,no chest pain. Objective - Vital Signs Vital signs: Vital Signs Temp 98.7 F 08/03/18 14:08 Pulse 82 08/03/18 14:08 Resp 18 08/03/18 15:08 BP 127/63 08/03/18 14:08 Pulse Ox 91 L 08/03/18 14:08 Intake & Output 08/03/18 08/03/18 08/04/18 06:59 18:59 06:59 Weight 83.5 kg Other: # Voids 0 3 # Bowel Movements 1 - Exam 88-year-old male no longer on supplemental oxygen HEENT: Anicteric conjunctiva are pink and moist nasal mucosa grossly intact without significant lesions, there is no thrush. Neck: The neck is supple without significant lymphadenopathy or thyromegaly. Lungs:Symmetrical air entry with coarse crackles in the left base and right posterior mid zone expiratory wheezes are heard no dullness or egophony Heart: Regular rate and rhythm with an audible S1-S2, no S3 no S4. There is no significant murmur click or rub, PMI was nondisplaced. Abdomen: Positive bowel soft and nontender without palpable masses or organomegaly. There was no guarding or rebound. Extremities: The upper extremities have excellent pulses they are symmetric, no significant petechiae or telangiectasia. No splinter hemorrhages were noted. The lower extremities are free from significant edema. The peripheral pulses were 2+ and symmetric. Neuro: Awake alert oriented to person place and time. There are no acute new gross focal sensory motor deficits. - Labs CBC & Chem 7: 08/03/18 15:02 08/03/18 15:02 Labs: Abnormal Lab Results - Last 24 Hours (Table) 08/03/18 08/03/18 08/03/18 Range/Units 07:04 12:25 15:02 RBC 3.95 L (4.30-5.90) m/uL Hgb 12.7 L (13.0-17.5) gm/dL Hct 37.9 L (39.0-53.0) % Neutrophils # 8.0 H (1.3-7.7) k/uL Chloride (98-107) mmol/L BUN (9-20) mg/dL Creatinine (0.66-1.25) mg/dL Glucose (74-99) mg/dL POC Glucose (mg/dL) 102 H 107 H (75-99) mg/dL Calcium (8.4-10.2) mg/dL Total Protein (6.3-8.2) g/dL Albumin (3.5-5.0) g/dL 08/03/18 Range/Units 15:02 RBC (4.30-5.90) m/uL Hgb (13.0-17.5) gm/dL Hct (39.0-53.0) % Neutrophils # (1.3-7.7) k/uL Chloride 108 H (98-107) mmol/L BUN 35 H (9-20) mg/dL Creatinine 1.42 H (0.66-1.25) mg/dL Glucose 150 H (74-99) mg/dL POC Glucose (mg/dL) (75-99) mg/dL Calcium 8.3 L (8.4-10.2) mg/dL Total Protein 5.3 L (6.3-8.2) g/dL Albumin 2.8 L (3.5-5.0) g/dL Laboratory Results WBC 10.4 k/uL (3.8-10.6) 08/03/18 15:02 RBC 3.95 m/uL (4.30-5.90) L 08/03/18 15:02 Hgb 12.7 gm/dL (13.0-17.5) L 08/03/18 15:02 Hct 37.9 % (39.0-53.0) L 08/03/18 15:02 MCV 96.0 fL (80.0-100.0) 08/03/18 15:02 MCH 32.1 pg (25.0-35.0) 08/03/18 15:02 MCHC 33.5 g/dL (31.0-37.0) 08/03/18 15:02 RDW 13.7 % (11.5-15.5) 08/03/18 15:02 Plt Count 259 k/uL (150-450) 08/03/18 15:02 Neutrophils % 76 % 08/03/18 15:02 Lymphocytes % 11 % 08/03/18 15:02 Monocytes % 6 % 08/03/18 15:02 Eosinophils % 5 % 08/03/18 15:02 Basophils % 0 % 08/03/18 15:02 Neutrophils # 8.0 k/uL (1.3-7.7) H 08/03/18 15:02 Lymphocytes # 1.2 k/uL (1.0-4.8) 08/03/18 15:02 Monocytes # 0.6 k/uL (0-1.0) 08/03/18 15:02 Eosinophils # 0.5 k/uL (0-0.7) 08/03/18 15:02 Basophils # 0.0 k/uL (0-0.2) 08/03/18 15:02 PT 10.3 sec (9.0-12.0) 07/27/18 10:40 INR 1.1 (<1.2) 07/27/18 10:40 APTT 30.4 sec (22.0-30.0) H 07/27/18 10:40 Sodium 142 mmol/L (137-145) 08/03/18 15:02 Potassium 3.7 mmol/L (3.5-5.1) 08/03/18 15:02 Chloride 108 mmol/L (98-107) H 08/03/18 15:02 Carbon Dioxide 28 mmol/L (22-30) 08/03/18 15:02 Anion Gap 6 mmol/L 08/03/18 15:02 BUN 35 mg/dL (9-20) H 08/03/18 15:02 Creatinine 1.42 mg/dL (0.66-1.25) H 08/03/18 15:02 Est GFR (CKD-EPI)AfAm 52 (>60 ml/min/1.73 sqM) 08/03/18 15:02 Est GFR (CKD-EPI)NonAf 45 (>60 ml/min/1.73 sqM) 08/03/18 15:02 Glucose 150 mg/dL (74-99) H 08/03/18 15:02 POC Glucose (mg/dL) 99 mg/dL (75-99) 08/03/18 16:45 POC Glu Hvac Technician ID Gaviota Medel 08/03/18 16:[address] Glu mg/dL 131 07/27/18 10:40 Hemoglobin A1c 6.2 % (4.0-6.0) H 07/27/18 10:40 Lactic Ac Sepsis Rflx Y 07/27/18 11:40 Plasma Lactic Acid Geovany 1.6 mmol/L (0.7-2.0) 07/30/18 22:18 Calcium 8.3 mg/dL (8.4-10.2) L 08/03/18 15:02 Total Bilirubin 0.8 mg/dL (0.2-1.3) 08/03/18 15:02 AST 27 U/L (17-59) 08/03/18 15:02 ALT 42 U/L (21-72) 08/03/18 15:02 Alkaline Phosphatase 69 U/L (38-126) 08/03/18 15:02 Total Creatine Kinase 185 U/L (55-170) H 07/30/18 22:18 CK-MB (CK-2) 4.8 ng/mL (0.0-2.4) H 07/30/18 22:18 CK-MB (CK-2) Rel Index 2.6 07/30/18 22:18 Troponin I 0.029 ng/mL (0.000-0.034) 07/30/18 22:18 NT-Pro-B Natriuret Pep 537 pg/mL 07/27/18 10:40 Total Protein 5.3 g/dL (6.3-8.2) L 08/03/18 15:02 Albumin 2.8 g/dL (3.5-5.0) L 08/03/18 15:02 Random Vancomycin 13.4 ug/mL 08/01/18 07:36 Microbiology 07/27/18 10:40 Blood Blood Culture Gram Stain - Final 07/27/18 10:40 Blood Blood Culture - Final Staph hominis sub sp. hominis 07/27/18 10:40 Blood Blood Culture - Final Assessment and Plan (1) Gram-positive bacteremia Status: Acute Code(s): R78.81 - BACTEREMIA SNOMED Code(s): 833748860450 (2) Multifocal pneumonia Narrative/Plan: 88-year-old male presents to Hospital feeling poorly with evidence of fever and leukocytosis at admission. Original chest x-ray shows evidence of the left lower lobe infiltrate and follow-up x-ray now shows a new right middle lobe infiltrate also. The patient is requiring oxygen therapy for his pneumonia. The patient does have evidence of possible culture and Staphylococcus hominis. His highly consistent contamination and awaits final result. At this time is being treated with azithromycin and cefepime which is a reasonable choice for now until there is further data. Vancomycin will likely be discontinued tomorrow once cultures are final since the staphylococcus hominis is almost always a contamination in this situation. continue ongoing supportive care. The patient is somewhat anxious to go home. We discussed the fact of how ill he is at this point in time with multifocal pneumonia and oxygen needs in this really not ready for discharged home over the next few days he will improved. Blood culture reveals evidence of quite was negative staph, vancomycin discontinued. Still feeling poorly. Await other cultures continue antibiotic therapy respiratory treatments and rest and oxygen therapy. 08/03/2018 patient is feeling considerably better today. His shortness of breath has generally resolved. He's having no significant new cough or sputum production. No hemoptysis. X-ray shows evidence of some clearing of the prior infiltrates. He is now off of oxygen therapy with adequate saturations Patient is quite anxious for discharge to home which apparently occurred this point in time. Blood cultures a contamination with Staphylococcus hominis and will require no specific therapy To complete a course of levofloxacin for the treatment of his pulmonary infection and follow-up with his primary care physician after discharge. Status: Acute Code(s): J18.9 - PNEUMONIA, UNSPECIFIED ORGANISM SNOMED Code(s ): 964559537 (3) Leukocytosis Status: Acute Code(s): D72.829 - ELEVATED WHITE BLOOD CELL COUNT, UNSPECIFIED SNOMED Code(s): 990456115
--- NOTE | 2018-08-03 19:58 | PN ---
PROGRESS NOTE DATE OF SERVICE: 08/03/2018 CHIEF COMPLAINT: Pneumonitis. HISTORY OF PRESENT ILLNESS: This gentleman seems to be doing a bit better. Temperature has been down. He could probably be discharged soon. I am not sure what kind of a living situation he will be going into. PHYSICAL EXAM: His chest demonstrates poor breath sounds with occasional rales and rhonchi bilaterally, but it is somewhat improved. Cardiac exam is normal. Abdomen is soft, nontender. He remains confused. IMPRESSION: 1. Pneumonitis. 2. Chronic obstructive pulmonary disease. 3. Dementia. PLAN: Possibly home in the next day or 2 if he has a safe place to go. MMODL / IJN: [id number] /
--- NOTE | 2018-08-04 13:46 | CDI ---
Last Revision, August 2017 Documentation Clarification Form Date: 08/04/18 From: Coby Da Silva RN Admit Date: 07/27/2018 12:06:00 PM Patient Name: Harish Calderón Visit Number: [id number] Discharge Date: 08/03/18 ATTENTION: The Clinical Documentation Specialists (CDI) and [facility] Coding Staff appreciate your assistance in clarifying documentation. Please respond to the clarification below the line at the bottom and electronically sign. The CDI & [facility] Coding staff will review the response and follow-up if needed. Please note: Queries are made part of the Legal Health Record. If you have any questions, please contact the author of this message via ITS. Dr. CHOW, Robb Bee MD, Documentation of hx. of COPD is located in the ED note, Consult 07/28, H&P and Progress notes. Patient admitted with A Fib RVR, Leukocytosis, pneumonia, COPD History/Risk Factors: CAD, COPD, HTN, pneumonia, CKD 3, respiratory hypoxic respiratory failure , ex smoker, Home O2 @ 2-3 L Clinical Indicators: CXR: similar appearing is perihilar airspace disease Vital Signs on admission: T 97.3, P 90, 18, 113/83, 99% 2L Lung and Respiratory Assessment: wheezes, rhonchi and decreased breath sounds Treatment: Nebulizers: Ventolin, Duoneb Steroids: Rose-Medrol O2 @ 2 liters on standby Antibiotics: Azithromycin IVPB, Cefepime IVPB, Vancomycin IVPB In your professional opinion, can you please clarify if the above findings and treatment signify any of the following? Acute Exacerbation of Chronic Obstructive Pulmonary Disease (COPD) Acute on chronic bronchitis Chronic obstructive pulmonary disease with acute lower respiratory infection Emphysema Other condition, please specify MTDD
--- NOTE | 2018-08-04 14:19 | CDI ---
Last Revision, August 2017 Documentation Clarification Form Date: 08/04/18 From: Coby Da Silva RN Admit Date: 07/27/2018 12:06:00 PM Patient Name: Harish Calderón Visit Number: [id number] ATTENTION: The Clinical Documentation Specialists (CDI) and [facility] Coding Staff appreciate your assistance in clarifying documentation. Please respond to the clarification below the line at the bottom and electronically sign. The CDI & [facility] Coding staff will review the response and follow-up if needed. Please note: Queries are made part of the Legal Health Record. If you have any questions, please contact the author of this message via ITS. Dr. CHOW, Robb Bee MD, Renal failure was documented in the PN 07/24 Patient was admitted for A-Fib, Leukocytosis, HCA pneumonia and acute exacerbation of COPD. History/Risk Factors: CAD, COPD, HTN, pneumonia, CKD 3, RA, sepsis, respiratory hypoxic respiratory failure HOME 02 at 2-3L Clinical Indicators: Current BUN 22, CR 1.60, GFR 39 , Peaked at BUN 50, Cr. 2.0, GFR 29 and on 08/02 Bun 32, CR 1.32, GFR 49 History of CKD 3 Treatment: Consults: ID, Cardiology IVF .9 at 75ML/ HR In order to capture the severity of condition, please clarify if the condition signifies: Acute renal failure, Please specify etiology (if known): Tubular Necrosis Acute kidney injury Acute on chronic renal failure Other, please specify Unable to determine MTDD
--- NOTE | 2018-08-06 19:56 | MISC ---
MISCELLANOUS REPORT Question: In your professional opinion, sepsis ruled in; present on admission, yes; specific organism, unknown gram-positive toxoid. MMODL / IJN: [id number] /
--- NOTE | 2018-08-06 20:08 | MISC ---
MISCELLANOUS REPORT Regarding renal failure. Other would be chronic renal failure and prerenal azotemia. MMODL / IJN: [id number] /
--- NOTE | 2018-08-06 20:08 | MISC ---
MISCELLANOUS REPORT Acute exacerbation of chronic COPD. MMODL / IJN: [id number] /
--- NOTE | 2018-08-09 18:17 | DS ---
DISCHARGE SUMMARY DATE OF SERVICE: 08/03/2018 CHIEF COMPLAINT: Mental status changes, delirium and pneumonia. HISTORY OF PRESENT ILLNESS AND PHYSICAL EXAM: Details of this man's history and physical can be found in the initial workup. LABORATORY STUDIES: While he was in the hospital, he had laboratory studies, details of which can be found in the laboratory section of chart. COURSE IN HOSPITAL: After admission he was placed on bedrest, started on intravenous fluids and placed on antibiotics and updrafts. Initially he became very agitated, but he slowly began to improve and as he was cleared, it was felt that he could be discharged back home and he will be seen in the office in several days. FINAL DIAGNOSES: 1. Mental status changes. 2. Delirium. 3. Dementia. 4. Pneumonitis. 5. Chronic obstructive pulmonary disease. OPERATIONS: None. CONSULTATIONS: None. He is improved. TRAY / CRYS: [id number] /
== END 2018-08-03 18:55 | disposition home health service (06) | DRG 871 ==
LOC: EC 10:27 → 3SCARD 12:06 → 4MS4W 07-30 00:26
PROVIDERS: ADMIT Family Medicine; ATTEND Family Medicine
DX: A41.89 Other specified sepsis (principal); J18.0 Bronchopneumonia, unspecified organism; E87.2 Acidosis; F05 Delirium due to known physiological condition; J44.0 Chronic obstructive pulmonary disease with (acute) lower respiratory infection; J44.1 Chronic obstructive pulmonary disease with (acute) exacerbation; E03.9 Hypothyroidism, unspecified; E78.5 Hyperlipidemia, unspecified; E83.51 Hypocalcemia; F03.90 Unspecified dementia, unspecified severity, without behavioral disturbance, psychotic disturbance, mood disturbance, and anxiety; I12.9 Hypertensive chronic kidney disease with stage 1 through stage 4 chronic kidney disease, or unspecified chronic kidney disease; I25.10 Atherosclerotic heart disease of native coronary artery without angina pectoris; I48.0 Paroxysmal atrial fibrillation; M06.9 Rheumatoid arthritis, unspecified; N18.3 Chronic kidney disease, stage 3 (moderate); N40.0 Benign prostatic hyperplasia without lower urinary tract symptoms; M25.551 Pain in right hip; M25.552 Pain in left hip; R26.2 Difficulty in walking, not elsewhere classified; G89.29 Other chronic pain; M51.36 Other intervertebral disc degeneration, lumbar region; Z79.01 Long term (current) use of anticoagulants; Z79.890 Hormone replacement therapy; Z79.899 Other long term (current) drug therapy; Z87.891 Personal history of nicotine dependence; Z87.01 Personal history of pneumonia (recurrent); Z90.49 Acquired absence of other specified parts of digestive tract; Z98.42 Cataract extraction status, left eye; Z98.41 Cataract extraction status, right eye; Z96.1 Presence of intraocular lens; Z82.5 Family history of asthma and other chronic lower respiratory diseases; Z80.9 Family history of malignant neoplasm, unspecified
CPT/HCPCS: 36415; 71046; 80048; 80053; 80202; 82550; 82553; 83036; 83605; 83880; 84484; 85025; 85610; 85730; 87040; 87077; 87186; 93005; 93306; 94640; 94760; 96365; 96375; 99291

== ENCOUNTER 2018-09-29 22:21 | Emergency (ER) | payer MEDICARE, OTHER ==
[2018-09-29 22:32] VITALS: TEMP 97.4
--- NOTE | 2018-09-29 23:24 | ED ---
Skin/Abscess/FB HPI - General Chief complaint: Skin/Abscess/Foreign Body Stated complaint: Cellulitis Time Seen by Provider: 09/29/18 22:34 Source: patient, EMS Mode of arrival: EMS Limitations: no limitations - History of Present Illness Initial comments: 88-year-old male patient with multiple medical problems presents to the emergency department today for evaluation of "rash" to the left forearm. Patient states several days ago he saw a spider on his arm which he believed bit him. Patient states the area became itchy. Patient states that he did itch and rub the area a lot. States that over the last 3 days he has noticed increased redness to the arm. Denies any pain or itching to the area currently. Denies any fevers or chills. Patient states that he does take Eliquis twice daily for atrial fibrillation. He denies any known injury to the arm. Patient denies any recent shortness breath, chest pain, abdominal pain, nausea, vomiting, diarrhea, constipation, back pain, numbness, tingling, dizziness, weakness, hematuria, dysuria, urinary urgency, urinary frequency, headache, visual changes, or any other complaints. - Related Data Home Medications Medication Instructions Recorded Confirmed Montelukast Sodium [Singulair] 10 mg PO HS 01/14/17 09/29/18 Pravastatin Sodium [Pravachol] 40 mg PO DAILY 06/05/18 09/29/18 Celecoxib [CeleBREX] 200 mg PO DAILY 07/27/18 09/29/18 Donepezil [Aricept] 10 mg PO DAILY 07/27/18 09/29/18 Metoprolol Tartrate [Lopressor] 12.5 mg PO BID 07/27/18 09/29/18 HYDROcodone/APAP 5-325MG [[place] 1 tab PO TID PRN 09/29/18 09/29/18 5-325] Previous Rx's Medication Instructions Recorded Apixaban [Eliquis] 2.5 mg PO BID 3 Days #6 tab 06/05/18 Levothyroxine Sodium [Synthroid] 75 mcg PO DAILY 3 Days #3 tab 06/05/18 Allergies Allergy/AdvReac Type Severity Reaction Status Date / Time No Known Allergies Allergy Verified 09/29/18 22:58 Review of Systems ROS Statement: Those systems with pertinent positive or pertinent negative responses have been documented in the HPI. ROS Other: All systems not noted in ROS Statement are negative. Past Medical History Past Medical History: Atrial Fibrillation, Coronary Artery Disease (CAD), COPD, Dementia, Hyperlipidemia, Hypertension, Memory Impairment, Pneumonia, Prostate Disorder, Renal Disease, Respiratory Disorder, Rheumatoid Arthritis (RA), Thyroid Disorder Additional Past Medical History / Comment(s): Pneumonia with sepsis, hypoxic respiratory failure, suppose to wear home O2 at 2-3L/NC but refuses, CKD stage III, BPH, hypothyroid, lumbar disc dx, chronic back and bilateral hip pain- difficulty walking at times, possible upper GI bleed. History of Any Multi-Drug Resistant Organisms: None Reported Past Surgical History: Back Surgery, Cholecystectomy, Heart Catheterization, Orthopedic Surgery Additional Past Surgical History / Comment(s): Bilateral cataract removal and lens implants, left knee open surgery d/t injury, EGD Past Anesthesia/Blood Transfusion Reactions: No Reported Reaction Past Psychological History: No Psychological Hx Reported Smoking Status: Former smoker Past Alcohol Use History: None Reported Past Drug Use History: None Reported - Past Family History Mother Family Medical History: Cancer Additional Family Medical History / Comment(s): Mother at age 96. Unsure what type of cancer Father Family Medical History: COPD Additional Family Medical History / Comment(s): Father at age 88 from emphysema Brother(s) Additional Family Medical History / Comment(s): Patient has 7 brothers. Sister(s) Additional Family Medical History / Comment(s): Patient has 1 sister. Daughter(s) Additional Family Medical History / Comment(s): He has 4 daughters and 2 sons. General Exam Limitations: no limitations General appearance: alert, in no apparent distress, other (This is a well- developed, well-nourished, elderly male patient in no acute distress. Vital signs upon presentation are temperature 97.4F, pulse 56, respirations 22, blood pressure 177/94, pulse ox 97% on room air.) Respiratory exam: Present: normal lung sounds bilaterally. Absent: respiratory distress, wheezes, rales, rhonchi, stridor Cardiovascular Exam: Present: regular rate, normal rhythm, normal heart sounds. Absent: systolic murmur, diastolic murmur, rubs, gallop, clicks Extremities exam: Present: full ROM, normal capillary refill, other (Left forearm reveals diffuse ecchymosis to the dorsal aspect extending into the volar aspect. Skin is otherwise pink, warm, and dry. Cap refills less than 3 seconds. Radial pulses 2+ and equal bilaterally. No evidence of rash or cellulitis.). Absent: normal inspection, tenderness, pedal edema, joint swelling, calf tenderness Neurological exam: Present: alert, oriented X3, CN II-XII intact Psychiatric exam: Present: normal affect, normal mood Skin exam: Present: warm, dry, intact, normal color. Absent: rash Course Vital Signs 09/29/18 09/29/18 22:24 23:47 Temperature 97.4 F L Pulse Rate 56 L 62 Respiratory 22 18 Rate Blood Pressure 177/94 150/99 O2 Sat by Pulse 97 99 Oximetry Medical Decision Making - Medical Decision Making 88-year-old male patient presented to the emergency department today for evaluation of "rash" to the left forearm. Physical examination did reveal extensive ecchymosis to the forearm. Patient did have some itchy lesions earlier in the week which she did report having scratched and rub the area repeatedly. Patient does take Eliquis, is felt that this has caused the ecchymosis. He has no tenderness to the forearm, reports no injury. He is afebrile, vital signs are satisfactory. He'll be discharged home at this time to follow-up with his primary care physician for recheck. Return parameters discussed in detail. He verbalizes understanding and agrees with this plan. Disposition Clinical Impression: Ecchymosis of forearm Disposition: HOME SELF-CARE Condition: Good Instructions (If sedation given, give patient instructions): Ecchymosis (ED) Additional Instructions: Follow up with your primary care physician for a recheck in 1-2 days. Return immediately for any new, worsening, or concerning symptoms. Is patient prescribed a controlled substance at d/c from ED?: No Referrals: Robb Sheppard MD [Primary Care Provider] - 1-2 days Time of Disposition: 23:24
[2018-09-29 23:48] VITALS: BP 150/99; PULSE 62; RESP 18
== END 2018-09-29 23:47 | disposition home or self-care (01) ==
LOC: EC 22:21
DX: R58 Hemorrhage, not elsewhere classified (principal); I48.91 Unspecified atrial fibrillation; I25.10 Atherosclerotic heart disease of native coronary artery without angina pectoris; J44.9 Chronic obstructive pulmonary disease, unspecified; F03.90 Unspecified dementia, unspecified severity, without behavioral disturbance, psychotic disturbance, mood disturbance, and anxiety; E78.5 Hyperlipidemia, unspecified; M06.9 Rheumatoid arthritis, unspecified; I12.9 Hypertensive chronic kidney disease with stage 1 through stage 4 chronic kidney disease, or unspecified chronic kidney disease; N18.3 Chronic kidney disease, stage 3 (moderate); Z87.891 Personal history of nicotine dependence; Z87.01 Personal history of pneumonia (recurrent); Z90.49 Acquired absence of other specified parts of digestive tract; Z98.890 Other specified postprocedural states; Z79.1 Long term (current) use of non-steroidal anti-inflammatories (NSAID); Z79.899 Other long term (current) drug therapy
CPT/HCPCS: 99283

== ENCOUNTER 2019-09-25 12:33 | Emergency (ER) | payer MEDICARE, OTHER ==
[2019-09-25] MEDS ORDERED: SODIUM CHLORIDE 0.9% 1,000 ML IV STA (12:44)
--- NOTE | 2019-09-25 12:47 | ED ---
General Adult HPI - General Stated complaint: Syncope Time Seen by Provider: 09/25/19 12:35 Source: patient, EMS, RN notes reviewed Mode of arrival: EMS Limitations: no limitations - History of Present Illness Initial comments: Patient is a pleasant 89-year-old male presenting to the emergency Department with complaints of near syncopal episode. Patient states there was one dark bowel movement yesterday. Patient was standing up at the sink when he felt lightheaded and like he might pass out. Patient was sweaty. Patient felt was knees however never passed out. Patient denies any chest or back pain. No abdominal pain. No headache or confusion or isolated area of weakness. Patient unclear of any history of similar symptoms previously. Patient is currently symptom-free at this time. - Related Data Home Medications Medication Instructions Recorded Confirmed Montelukast Sodium [Singulair] 10 mg PO HS 01/14/17 09/29/18 Pravastatin Sodium [Pravachol] 40 mg PO DAILY 06/05/18 09/29/18 Celecoxib [CeleBREX] 200 mg PO DAILY 07/27/18 09/29/18 Donepezil [Aricept] 10 mg PO DAILY 07/27/18 09/29/18 Metoprolol Tartrate [Lopressor] 12.5 mg PO BID 07/27/18 09/29/18 HYDROcodone/APAP 5-325MG [[place] 1 tab PO TID PRN 09/29/18 09/29/18 5-325] Previous Rx's Medication Instructions Recorded Apixaban [Eliquis] 2.5 mg PO BID 3 Days #6 tab 06/05/18 Levothyroxine Sodium [Synthroid] 75 mcg PO DAILY 3 Days #3 tab 06/05/18 Allergies Allergy/AdvReac Type Severity Reaction Status Date / Time No Known Allergies Allergy Verified 09/29/18 22:58 Review of Systems ROS Statement: Those systems with pertinent positive or pertinent negative responses have been documented in the HPI. ROS Other: All systems not noted in ROS Statement are negative. Constitutional: Denies: fever Eyes: Denies: eye pain ENT: Denies: ear pain Respiratory: Denies: cough Cardiovascular: Denies: chest pain Endocrine: Denies: fatigue Gastrointestinal: Denies: abdominal pain Genitourinary: Denies: dysuria Musculoskeletal: Denies: back pain Skin: Denies: rash Neurological: Denies: headache, weakness, confusion Past Medical History Past Medical History: Atrial Fibrillation, Coronary Artery Disease (CAD), COPD, Dementia, Hyperlipidemia, Hypertension, Memory Impairment, Pneumonia, Prostate Disorder, Renal Disease, Respiratory Disorder, Rheumatoid Arthritis (RA), Thyroid Disorder Additional Past Medical History / Comment(s): Pneumonia with sepsis, hypoxic respiratory failure, suppose to wear home O2 at 2-3L/NC but refuses, CKD stage III, BPH, hypothyroid, lumbar disc dx, chronic back and bilateral hip pain- difficulty walking at times, possible upper GI bleed. History of Any Multi-Drug Resistant Organisms: None Reported Past Surgical History: Back Surgery, Cholecystectomy, Heart Catheterization, Orthopedic Surgery Additional Past Surgical History / Comment(s): Bilateral cataract removal and lens implants, left knee open surgery d/t injury, EGD Past Anesthesia/Blood Transfusion Reactions: No Reported Reaction Past Psychological History: No Psychological Hx Reported Smoking Status: Former smoker Past Alcohol Use History: None Reported Past Drug Use History: None Reported - Past Family History Mother Family Medical History: Cancer Additional Family Medical History / Comment(s): Mother at age 96. Unsure what type of cancer Father Family Medical History: COPD Additional Family Medical History / Comment(s): Father at age 88 from emphysema Brother(s) Additional Family Medical History / Comment(s): Patient has 7 brothers. Sister(s) Additional Family Medical History / Comment(s): Patient has 1 sister. Daughter(s) Additional Family Medical History / Comment(s): He has 4 daughters and 2 sons. General Exam Limitations: no limitations General appearance: alert, in no apparent distress Head exam: Present: atraumatic, normocephalic Eye exam: Present: normal appearance, PERRL, EOMI. Absent: nystagmus ENT exam: Present: normal oropharynx Neck exam: Present: normal inspection Respiratory exam: Present: normal lung sounds bilaterally Cardiovascular Exam: Present: regular rate, normal rhythm Expanded Peripheral pulses: 2+: Radial (R), Radial (L), Posterior Tibialis (R), Posterior Tibialis (L) GI/Abdominal exam: Present: soft. Absent: tenderness Extremities exam: Present: normal inspection. Absent: pedal edema, calf t enderness Neurological exam: Present: alert, CN II-XII intact. Absent: motor sensory deficit Expanded Neurological exam: Present: protecting the airway Patient oriented to: Present: person, place. Absent: time Speech: Present: fluid speech Cranial nerves: EOM's Intact: Normal, Facial Sensation: Normal Sensory exam: Upper Extremity Light Touch: Normal, Lower Extremity Light Touch: Normal Motor strength exam: RUE: 5, LUE: 5, RLE: 5, LLE: 5 Psychiatric exam: Present: normal affect, normal mood Skin exam: Present: normal color Course Vital Signs 09/25/19 09/25/19 09/25/19 12:35 13:00 13:30 Temperature 97.6 F Pulse Rate 73 Respiratory 18 Rate Blood Pressure 121/76 121/76 120/62 O2 Sat by Pulse 98 96 Oximetry 09/25/19 09/25/19 09/25/19 14:00 14:30 15:00 Temperature Pulse Rate Respiratory Rate Blood Pressure 122/66 127/70 138/72 O2 Sat by Pulse Oximetry EKG Findings - EKG Comments: EKG Findings:: Normal sinus rhythm 74. OH 156. QRS 90. QT 420. QTc 466. Normal axis. Normal QRS. No acute ST change. Medical Decision Making - Medical Decision Making Patient reevaluated and resting comfortably in bed, symptom-free. Patient was able to get up and and late using a walker without any difficulty. Patient does usually use a walker. Patient states he is comfortable with discharge home. Nursing staff did contact family who is also comfortable with discharge home. - Lab Data Result diagrams: 09/25/19 12:58 09/25/19 12:58 Lab Results 09/25/19 09/25/19 09/25/19 Range/Units 12:58 12:58 12:58 WBC 8.6 (3.8-10.6) k/uL RBC 4.60 (4.30-5.90) m/uL Hgb 14.6 (13.0-17.5) gm/dL Hct 46.7 (39.0-53.0) % MCV 101.5 H (80.0-100.0) fL MCH 31.8 (25.0-35.0) pg MCHC 31.3 (31.0-37.0) g/dL RDW 13.1 (11.5-15.5) % Plt Count 282 (150-450) k/uL Neutrophils % 76 % Lymphocytes % 13 % Monocytes % 7 % Eosinophils % 3 % Basophils % 1 % Neutrophils # 6.5 (1.3-7.7) k/uL Lymphocytes # 1.1 (1.0-4.8) k/uL Monocytes # 0.6 (0-1.0) k/uL Eosinophils # 0.2 (0-0.7) k/uL Basophils # 0.1 (0-0.2) k/uL Macrocytosis Slight PT (9.0-12.0) sec INR (<1.2) APTT (22.0-30.0) sec Sodium 143 (137-145) mmol/L Potassium 4.8 (3.5-5.1) mmol/L Chloride 112 H (98-107) mmol/L Carbon Dioxide 21 L (22-30) mmol/L Anion Gap 10 mmol/L BUN 28 H (9-20) mg/dL Creatinine 2.21 H (0.66-1.25) mg/dL Est GFR (CKD-EPI)AfAm 30 (>60 ml/min/1.73 sqM) Est GFR (CKD-EPI)NonAf 26 (>60 ml/min/1.73 sqM) Glucose 149 H (74-99) mg/dL Calcium 9.0 (8.4-10.2) mg/dL Magnesium 2.3 (1.6-2.3) mg/dL Total Bilirubin 1.4 H (0.2-1.3) mg/dL AST 25 (17-59) U/L ALT 13 (4-49) U/L Alkaline Phosphatase 102 (38-126) U/L Troponin I (0.000-0.034) ng/mL Total Protein 6.9 (6.3-8.2) g/dL Albumin 4.0 (3.5-5.0) g/dL Stool Occult Blood Negative (Negative) 09/25/19 09/25/19 Range/Units 12:58 12:58 WBC (3.8-10.6) k/uL RBC (4.30-5.90) m/uL Hgb (13.0-17.5) gm/dL Hct (39.0-53.0) % MCV (80.0-100.0) fL MCH (25.0-35.0) pg MCHC (31.0-37.0) g/dL RDW (11.5-15.5) % Plt Count (150-450) k/uL Neutrophils % % Lymphocytes % % Monocytes % % Eosinophils % % Basophils % % Neutrophils # (1.3-7.7) k/uL Lymphocytes # (1.0-4.8) k/uL Monocytes # (0-1.0) k/uL Eosinophils # (0-0.7) k/uL Basophils # (0-0.2) k/uL Macrocytosis PT 9.8 (9.0-12.0) sec INR 0.9 (<1.2) APTT 23.1 (22.0-30.0) sec Sodium (137-145) mmol/L Potassium (3.5-5.1) mmol/L Chloride (98-107) mmol/L Carbon Dioxide (22-30) mmol/L Anion Gap mmol/L BUN (9-20) mg/dL Creatinine (0.66-1.25) mg/dL Est GFR (CKD-EPI)AfAm (>60 ml/min/1.73 sqM) Est GFR (CKD-EPI)NonAf (>60 ml/min/1.73 sqM) Glucose (74-99) mg/dL Calcium (8.4-10.2) mg/dL Magnesium (1.6-2.3) mg/dL Total Bilirubin (0.2-1.3) mg/dL AST (17-59) U/L ALT (4-49) U/L Alkaline Phosphatase (38-126) U/L Troponin I <0.012 (0.000-0.034) ng/mL Total Protein (6.3-8.2) g/dL Albumin (3.5-5.0) g/dL Stool Occult Blood (Negative) - Radiology Data Radiology results: image reviewed (Chest x-ray shows some left lung base scarring.) Disposition Clinical Impression: Near syncope Disposition: HOME SELF-CARE Condition: Stable Instructions (If sedation given, give patient instructions): Near Syncope (ED) Additional Instructions: Please follow-up with primary care physician in the next day or 2 for recheck. Return for confusion or weakness, chest pain or difficulty breathing, passing out, worsening symptoms or other concerns. Is patient prescribed a controlled substance at d/c from ED?: No Referrals: Nonstaff,Physician [REFERRING] - 1-2 days Oneil Ba [STAFF PHYSICIAN] - 1-2 days Time of Disposition: 15:17
[2019-09-25 12:56] VITALS: PULSE 73; RESP 18; TEMP 97.6
[2019-09-25 13:22] LABS: Basophils # (A) 0.1 k/uL (0-0.2); Basophils % (A) 1 %; Eosinophils # (A) 0.2 k/uL (0-0.7); Eosinophils % (A) 3 %; HCT 46.7 % (39.0-53.0); HGB 14.6 gm/dL (13.0-17.5); Lymphocytes # (A) 1.1 k/uL (1.0-4.8); Lymphocytes % (A) 13 %; MCH 31.8 pg (25.0-35.0); MCHC 31.3 g/dL (31.0-37.0); MCV 101.5 fL (80.0-100.0); Macrocytosis Slight; Mean Platelet Volume 9.5; Monocytes # (A) 0.6 k/uL (0-1.0); Monocytes % (A) 7 %; Neutrophils # (A) 6.5 k/uL (1.3-7.7); Neutrophils % (A) 76 %; Platelet Count 282 k/uL (150-450); RDW 13.1 % (11.5-15.5); WBC 8.6 k/uL (3.8-10.6)
[2019-09-25 13:32] LABS: Magnesium 2.3 mg/dL (1.6-2.3); Potassium 4.8 mmol/L (3.5-5.1); Total Bilirubin 1.4 mg/dL (0.2-1.3); Total Protein 6.9 g/dL (6.3-8.2)
[2019-09-25 13:33] LABS: INR 0.9 (<1.2)
[2019-09-25 13:34] LABS: Partial Thromboplastin Time 23.1 sec (22.0-30.0); Prothrombin Time 9.8 sec (9.0-12.0)
--- NOTE | 2019-09-25 13:43 | XR ---
EXAMINATION TYPE: XR chest 2V DATE OF EXAM: 09/25/2019 HISTORY: syncope. REFERENCE: Previous study dated 08/03/2018. FINDINGS: Lung volumes are mildly prominent. There is a partial eventration of the right hemidiaphrag m. There is some scarring left lung base. Lungs otherwise clear. Pleural space are clear. The heart is n ot enlarged. IMPRESSION: CHRONIC SCARRING, LEFT LUNG BASE.
[2019-09-25 15:12] VITALS: BP 138/72
== END 2019-09-25 15:18 | disposition home or self-care (01) ==
LOC: EC 12:33
DX: R55 Syncope and collapse (principal); I25.10 Atherosclerotic heart disease of native coronary artery without angina pectoris; F03.90 Unspecified dementia, unspecified severity, without behavioral disturbance, psychotic disturbance, mood disturbance, and anxiety; E78.5 Hyperlipidemia, unspecified; J44.9 Chronic obstructive pulmonary disease, unspecified; M06.9 Rheumatoid arthritis, unspecified; I12.0 Hypertensive chronic kidney disease with stage 5 chronic kidney disease or end stage renal disease; N18.3 Chronic kidney disease, stage 3 (moderate); Z87.891 Personal history of nicotine dependence; Z79.1 Long term (current) use of non-steroidal anti-inflammatories (NSAID); Z79.899 Other long term (current) drug therapy; Z87.01 Personal history of pneumonia (recurrent)
CPT/HCPCS: 36415; 71046; 80053; 82272; 83735; 84484; 85025; 85610; 85730; 93005; 96360; 96361; 99285

== ENCOUNTER 2019-09-25 16:36 | Inpatient (IN) | payer MEDICARE, OTHER ==
[2019-09-25] MEDS ORDERED: SODIUM CHLORIDE 0.9% 500 ML 500 ML IV ONE (17:41)
[2019-09-25 18:30] LABS: Basophils # (A) 0.1 k/uL (0-0.2); Basophils % (A) 1 %; Eosinophils # (A) 0.1 k/uL (0-0.7); Eosinophils % (A) 1 %; HCT 45.3 % (39.0-53.0); HGB 14.5 gm/dL (13.0-17.5); Lymphocytes # (A) 1.1 k/uL (1.0-4.8); Lymphocytes % (A) 11 %; MCH 32.5 pg (25.0-35.0); MCV 101.5 fL (80.0-100.0); Mean Platelet Volume 9.2; Monocytes # (A) 0.8 k/uL (0-1.0); Monocytes % (A) 8 %; Neutrophils # (A) 8.3 k/uL (1.3-7.7); Neutrophils % (A) 79 %; Platelet Count 257 k/uL (150-450); RBC 4.47 m/uL (4.30-5.90); RDW 13.2 % (11.5-15.5); WBC 10.5 k/uL (3.8-10.6)
[2019-09-25 18:42] LABS: Albumin 4.3 g/dL (3.5-5.0); Potassium 4.6 mmol/L (3.5-5.1); Total Bilirubin 1.2 mg/dL (0.2-1.3); Total Protein 7.3 g/dL (6.3-8.2)
--- NOTE | 2019-09-25 19:01 | CT ---
EXAMINATION TYPE: CT brain wo con DATE OF EXAM: 09/25/2019 COMPARISON: 07/10/2018 HISTORY: AMS CT DLP: 1099.4 mGycm Automated exposure control for dose reduction was used. There is cerebral cortical atrophy. There is no mass effect nor midline shift. There is no sign of in tracranial hemorrhage. Calvarium is intact. IMPRESSION: Cerebral atrophy and chronic small vessel ischemia. No acute intracranial abnormality. No change.
--- NOTE | 2019-09-25 19:03 | XR ---
EXAMINATION TYPE: XR Hip RT and AP Pelvis DATE OF EXAM: 09/25/2019 COMPARISON: NONE HISTORY: Pain TECHNIQUE: 3 views FINDINGS: Pelvic ring is intact. There is acetabular spurring and spurring on the femoral heads. I se e no fracture nor dislocation. Sacroiliac joints are intact. 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 No fracture seen.
--- NOTE | 2019-09-25 19:08 | ED ---
General Adult HPI - General Chief complaint: Recheck/Abnormal Lab/Rx Stated complaint: Fall Time Seen by Provider: 09/25/19 17:26 Source: patient, RN notes reviewed Mode of arrival: ambulatory Limitations: altered mental status, physical limitation - History of Present Illness Initial comments: 89-year-old male presents to the emergency department for a chief complaint of confusion. Patient has a complicated past medical history including dementia an d memory impairment. However family states that his confusion is worse than normal today. States that he was seen here earlier today because he had a fall in the bathroom. According to the note patient may have been syncopal however he is unable to describe this to me. Currently present family members were not there at the time. States that when the other family members took him home he would not get out of the car. They were not sure if he was confused or in pain. Previous workup was reviewed and was negative. Patient did not have any family members here when he was here the first time and was thought to be at his baseline given history of dementia and memory impairment. They had contacted other family members were comfortable with patient going home and picked him up from the emergency room. At that time he was ambulatory without difficulty. Patient has no other complaints at this time including shortness of breath, chest pain, abdominal pain, nausea or vomiting, headache, or visual changes. - Related Data Home Medications Medication Instructions Recorded Confirmed Montelukast Sodium [Singulair] 10 mg PO HS 01/14/17 09/25/19 Pravastatin Sodium [Pravachol] 40 mg PO DAILY 06/05/18 09/25/19 Celecoxib [CeleBREX] 200 mg PO DAILY 07/27/18 09/25/19 Donepezil [Aricept] 10 mg PO HS 07/27/18 09/25/19 Metoprolol Tartrate [Lopressor] 12.5 mg PO BID 07/27/18 09/25/19 Ergocalciferol (Vitamin D2) 50,000 unit PO MO 09/25/19 09/25/19 [Drisdol] Previous Rx's Medication Instructions Recorded Levothyroxine Sodium [Synthroid] 75 mcg PO DAILY 3 Days #3 tab 06/05/18 Allergies Allergy/AdvReac Type Severity Reaction Status Date / Time No Known Allergies Allergy Verified 09/29/18 22:58 Review of Systems ROS Statement: Those systems with pertinent positive or pertinent negative responses have been documented in the HPI. ROS Other: All systems not noted in ROS Statement are negative. Past Medical History Past Medical History: Atrial Fibrillation, Coronary Artery Disease (CAD), COPD, Dementia, Hyperlipidemia, Hypertension, Memory Impairment, Pneumonia, Prostate Disorder, Renal Disease, Respiratory Disorder, Rheumatoid Arthritis (RA), Thyroid Disorder Additional Past Medical History / Comment(s): Pneumonia with sepsis, hypoxic respiratory failure, suppose to wear home O2 at 2-3L/NC but refuses, CKD stage III, BPH, hypothyroid, lumbar disc dx, chronic back and bilateral hip pain- difficulty walking at times, possible upper GI bleed. History of Any Multi-Drug Resistant Organisms: None Reported Past Surgical History: Back Surgery, Cholecystectomy, Heart Catheterization, Orthopedic Surgery Additional Past Surgical History / Comment(s): Bilateral cataract removal and lens implants, left knee open surgery d/t injury, EGD Past Anesthesia/Blood Transfusion Reactions: No Reported Reaction Past Psychological History: No Psychological Hx Reported Smoking Status: Former smoker Past Alcohol Use History: None Reported Past Drug Use History: None Reported - Past Family History Mother Family Medical History: Cancer Additional Family Medical History / Comment(s): Mother at age 96. Unsure what type of cancer Father Family Medical History: COPD Additional Family Medical History / Comment(s): Father at age 88 from emphysema Brother(s) Additional Family Medical History / Comment(s): Patient has 7 brothers. Sister(s) Additional Family Medical History / Comment(s): Patient has 1 sister. Daughter(s) Additional Family Medical History / Comment(s): He has 4 daughters and 2 sons. General Exam Limitations: altered mental status, physical limitation General appearance: alert, in no apparent distress (conversational, pleasant) Head exam: Present: atraumatic, normocephalic, normal inspection Eye exam: Present: normal appearance, PERRL, EOMI. Absent: scleral icterus, conjunctival injection ENT exam: Present: normal exam, mucous membranes moist Neck exam: Present: normal inspection, full ROM. Absent: tenderness, m eningismus, lymphadenopathy Respiratory exam: Present: normal lung sounds bilaterally. Absent: respiratory distress, wheezes, rales, rhonchi, stridor Cardiovascular Exam: Present: regular rate, normal rhythm, normal heart sounds. Absent: systolic murmur, diastolic murmur, rubs, gallop, clicks GI/Abdominal exam: Present: soft, normal bowel sounds. Absent: distended, tenderness, guarding, rebound, rigid Neurological exam: Present: alert. Absent: oriented X3 (oriented to person) Psychiatric exam: Present: normal affect, normal mood Course Vital Signs 09/25/19 09/25/19 09/25/19 16:45 18:27 19:00 Temperature 97.1 F L 98.9 F Pulse Rate 71 97 Respiratory 18 18 Rate Blood Pressure 106/65 140/103 O2 Sat by Pulse 97 95 Oximetry 09/25/19 09/25/19 20:00 21:00 Temperature 98.7 F Pulse Rate 76 73 Respiratory 20 19 Rate Blood Pressure 159/77 165/85 O2 Sat by Pulse 96 97 Oximetry EKG Findings - EKG Comments: EKG Findings:: Sinus rhythm, ventricular rate 71 Pr int 144, QTc 467 Medical Decision Making - Medical Decision Making Patient presents for increasing confusion. Patient has a history of dementia. Patient became more confused today according to daughter. States he is not acting his normal self. This is second visit to the ER for this. X-ray of the hip shows osteoarthritis without fracture. CT brain was obtained which shows cerebral atrophy and chronic small vessel ischemia. No acute cranial abnormality. No change. CBC CMP unremarkable. Possible increases in creatinine however last level was in 2018. Care signed out to Dr. Lind who is currently at bedside at [address] perez - Lab Data Result diagrams: 09/25/19 18:05 09/25/19 18:05 Lab Results 09/25/19 09/25/19 09/25/19 Range/Units 18:05 18:05 18:05 WBC 10.5 (3.8-10.6) k/uL RBC 4.47 (4.30-5.90) m/uL Hgb 14.5 (13.0-17.5) gm/dL Hct 45.3 (39.0-53.0) % MCV 101.5 H (80.0-100.0) fL MCH 32.5 (25.0-35.0) pg MCHC 32.0 (31.0-37.0) g/dL RDW 13.2 (11.5-15.5) % Plt Count 257 (150-450) k/uL Neutrophils % 79 % Lymphocytes % 11 % Monocytes % 8 % Eosinophils % 1 % Basophils % 1 % Neutrophils # 8.3 H (1.3-7.7) k/uL Lymphocytes # 1.1 (1.0-4.8) k/uL Monocytes # 0.8 (0-1.0) k/uL Eosinophils # 0.1 (0-0.7) k/uL Basophils # 0.1 (0-0.2) k/uL Sodium 143 (137-145) mmol/L Potassium 4.6 (3.5-5.1) mmol/L Chloride 110 H (98-107) mmol/L Carbon Dioxide 23 (22-30) mmol/L Anion Gap 10 mmol/L BUN 30 H (9-20) mg/dL Creatinine 2.16 H (0.66-1.25) mg/dL Est GFR (CKD-EPI)AfAm 31 (>60 ml/min/1.73 sqM) Est GFR (CKD-EPI)NonAf 27 (>60 ml/min/1.73 sqM) Glucose 99 (74-99) mg/dL Calcium 9.0 (8.4-10.2) mg/dL Total Bilirubin 1.2 (0.2-1.3) mg/dL AST 27 (17-59) U/L ALT 15 (4-49) U/L Alkaline Phosphatase 95 (38-126) U/L Troponin I <0.012 (0.000-0.034) ng/mL Total Protein 7.3 (6.3-8.2) g/dL Albumin 4.3 (3.5-5.0) g/dL TSH (0.465-4.680) mIU/L Urine Color Urine Appearance (Clear) Urine pH (5.0-8.0) Ur Specific [place] (1.001-1.035) Urine Protein (Negative) Urine Glucose (UA) (Negative) Urine Ketones (Negative) Urine Blood (Negative) Urine Nitrite (Negative) Urine Bilirubin (Negative) Urine Urobilinogen (<2.0) mg/dL Ur Leukocyte Esterase (Negative) Urine RBC (0-5) /hpf Urine WBC (0-5) /hpf Ur Squamous Epith Cells (0-4) /hpf Urine Bacteria (None) /hpf Hyaline Casts (0-2) /lpf Urine Mucus (None) /hpf 09/25/19 09/25/19 Range/Units 18:05 19:21 WBC (3.8-10.6) k/uL RBC (4.30-5.90) m/uL Hgb (13.0-17.5) gm/dL Hct (39.0-53.0) % MCV (80.0-100.0) fL MCH (25.0-35.0) pg MCHC (31.0-37.0) g/dL RDW (11.5-15.5) % Plt Count (150-450) k/uL Neutrophils % % Lymphocytes % % Monocytes % % Eosinophils % % Basophils % % Neutrophils # (1.3-7.7) k/uL Lymphocytes # (1.0-4.8) k/uL Monocytes # (0-1.0) k/uL Eosinophils # (0-0.7) k/uL Basophils # (0-0.2) k/uL Sodium (137-145) mmol/L Potassium (3.5-5.1) mmol/L Chloride (98-107) mmol/L Carbon Dioxide (22-30) mmol/L Anion Gap mmol/L BUN (9-20) mg/dL Creatinine (0.66-1.25) mg/dL Est GFR (CKD-EPI)AfAm (>60 ml/min/1.73 sqM) Est GFR (CKD-EPI)NonAf (>60 ml/min/1.73 sqM) Glucose (74-99) mg/dL Calcium (8.4-10.2) mg/dL Total Bilirubin (0.2-1.3) mg/dL AST (17-59) U/L ALT (4-49) U/L Alkaline Phosphatase (38-126) U/L Troponin I (0.000-0.034) ng/mL Total Protein (6.3-8.2) g/dL Albumin (3.5-5.0) g/dL TSH 3.640 (0.465-4.680) mIU/L Urine Color Yellow Urine Appearance Cloudy (Clear) Urine pH 5.5 (5.0-8.0) Ur Specific [place] 1.026 (1.001-1.035) Urine Protein 1+ H (Negative) Urine Glucose (UA) Negative (Negative) Urine Ketones 1+ H (Negative) Urine Blood Negative (Negative) Urine Nitrite Negative (Negative) Urine Bilirubin 1+ H (Negative) Urine Urobilinogen 2.0 (<2.0) mg/dL Ur Leukocyte Esterase Negative (Negative) Urine RBC 1 (0-5) /hpf Urine WBC 6 H (0-5) /hpf Ur Squamous Epith Cells 2 (0-4) /hpf Urine Bacteria Rare H (None) /hpf Hyaline Casts 3 H (0-2) /lpf Urine Mucus Many H (None) /hpf Disposition Clinical Impression: Altered mental status Disposition: ADMITTED IP TO THIS HOSP Condition: Fair Is patient prescribed a controlled substance at d/c from ED?: No Time of Disposition: 20:17
[2019-09-25 19:50] LABS: Appearance,Urine Cloudy (Clear); Bacteria,Urine Rare /hpf; Bilirubin,Urine 1+ (Negative); Blood,Urine Negative (Negative); Color,Urine Yellow; Glucose,Urine (UA) Negative (Negative); Hyaline Casts,Urine 3 /lpf (0-2); Ketones,Urine 1+ (Negative); Leukocyte Esterase,Urine Negative (Negative); Mucus,Urine Many /hpf; Nitrite,Urine Negative (Negative); PH, Urine 5.5 (5.0-8.0); Protein,Urine 1+ (Negative); RBC,Urine 1 /hpf (0-5); Specific Gravity,Urine 1.026 (1.001-1.035); Squamous Epithelial Cell,Urine 2 /hpf (0-4); WBC,Urine 6 /hpf (0-5)
[2019-09-25] MEDS ORDERED: NALOXONE 0.4 MG/ML 1 ML VIAL IV PRN (20:16)
--- NOTE | 2019-09-26 19:10 | P.CNNES ---
History of Present Illness Consult date: 09/26/19 Reason for Consult: acute mental status changes History of Present Illness: The patient is an 89-year-old male who was seen in neurologic consultation on September 26, 2019, via teleneurology. The patient is unable to provide a history. There is no family present in the room at the time of my evaluation. History is obtained entirely from the chart. Patient is unable to tell me why he is in the hospital. He denies changes in his vision. He denies difficulty with speech and swallowing. Patient reports having headaches occasionally. According to the chart, patient's family felt that the patient was more confused than usual. Reportedly fell in the bathroom at home. They brought him in for evaluation. Patient does reportedly have a history of dementia. Review of Systems ROS unobtainable: due to mental status Past Medical History Past Medical History: Atrial Fibrillation, Coronary Artery Disease (CAD), COPD, Dementia, Hyperlipidemia, Hypertension, Memory Impairment, Pneumonia, Prostate Disorder, Renal Disease, Respiratory Disorder, Rheumatoid Arthritis (RA), Thyroid Disorder Additional Past Medical History / Comment(s): Pneumonia with sepsis, hypoxic respiratory failure, suppose to wear home O2 at 2-3L/NC but refuses, CKD stage III, BPH, hypothyroid, lumbar disc dx, chronic back and bilateral hip pain-diffi culty walking at times, possible upper GI bleed. History of Any Multi-Drug Resistant Organisms: None Reported Past Surgical History: Back Surgery, Cholecystectomy, Heart Catheterization, Orthopedic Surgery Additional Past Surgical History / Comment(s): Bilateral cataract removal and lens implants, left knee open surgery d/t injury, EGD Past Anesthesia/Blood Transfusion Reactions: No Reported Reaction Past Psychological History: No Psychological Hx Reported Additional Psychological History / Comment(s): Retired. No . Ex- smoker. No current alcohol use. Lives with his Smoking Status: Former smoker Past Alcohol Use History: None Reported Additional Past Alcohol Use History / Comment(s): Pt started smoking in 1953 and quit in 2016. He was a cigar smoker. Past Drug Use History: None Reported Additional Drug Use History / Comment(s): pt stated he would occ use edible marijuana but has'nt in 2-3 years - Past Family History Mother Family Medical History: Cancer Additional Family Medical History / Comment(s): Mother at age 96. Unsure what type of cancer Father Family Medical History: COPD Additional Family Medical History / Comment(s): Father at age 88 from emphysema Brother(s) Additional Family Medical History / Comment(s): Patient has 7 brothers. Sister(s) Additional Family Medical History / Comment(s): Patient has 1 sister. Daughter(s) Additional Family Medical History / Comment(s): He has 4 daughters and 2 sons. Medications and Allergies Home Medications Medication Instructions Recorded Confirmed Type Montelukast Sodium [Singulair] 10 mg PO HS 01/14/17 09/25/19 History Levothyroxine Sodium [Synthroid] 75 mcg PO DAILY 3 Days #3 tab 06/05/18 09/25/19 Rx Pravastatin Sodium [Pravachol] 40 mg PO DAILY 06/05/18 09/25/19 History Celecoxib [CeleBREX] 200 mg PO DAILY 07/27/18 09/25/19 History Donepezil [Aricept] 10 mg PO HS 07/27/18 09/25/19 History Metoprolol Tartrate [Lopressor] 12.5 mg PO BID 07/27/18 09/25/19 History Ergocalciferol (Vitamin D2) 50,000 unit PO MO 09/25/19 09/25/19 History [Drisdol] Allergies Allergy/AdvReac Type Severity Reaction Status Date / Time No Known Allergies Allergy Verified 09/29/18 22:58 Physical Examination - Vital Signs Vital Signs: Vital Signs Temp Pulse Pulse Resp BP BP Pulse Ox 09/26/19 14:18 97.7 F 79 18 159/88 94 L 09/26/19 04:50 97.9 F 70 20 171/69 96 09/25/19 23:00 97.4 F L 83 20 165/92 97 09/25/19 21:00 73 19 165/85 97 09/25/19 20:00 98.7 F 76 20 159/77 96 Intake and Output 09/26/19 09/26/19 09/26/19 06:59 14:59 22:59 Intake Total 500 540 Balance 500 540 Intake: Oral 500 540 Other: # Voids 1 3 Gen.: The patient is reclining in the bed. He is in no acute distress. He is well-nourished. HEENT: Head is atraumatic, normocephalic. Fundus not visualized. There is no scleral icterus. Because membranes are moist. Heart: Regular rate and rhythm Extremities: Without edema Neurological examination Mental status: Patient is awake and alert he is oriented to his name and day and month of . He is not oriented to his year , the current year, his age, the month or the president of [facility]. There is no right/left confusion. There is no finger agnosia. The patient is able to follow two-step commands. He does have difficulty following other instructions. Cranial nerves: Pupils are equal, round and reactive to light. Visual stout are full to confrontation. Extraocular muscles are intact. There is no nystagmus. Facial sensation is intact. There is no facial asymmetry. Hearing is diminished bilaterally. Uvula and palate are midline. Shoulder shrug is symmetric. Tongue protrudes midline. Motor: Strength is 5/5 throughout Sensation: Grossly intact to light touch Coordination: Finger to nose testing is intact. Rapid alternating movements are intact. Deep tendon reflexes: Unable to assess because the patient does not relax his extremities. Gait: Not assessed Results - Laboratory Findings CBC and BMP: 09/25/19 18:05 09/25/19 18:05 Abnormal Lab Findings: Abnormal Labs 09/25/19 09/25/19 09/25/19 18:05 18:05 19:21 MCV 101.5 H Neutrophils # 8.3 H Chloride 110 H BUN 30 H Creatinine 2.16 H Urine Protein 1+ H Urine Ketones 1+ H Urine Bilirubin 1+ H Urine WBC 6 H Urine Bacteria Rare H Hyaline Casts 3 H Urine Mucus Many H Assessment and Plan Assessment: Impressions: 1. Patient is an 89-year-old male with a history of dementia and reported increased confusion. There is no family members present to verify this. There are no family members present to report his baseline. 2. Elevated BUN/creatinine-this may be responsible for increasing confusion 3. History of hypothyroidism Plan: Recommendations: 1. Check TSH 2. Check urine culture Time with Patient: Greater than 30 (spent 45 minutes with patient)
[2019-09-26] MEDS: MONTELUKAST 10 MG TAB PO SCH (20:38)
[2019-09-26] MEDS: DONEPEZIL 10 MG TAB PO SCH (20:38)
[2019-09-26] MEDS: METOPROLOL TARTRATE 12.5 MG TAB PO SCH (20:38)
[2019-09-27] MEDS: LEVOTHYROXINE 75 MCG TAB PO SCH (05:59)
[2019-09-27] MEDS: PRAVASTATIN SODIUM 40 MG TAB PO SCH (08:15)
[2019-09-27] MEDS: METOPROLOL TARTRATE 12.5 MG TAB PO SCH ×2 (08:15→22:27)
[2019-09-27] MEDS: DONEPEZIL 10 MG TAB PO SCH (22:27)
[2019-09-27] MEDS: MONTELUKAST 10 MG TAB PO SCH (22:27)
--- NOTE | 2019-09-28 05:41 | PN ---
PROGRESS NOTE DATE OF SERVICE: 09/26/2019 CHIEF COMPLAINT: Delirium and dementia. HISTORY OF PRESENT ILLNESS: This gentleman seems to be doing well. He remains confused, but he is not agitated. Vital signs are normal. PHYSICAL EXAMINATION: Vital signs normal. He is afebrile. Chest is clear. Cardiac exam is normal. Abdomen is soft, nontender. IMPRESSION: 1. Dementia. 2. Delirium. 3. Chronic obstructive pulmonary disease. 4. Dehydration. PLAN: Continue with IV fluids and work with the family and hospital regarding a discharge plan. MMODL / IJN: [id number] /
--- NOTE | 2019-09-28 05:41 | HP ---
HISTORY AND PHYSICAL CHIEF COMPLAINT: Confusion, dementia and delirium. HISTORY OF PRESENT ILLNESS: This is another admission for this 89-year-old white male who lives at home with his with the help of the family. He has dementia and apparently became a little bit more confused and was brought into the hospital and admitted with delirium. There is no obvious pneumonia, urinary tract infection or other etiology. He has had problems with this in the past. REVIEW OF SYSTEMS: Difficult to obtain. He denies headaches, change in vision or the hearing, cough, hemoptysis, chest pain, abdominal pain, vomiting, diarrhea, melena, dysuria, incontinence, diabetes, etc. Past medical history, family history, and personal and social histories are all unobtainable at this time. PHYSICAL EXAMINATION: Blood pressure is 146/90 with a pulse of 88, respirations of 32, and he is afebrile. In general, he appeared to be disheveled. Skin color is normal skin is warm and dry. He was dehydrated. Head, ears, eyes, nose, mouth, and throat were normal. Chest is clear. Cardiac exam demonstrates sinus rhythm with no murmurs or extra sounds. Abdomen is soft and nontender. Extremities are normal. Neurologically, he is intact. He is admitted to the hospital with diagnoses: 1. Dementia. 2. Delirium. 3. Chronic obstructive pulmonary disease. PLAN: Work on physical therapy and occupational therapy as well as a discharge plan and in the meantime look for any etiologies for his delirium. MMODL / IJN: [id number] /
--- NOTE | 2019-09-28 05:55 | PN ---
PROGRESS NOTE CHIEF COMPLAINT: Dementia and delirium with COPD and dehydration. HISTORY OF PRESENT ILLNESS: This gentleman seems stable and does not have any complaints. PHYSICAL EXAMINATION: Chest is clear, but breath sounds are poor. Cardiac exam is normal. Abdomen is soft, nontender. IMPRESSION: 1. Dementia and delirium. 2. General debility. 3. Chronic obstructive pulmonary disease. 4. Dehydration. PLAN: 1. Increase IV fluids. 2. Work on where the patient will go after he leaves the hospital. MMODL / IJN: [id number] /
[2019-09-28] MEDS: LEVOTHYROXINE 75 MCG TAB PO SCH (06:29)
[2019-09-28] MEDS: PRAVASTATIN SODIUM 40 MG TAB PO SCH (08:41)
[2019-09-28] MEDS: METOPROLOL TARTRATE 12.5 MG TAB PO SCH ×2 (08:41→21:41)
[2019-09-28] MEDS: DONEPEZIL 10 MG TAB PO SCH (21:41)
[2019-09-28] MEDS: MONTELUKAST 10 MG TAB PO SCH (21:41)
--- NOTE | 2019-09-28 22:22 | PN ---
PROGRESS NOTE CHIEF COMPLAINT: Delirium and dementia. HISTORY OF PRESENT ILLNESS: This gentleman seems to be stable and doing well. He is being evaluated by Discharge Planning for possible correction placement for rehab. REVIEW OF SYSTEMS: He has no complaints. PHYSICAL EXAMINATION: Head, ears, eyes, nose, mouth and throat are normal. Chest is clear. Cardiac exam is normal. Abdomen is soft. IMPRESSION: 1. Dementia. 2. Delirium. 3. Chronic obstructive pulmonary disease. PLAN: Continue with increasing activity and wait to see whether not he will be going to a correction or home. MMODL / IJN: [id number] /
[2019-09-29] MEDS: LEVOTHYROXINE 75 MCG TAB PO SCH (06:20)
[2019-09-29] MEDS: PRAVASTATIN SODIUM 40 MG TAB PO SCH (11:43)
[2019-09-29] MEDS: METOPROLOL TARTRATE 12.5 MG TAB PO SCH (11:43)
--- NOTE | 2019-09-29 14:47 | CDI ---
Documentation Clarification Form Date: 09/29/2019 02:17:00 PM From: Emily Vasquez RN, CCDS Admit Date: 09/27/2019 11:28:00 AM Patient Name: Harish Calderón Visit Number: [id number] Discharge Date: ATTENTION: The Clinical Documentation Specialists (CDI) and [facility] Coding Staff appreciate your assistance in clarifying documentation. Please respond to the clarification below the line at the bottom and electronically sign. The CDI & [facility] Coding staff will review the response and follow-up if needed. Please note: Queries are made part of the Legal Health Record. If you have any questions, please contact the author of this message via ITS. Dr. Robb Sheppard Dementia was documented in the in your H&P on 09/27/19 and progress note on 09/28/19 and further clarification is needed. Patient history/risk factors: Dementia, Hypertension, Memory Impairment Clinical indicators: 89-year-old male present with altered mental status, family states that his confusion is worse than normal on presentation to ER on 09/25/19. CT Brain: (09/25/19) Cerebral atrophy and chronic small vessel ischemia No acute cranial abnormality Labs: (09/25/19) WBC 10.5, BUN 30, CR 2.16; Urine culture-negative Treatment: ,9/ Saline 500mls bolus x1 Aricept 10 mg PO HS Neurology consult 10/27/19: History of dementia with no family members present to report his baseline. Elevated BUN, creatinine-this may be responsible for increasing confusion. In your professional opinion, can you please specify the type of Dementia if known? Alzheimers disease (specify if early(presenile) or late(senile) onset) Parkinsons disease Senile (specify if with or without confusional state) Vascular (specify if arteriosclerosis or sequel of cerebrovascular disease) Lewy body Other condition or cause of dementia, please specify Unable to determine Please indicate any behavioral disturbances associated with the condition (such as aggression, combative, violent, or wandering) (Last Revision: June 2017) MTDD
[2019-09-29 14:54] VITALS: BP 138/84; PULSE 51; RESP 16; TEMP 98.5
--- NOTE | 2019-09-29 15:13 | CDI ---
Documentation Clarification Form Date: 09/29/2019 02:47:57 PM From: Emily Vasquez RN, CCDS Admit Date: 09/27/2019 11:28:00 AM Patient Name: Harish Calderón Visit Number: [id number] Discharge Date: ATTENTION: The Clinical Documentation Specialists (CDI) and [facility] Coding Staff appreciate your assistance in clarifying documentation. Please respond to the clarification below the line at the bottom and electronically sign. The CDI & [facility] Coding staff will review the response and follow-up if needed. Please note: Queries are made part of the Legal Health Record. If you have any questions, please contact the author of this message via ITS. Dr. Robb Sheppard On 09/25/19 ED evaluation and past medical history has documentation of chronic kidney disease stage III, with possible increases in creatinine, however last level was in 2018. History/Risk Factors: Chronic Kidney disease stage III, Dementia, Hypertension Patients baseline BUN/CR/GFR: Not noted Clinical Indicators: 89-year-old male with history of dementia present to ER on 09/25/19, with confusion and family states this is worse than normal. In your progress note on 09/27/19 your have documented dehydration as one of your clinical impressions. 09/25/19: BUN 30, Cr 2.16 GFR: 27; UA with Hyaline Casts 3 Treatment: .9% Saline 500 cc bolus In order to capture the severity of condition, please further clarify if the condition signifies: Acute renal failure, Please specify etiology (if known): Cortical Necrosis Medullary Necrosis Tubular Necrosis Acute kidney injury Acute on chronic renal failure CKD Stage 1 GFR >90 CKD Stage 2 GFR 60-89 CKD Stage 3 GFR 30-59 CKD Stage 4 GFR 15-29 Other, please specify Unable to determine (Last Revision: November 2017) MTDD
--- NOTE | 2019-09-29 23:11 | DS ---
DISCHARGE SUMMARY DATE OF DISCHARGE: 09/29/2019 CHIEF COMPLAINT: Delirium and confusion. HISTORY OF PRESENT ILLNESS AND PHYSICAL EXAMINATION: Details of this man's history and physical can be found in the admitting summary. He presented to the emergency room, brought in by his family because of delirium. He does have dementia. He was admitted and worked up and there was no obvious source for his delirium, including pneumonitis, urinary tract infection, etc. While in the hospital, he remained awake and alert and was able to move about independently and he ate well. It was thought that he would be going to an extended-care facility, but he did not qualify. He was discharged back home with home care. FINAL DIAGNOSES: 1. Delirium. 2. Dementia. 3. Chronic obstructive pulmonary disease. OPERATIONS: None. CONSULTATIONS: None. He is improved. MMODL / IJN: [id number] /
[2019-09-30] MEDS ORDERED: LISINOPRIL 10 MG TAB PO SCH (09:00)
--- NOTE | 2019-09-30 10:47 | MISC ---
MISCELLANOUS REPORT Alzheimer's disease, unable to determine because I do not know what his GFR was. MMRYLEE / CRYS: [id number] /
== END 2019-09-29 18:55 | disposition home health service (06) | DRG 57 ==
LOC: EC 16:36 → 6NMEDSUR 20:16 → OBSVTOIN 09-27 11:28
PROVIDERS: ADMIT Family Medicine; ATTEND Family Medicine
DX: G30.9 Alzheimer's disease, unspecified (principal); F05 Delirium due to known physiological condition; F02.80 Dementia in other diseases classified elsewhere, unspecified severity, without behavioral disturbance, psychotic disturbance, mood disturbance, and anxiety; N18.3 Chronic kidney disease, stage 3 (moderate); E03.9 Hypothyroidism, unspecified; E78.5 Hyperlipidemia, unspecified; E86.0 Dehydration; I12.9 Hypertensive chronic kidney disease with stage 1 through stage 4 chronic kidney disease, or unspecified chronic kidney disease; I25.10 Atherosclerotic heart disease of native coronary artery without angina pectoris; I48.91 Unspecified atrial fibrillation; M06.9 Rheumatoid arthritis, unspecified; M19.90 Unspecified osteoarthritis, unspecified site; N40.0 Benign prostatic hyperplasia without lower urinary tract symptoms; M54.9 Dorsalgia, unspecified; J44.9 Chronic obstructive pulmonary disease, unspecified; M51.36 Other intervertebral disc degeneration, lumbar region; G89.29 Other chronic pain; Z79.1 Long term (current) use of non-steroidal anti-inflammatories (NSAID); Z79.890 Hormone replacement therapy; Z79.899 Other long term (current) drug therapy; Z87.891 Personal history of nicotine dependence; Z87.01 Personal history of pneumonia (recurrent); Z90.49 Acquired absence of other specified parts of digestive tract; Z98.42 Cataract extraction status, left eye; Z98.41 Cataract extraction status, right eye; Z96.1 Presence of intraocular lens; Z82.5 Family history of asthma and other chronic lower respiratory diseases; W19.XXXA Unspecified fall, initial encounter; Y92.002 Bathroom of unspecified non-institutional (private) residence as the place of occurrence of the external cause
CPT/HCPCS: 36415; 70450; 71046; 73502; 80053; 81001; 82272; 83735; 84443; 84484; 85025; 85610; 85730; 87086; 93005; 96360; 96361; 99285

== ENCOUNTER 2019-10-02 04:57 | Inpatient (IN) | payer MEDICARE, OTHER ==
[2019-10-02 05:29] LABS: Basophils # (A) 0.1 k/uL (0-0.2); Basophils % (A) 1 %; Eosinophils # (A) 0.5 k/uL (0-0.7); Eosinophils % (A) 6 %; HCT 39.9 % (39.0-53.0); HGB 12.6 gm/dL (13.0-17.5); Lymphocytes # (A) 1.2 k/uL (1.0-4.8); Lymphocytes % (A) 14 %; MCH 31.9 pg (25.0-35.0); MCHC 31.6 g/dL (31.0-37.0); MCV 100.8 fL (80.0-100.0); Mean Platelet Volume 9.2; Monocytes # (A) 1.2 k/uL (0-1.0); Monocytes % (A) 14 %; Neutrophils # (A) 5.4 k/uL (1.3-7.7); Neutrophils % (A) 63 %; Platelet Count 241 k/uL (150-450); RBC 3.96 m/uL (4.30-5.90); WBC 8.6 k/uL (3.8-10.6)
[2019-10-02 05:38] LABS: INR 0.9 (<1.2); Partial Thromboplastin Time 25.6 sec (22.0-30.0); Prothrombin Time 9.4 sec (9.0-12.0)
[2019-10-02 05:40] LABS: Albumin 3.5 g/dL (3.5-5.0); Calcium 8.5 mg/dL (8.4-10.2); Magnesium 2.3 mg/dL (1.6-2.3); Potassium 4.4 mmol/L (3.5-5.1); Total Bilirubin 0.5 mg/dL (0.2-1.3); Total Protein 6.2 g/dL (6.3-8.2)
--- NOTE | 2019-10-02 06:05 | XR ---
EXAM: XR Chest, 1 View CLINICAL HISTORY: ITS.REASON XR Reason: chest pain TECHNIQUE: Frontal view of the chest. COMPARISON: 09/25/19 FINDINGS: Lungs: Slight increased streaky density in the left lung base. Pleural space: Unremarkable. No pneumothorax. Heart: Unremarkable. No cardiomegaly. Mediastinum: Unremarkable. Bones/joints: Mild degenerative changes in the shoulders, unchanged. Vasculature: Tortuous calcified thoracic aorta, unchanged. Tubes, lines and devices: Overlying chest leads obscure portion of the chest. Upper abdomen: Mild eventration of the right hemidiaphragm, unchanged. IMPRESSION: Slight worsening left basilar atelectasis.
--- NOTE | 2019-10-02 07:16 | ED ---
Chest Pain HPI - General Chief Complaint: Chest Pain Stated Complaint: Chest Pain Time Seen by Provider: 10/02/19 05:09 Source: EMS Mode of arrival: EMS Limitations: physical limitation (Underlying dementia) - History of Present Illness Initial Comments: This patient is an 89-year-old man transferred here from his assisted living where he had complained of having some substernal chest pain that developed probably one hour ago while having bowel movement. The patient is not able to characterize it well. He is not aware of having any associated symptoms. He does state that the symptoms have resolved now. MD Complaint: chest pain Onset/Timin -: hour(s) Onset: other (During bowel movement) Pain Location: substernal Pain Radiation: none Severity: moderate Quality: aching Consistency: constant Improves With: nothing Worsens With: nothing Treatments Prior to Arrival: none - Related Data Home Medications Medication Instructions Recorded Confirmed Montelukast Sodium [Singulair] 10 mg PO HS 01/14/17 10/02/19 Pravastatin Sodium [Pravachol] 40 mg PO DAILY 06/05/18 10/02/19 Donepezil [Aricept] 10 mg PO HS 07/27/18 10/02/19 Metoprolol Tartrate [Lopressor] 12.5 mg PO BID 07/27/18 10/02/19 Ergocalciferol (Vitamin D2) 50,000 unit PO MO 09/25/19 10/02/19 [Drisdol] Previous Rx's Medication Instructions Recorded Levothyroxine Sodium [Synthroid] 75 mcg PO DAILY 3 Days #3 tab 06/05/18 Lisinopril [Zestril] 10 mg PO DAILY #30 tab 09/29/19 Allergies Allergy/AdvReac Type Severity Reaction Status Date / Time No Known Allergies Allergy Verified 10/02/19 05:15 Review of Systems ROS Statement: Those systems with pertinent positive or pertinent negative responses have been documented in the HPI. ROS Other: All systems not noted in ROS Statement are negative. Limitations: ROS unobtainable due to patients medical condition (Underlying dementia) Constitutional: Reports: weakness. Denies: fever, chills Respiratory: Denies: cough, dyspnea Cardiovascular: Reports: chest pain. Denies: palpitations, syncope Gastrointestinal: Denies: abdominal pain, vomiting Musculoskeletal: Denies: back pain Neurological: Denies: headache EKG Findings - EKG Results: EKG: interpreted by PAULA, sinus rhythm (Rate 62 bpm), normal axis, normal QRS, normal ST/T, no acute changes Past Medical History Past Medical History: Atrial Fibrillation, Coronary Artery Disease (CAD), COPD, Dementia, Hyperlipidemia, Hypertension, Memory Impairment, Pneumonia, Prostate Disorder, Renal Disease, Respiratory Disorder, Rheumatoid Arthritis (RA), Thyroid Disorder Additional Past Medical History / Comment(s): Pneumonia with sepsis, hypoxic respiratory failure, suppose to wear home O2 at 2-3L/NC but refuses, CKD stage III, BPH, hypothyroid, lumbar disc dx, chronic back and bilateral hip pain- difficulty walking at times, possible upper GI bleed. History of Any Multi-Drug Resistant Organisms: None Reported Past Surgical History: Back Surgery, Cholecystectomy, Heart Catheterization, Orthopedic Surgery Additional Past Surgical History / Comment(s): Bilateral cataract removal and lens implants, left knee open surgery d/t injury, EGD Past Anesthesia/Blood Transfusion Reactions: No Reported Reaction Past Psychological History: No Psychological Hx Reported Smoking Status: Former smoker Past Alcohol Use History: None Reported Past Drug Use History: None Reported - Past Family History Mother Family Medical History: Cancer Additional Family Medical History / Comment(s): Mother at age 96. Unsure what type of cancer Father Family Medical History: COPD Additional Family Medical History / Comment(s): Father at age 88 from emphysema Brother(s) Additional Family Medical History / Comment(s): Patient has 7 brothers. Sister(s) Additional Family Medical History / Comment(s): Patient has 1 sister. Daughter(s) Additional Family Medical History / Comment(s): He has 4 daughters and 2 sons. General Exam Limitations: no limitations General appearance: alert, in no apparent distress Head exam: Present: atraumatic, normocephalic Eye exam: Present: normal appearance. Absent: scleral icterus, conjunctival injection ENT exam: Present: normal oropharynx Neck exam: Present: normal inspection Respiratory exam: Present: normal lung sounds bilaterally. Absent: respiratory distress, wheezes, rales, rhonchi, stridor Cardiovascular Exam: Present: regular rate, normal rhythm, normal heart sounds. Absent: systolic murmur, diastolic murmur, rubs, gallop GI/Abdominal exam: Present: soft. Absent: distended, tenderness, guarding, rebound Extremities exam: Present: normal inspection, normal capillary refill. Absent: pedal edema, calf tenderness Back exam: Present: normal inspection. Absent: CVA tenderness (R), CVA tenderness (L) Neurological exam: Present: alert Skin exam: Present: warm, dry, intact, normal color. Absent: rash Course Vital Signs 10/02/19 10/02/19 10/02/19 05:09 05:30 06:00 Temperature 98.4 F Pulse Rate 61 57 L 53 L Pulse Rate [ Pulse Oximetery ] Respiratory 20 15 17 Rate Blood Pressure 141/62 141/62 129/72 Blood Pressure [Right Arm] O2 Sat by Pulse 97 97 97 Oximetry 10/02/19 10/02/19 10/02/19 06:30 07:00 07:52 Temperature 97.6 F Pulse Rate 55 L 54 L Pulse Rate [ 54 L Pulse Oximetery ] Respiratory 17 12 18 Rate Blood Pressure 132/70 147/64 Blood Pressure 149/71 [Right Arm] O2 Sat by Pulse 97 Oximetry 10/02/19 10/02/19 10/02/19 07:59 08:00 08:05 Temperature 98 F 97.6 F 98 F Pulse Rate 57 L 57 L Pulse Rate [ 54 L Pulse Oximetery ] Respiratory 20 18 20 Rate Blood Pressure 142/69 142/69 Blood Pressure 149/71 [Right Arm] O2 Sat by Pulse 100 97 100 Oximetry Disposition Clinical Impression: Chest pain Disposition: ADMITTED IP TO THIS [facility] Condition: Fair
[2019-10-02] MEDS ORDERED: NITROGLYCERIN SL TABS 0.4 MG TAB SUBLINGUAL PRN (07:33)
[2019-10-02] MEDS: LISINOPRIL 10 MG TAB PO SCH (10:47)
[2019-10-02] MEDS: METOPROLOL TARTRATE 12.5 MG TAB PO SCH ×2 (10:47→21:05)
[2019-10-02] MEDS: LEVOTHYROXINE 75 MCG TAB PO SCH (10:47)
[2019-10-02] MEDS: PRAVASTATIN SODIUM 40 MG TAB PO SCH (10:47)
--- NOTE | 2019-10-02 11:16 | HP ---
HISTORY AND PHYSICAL CHIEF COMPLAINT: Chest pain and dementia. HISTORY OF PRESENT ILLNESS: This is another recent admission for this 89-year-old white male with dementia and delirium. He was just in the hospital after an episode of delirium. His family requested that he be brought back home, but he was brought back in this admission with chest pain, and the family indicates that they can no longer take care of him at home and are requesting long-term placement. REVIEW OF SYSTEMS: Unobtainable. Past medical history, family history, and personal and social histories are all unremarkable and unchanged. PHYSICAL EXAMINATION: Blood pressure is 152/85 with a pulse of 69, respirations of 32, and he is afebrile. In general he appeared to be slender and awake. Skin color was normal. Skin was dry. Head, ears, eyes, nose, mouth and throat were normal. Chest was clear to auscultation and percussion with decreased breath sounds due to emphysema. Cardiac exam demonstrated sinus rhythm and no murmurs or extra sounds. The abdomen was flat and soft with no masses. Extremities were normal. Neurologically he was intact other than being demented. ADMITTING DIAGNOSES: He is admitted to the hospital with diagnoses: 1. Chest pain. 2. Dementia. 3. Chronic obstructive pulmonary disease. PLAN: 1. Bed rest. 2. IV fluids. 3. Serial EKGs. 4. Placement. MMODL / DANIELN: [id number] /
[2019-10-02] MEDS: DONEPEZIL 10 MG TAB PO SCH (21:05)
[2019-10-02] MEDS: MONTELUKAST 10 MG TAB PO SCH (21:05)
[2019-10-03 03:26] LABS: Cholesterol 187 mg/dL (<200); HDL Cholesterol 41 mg/dL (40-60); LDL Cholesterol,Calculated 124 mg/dL (0-99); Triglycerides 111 mg/dL (<150)
[2019-10-03] MEDS: LEVOTHYROXINE 75 MCG TAB PO SCH (06:52)
[2019-10-03] MEDS: ASPIRIN 325 MG TAB PO SCH (08:49)
[2019-10-03] MEDS: PRAVASTATIN SODIUM 40 MG TAB PO SCH (08:49)
[2019-10-03] MEDS: METOPROLOL TARTRATE 12.5 MG TAB PO SCH ×2 (08:49→21:30)
[2019-10-03] MEDS: LISINOPRIL 10 MG TAB PO SCH (08:49)
--- NOTE | 2019-10-03 13:07 | PN ---
PROGRESS NOTE DATE OF SERVICE: 10/03/2019. CHIEF COMPLAINT: Chest pain and dementia. HISTORY OF PRESENT ILLNESS: This gentleman is comfortable. He is not having any further pain. Laboratory studies are unremarkable other than his GFR which is at 30 making him a stage IIIB chronic kidney disease. PHYSICAL EXAMINATION: CHEST: Clear but breath sounds are diminished due to COPD. Head, ears, eyes, nose, mouth, and throat normal. Cardiac exam is normal. Abdomen is soft, nontender. Neurologically she is intact. IMPRESSION: 1. Chest pain. 2. Chronic obstructive pulmonary disease. 3. Renal failure. 4. Dementia. PLAN: 1. Stop telemetry. 2. Await assisted placement. MMODL / IJN: [id number] /
[2019-10-03] MEDS: DONEPEZIL 10 MG TAB PO SCH (21:30)
[2019-10-03] MEDS: MONTELUKAST 10 MG TAB PO SCH (21:30)
[2019-10-04] MEDS: LEVOTHYROXINE 75 MCG TAB PO SCH (06:57)
[2019-10-04] MEDS: ASPIRIN 325 MG TAB PO SCH (08:31)
[2019-10-04] MEDS: LISINOPRIL 10 MG TAB PO SCH (08:31)
[2019-10-04] MEDS: PRAVASTATIN SODIUM 40 MG TAB PO SCH (08:31)
[2019-10-04] MEDS: METOPROLOL TARTRATE 12.5 MG TAB PO SCH ×2 (08:31→21:18)
[2019-10-04] MEDS ORDERED: ERGOCALCIFEROL 50,000 UNIT CAP PO SCH (09:00)
[2019-10-04] MEDS: DONEPEZIL 10 MG TAB PO SCH (21:18)
[2019-10-04] MEDS: MONTELUKAST 10 MG TAB PO SCH (21:19)
[2019-10-05] MEDS: LEVOTHYROXINE 75 MCG TAB PO SCH (05:37)
[2019-10-05] MEDS: METOPROLOL TARTRATE 12.5 MG TAB PO SCH ×2 (08:29→21:20)
[2019-10-05] MEDS: ASPIRIN 325 MG TAB PO SCH (08:29)
[2019-10-05] MEDS: LISINOPRIL 10 MG TAB PO SCH (08:29)
[2019-10-05] MEDS: PRAVASTATIN SODIUM 40 MG TAB PO SCH (08:29)
[2019-10-05] MEDS: DONEPEZIL 10 MG TAB PO SCH (21:21)
[2019-10-05] MEDS: MONTELUKAST 10 MG TAB PO SCH (21:21)
[2019-10-06] MEDS: LEVOTHYROXINE 75 MCG TAB PO SCH (05:57)
[2019-10-06] MEDS: PRAVASTATIN SODIUM 40 MG TAB PO SCH (07:08)
[2019-10-06] MEDS: ASPIRIN 325 MG TAB PO SCH (07:08)
[2019-10-06] MEDS: METOPROLOL TARTRATE 12.5 MG TAB PO SCH (07:08)
[2019-10-06] MEDS: LISINOPRIL 10 MG TAB PO SCH (07:08)
[2019-10-06 14:11] VITALS: BP 140/58; PULSE 64; RESP 18; TEMP 97.9
--- NOTE | 2019-10-06 15:04 | DS ---
DISCHARGE SUMMARY DATE OF SERVICE: 10/06/2019 CHIEF COMPLAINT: Delirium, dementia and chest pain. HISTORY OF PRESENT ILLNESS AND PHYSICAL EXAM: Details of this man's history and physical can be found in the initial workup. LABORATORY STUDIES: While he is in the hospital, he had laboratory studies, details of which can be found in the laboratory section of his chart. COURSE IN HOSPITAL: After admission, placed on bedrest, started on intravenous fluids and these had to be stopped because of his delirium and agitation. He had no medical issues while he is in a hospital. A bed was available for him at [facility] and he was transferred there on the . FINAL DIAGNOSIS: 1. Acute delirium. 2. Acute chest pain, noncardiac. 3. Dementia. 4. Chronic obstructive pulmonary disease. OPERATIONS: None. CONSULTATION: None. He is improved. MMODL / DANIELN: [id number] /
--- NOTE | 2019-10-06 15:23 | PN ---
PROGRESS NOTE DATE OF SERVICE: 10/03/2019 CHIEF COMPLAINT: Dementia and delirium. HISTORY OF PRESENT ILLNESS: This gentleman is stable. He is awake and alert and he has no chest pain, shortness of breath, neurologic deficits, etc. He remains very confused. PHYSICAL EXAMINATION: His chest is clear. Cardiac exam is normal. Abdomen soft and nontender. IMPRESSION: 1. Dementia and delirium. 2. Chest pain. PLAN: He is being evaluated for fpc placement for long-term care. MMODL / IJN: [id number] /
--- NOTE | 2019-10-06 15:37 | PN ---
PROGRESS NOTE DATE OF SERVICE: 10/04/2019 CHIEF COMPLAINT: Delirium and dementia. HISTORY OF PRESENT ILLNESS: During the night this gentleman apparently became very delirious and combative and he now has a sitter. He is not febrile and he has had no other obvious signs or symptoms of any other difficulty. PHYSICAL EXAMINATION: He is awake and alert. Skin color is normal and skin is dry. Head, ears, eyes, nose, mouth, and throat are normal. Chest is clear. Cardiac exam is normal. Abdomen is soft. IMPRESSION: 1. Dementia. 2. Delirium. PLAN: We are still waiting for long-term placement. MMODL / IJN: [id number] /
--- NOTE | 2019-10-06 15:50 | PN ---
PROGRESS NOTE DATE OF SERVICE: 10/05/2019 CHIEF COMPLAINT: Delirium and dementia. HISTORY OF PRESENT ILLNESS: This gentleman is stable and we are awaiting a discharge plan. He will be going to a skilled nursing when a bed is available. PHYSICAL EXAMINATION: He is awake and alert. Chest is clear. Cardiac exam is normal. The abdomen is soft. Extremities are normal. IMPRESSION: 1. Dementia. 2. Delirium. 3. Chronic obstructive pulmonary disease. PLAN: Await skilled nursing placement. MMRYLEE / DANIELN: [id number] /
== END 2019-10-06 17:57 | DRG 313 ==
LOC: EC 04:57 → 3SCARD 07:44 → OBSVTOIN 12:20 → 6NMEDSUR 10-04 14:04
PROVIDERS: ADMIT Family Medicine; ATTEND Family Medicine
DX: R07.9 Chest pain, unspecified (principal); F05 Delirium due to known physiological condition; F03.90 Unspecified dementia, unspecified severity, without behavioral disturbance, psychotic disturbance, mood disturbance, and anxiety; E03.9 Hypothyroidism, unspecified; E78.5 Hyperlipidemia, unspecified; I12.9 Hypertensive chronic kidney disease with stage 1 through stage 4 chronic kidney disease, or unspecified chronic kidney disease; I25.10 Atherosclerotic heart disease of native coronary artery without angina pectoris; I48.91 Unspecified atrial fibrillation; J44.9 Chronic obstructive pulmonary disease, unspecified; M06.9 Rheumatoid arthritis, unspecified; N18.3 Chronic kidney disease, stage 3 (moderate); N40.0 Benign prostatic hyperplasia without lower urinary tract symptoms; Z79.890 Hormone replacement therapy; Z82.5 Family history of asthma and other chronic lower respiratory diseases; Z87.891 Personal history of nicotine dependence; Z98.42 Cataract extraction status, left eye; Z98.41 Cataract extraction status, right eye; Z96.1 Presence of intraocular lens; Z87.01 Personal history of pneumonia (recurrent); G89.29 Other chronic pain; M51.36 Other intervertebral disc degeneration, lumbar region; M25.552 Pain in left hip; M25.551 Pain in right hip; R45.1 Restlessness and agitation; Z90.49 Acquired absence of other specified parts of digestive tract
CPT/HCPCS: 36415; 71045; 80053; 80061; 83735; 84484; 85025; 85610; 85730; 93005; 99285

== ENCOUNTER 2020-08-10 08:58 | Inpatient (IN) | payer MEDICARE, OTHER ==
[2020-08-10] MEDS ORDERED: ALBUTEROL HFA INHALER INHALATION STA (09:04)
[2020-08-10] MEDS ORDERED: SODIUM CHLORIDE 0.9% 500 ML 500 ML IV STA (09:04)
[2020-08-10] MEDS ORDERED: SODIUM CHLORIDE 0.9% 1,000 ML IV STA (09:04)
[2020-08-10] MEDS ORDERED: cefTRIAXone IN SWFI 1,000 MG/10 ML SYRINGE IVP STA (09:05)
--- NOTE | 2020-08-10 09:09 | ED ---
SOB HPI - General Stated Complaint: DIF Time Seen by Provider: 08/10/20 08:58 Source: patient, EMS, RN notes reviewed, old records reviewed Mode of arrival: EMS - History of Present Illness Initial Comments: This is a 89-year-old male who presents from a assisted via EMS place of shortness of breath hypoxemia this morning. Apparently he's had a cough also upon arrival he was found have a elevated temperature. He was found have a pulse ox in the 70s was given 6 L of oxygen when up into the low 80s upon arrival EMS place the patient on the oxygen mask which did improve his saturations in the 90s. Patient has dementia so is a somewhat poor historian. No reports of nausea vomiting chills sweats. He was diagnosed with Covid 19 10 days ago. MD Complaint: shortness of breath - Related Data Home Medications Medication Instructions Recorded Confirmed Montelukast Sodium [Singulair] 10 mg PO HS 01/14/17 08/10/20 Pravastatin Sodium [Pravachol] 40 mg PO DAILY 06/05/18 08/10/20 Donepezil [Aricept] 10 mg PO HS 07/27/18 08/10/20 Metoprolol Tartrate [Lopressor] 12.5 mg PO BID@0800,1700 07/27/18 08/10/20 Ergocalciferol (Vitamin D2) 50,000 unit PO MO@1700 09/25/19 08/10/20 [Drisdol] Acetaminophen [Tylenol 8 Hour] 650 mg PO Q4H PRN 08/10/20 08/10/20 Albuterol Sulfate [Ventolin HFA] 2 puff INHALATION RT-QID 08/10/20 08/10/20 Ascorbic Acid [Vitamin C] 1,000 mg PO DAILY 08/10/20 08/10/20 Cholecalciferol [Vitamin D3 (25 2,000 unit PO DAILY 08/10/20 08/10/20 Mcg = 1000 Iu)] Enoxaparin [Lovenox] 40 mg SQ DAILY 08/10/20 08/10/20 Guaifenesin/Dextromethorphan 10 ml PO Q4H PRN 08/10/20 08/10/20 [guaiFENesin DM] Ipratropium-Albuterol Nebulize 3 ml INHALATION RT-Q6H 08/10/20 08/10/20 [Duoneb 0.5 mg-3 mg/3 ml Soln] Levothyroxine Sodium [Synthroid] 75 mcg PO DAILY@0600 08/10/20 08/10/20 Magnesium Hydroxide [Milk of 7,200 mg PO DAILY PRN 08/10/20 08/10/20 Magnesia Concentrate] Na Phos,M-B/Na Phos,Di-Ba [Fleet 133 ml RECTAL DAILY PRN 08/10/20 08/10/20 Adult] Tamsulosin HCl [Flomax] 0.4 mg PO HS 08/10/20 08/10/20 Zinc Sulfate [Orazinc] 220 mg PO DAILY 08/10/20 08/10/20 bisacodyL [Dulcolax] 10 mg RECTAL DAILY PRN 08/10/20 08/10/20 Previous Rx's Medication Instructions Recorded lisinopriL [Zestril] 10 mg PO DAILY #30 tab 09/29/19 Allergies Allergy/AdvReac Type Severity Reaction Status Date / Time No Known Allergies Allergy Verified 08/10/20 09:31 Review of Systems ROS Statement: Those systems with pertinent positive or pertinent negative responses have been documented in the HPI. ROS Other: All systems not noted in ROS Statement are negative. Past Medical History Past Medical History: Atrial Fibrillation, Coronary Artery Disease (CAD), COPD, Dementia, Hyperlipidemia, Hypertension, Memory Impairment, Pneumonia, Prostate Disorder, Renal Disease, Respiratory Disorder, Rheumatoid Arthritis (RA), Thyroid Disorder Additional Past Medical History / Comment(s): Pneumonia with sepsis, hypoxic respiratory failure, suppose to wear home O2 at 2-3L/NC but refuses, CKD stage III, BPH, hypothyroid, lumbar disc dx, chronic back and bilateral hip pain- difficulty walking at times, possible upper GI bleed. History of Any Multi-Drug Resistant Organisms: None Reported Past Surgical History: Back Surgery, Cholecystectomy, Heart Catheterization, Orthopedic Surgery Additional Past Surgical History / Comment(s): Bilateral cataract removal and lens implants, left knee open surgery d/t injury, EGD Past Anesthesia/Blood Transfusion Reactions: No Reported Reaction Past Psychological History: No Psychological Hx Reported Past Alcohol Use History: None Reported Past Drug Use History: None Reported - Past Family History Mother Family Medical History: Cancer Additional Family Medical History / Comment(s): Mother at age 96. Unsure what type of cancer Father Family Medical History: COPD Additional Family Medical History / Comment(s): Father at age 88 from emphysema Brother(s) Additional Family Medical History / Comment(s): Patient has 7 brothers. Sister(s) Additional Family Medical History / Comment(s): Patient has 1 sister. Daughter(s) Additional Family Medical History / Comment(s): He has 4 daughters and 2 sons. General Exam - General Exam Comments Initial Comments: Pezzer well-developed asthenic appearing male was awake and alert General appearance: alert, anxious Head exam: Present: atraumatic, normocephalic, normal inspection Eye exam: Present: normal appearance, PERRL, EOMI. Absent: scleral icterus, conjunctival injection, periorbital swelling ENT exam: Present: mucous membranes dry Neck exam: Present: normal inspection, full ROM. Absent: tenderness, meningismus, lymphadenopathy Respiratory exam: Present: decreased breath sounds, other (Left lower lobe rhonchi with diminished breath sounds). Absent: respiratory distress, wheezes, rales, stridor Cardiovascular Exam: Present: regular rate, normal rhythm, normal heart sounds. Absent: systolic murmur, diastolic murmur, rubs, gallop, clicks GI/Abdominal exam: Present: soft, normal bowel sounds. Absent: distended, tenderness, guarding, rebound, rigid Extremities exam: Present: normal inspection, full ROM, normal capillary refill. Absent: tenderness, pedal edema, joint swelling, calf tenderness Back exam: Present: normal inspection Neurological exam: Present: alert, oriented X3, CN II-XII intact. Absent: motor sensory deficit Psychiatric exam: Present: normal affect, normal mood Skin exam: Present: warm, dry, intact, normal color. Absent: rash Course Vital Signs 08/10/20 08/10/20 08/10/20 09:08 09:13 09:27 Temperature 101.1 F H Pulse Rate 101 H 85 Respiratory 20 18 18 Rate Blood Pressure 126/60 126/70 O2 Sat by Pulse 92 L Oximetry 08/10/20 08/10/20 10:09 10:59 Temperature 99.0 F Pulse Rate 75 67 Respiratory 18 16 Rate Blood Pressure 119/63 120/54 O2 Sat by Pulse 97 95 Oximetry - Reevaluation(s) Reevaluation #1: 08/10/20 11:36 Examination the patient reveals no change in status he maintained saturation with oxygen. Medical Decision Making - Medical Decision Making I did discuss findings with the patient as well as with Dr. Sheppard the patient be admitted for treatment of pneumonia COPD exacerbation history of covid, acute kidney injury.. Elevation of the troponin - Lab Data Result diagrams: 08/10/20 09:20 08/10/20 09:20 Lab Results 08/10/20 08/10/20 08/10/20 Range/Units 09:20 09: 09:20 WBC 17.6 H (3.8-10.6) k/uL RBC 4.11 L (4.30-5.90) m/uL Hgb 13.5 (13.0-17.5) gm/dL Hct 40.2 (39.0-53.0) % MCV 97.8 (80.0-100.0) fL MCH 32.9 (25.0-35.0) pg MCHC 33.6 (31.0-37.0) g/dL RDW 13.5 (11.5-15.5) % Plt Count 251 (150-450) k/uL MPV 9.4 Neutrophils % 89 % Lymphocytes % 2 % Monocytes % 6 % Eosinophils % 0 % Basophils % 1 % Neutrophils # 15.8 H (1.3-7.7) k/uL Lymphocytes # 0.4 L (1.0-4.8) k/uL Monocytes # 1.1 H (0-1.0) k/uL Eosinophils # 0.1 (0-0.7) k/uL Basophils # 0.1 (0-0.2) k/uL PT 9.6 (9.0-12.0) sec INR 0.9 (<1.2) APTT 29.4 (22.0-30.0) sec D-Dimer 1.05 H (<0.60) mg/L FEU Sodium 138 (137-145) mmol/L Potassium 4.6 (3.5-5.1) mmol/L Chloride 112 H (98-107) mmol/L Carbon Dioxide 18 L (22-30) mmol/L Anion Gap 8 mmol/L BUN 54 H (9-20) mg/dL Creatinine 2.06 H (0.66-1.25) mg/dL Est GFR (CKD-EPI)AfAm 32 (>60 ml/min/1.73 sqM) Est GFR (CKD-EPI)NonAf 28 (>60 ml/min/1.73 sqM) Glucose 121 H (74-99) mg/dL Plasma Lactic Acid Geovany (0.7-2.0) mmol/L Calcium 8.4 (8.4-10.2) mg/dL Total Bilirubin 0.8 (0.2-1.3) mg/dL AST 25 (17-59) U/L ALT 23 (4-49) U/L Alkaline Phosphatase 74 (38-126) U/L Creatine Kinase 32 L (55-170) U/L Troponin I (0.000-0.034) ng/mL NT-Pro-B Natriuret Pep pg/mL Total Protein 5.7 L (6.3-8.2) g/dL Albumin 2.9 L (3.5-5.0) g/dL 08/10/20 08/10/20 08/10/20 Range/Units 09:20 09:20 09:20 WBC (3.8-10.6) k/uL RBC (4.30-5.90) m/uL Hgb (13.0-17.5) gm/dL Hct (39.0-53.0) % MCV (80.0-100.0) fL MCH (25.0-35.0) pg MCHC (31.0-37.0) g/dL RDW (11.5-15.5) % Plt Count (150-450) k/uL MPV Neutrophils % % Lymphocytes % % Monocytes % % Eosinophils % % Basophils % % Neutrophils # (1.3-7.7) k/uL Lymphocytes # (1.0-4.8) k/uL Monocytes # (0-1.0) k/uL Eosinophils # (0-0.7) k/uL Basophils # (0-0.2) k/uL PT (9.0-12.0) sec INR (<1.2) APTT (22.0-30.0) sec D-Dimer (<0.60) mg/L FEU Sodium (137-145) mmol/L Potassium (3.5-5.1) mmol/L Chloride (98-107) mmol/L Carbon Dioxide (22-30) mmol/L Anion Gap mmol/L BUN (9-20) mg/dL Creatinine (0.66-1.25) mg/dL Est GFR (CKD-EPI)AfAm (>60 ml/min/1.73 sqM) Est GFR (CKD-EPI)NonAf (>60 ml/min/1.73 sqM) Glucose (74-99) mg/dL Plasma Lactic Acid Geovany 1.7 (0.7-2.0) mmol/L Calcium (8.4-10.2) mg/dL Total Bilirubin (0.2-1.3) mg/dL AST (17-59) U/L ALT (4-49) U/L Alkaline Phosphatase (38-126) U/L Creatine Kinase (55-170) U/L Troponin I 0.298 H* (0.000-0.034) ng/mL NT-Pro-B Natriuret Pep 1510 pg/mL Total Protein (6.3-8.2) g/dL Albumin (3.5-5.0) g/dL - EKG Data -: EKG Interpreted by Me EKG shows normal: sinus rhythm EKG Comments: Sinus rhythm PACs rate 93. Interval 142 QRS 86 daily since QTC 366/435 - Radiology Data Radiology results: report reviewed (Imaging reviewed evidence of a left lower l obe pneumonia.), image reviewed Critical Care Time Critical Care Time: Yes Total Critical Care Time: 37 Critical Care Time: Critical care time includes initial presentation with history physical labs x- rays reevaluation the patient review of old charting was available discussed with the patient and admitting physician admission orders documentation the above Disposition Clinical Impression: Non-STEMI (non-ST elevated myocardial infarction), Left lower lobe pneumonia, Hypoxemia, Acute exacerbation of chronic obstructive pulmonary disease, Febrile illness, acute, History of 2019 novel coronavirus disease (COVID-19) Disposition: ADMITTED IP TO THIS HOSP Condition: Fair Referrals: Robb Sheppard MD [Primary Care Provider] - 1-2 days
[2020-08-10 09:40] LABS: Basophils # (A) 0.1 k/uL (0-0.2); Basophils % (A) 1 %; Eosinophils # (A) 0.1 k/uL (0-0.7); Eosinophils % (A) 0 %; HCT 40.2 % (39.0-53.0); HGB 13.5 gm/dL (13.0-17.5); Lymphocytes # (A) 0.4 k/uL (1.0-4.8); Lymphocytes % (A) 2 %; MCH 32.9 pg (25.0-35.0); MCHC 33.6 g/dL (31.0-37.0); MCV 97.8 fL (80.0-100.0); Mean Platelet Volume 9.4; Monocytes # (A) 1.1 k/uL (0-1.0); Monocytes % (A) 6 %; Neutrophils # (A) 15.8 k/uL (1.3-7.7); Neutrophils % (A) 89 %; Platelet Count 251 k/uL (150-450); RBC 4.11 m/uL (4.30-5.90); RDW 13.5 % (11.5-15.5); WBC 17.6 k/uL (3.8-10.6)
[2020-08-10 09:52] LABS: INR 0.9 (<1.2)
[2020-08-10 09:53] LABS: Albumin 2.9 g/dL (3.5-5.0); Calcium 8.4 mg/dL (8.4-10.2); Partial Thromboplastin Time 29.4 sec (22.0-30.0); Potassium 4.6 mmol/L (3.5-5.1); Prothrombin Time 9.6 sec (9.0-12.0); Total Bilirubin 0.8 mg/dL (0.2-1.3); Total Protein 5.7 g/dL (6.3-8.2)
[2020-08-10 09:58] LABS: D-Dimer 1.05 mg/L FEU (<0.60)
--- NOTE | 2020-08-10 10:05 | XR ---
EXAMINATION TYPE: XR chest 2V DATE OF EXAM: 08/10/2020 COMPARISON: 10/02/2019 INDICATION: Difficulty breathing TECHNIQUE: Frontal and lateral views of the chest are obtained. FINDINGS: The heart size is normal. The pulmonary vasculature is normal. Patchy infiltrate is through the left mid and lower lung field. Correlate for pneumonia. Consider aty pical pneumonia.. IMPRESSION: 1. Left mid and lower lobe infiltrate. Correlate for pneumonia and atypical pneumonia.
[2020-08-10] MEDS ORDERED: IPRATROPIUM-ALBUTEROL 3 ML NEB INHALATION PRN (11:39)
[2020-08-10] MEDS ORDERED: PNEUMONIA PROTOCOL UTILIZED 1 EACH MISC PO PRN (11:39)
[2020-08-10] MEDS ORDERED: guaiFENesin-DM 100-10MG/5ML 10 ML CUP PO PRN (11:41)
[2020-08-10] MEDS ORDERED: NA PHOS,M-B/NA PHOS,DI-BA 133 ML ENEMA RECTAL PRN (11:41)
[2020-08-10] MEDS ORDERED: MAGNESIUM HYDROXIDE 2,400 MG/10 ML CUP PO PRN (11:41)
[2020-08-10] MEDS ORDERED: bisacodyL 10 MG SUPP RECTAL PRN (11:41)
[2020-08-10] MEDS ORDERED: ACETAMINOPHEN TAB 325 MG TAB PO PRN (11:41)
[2020-08-10] MEDS ORDERED: methylPREDNISolone SOD SUCCI 125 MG/2 ML VIAL IV STA (11:43)
[2020-08-10] MEDS ORDERED: HEPARIN SODIUM,PORCINE 5,000 UNIT/ML 1 ML VIAL IV PRN (11:44)
[2020-08-10] MEDS ORDERED: HEPARIN SODIUM,PORCINE 5,000 UNIT/ML 1 ML VIAL IV ONE (11:44)
[2020-08-10] MEDS ORDERED: HEPARIN SOD,PORK IN 0.45% NACL 25,000 UNIT in 0.45% NACL 1 250ML.BAG IV SCH (11:45)
[2020-08-10] MEDS: SODIUM CHLORIDE 0.9% 1,000 ML IV SCH (14:33)
[2020-08-10] MEDS: ALBUTEROL HFA INHALER INHALATION SCH ×2 (15:37→19:33)
[2020-08-10] MEDS: METOPROLOL TARTRATE 12.5 MG TAB PO SCH (16:01)
--- NOTE | 2020-08-10 18:00 | P.CNPUL ---
History of Present Illness Consult date: 08/10/20 Reason for consult: dyspnea, hypoxemia History of present illness: 89-year-old male patient hospitalized for coronavirus/Covid 19 related pneumon ia. The patient is a poor historian. The patient presented from the [facility]. Upon arrival his pulse ox was 70% and he was placed on 6 L about 2 by nasal cannula. No nausea. No vomiting. No aspiration. He was diagnosed having coronavirus/Covid 19 approximately 10 days ago. His chest x-ray showing bilateral pulmonary infiltrates worse in the left perihilar area. White cell count is at 17.6. He does have some lymphopenia. D-dimer is at 1.05. BNP is at 54 with a creatinine of 2.06. He does have a non-anion gap metabolic acidosis with a serum bicarb of 18. He also has a troponin leak with troponin of 0.22 respectively. His proBNP level is 1510. Lactic acid level is at 1.7. LFTs are within normal limits. The patient was febrile in the emergency department and his temperature is 101.1. Review of Systems In general, the patient reported historian. CONSTITUTIONAL: He does have increased fatigue and weakness and malaise HEENT: No there are issues with hearing and vision and hearing problems. Denied any sore throat. CARDIOVASCULAR: No orthopnea, PND, no palpitations, no syncope. PULMONARY: There is increased shortness of breath, no cough, no hemoptysis. GASTROINTESTINAL: No diarrhea, no nausea, no vomiting, no abdominal pain. Normoactive bowel sounds. NEUROLOGICAL: No headaches, no weakness, no numbness. HEMATOLOGICAL: Denies any bleeding or petechiae. GENITOURINARY: Denies any burning micturition, frequency, or urgency. MUSCULOSKELETAL/RHEUMATOLOGICAL: Denies any joint pain, swelling, or any muscle pain. ENDOCRINE: Denies any polyuria or polydipsia. Past Medical History Past Medical History: Atrial Fibrillation, Coronary Artery Disease (CAD), COPD, Dementia, Hyperlipidemia, Hypertension, Memory Impairment, Pneumonia, Prostate Disorder, Renal Disease, Respiratory Disorder, Rheumatoid Arthritis (RA), Thyroid Disorder Additional Past Medical History / Comment(s): Pneumonia with sepsis, hypoxic respiratory failure, suppose to wear home O2 at 2-3L/NC but refuses, CKD stage III, BPH, hypothyroid, lumbar disc dx, chronic back and bilateral hip pain-diff iculty walking at times, possible upper GI bleed. History of Any Multi-Drug Resistant Organisms: None Reported Past Surgical History: Back Surgery, Cholecystectomy, Heart Catheterization, Orthopedic Surgery Additional Past Surgical History / Comment(s): Bilateral cataract removal and lens implants, left knee open surgery d/t injury, EGD Past Anesthesia/Blood Transfusion Reactions: No Reported Reaction Past Psychological History: No Psychological Hx Reported Past Alcohol Use History: None Reported Past Drug Use History: None Reported - Past Family History Mother Family Medical History: Cancer Additional Family Medical History / Comment(s): Mother at age 96. Unsure what type of cancer Father Family Medical History: COPD Additional Family Medical History / Comment(s): Father at age 88 from emphysema Brother(s) Additional Family Medical History / Comment(s): Patient has 7 brothers. Sister(s) Additional Family Medical History / Comment(s): Patient has 1 sister. Daughter(s) Additional Family Medical History / Comment(s): He has 4 daughters and 2 sons. Medications and Allergies Home Medications Medication Instructions Recorded Confirmed Type Montelukast Sodium [Singulair] 10 mg PO HS 01/14/17 08/10/20 History Pravastatin Sodium [Pravachol] 40 mg PO DAILY 06/05/18 08/10/20 History Donepezil [Aricept] 10 mg PO HS 07/27/18 08/10/20 History Metoprolol Tartrate [Lopressor] 12.5 mg PO BID@0800,1700 07/27/18 08/10/20 History Ergocalciferol (Vitamin D2) 50,000 unit PO MO@1700 09/25/19 08/10/20 History [Drisdol] lisinopriL [Zestril] 10 mg PO DAILY #30 tab 09/29/19 08/10/20 Rx Acetaminophen [Tylenol 8 Hour] 650 mg PO Q4H PRN 08/10/20 08/10/20 History Albuterol Sulfate [Ventolin HFA] 2 puff INHALATION RT-QID 08/10/20 08/10/20 History Ascorbic Acid [Vitamin C] 1,000 mg PO DAILY 08/10/20 08/10/20 History Cholecalciferol [Vitamin D3 (25 2,000 unit PO DAILY 08/10/20 08/10/20 History Mcg = 1000 Iu)] Enoxaparin [Lovenox] 40 mg SQ DAILY 08/10/20 08/10/20 History Guaifenesin/Dextromethorphan 10 ml PO Q4H PRN 08/10/20 08/10/20 History [guaiFENesin DM] Ipratropium-Albuterol Nebulize 3 ml INHALATION RT-Q6H 08/10/20 08/10/20 History [Duoneb 0.5 mg-3 mg/3 ml Soln] Levothyroxine Sodium [Synthroid] 75 mcg PO DAILY@0600 08/10/20 08/10/20 History Magnesium Hydroxide [Milk of 7,200 mg PO DAILY PRN 08/10/20 08/10/20 History Magnesia Concentrate] Na Phos,M-B/Na Phos,Di-Ba [Fleet 133 ml RECTAL DAILY PRN 08/10/20 08/10/20 History Adult] Tamsulosin HCl [Flomax] 0.4 mg PO HS 08/10/20 08/10/20 History Zinc Sulfate [Orazinc] 220 mg PO DAILY 08/10/20 08/10/20 History bisacodyL [Dulcolax] 10 mg RECTAL DAILY PRN 08/10/20 08/10/20 History Allergies Allergy/AdvReac Type Severity Reaction Status Date / Time No Known Allergies Allergy Verified 08/10/20 09:31 Physical Exam Vitals: Vital Signs Temp Pulse Resp BP Pulse Ox 08/10/20 15:26 60 20 122/63 96 08/10/20 14:32 94 L 08/10/20 14:21 69 18 131/69 97 08/10/20 13:00 99 F 70 20 135/60 96 08/10/20 10:59 99.0 F 67 16 120/54 95 08/10/20 10:09 75 18 119/63 97 08/10/20 09:27 85 18 126/70 08/10/20 09:13 18 08/10/20 09:08 101.1 F H 101 H 20 126/60 92 L Intake and Output 08/10/20 08/10/20 08/10/20 06:59 14:59 22:59 Other: Weight 72.575 kg GENERAL: The patient is currently on 5 L of oxygen by nasal cannula Well d eveloped, well nourished. The patient is not using incentive muscles of breathing. HEENT: Pupils are round and equally reacting to light. EOMI. No scleral icterus. No conjunctival pallor. Normocephalic, atraumatic. No pharyngeal erythema. No thyromegaly. CARDIOVASCULAR: S1 and S2 present. No murmurs, rubs, or gallops. PULMONARY: Chest is diminished breath sounds and crackles in lung bases worse on the left ABDOMEN: Soft, nontender, nondistended, normoactive bowel sounds. No palpable organomegaly. MUSCULOSKELETAL: No joint swelling or deformity. EXTREMITIES: No cyanosis, clubbing, or pedal edema. NEUROLOGICAL: Gross neurological examination did not reveal any focal deficits. The patient has underlying dementia. No agitation. No focal neurological deficits. SKIN: No rashes. Results - Laboratory Findings CBC and BMP: 08/10/20 09:20 08/10/20 09:20 PT/INR, D-dimer PT 9.6 sec (9.0-12.0) 08/10/20:20 INR 0.9 (<1.2) 08/10/20 09:20 D-Dimer 1.05 mg/L FEU (<0.60) H 08/10/20 09:20 Abnormal lab findings: Abnormal Labs 08/10/20 08/10/20 08/10/20 09:20 09:20 09:20 WBC 17.6 H RBC 4.11 L Neutrophils # 15.8 H Lymphocytes # 0.4 L Monocytes # 1.1 H D-Dimer 1.05 H Chloride 112 H Carbon Dioxide 18 L BUN 54 H Creatinine 2.06 H Glucose 121 H Creatine Kinase 32 L Troponin I Total Protein 5.7 L Albumin 2.9 L 08/10/20 08/10/20 09:20 12:45 WBC RBC Neutrophils # Lymphocytes # Monocytes # D-Dimer Chloride Carbon Dioxide BUN Creatinine Glucose Creatine Kinase Troponin I 0.298 H* 0.266 H* Total Protein Albumin - Diagnostic Findings Chest x-ray: image reviewed Assessment and Plan Plan: 1 acute bilateral coronavirus/Covid 19 related pneumonia. The patient has significant perihilar infiltration of the left. The patient presented with hypoxemia and generalized weakness and fatigue and the patient is currently on 6 L of oxygen by nasal cannula. He was febrile at time of admission. 2 acute hypoxic respiratory failure secondary to above 3 troponin leak, considerto me 4 chronic stage III kidney disease in the patient's baseline creatinine is elevated at 1.9 and the patient also has a component of non-anion gap metabolic acidosis 5 COPD 6 hypertension 7 hyperlipidemia 8. Dementia 9 hypothyroidism 10 BPH 11 chronic back pain 12 previous hospital admission for pneumonia and septic shock. He has been also hospitalized for altered mentation and delirium. Plan Continue Decadron 6 mg by mouth daily IV heparin regarding troponin leak and consult cardiology Monitor the oxygenation patient is currently on 6 L/min nc Monitor fever pattern and order inflammatory markers including CRP and LDH Discontinue the IV heparin and put the patient on Lovenox for DVT prophylaxis 40 mg subcu daily. Antibiotic coverage essentially empiric at this point in time We'll continue to follow
[2020-08-10] MEDS: DONEPEZIL 10 MG TAB PO SCH (21:03)
[2020-08-10] MEDS: TAMSULOSIN 0.4 MG CAP.ER.24H PO SCH (21:03)
[2020-08-10] MEDS: MONTELUKAST 10 MG TAB PO SCH (21:03)
[2020-08-11] MEDS: LEVOTHYROXINE 75 MCG TAB PO SCH (05:48)
[2020-08-11] MEDS: SODIUM CHLORIDE 0.9% 1,000 ML IV SCH ×2 (05:49→10:39)
--- NOTE | 2020-08-11 07:02 | XR ---
EXAMINATION TYPE: XR chest 1V DATE OF EXAM: 08/11/2020 COMPARISON: 08/10/2020 INDICATION: Short of breath, cough TECHNIQUE: Single frontal view of the chest is obtained. FINDINGS: The heart size is probably prominent. The pulmonary vasculature is upper limits of normal. Diffuse mild increased lung markings are present greatest in left lower lobe. Findings are worsening over the interval IMPRESSION: 1. Worsening bilateral lung infiltrates
[2020-08-11] MEDS: ALBUTEROL HFA INHALER INHALATION SCH ×4 (07:24→19:45)
[2020-08-11] MEDS ORDERED: dexAMETHasone 2 MG TAB PO SCH (09:00)
[2020-08-11] MEDS ORDERED: ENOXAPARIN 40 MG/0.4 ML SYRINGE SQ SCH ×2 (09:00)
[2020-08-11 09:59] LABS: Basophils % (A) 0 %; Eosinophils % (A) 0 %; HCT 44.7 % (39.0-53.0); Lymphocytes # (A) 0.5 k/uL (1.0-4.8); Lymphocytes % (A) 2 %; MCH 32.1 pg (25.0-35.0); MCHC 31.3 g/dL (31.0-37.0); MCV 102.6 fL (80.0-100.0); Macrocytosis Slight; Mean Platelet Volume 9.6; Monocytes # (A) 0.9 k/uL (0-1.0); Monocytes % (A) 5 %; Neutrophils # (A) 18.8 k/uL (1.3-7.7); Neutrophils % (A) 92 %; Platelet Count 250 k/uL (150-450); RBC 4.35 m/uL (4.30-5.90); RDW 13.9 % (11.5-15.5); WBC 20.4 k/uL (3.8-10.6)
[2020-08-11] MEDS: METOPROLOL TARTRATE 12.5 MG TAB PO SCH ×2 (10:39→18:48)
[2020-08-11] MEDS: lisinopriL 10 MG TAB PO SCH (10:40)
[2020-08-11] MEDS: DEXAMETHASONE SOD PHOSPHATE 10 MG/ML 1 ML VIAL IV SCH (10:40)
[2020-08-11] MEDS: ASCORBIC ACID 500 MG TAB PO SCH (10:40)
[2020-08-11] MEDS: CHOLECALCIFEROL 1,000 UNIT TAB PO SCH (10:40)
[2020-08-11] MEDS: PRAVASTATIN SODIUM 40 MG TAB PO SCH (10:40)
[2020-08-11] MEDS: ZINC SULFATE 220 MG CAP PO SCH (10:40)
[2020-08-11] MEDS: AZITHROMYCIN 500 MG TAB PO SCH (10:40)
[2020-08-11] MEDS ORDERED: FUROSEMIDE 10 MG/ML 4 ML VIAL IV STA (10:47)
--- NOTE | 2020-08-11 16:50 | P.PN ---
Subjective Progress Note Date: 08/11/20 89-year-old male patient hospitalized for coronavirus/Covid 19 related pneumonia. The patient is a poor historian. The patient presented from the [facility]. Upon arrival his pulse ox was 70% and he was placed on 6 L about 2 by nasal cannula. No nausea. No vomiting. No aspiration. He was diagnosed having coronavirus/Covid 19 approximately 10 days ago. His chest x-ray showing bilateral pulmonary infiltrates worse in the left perihilar area. White cell count is at 17.6. He does have some lymphopenia. D-dimer is at 1.05. BNP is at 54 with a creatinine of 2.06. He does have a non-anion gap metabolic acidosis with a serum bicarb of 18. He also has a troponin leak with troponin of 0.22 respectively. His proBNP level is 1510. Lactic acid level is at 1.7. LFTs are within normal limits. The patient was febrile in the emergency department and his temperature is 101.1. On today's evaluation of 08/11/2020, the patient is being seen for a follow-up. The patient has decompensated since yesterday. Noted the patient was on oxygen by nasal cannula and he progressively got worse and currently is on the percent nonrebreather facemask. He has also confused and has become more restless and agitated overnight. The patient has a sitter at the bedside. The follow-up chest x-ray showed worsening in the bilateral pulmonary infiltrates consistent with coronavirus/Covid 19 related pneumonia. There is a halfway resident. The patient is afebrile. The patient is hemodynamically stable at this point in time. The patient remains on IV Rocephin and azithromycin empiric antibiotic coverage and the patient is on IV Decadron and the patient is also on Lovenox 30 mg subcu on a daily basis. Objective - Vital Signs Vital signs: Vital Signs Temp 96.3 F L 08/11/20 12:00 Pulse 89 08/11/20 12:00 Resp 22 08/11/20 12:00 BP 114/55 08/11/20 12:00 Pulse Ox 83 L 08/11/20 12:00 Intake & Output 08/10/20 08/11/20 08/11/20 18:59 06:59 18:59 Intake Total 0 222 Output Total 350 Balance -350 222 Weight 72.575 kg 71.8 kg Intake: Oral 0 222 Output: Urine 350 Other: Voiding Method Urinal # Voids 1 # Bowel Movements 0 1 - Exam GENERAL: The patient is currently on 100% nonrebreather facemask Well dev eloped, well nourished. The patient is not using incentive muscles of breathing. HEENT: Pupils are round and equally reacting to light. EOMI. No scleral icterus. No conjunctival pallor. Normocephalic, atraumatic. No pharyngeal erythema. No thyromegaly. CARDIOVASCULAR: S1 and S2 present. No murmurs, rubs, or gallops. PULMONARY: Chest is diminished breath sounds and crackles in lung bases worse on the left ABDOMEN: Soft, nontender, nondistended, normoactive bowel sounds. No palpable organomegaly. MUSCULOSKELETAL: No joint swelling or deformity. EXTREMITIES: No cyanosis, clubbing, or pedal edema. NEUROLOGICAL: Gross neurological examination did not reveal any focal deficits. The patient has underlying dementia. No agitation. No focal neurological deficits. The patient was having some altered mentation delirium earlier SKIN: No rashes. - Labs CBC & Chem 7: 08/11/20 09:20 08/10/20 09:20 Labs: Abnormal Lab Results - Last 24 Hours (Table) 08/11/20 Range/Units 09:20 WBC 20.4 H (3.8-10.6) k/uL MCV 102.6 H (80.0-100.0) fL Neutrophils # 18.8 H (1.3-7.7) k/uL Lymphocytes # 0.5 L (1.0-4.8) k/uL Microbiology - Last 24 Hours (Table) 08/10/20 09:20 Blood Culture - Preliminary Blood No Growth after 24 hours Assessment and Plan Plan: 1 acute bilateral coronavirus/Covid 19 related pneumonia. 2 acute hypoxic respiratory failure secondary to above, with interval worsening in her oxygenation and bilateral pulmonary infiltrates. The patient is currently on the percent nonrebreather facemask. 3 troponin leak, secondary to above 4 chronic stage III kidney disease in the patient's baseline creatinine is elevated at 1.9 and the patient also has a component of non-anion gap metabolic acidosis 5 COPD 6 hypertension 7 hyperlipidemia 8. Dementia 9 hypothyroidism 10 BPH 11 chronic back pain 12 previous hospital admission for pneumonia and septic shock. He has been also hospitalized for altered mentation and delirium. Plan Continue Decadron 6 mg by mouth daily Lovenox subcu for DVT prophylaxis Keep the patient on the percent nonrebreather facemask and monitor the oxygenation Monitor fever pattern and order inflammatory markers including CRP and LDH. Antibiotic coverage essentially empiric at this point in time Prognosis guarded and the patient is a high risk of developing further r espiratory failure due to Covid 19 related pneumonia. We'll continue to follow. We'll continue to follow
--- NOTE | 2020-08-11 19:33 | HP ---
HISTORY AND PHYSICAL CHIEF COMPLAINT: COVID pneumonia and shortness of breath. HISTORY OF PRESENT ILLNESS: This gentleman was found to have a positive COVID-19 swab several days ago in the longterm. He was starting to have more shortness of breath and was sent in. He has severe COPD, dementia and diabetes. Review of systems is unobtainable. Past medical history, family history, and personal and social histories are unobtainable. He has a long-standing history of COPD. Renal function is abnormal and troponin is slightly elevated. Chest x-ray is suggestive of left lower lobe pneumonia. PHYSICAL EXAMINATION: Blood pressure is 143/68 with a pulse of 74, respirations of 36, and he is afebrile. In general he appeared to be dehydrated. Skin color was normal. Head, ears, eyes, nose, mouth and throat were normal. Chest demonstrated poor breath sounds with increased AP diameter. Cardiac exam sounded like sinus rhythm, and no murmurs or extra sounds. Abdomen was soft and there were no masses or tenderness. There was no visceromegaly. Extremities were normal. Neurologically he was awake, but demented. He is admitted to the hospital with diagnoses: 1. COVID pneumonia. 2. Chronic obstructive pulmonary disease. 3. Chronic kidney disease. 4. Elevated troponin. 5. Dementia. PLAN: 1. Bedrest. 2. IV fluids. 3. Consult with pulmonology and Infectious Disease. MMODL / IJN: [id number] /
--- NOTE | 2020-08-11 19:42 | PN ---
PROGRESS NOTE CHIEF COMPLAINT: COVID pneumonia. HISTORY OF PRESENT ILLNESS: This gentleman became extremely agitated and combative during the night and required some sedation. Today he is awake and alert. Vital signs are normal. PHYSICAL EXAMINATION: His chest demonstrates poor breath sounds with occasional rales. Cardiac exam demonstrated what sounds like sinus rhythm. The abdomen is soft. Extremities are normal. IMPRESSION: 1. COVID pneumonia. 2. Dementia. 3. Chronic obstructive pulmonary disease. PLAN: Family will be contacted regarding CODE STATUS. MMODL / IJN: [id number] /
[2020-08-11] MEDS: TAMSULOSIN 0.4 MG CAP.ER.24H PO SCH (20:47)
[2020-08-11] MEDS: MONTELUKAST 10 MG TAB PO SCH (20:47)
[2020-08-11] MEDS: LORazepam 2 MG/ML INJ IV PRN (20:47)
[2020-08-11] MEDS: DONEPEZIL 10 MG TAB PO SCH (20:47)
--- NOTE | 2020-08-11 23:26 | P.CONS ---
History of Present Illness - Reason for Consult Consult date: 08/11/20 pneumonia Requesting physician: Robb Sheppard - Chief Complaint shortness of breath x 1 day - History of Present Illness Patient is 89-year-old male presenting to the ER at [facility] yesterday for evaluation of difficulty in breathing and hypoxemia apparently his symptoms started the day of presentation hospital patient on arrival of EMS was noted to be hypoxic with O2 sat of 70 percent patient on presented to this hospital have a fever of 101.1 degree for night patient was hypoxic requiring supplemental oxygen high flow patient did have elevated white percentage points elevated liver 20.4 did have elevated creatinine and elevated cardiac enzymes about LFTs were normal patient did not have any CRP of procalcitonin checked patient did have a chest x-ray left mid and lower lobe infiltrate correlate for pneumonia repeat x-ray this morning he did shows worsening bilateral infiltrate patient has been started on Rocephin dexamethas one Lovenox zinc sulfate intravenously was consulted for further management most information has been obtained from review the chart and talking nursing staff and the patient was not a good historian Review of Systems Positive point has been mentioned in HPI complete review could not be obtained because of underlying mental status Past Medical History Past Medical History: Atrial Fibrillation, Coronary Artery Disease (CAD), COPD, Dementia, Hyperlipidemia, Hypertension, Memory Impairment, Pneumonia, Prostate Disorder, Renal Disease, Respiratory Disorder, Rheumatoid Arthritis (RA), Thyroid Disorder Additional Past Medical History / Comment(s): Pneumonia with sepsis, hypoxic respiratory failure, suppose to wear home O2 at 2-3L/NC but refuses, CKD stage III, BPH, hypothyroid, lumbar disc dx, chronic back and bilateral hip pain- difficulty walking at times, possible upper GI bleed. History of Any Multi-Drug Resistant Organisms: None Reported Past Surgical History: Back Surgery, Cholecystectomy, Heart Catheterization, Orthopedic Surgery Additional Past Surgical History / Comment(s): Bilateral cataract removal and le ns implants, left knee open surgery d/t injury, EGD Past Anesthesia/Blood Transfusion Reactions: No Reported Reaction Past Psychological History: No Psychological Hx Reported Additional Psychological History / Comment(s): Retired. No . Ex- smoker. No current alcohol use. Lives with his and family; has caregiver Smoking Status: Unknown if ever smoked Past Alcohol Use History: None Reported Additional Past Alcohol Use History / Comment(s): Pt started smoking in 1953 and quit in 2016. He was a cigar smoker. Past Drug Use History: None Reported Additional Drug Use History / Comment(s): pt stated he would occ use edible marijuana but has'nt in 2-3 years - Past Family History Mother Family Medical History: Cancer Additional Family Medical History / Comment(s): Mother at age 96. Unsure what type of cancer Father Family Medical History: COPD Additional Family Medical History / Comment(s): Father at age 88 from emphysema Brother(s) Additional Family Medical History / Comment(s): Patient has 7 brothers. Sister(s) Additional Family Medical History / Comment(s): Patient has 1 sister. Daughter(s) Additional Family Medical History / Comment(s): He has 4 daughters and 2 sons. Medications and Allergies Home Medications Medication Instructions Recorded Confirmed Type Montelukast Sodium [Singulair] 10 mg PO HS 01/14/17 08/10/20 History Pravastatin Sodium [Pravachol] 40 mg PO DAILY 06/05/18 08/10/20 History Donepezil [Aricept] 10 mg PO HS 07/27/18 08/10/20 History Metoprolol Tartrate [Lopressor] 12.5 mg PO BID@0800,1700 07/27/18 08/10/20 History Ergocalciferol (Vitamin D2) 50,000 unit PO MO@1700 09/25/19 08/10/20 History [Drisdol] lisinopriL [Zestril] 10 mg PO DAILY #30 tab 09/29/19 08/10/20 Rx Acetaminophen [Tylenol 8 Hour] 650 mg PO Q4H PRN 08/10/20 08/10/20 History Albuterol Sulfate [Ventolin HFA] 2 puff INHALATION RT-QID 08/10/20 08/10/20 History Ascorbic Acid [Vitamin C] 1,000 mg PO DAILY 08/10/20 08/10/20 History Cholecalciferol [Vitamin D3 (25 2,000 unit PO DAILY 08/10/20 08/10/20 History Mcg = 1000 Iu)] Enoxaparin [Lovenox] 40 mg SQ DAILY 08/10/20 08/10/20 History Guaifenesin/Dextromethorphan 10 ml PO Q4H PRN 08/10/20 08/10/20 History [guaiFENesin DM] Ipratropium-Albuterol Nebulize 3 ml INHALATION RT-Q6H 08/10/20 08/10/20 History [Duoneb 0.5 mg-3 mg/3 ml Soln] Levothyroxine Sodium [Synthroid] 75 mcg PO DAILY@0600 08/10/20 08/10/20 History Magnesium Hydroxide [Milk of 7,200 mg PO DAILY PRN 08/10/20 08/10/20 History Magnesia Concentrate] Na Phos,M-B/Na Phos,Di-Ba [Fleet 133 ml RECTAL DAILY PRN 08/10/20 08/10/20 History Adult] Tamsulosin HCl [Flomax] 0.4 mg PO HS 08/10/20 08/10/20 History Zinc Sulfate [Orazinc] 220 mg PO DAILY 08/10/20 08/10/20 History bisacodyL [Dulcolax] 10 mg RECTAL DAILY PRN 08/10/20 08/10/20 History Allergies Allergy/AdvReac Type Severity Reaction Status Date / Time No Known Allergies Allergy Verified 08/10/20 09:31 Physical Exam Vitals: Vital Signs Temp Pulse Pulse Resp BP BP Pulse Ox 08/11/20 12:00 96.3 F L 89 22 114/55 83 L 08/11/20 08:00 97.4 F L 110 H 22 125/68 90 L 08/11/20 04:13 97.4 F L 94 20 134/79 90 L 08/11/20 03:09 20 08/11/20 01:22 22 92 L 08/11/20 00:00 97.8 F 78 20 134/76 93 L 08/10/20 22:52 97.8 F 63 19 130/62 94 L 08/10/20 22:05 62 19 129/64 93 L 08/10/20 21:11 80 20 111/61 94 L 08/10/20 19:45 75 20 134/68 92 L 08/10/20 19:00 86 24 136/70 88 L 08/10/20 17:30 64 18 123/60 94 L 08/10/20 15:26 60 20 122/63 96 Intake and Output 08/10/20 08/11/20 08/11/20 22:59 06:59 14:59 Intake Total 0 222 Output Total 350 Balance -350 222 Intake: Oral 0 222 Output: Urine 350 Other: Voiding Method Urinal # Voids 1 # Bowel Movements 0 1 Weight 71.8 kg GENERAL DESCRIPTION: Elderly male lying in bed, no distress. No tachypnea or accessory muscle of respiration use. HEENT: Shows Pallor , no scleral icterus. Oral mucous membrane is dry. NECK: Trachea central, no thyromegaly. LUNGS: Unlabored breathing. Decrease intensity of breath sounds. No wheeze or crackle. HEART: S1, S2, regular rate and rhythm. ABDOMEN: Soft, no tenderness , guarding or rigidity EXTREMITIES: No edema of feet. SKIN: No rash, no masses palpable. NEUROLOGICAL: The patient is awake, alert, oriented x3, mood and affect normal. Results CBC & Chem 7: 08/11/20 09:20 12 09:20 Labs: Abnormal Lab Results - Last 24 Hours (Table) 08/11/20 Range/Units 09:20 WBC 20.4 H (3.8-10.6) k/uL MCV 102.6 H (80.0-100.0) fL Neutrophils # 18.8 H (1.3-7.7) k/uL Lymphocytes # 0.5 L (1.0-4.8) k/uL Microbiology - Last 24 Hours (Table) 08/10/20 09:20 Blood Culture - Preliminary Blood No Growth after 24 hours Assessment and Plan Assessment: 1-patient presented hospital with acute respiratory failure and suspected have significant hypoxemia with evidence of bilateral infiltrate with concern for atypical bacterial versus viral pneumonia, however in view of the increasing infiltrate in the left perihilar area concern for possible aspiration pneumonia in this patient with detention resident will need to cover for the resistant gram-negative (1) Healthcare-associated pneumonia Current Visit: No Status: Acute Code(s): J18.9 - PNEUMONIA, UNSPECIFIED ORGANISM SNOMED Code(s): 940899804 Plan: 1-discontinue the Rocephin 2-start the patient on Zosyn 3.375 g every 8 hours 3-continue with dexamethasone Lovenox and zinc with concern for possible Covid component 3-droplet isolation respiratory support We will follow on clinical condition and cultures to further adjust medication if needed Thank you for this consultation we will follow the patient along with you Time with Patient: Greater than 30
[2020-08-12] MEDS: PIPERACILLIN-TAZOBACTAM 3.375 GM in SODIUM CHLORIDE 0.9% 100 ML IVPB SCH ×4 (00:18→23:36)
[2020-08-12] MEDS: SODIUM CHLORIDE 0.9% 1,000 ML IV SCH ×2 (04:40→17:11)
[2020-08-12] MEDS: LEVOTHYROXINE 75 MCG TAB PO SCH (06:23)
[2020-08-12] MEDS: METOPROLOL TARTRATE 12.5 MG TAB PO SCH ×2 (07:59→17:05)
[2020-08-12] MEDS: ZINC SULFATE 220 MG CAP PO SCH (08:00)
[2020-08-12] MEDS: DEXAMETHASONE SOD PHOSPHATE 10 MG/ML 1 ML VIAL IV SCH (08:00)
[2020-08-12] MEDS: PRAVASTATIN SODIUM 40 MG TAB PO SCH (08:00)
[2020-08-12] MEDS: lisinopriL 10 MG TAB PO SCH (08:00)
[2020-08-12] MEDS: ASCORBIC ACID 500 MG TAB PO SCH (08:00)
[2020-08-12] MEDS: AZITHROMYCIN 500 MG TAB PO SCH (08:00)
[2020-08-12] MEDS: CHOLECALCIFEROL 1,000 UNIT TAB PO SCH (08:00)
[2020-08-12] MEDS: ENOXAPARIN 30 MG/0.3 ML SYRINGE SQ SCH (08:01)
[2020-08-12] MEDS: LORazepam 2 MG/ML INJ IV PRN ×2 (08:30→17:10)
[2020-08-12] MEDS: ALBUTEROL HFA INHALER INHALATION SCH ×4 (09:09→19:37)
--- NOTE | 2020-08-12 10:25 | P.PN ---
Subjective Progress Note Date: 08/12/20 89-year-old male patient hospitalized for coronavirus/Covid 19 related pneumonia. The patient is a poor historian. The patient presented from the assisted. Upon arrival his pulse ox was 70% and he was placed on 6 L about 2 by nasal cannula. No nausea. No vomiting. No aspiration. He was diagnosed having coronavirus/Covid 19 approximately 10 days ago. His chest x-ray showing bilateral pulmonary infiltrates worse in the left perihilar area. White cell count is at 17.6. He does have some lymphopenia. D-dimer is at 1.05. BNP is at 54 with a creatinine of 2.06. He does have a non-anion gap metabolic acidosis with a serum bicarb of 18. He also has a troponin leak with troponin of 0.22 respectively. His proBNP level is 1510. Lactic acid level is at 1.7. LFTs are within normal limits. The patient was febrile in the emergency department and his temperature is 101.1. On today's evaluation of 08/11/2020, the patient is being seen for a follow-up. The patient has decompensated since yesterday. Noted the patient was on oxygen by nasal cannula and he progressively got worse and currently is on the percent nonrebreather facemask. He has also confused and has become more restless and agitated overnight. The patient has a sitter at the bedside. The follow-up chest x-ray showed worsening in the bilateral pulmonary infiltrates consistent with coronavirus/Covid 19 related pneumonia. There is a assisted resident. The patient is afebrile. The patient is hemodynamically stable at this point in time. The patient remains on IV Rocephin and azithromycin empiric antibiotic coverage and the patient is on IV Decadron and the patient is also on Lovenox 30 mg subcu on a daily basis. On 08/12/2020 on seeing the patient for a follow-up. As mentioned earlier, the patient's condition decompensated and the patient was switched to 100% nonrebreather facemask. This morning, the patient is still in the 100% nonrebreather facemask. He is quite lethargic. The patient is on Decadron 6 mg IV on a daily basis. The patient is on Lovenox 30 mg subcu. The patient's white cell count is up to 20. Hemoglobin is at 14. He continues to have some lymphopenia. The patient is also on empiric antibiotic coverage with IV Zosyn. He is afebrile. Objective - Vital Signs Vital signs: Vital Signs Temp 96.9 F L 08/12/20 08:00 Pulse 74 08/12/20 08:00 Resp 20 08/12/20 08:00 BP 130/65 08/12/20 08:00 Pulse Ox 88 L 08/12/20 08:00 Intake & Output 08/11/20 08/12/20 08/12/20 18:59 06:59 18:59 Intake Total 462 240 Balance 462 240 Weight 76.5 kg Intake: Oral 462 240 Other: Voiding Method Urinal Urinal Diaper Incontinent # Voids 1 2 # Bowel Movements 1 0 - Exam GENERAL: The patient is currently on 100% nonrebreather facemask, is an elderly male patient of age of 89.. The patient is not using incentive muscles of breathing. HEENT: Pupils are round and equally reacting to light. EOMI. No scleral icterus. No conjunctival pallor. Normocephalic, atraumatic. No pharyngeal erythema. No thyromegaly. CARDIOVASCULAR: S1 and S2 present. No murmurs, rubs, or gallops. PULMONARY: Chest is diminished breath sounds and crackles in lung bases worse on the left ABDOMEN: Soft, nontender, nondistended, normoactive bowel sounds. No palpable organomegaly. MUSCULOSKELETAL: No joint swelling or deformity. EXTREMITIES: No cyanosis, clubbing, or pedal edema. NEUROLOGICAL: Gross neurological examination did not reveal any focal deficits. The patient has underlying dementia. No agitation. No focal neurological deficits. The patient was having some altered mentation delirium earlier SKIN: No rashes. - Labs CBC & Chem 7: 08/11/20 09:20 08/10/20 09:20 Labs: Abnormal Lab Results - Last 24 Hours (Table) 08/10/20 Range/Units 09:20 Procalcitonin 0.46 H (0.02-0.09) ng/mL Microbiology - Last 24 Hours (Table) 08/10/20 11:39 Gram Stain - Preliminary Sputum Sputum Culture - Preliminary 08/10/20 09:20 Blood Culture - Preliminary Blood No Growth after 24 hours Assessment and Plan Plan: 1 acute bilateral coronavirus/Covid 19 related pneumonia. The patient is due previous and the patient received Ativan for increased agitation. The patient remains in the 100% nonrebreather facemask. Pulse ox and the 88-90% range. His condition as decompensated. He is doing poorly at this point in time. Very much lethargic and somnolent 2 acute hypoxic respiratory failure secondary to above, with interval worsening in her oxygenation and bilateral pulmonary infiltrates. The patient is currently on the percent nonrebreather facemask. 3 troponin leak, secondary to above 4 chronic stage III kidney disease in the patient's baseline creatinine is elevated at 1.9 and the patient also has a component of non-anion gap metabolic acidosis 5 COPD 6 hypertension 7 hyperlipidemia 8. Dementia 9 hypothyroidism 10 BPH 11 chronic back pain 12 previous hospital admission for pneumonia and septic shock. He has been also hospitalized for altered mentation and delirium. Plan Continue Decadron 6 mg IV daily Lovenox subcu for DVT prophylaxis Keep the patient on the percent nonrebreather facemask and monitor the oxygenation Monitor fever pattern and order inflammatory markers including CRP and LDH. Recheck chest x-ray today Antibiotic coverage essentially empiric at this point in time Prognosis guarded and the patient is a high risk of developing further respiratory failure due to Covid 19 related pneumonia. We'll continue to follow. Strongly advise changing his CODE STATUS is DNR/DNI.
--- NOTE | 2020-08-12 10:58 | XR ---
EXAMINATION TYPE: XR chest 1V portable DATE OF EXAM: 08/12/2020 COMPARISON: 08/11/2020 INDICATION: Pneumonia, Covid TECHNIQUE: Single frontal view of the chest is obtained. FINDINGS: The heart size is normal. The pulmonary vasculature is normal. There is increasing consolidation in the left lower lobe. Small left pleural effusion is not excluded . Some developing right lower lobe infiltrate may be present. Some infiltrate is developing along the minor fissure on the right. Patient is rotated to the left. IMPRESSION: 1. Worsening infiltrates greater on the left.
[2020-08-12 11:06] LABS: Basophils # (A) 0.1 k/uL (0-0.2); Basophils % (A) 1 %; Eosinophils % (A) 0 %; HCT 39.7 % (39.0-53.0); HGB 12.9 gm/dL (13.0-17.5); Lymphocytes # (A) 0.4 k/uL (1.0-4.8); Lymphocytes % (A) 2 %; MCH 32.4 pg (25.0-35.0); MCHC 32.5 g/dL (31.0-37.0); MCV 99.7 fL (80.0-100.0); Monocytes # (A) 0.6 k/uL (0-1.0); Monocytes % (A) 3 %; Neutrophils # (A) 16.6 k/uL (1.3-7.7); Neutrophils % (A) 93 %; Platelet Count 238 k/uL (150-450); RBC 3.98 m/uL (4.30-5.90); RDW 13.7 % (11.5-15.5); WBC 17.9 k/uL (3.8-10.6)
[2020-08-12 11:38] LABS: C Reactive Protein 133.2 mg/L (<10.0)
[2020-08-12] MEDS: DONEPEZIL 10 MG TAB PO SCH (22:16)
[2020-08-12] MEDS: MONTELUKAST 10 MG TAB PO SCH (22:16)
[2020-08-12] MEDS: TAMSULOSIN 0.4 MG CAP.ER.24H PO SCH (22:16)
--- NOTE | 2020-08-12 22:48 | PN ---
PROGRESS NOTE DATE OF SERVICE: 08/12/2020 REASON FOR FOLLOWUP: Pneumonia with concern for possible aspiration. INTERVAL HISTORY: Patient is currently afebrile. The patient is hemodynamically stable, not on pressor support. However, the patient is hypoxic requiring high-flow nasal cannula oxygen. No vomiting or diarrhea reported by nursing staff. Patient was lethargic, unable to provide any history. PHYSICAL EXAMINATION: Blood pressure 115/55 with a pulse of 60, temperature 97.9. He is 99% on 10 L high- flow oxygen. General description is an elderly male lying in bed in no distress. Respiratory system: Unlabored breathing, decreased breath sounds in the base, with no wheeze. Heart S1, S2. Regular rate and rhythm. Abdomen soft, no tenderness. LABS: Hemoglobin 12.8, white count 17.9. DIAGNOSTIC IMPRESSION AND PLAN: Patient with hypoxemia with concern for possible aspiration pneumonia. X-ray showed worsening on the left lower lobe pneumonia. Patient is covered with Zosyn, to continue. Overall prognosis remains to be guarded. ( ) for possible comfort care which may be appropriate for him. Continue supportive care. MMODL / IJN: [id number] /
[2020-08-13] MEDS: SODIUM CHLORIDE 0.9% 1,000 ML IV SCH ×2 (01:44→10:26)
[2020-08-13 03:38] LABS: HCT 35.3 % (39.0-53.0); HGB 11.1 gm/dL (13.0-17.5); Hypochromasia Moderate; MCH 32.6 pg (25.0-35.0); MCHC 31.5 g/dL (31.0-37.0); MCV 103.2 fL (80.0-100.0); Macrocytosis Slight; Mean Platelet Volume 10.2; Platelet Count 297 k/uL (150-450); RBC 3.42 m/uL (4.30-5.90); RDW 13.7 % (11.5-15.5); WBC 28.4 k/uL (3.8-10.6)
[2020-08-13 03:46] LABS: Partial Thromboplastin Time 24.3 sec (22.0-30.0); Prothrombin Time 10.3 sec (9.0-12.0)
[2020-08-13] MEDS: LEVOTHYROXINE 75 MCG TAB PO SCH (05:26)
[2020-08-13] MEDS: METOPROLOL TARTRATE 12.5 MG TAB PO SCH ×2 (05:26→17:47)
[2020-08-13] MEDS: lisinopriL 10 MG TAB PO SCH (09:11)
[2020-08-13] MEDS: ENOXAPARIN 30 MG/0.3 ML SYRINGE SQ SCH (09:11)
[2020-08-13] MEDS: ASCORBIC ACID 500 MG TAB PO SCH (09:12)
[2020-08-13] MEDS: AZITHROMYCIN 500 MG TAB PO SCH (09:12)
[2020-08-13] MEDS: CHOLECALCIFEROL 1,000 UNIT TAB PO SCH (09:13)
[2020-08-13] MEDS: PRAVASTATIN SODIUM 40 MG TAB PO SCH (09:13)
[2020-08-13] MEDS: ZINC SULFATE 220 MG CAP PO SCH (09:13)
[2020-08-13] MEDS: ALBUTEROL HFA INHALER INHALATION SCH ×4 (09:39→19:38)
--- NOTE | 2020-08-13 10:20 | P.PN ---
Subjective Progress Note Date: 08/13/20 89-year-old male patient hospitalized for coronavirus/Covid 19 related pneumonia. The patient is a poor historian. [facility] Upon arrival his pulse ox was 70% and he was placed on 6 L about 2 by nasal cannula. No nausea. No vomiting. No aspiration. He was diagnosed having coronavirus/Covid 19 approximately 10 days ago. His chest x-ray showing bilateral pulmonary infiltrates worse in the left perihilar area. White cell count is at 17.6. He does have some lymphopenia. D-dimer is at 1.05. BNP is at 54 with a creatinine of 2.06. He does have a non-anion gap metabolic acidosis with a serum bicarb of 18. He also has a troponin leak with troponin of 0.22 respectively. His proBNP level is 1510. Lactic acid level is at 1.7. LFTs are within normal limits. The patient was febrile in the emergency department and his temperature is 101.1. On today's evaluation of 08/11/2020, the patient is being seen for a follow-up. The patient has decompensated since yesterday. Noted the patient was on oxygen by nasal cannula and he progressively got worse and currently is on the percent nonrebreather facemask. He has also confused and has become more restless and agitated overnight. The patient has a sitter at the bedside. The follow-up chest x-ray showed worsening in the bilateral pulmonary infiltrates consistent with coronavirus/Covid 19 related pneumonia. There is a prison resident. The patient is afebrile. The patient is hemodynamically stable at this point in time. The patient remains on IV Rocephin and azithromycin empiric antibiotic coverage and the patient is on IV Decadron and the patient is also on Lovenox 30 mg subcu on a daily basis. On 08/12/2020 on seeing the patient for a follow-up. As mentioned earlier, the patient's condition decompensated and the patient was switched to 100% nonrebreather facemask. This morning, the patient is still in the 100% nonrebreather facemask. He is quite lethargic. The patient is on Decadron 6 mg IV on a daily basis. The patient is on Lovenox 30 mg subcu. The patient's white cell count is up to 20. Hemoglobin is at 14. He continues to have some lymphopenia. The patient is also on empiric antibiotic coverage with IV Zosyn. He is afebrile. On 08/15/2020, the patient is being seen for a follow-up. He remains on the percent nonrebreather facemask. He remains on Decadron. He remains on Lovenox for DVT prophylaxis. Unfortunately, the patient has developed a GI bleed. The patient is having maroon color stool. Hemoglobin is up from 14 down to 12.9 and down to 11.1 today. The Lovenox was placed on hold. He continues to have a white cell count of 20.4 which is higher compared to yesterday. Consider reactive versus steroid-induced leukocytosis. LDH from yesterday was elevated at 1046 and a CRP was 133. The patient remains on empiric antibiotic coverage t o IV Zosyn. He is unresponsive. He is headed to a hospice care within next 24 hours. Objective - Vital Signs Vital signs: Vital Signs Temp 97.9 F 08/13/20 03:21 Pulse 109 H 08/13/20 03:21 Resp 44 H 08/13/20 03:21 BP 120/56 08/13/20 03:21 Pulse Ox 88 L 08/13/20 03:21 Intake & Output 08/12/20 08/13/20 08/13/20 18:59 06:59 18:59 Intake Total 700 Output Total 200 Balance 500 Weight 73.5 kg Intake: Intake, IV Titration 700 Amount Piperacillin-Tazobactam 3 100 .375 gm In Sodium Chloride 0.9% 100 ml @ 25 mls/hr IVPB Q8HR SUMEET Rx# :[id number] Sodium Chloride 0.9% 1, 600 000 ml @ 100 mls/hr IV . Q10H SUMEET Rx#:[id number] Output: Urine 200 Other: Voiding Method Urinal Urinal Diaper Diaper Incontinent Incontinent # Voids 3 1 # Bowel Movements 1 - Exam GENERAL: The patient is currently on 100% nonrebreather facemask, is an elderly male patient of age of 89.. The patient is not using incentive muscles of breathing. HEENT: Pupils are round and equally reacting to light. EOMI. No scleral icterus. No conjunctival pallor. Normocephalic, atraumatic. No pharyngeal erythema. No thyromegaly. CARDIOVASCULAR: S1 and S2 present. No murmurs, rubs, or gallops. PULMONARY: Chest is diminished breath sounds and crackles in lung bases worse on the left ABDOMEN: Soft, nontender, nondistended, normoactive bowel sounds. No palpable organomegaly. MUSCULOSKELETAL: No joint swelling or deformity. EXTREMITIES: No cyanosis, clubbing, or pedal edema. NEUROLOGICAL: Gross neurological examination did not reveal any focal deficits. The patient has underlying dementia. No agitation. No focal neurological deficits. The patient was having some altered mentation delirium earlier SKIN: No rashes. - Labs CBC & Chem 7: 08/13/20 03:17 08/10/20 09:20 Labs: Abnormal Lab Results - Last 24 Hours (Table) 08/12/20 08/12/20 08/13/20 Range/Units 10:12 10:38 03:17 WBC 17.9 H 28.4 H (3.8-10.6) k/uL RBC 3.98 L 3.42 L (4.30-5.90) m/uL Hgb 12.9 L 11.1 L (13.0-17.5) gm/dL Hct 35.3 L (39.0-53.0) % MCV 103.2 H (80.0-100.0) fL Neutrophils # 16.6 H (1.3-7.7) k/uL Lymphocytes # 0.4 L (1.0-4.8) k/uL Lactate Dehydrogenase 1046 H (313-618) U/L C-Reactive Protein 133.2 H (<10.0) mg/L Microbiology - Last 24 Hours (Table) 08/10/20 11:39 Gram Stain - Final Sputum Sputum Culture - Final 08/10/20 09:20 Blood Culture - Preliminary Blood No Growth after 48 hours Assessment and Plan Plan: 1 acute bilateral coronavirus/Covid 19 related pneumonia. The patient remains in the 100% nonrebreather facemask. Pulse ox and the 88-90% range. She remains obtunded and somnolent. The patient's condition is essentially unchanged compared to yesterday. He continues to have a insufficiency. Chest x-ray still showing bilateral perihilar pulmonary infiltrates worse in the left extending to the periphery. The patient remains on the percent nonrebreather facemask. Furthermore, there is a complication of a GI bleeding on today's evaluation further drop in hemoglobin. He'll occasionally communicates and talks. I was told this by the nursing staff. He did not communicate with me. 2 acute hypoxic respiratory failure secondary to above, with interval worsening in her oxygenation and bilateral pulmonary infiltrates. The patient is currently on the percent nonrebreather facemask. 3 troponin leak, secondary to above 4 chronic stage III kidney disease in the patient's baseline creatinine is elevated at 1.9 and the patient also has a component of non-anion gap metabolic acidosis 5 COPD 6 hypertension 7 hyperlipidemia 8 Dementia 9 hypothyroidism 10 BPH 11 chronic back pain 12 previous hospital admission for pneumonia and septic shock. He has been also hospitalized for altered mentation and delirium. 13 blood loss anemia with a possibility of a GI bleeding. Plan Continue Decadron 6 mg IV daily Lovenox subcu for DVT prophylaxis Keep the patient on the percent nonrebreather facemask and monitor the oxygenat ion. chest x-ray done yesterday and it was not the bedside showed bilateral pulmonary infiltrates worse on the left compared to the right, perihilar. The patient remains on IV Zosyn. The patient remains on Decadron. Antibiotic coverage essentially empiric at this point in time Prognosis guarded and the patient is a high risk of developing further respiratory failure due to Covid 19 related pneumonia. We'll continue to follow. Full Lovenox for now and monitor the hemoglobin. Strongly advise hospice care.
[2020-08-13] MEDS: PIPERACILLIN-TAZOBACTAM 3.375 GM in SODIUM CHLORIDE 0.9% 100 ML IVPB SCH ×3 (10:24→23:29)
[2020-08-13] MEDS: DEXAMETHASONE SOD PHOSPHATE 10 MG/ML 1 ML VIAL IV SCH (10:26)
--- NOTE | 2020-08-13 13:05 | DS ---
DISCHARGE SUMMARY CHIEF COMPLAINT: COVID Pneumonia. HISTORY OF PRESENT ILLNESS AND PHYSICAL EXAMINATION: Details of this gentleman's history and physical can be found in the initial workup. LABORATORY STUDIES: While he was in the hospital he had laboratory studies, details of which can be found in the laboratory section of his chart. COURSE IN THE HOSPITAL: After admission he was placed on bedrest, started on intravenous fluids, nasal O2. He became extremely agitated, which was related to his dementia, altered surroundings and his infection. He responded to sedation. He remained relatively stable. The family requested that he be transferred back to [facility] on hospice so that he could be with his who is also an inpatient in that facility. Arrangements were made with hospice and he was to be transferred [facility] on . FINAL DIAGNOSES: 1. COVID pneumonitis. 2. Chronic obstructive pulmonary disease. 3. Dementia. 4. Delirium. 5. Non ST-elevation myocardial infarction. OPERATIONS: None. CONSULTATIONS: Cardiology, Infectious Disease and Pulmonology. He is improved. MMRYLEE / IJN: [id number] /
[2020-08-13] MEDS: LORazepam 2 MG/ML INJ IV PRN (13:06)
[2020-08-13 18:28] LABS: HCT 30.7 % (39.0-53.0); HGB 9.7 gm/dL (13.0-17.5); MCH 31.6 pg (25.0-35.0); MCHC 31.5 g/dL (31.0-37.0); MCV 100.3 fL (80.0-100.0); Macrocytosis Slight; Mean Platelet Volume 10.5; Platelet Count 299 k/uL (150-450); RBC 3.06 m/uL (4.30-5.90); RDW 14.3 % (11.5-15.5); WBC 21.8 k/uL (3.8-10.6)
[2020-08-13] MEDS: TAMSULOSIN 0.4 MG CAP.ER.24H PO SCH (23:00)
[2020-08-13] MEDS: DONEPEZIL 10 MG TAB PO SCH (23:00)
[2020-08-13] MEDS: MONTELUKAST 10 MG TAB PO SCH (23:00)
[2020-08-14] MEDS: LEVOTHYROXINE 75 MCG TAB PO SCH (06:50)
[2020-08-14] MEDS: SODIUM CHLORIDE 0.9% 1,000 ML IV SCH (06:54)
[2020-08-14] MEDS: ALBUTEROL HFA INHALER INHALATION SCH ×3 (08:26→15:53)
[2020-08-14] MEDS: CHOLECALCIFEROL 1,000 UNIT TAB PO SCH (09:11)
[2020-08-14] MEDS: ASCORBIC ACID 500 MG TAB PO SCH (09:11)
[2020-08-14] MEDS: METOPROLOL TARTRATE 12.5 MG TAB PO SCH (09:11)
[2020-08-14] MEDS: AZITHROMYCIN 500 MG TAB PO SCH (09:11)
[2020-08-14] MEDS: ZINC SULFATE 220 MG CAP PO SCH (09:12)
[2020-08-14] MEDS: ENOXAPARIN 30 MG/0.3 ML SYRINGE SQ SCH (09:12)
[2020-08-14] MEDS: PRAVASTATIN SODIUM 40 MG TAB PO SCH (09:12)
[2020-08-14] MEDS: lisinopriL 10 MG TAB PO SCH (09:13)
[2020-08-14] MEDS: DEXAMETHASONE SOD PHOSPHATE 10 MG/ML 1 ML VIAL IV SCH (09:20)
[2020-08-14] MEDS: PIPERACILLIN-TAZOBACTAM 3.375 GM in SODIUM CHLORIDE 0.9% 100 ML IVPB SCH (09:20)
[2020-08-14 10:19] VITALS: RESP 32
[2020-08-14 11:47] VITALS: BP 95/54; PULSE 124; TEMP 96.9
[2020-08-14] MEDS ORDERED: ERGOCALCIFEROL 50,000 UNIT CAP PO SCH (17:00)
== END 2020-08-14 15:52 | disposition expired | DRG 177 ==
LOC: EC 08:58 → 3SCARD 11:39
PROVIDERS: ADMIT Family Medicine; ATTEND Family Medicine
DX: U07.1 COVID-19 (principal); J12.89 Other viral pneumonia; J96.01 Acute respiratory failure with hypoxia; I21.4 Non-ST elevation (NSTEMI) myocardial infarction; J18.9 Pneumonia, unspecified organism; E87.2 Acidosis; J44.0 Chronic obstructive pulmonary disease with (acute) lower respiratory infection; J44.1 Chronic obstructive pulmonary disease with (acute) exacerbation; F05 Delirium due to known physiological condition; Z66 Do not resuscitate; Z51.5 Encounter for palliative care; Z96.1 Presence of intraocular lens; M06.9 Rheumatoid arthritis, unspecified; N40.0 Benign prostatic hyperplasia without lower urinary tract symptoms; N18.30 Chronic kidney disease, stage 3 unspecified; I25.10 Atherosclerotic heart disease of native coronary artery without angina pectoris; E78.5 Hyperlipidemia, unspecified; E11.22 Type 2 diabetes mellitus with diabetic chronic kidney disease; E03.9 Hypothyroidism, unspecified; D72.810 Lymphocytopenia; F03.90 Unspecified dementia, unspecified severity, without behavioral disturbance, psychotic disturbance, mood disturbance, and anxiety; I12.9 Hypertensive chronic kidney disease with stage 1 through stage 4 chronic kidney disease, or unspecified chronic kidney disease; I48.91 Unspecified atrial fibrillation; Z79.890 Hormone replacement therapy; Z79.01 Long term (current) use of anticoagulants; Z79.899 Other long term (current) drug therapy; Z87.891 Personal history of nicotine dependence; Z86.19 Personal history of other infectious and parasitic diseases; Z82.5 Family history of asthma and other chronic lower respiratory diseases; Z90.49 Acquired absence of other specified parts of digestive tract; Z98.890 Other specified postprocedural states; Z98.42 Cataract extraction status, left eye; Z98.41 Cataract extraction status, right eye; Z87.01 Personal history of pneumonia (recurrent); Z80.9 Family history of malignant neoplasm, unspecified
CPT/HCPCS: 36415; 71045; 71046; 80053; 82272; 82550; 83605; 83615; 83880; 84145; 84484; 85025; 85027; 85379; 85610; 85730; 86140; 87040; 87070; 87205; 93005; 94640; 96361; 96365; 96366; 96375; 96376; 99291

== ENCOUNTER 2020-08-14 15:58 | Inpatient (IN) | payer MEDICAID ==
[2020-08-14] MEDS ORDERED: ATROPINE OPHTH SOLN 1% 5ML BTL SUBLINGUAL PRN (16:26)
[2020-08-14] MEDS ORDERED: LORazepam 2 MG/ML INJ IV PRN (16:26)
[2020-08-14] MEDS ORDERED: MORPHINE SULFATE 2 MG/ML SYRINGE IV PRN (16:26)
[2020-08-14 16:43] VITALS: BP 127/60; TEMP 99.1
[2020-08-14] MEDS ORDERED: SCOPOLAMINE 1.5MG/72HR PATCH TRANSDERM SCH (17:00)
[2020-08-15 00:05] VITALS: PULSE 100; RESP 28
== END 2020-08-14 22:48 | disposition expired | DRG 951 ==
LOC: 3SCARD 15:58
PROVIDERS: ADMIT Family Medicine; ATTEND Family Medicine
DX: Z51.5 Encounter for palliative care (principal); U07.1 COVID-19; J12.89 Other viral pneumonia; F03.90 Unspecified dementia, unspecified severity, without behavioral disturbance, psychotic disturbance, mood disturbance, and anxiety; J44.9 Chronic obstructive pulmonary disease, unspecified; N18.9 Chronic kidney disease, unspecified; R77.8 Other specified abnormalities of plasma proteins; Z79.899 Other long term (current) drug therapy